=== PATIENT | male | born 1930 | race Caucasian/White ===

== ENCOUNTER 2016-07-18 06:08 | Inpatient (IN) | payer OTHER, BC ==
--- NOTE | 2016-07-18 06:21 | PDOC ---
[id number], EMS - History of Present Illness Initial Comments: 07/18/16 06:31 86yo m from home biba after mechanical fall from bed. He is answering questions appropriately and says he has no complaints at this time. He was found on the floor on the LEFT lateral side an hour after sliding off of the mattress. EMS indicates there is a significant social issue in the home with significant amount of disarray, very poorly kept and hoarding as well. He is urinary/fecal incontinent and they indicate the mattress was absolutely covered in old and new urine. Accodring to the , he is at neurologic baseline and has no recent issues. He has h/o CVA remotely. The patient specifically denies chest pain, palpitations, SOB, headache, n/v and no abdominal pain reported. Timing/Duration: 1 hour Severity: mild Past History - Travel Traveled outside of the country in the last 30 days: No Close contact w/someone who was outside of country & ill: No - Past Medical History Allergies/Adverse Reactions: Allergies Allergy/AdvReac Type Severity Reaction Status Date / Time No Known Allergies Allergy Verified 07/18/16 06:35 Home Medications: Ambulatory Orders Amlodipine Besylate/Benazepril [Lotrel 5-40 mg Capsule] 1 each PO DAILY Atorvastatin Ca [Lipitor] 20 mg PO HS 12/05/15 Glyburide 10 mg PO BID 12/05/15 Acetaminophen [Tylenol .Regular Strength -] 650 mg PO Q6H PRN #0 tablet Donepezil HCl [Aricept] 10 mg PO DAILY #30 tablet 07/21/16 Insulin (Levemir) [Levemir Vial] 10 units SQ BID #20 ml 07/21/16 CVA: Yes Diabetes: Yes HTN: Yes Hypercholesterolemia: Yes Suicide Attempt (Hx): No - Psycho/Social/Smoking Cessation Hx Suicidal Ideation: No Smoking History: Unknown if ever smoked Have you smoked in the past 12 months: No If you are a former smoker, when did you quit?: 52 yrs old Drug/Substance Use Hx: No Review of Systems - Review of Systems Is the patient limited Pashto proficient: No Constitutional: Yes: Weakness. No: Chills, Diaphoresis, Fever, Loss of Appetite , Malaise, Night Sweats HEENTM: No: Eye Pain, Blurred Vision, Tearing, Double Vision, Nose Bleeding, Hearing Loss Respiratory: No: Cough, Shortness of Breath, Wheezing Cardiac (ROS): No: Chest Pain, Edema, Irregular Heart Rate, Palpitations ABD/GI: No: Abdominal Distended, Abd. Pain w/ defecation, Constipated, Diarrhea , Tarry Stools : No: Dysuria, Discharge, Frequency Musculoskeletal: No: Back Pain, Joint Pain, Muscle Pain Integumentary: No: Bruising, Change in Color, Rash Neurological: No: Headache, Numbness, Paresthesia, Seizure, Weakness Psychiatric: No: Anxiety *Physical Exam - Physical Exam General Appearance: Yes: Disheveled, Obese, Other (malodorous, covered in feces , particularly in the groin and crural folds; extremly poor hydgiene.). No: Apparent Distress HEENT: positive: CHRISTINA, Normal ENT Inspection, Normal Voice, Symmetrical, Pharynx Normal. negative: Photophobia, Scleral Icterus (R), Scleral Icterus (L) , Pharyngeal Erythema, Tonsillar Exudate, Tonsillar Erythema Neck: positive: Trachea midline Respiratory/Chest: positive: Lungs Clear, Normal Breath Sounds. negative: Chest Tender, Respiratory Distress, Accessory Muscle Use Cardiovascular: positive: Regular Rhythm, Regular Rate, S1, S2. negative: Edema , JVD, Murmur Vascular Pulses: Dorsalis-Pedis (R): 1+, Doralis-Pedis (L): 1+ Gastrointestinal/Abdominal: positive: Normal Bowel Sounds, Soft, Other (obese abdomen, no hernia, normal bowel sounds; no surgical scars.). negative: Tender , Flat, Organomegaly, Pulsatile Mass Lymphatic: negative: Adenopathy Musculoskeletal: positive: Normal Inspection. negative: CVA Tenderness, Decreased Range of Motion, Muscle Spasm, Vertebral Tenderness Extremity: positive: Normal Capillary Refill, Other (significant chronic stasis changes; no evidence of cellulitis ulcerations; stage I decubitus ulcer). negative: Normal Inspection Integumentary: positive: Normal Color, Dry, Warm Neurologic: positive: local telephone operator II-XII NML intact, Fully Oriented, Alert, Normal Mood/ Affect, Normal Response Heart Score/ECG Review - ECG Intrepretation Rhythm: Regular Rhythm (NSR 103, normal axis, no LVH, no obvious ischemia; nonspecific T wave abnormality noted; RBBB.) ED Treatment Course - LABORATORY CBC & Chemistry Diagram: 07/20/16 05:42 07/21/16 06:00 Medical Decision Making - Medical Decision Making 07/18/16 06:45 This is an 86yo m with very poor home condition, poor personal hygiene and likely not able to care for self, based on the description of the home. I have asked if there is any family and he replies no children and no next of kin other than his . He indicates no current symptoms. He had suffered a mechanical slip and fall while trying to get out of bed while walking to the bathroom. I am concerned about the SORS criteria and h/o cellulitis however, no objective evidence of this is present. More concerning is from a social perspective and it is apparent the patient is in need of social service evaluation and intervention. I will give the patient gentle hydration and I will need to sign the patient out to Dr. Razo who will follow up the diagnostics and I will endorse admission. Although he is answering questions appropriately at this time, per EMS he was not answering questions and looked confused, even when speaking to him in Faroese. Will obtain CT head noncontrast. No focality is noted on PE. 07/18/16 06:54 Significant leukocytosis is noted at 23k. Will start rocephin to cover empirically for suspected and likely UTI as well as potential lung coverage pending CXR; he has no complaints of cough. EKG is reassuring and consistent with 08/2014. *DC/Admit/Observation/Transfer Diagnosis at time of Disposition: Acute on chronic renal failure, Elevation of cardiac enzymes Leukocytosis Qualifiers: Leukocytosis type: unspecified Qualified Code(s): D72.829 - Elevated white blood cell count, unspecified - Discharge Dispostion Disposition: [facility] F[facility] Condition at time of disposition: Improved Admit: No - Prescriptions - Attestations Physician Attestion: 08/12/16 06:48 I, Dr. Tomer Richardson MD, attest that this document has been prepared under my direction and personally reviewed by me in its entirety. I further attest, that it accurately reflects all work, treatment, procedures and medical decision -making performed by me.
[2016-07-18 06:37] LABS: MCH 27.7 pg (25.7-33.7); MCHC 33.1 g/dl (32.0-35.9); MEAN CELL VOLUME 83.7 fl (80-96); MEAN PLT VOLUME 9.4 fl (7.5-11.1); PLATELET COUNT 192 K/MM3 (134-434); RDW 15.6 % (11.9-15.9)
[2016-07-18] MEDS ORDERED: CEFTRIAXONE 1,000 MG in DEXTROSE 5%-WATER - 50 ML IVPB ONE (06:53)
[2016-07-18] MEDS ORDERED: CEFTRIAXONE 50 ML ONE (06:57)
[2016-07-18 06:58] LABS: INR 1.2 (0.82-1.09); PROTHROMBIN TIME (PATIENT) 13.2 SEC (9.98-11.88)
[2016-07-18] MEDS ORDERED: SODIUM CHLORIDE 0.9% 500 ML INFUS.BAG IV ONE (07:03)
[2016-07-18 07:05] LABS: ALBUMIN 3.2 g/dl (3.4-5.0); CALCIUM 9.1 mg/dL (8.5-10.1); CREATININE 2.1 mg/dL (0.7-1.3)
[2016-07-18 07:06] LABS: MAGNESIUM 2.3 mg/dL (1.8-2.4); PHOSPHOROUS 2.9 mg/dL (2.5-4.9)
[2016-07-18 07:18] LABS: TOT PROT 7.4 g/dl (6.4-8.2); TROPONIN I 0.18 ng/ml (0.00-0.05)
[2016-07-18] MEDS ORDERED: VANCOMYCIN 1,000 MG in DEXTROSE 5%-WATER - 250 ML IVPB ONE (07:43)
[2016-07-18] MEDS ORDERED: VANCOMYCIN 1 GRAM (PRE-DOCKED) 250 ML IVPB ONE (07:45)
[2016-07-18] MEDS ORDERED: SODIUM CHLORIDE 500 ML IV ONE (07:45)
--- NOTE | 2016-07-18 07:50 | PDOC ---
*Physical Exam - Vital Signs Last Vital Signs Temp Pulse Resp BP Pulse Ox 98.3 F 96 H 18 154/91 96 07/18/16 06:35 07/18/16 07:37 07/18/16 07:37 07/18/16 07:37 07/18/16 07:37 - Physical Exam Comments: 07/18/16 07:47 Blood pressure 150/70, heart rate 90, afebrile 99.7 rectally, O2 sat within normal limits. Unkempt, but alert and not in acute distress ED Treatment Course - LABORATORY CBC & Chemistry Diagram: 07/18/16 06:15 07/18/16 06:15 - ADDITIONAL ORDERS Additional order review: Laboratory Results 07/18/16 07/18/16 07/18/16 06:15 06:15 06:15 INR 1.20 H Sodium Potassium Chloride Carbon Dioxide Anion Gap BUN Creatinine Creat Clearance w eGFR Random Glucose Lactic Acid Calcium Phosphorus 2.9 Magnesium 2.3 D Total Bilirubin AST ALT Alkaline Phosphatase Creatine Kinase Creatine Kinase Index CK-MB (CK-2) CK-MB (CK-2) Rel Index Cancelled Troponin I B-Natriuretic Peptide 487.48 H Total Protein Albumin Lipase 112 Blood Type Antibody Screen 07/18/16 07/18/16 07/18/16 06:15 06:15 06:15 INR Sodium 139 Potassium 5.3 H Chloride 103 Carbon Dioxide 23 Anion Gap 13 BUN 29 H D Creatinine 2.1 H D Creat Clearance w eGFR 30.24 Random Glucose 211 H D Lactic Acid 3.844 H* Calcium 9.1 Phosphorus Magnesium Total Bilirubin 1.0 D AST 56 H D ALT 36 Alkaline Phosphatase 113 D Creatine Kinase 1697 H D Creatine Kinase Index 0.3 CK-MB (CK-2) 4.453 H CK-MB (CK-2) Rel Index Troponin I 0.18 H D B-Natriuretic Peptide Total Protein 7.4 Albumin 3.2 L Lipase Blood Type O NEGATIVE Antibody Screen Negative 07/18/16 06:15 RBC 5.13 MCV 83.7 MCHC 33.1 RDW 15.6 MPV 9.4 Neutrophils % Y Lymphocytes % Y - Medications Given in the ED: ED Medications Discontinued Medications Generic Name Dose Route Start Last Admin Trade Name Freq PRN Reason Stop Dose Admin Ceftriaxone Sodium 1,000 mg/ 50 mls @ 100 mls/hr 07/18/16 06:53 07/18/16 07:03 Dextrose IVPB 07/18/16 07:22 100 mls/hr ONCE ONE Administration Sodium Chloride 500 ml 07/18/16 07:03 07/18/16 07:05 Normal Saline - IV 07/18/16 07:04 500 ml ONCE ONE Administration Medical Decision Making - Medical Decision Making 07/18/16 07:47 Received signout on this 86-year-old male with history of CVA brought in by EMS after fall to ground, vital signs within normal limits here but noted to be disheveled, unkempt, and generally weak appearing. Workup at the time of sign out revealed a leukocytosis of 23, a normal head CT, a chest x-ray without acute infiltrate. A dose of ceftriaxone was given, IV fluid hydration had been started, and the plan was to admit the patient once workup completed. Chemistries now resulted, notable for creatinine of 2.1 which is elevated for the patient, potassium of 5.3, elevated troponin of 0.18, and elevated lactate of 3.8. Broadened antibiotic coverage with vancomycin, continue IV fluid hydration. Awaiting UA/cx. Will proceed with admission, Dr. Coffey/Cristiano covarrubias Aneesh. 07/18/16 08:07 Acetone negative. Accepted for inpatient tele by Dr. Coffey. *DC/Admit/Observation/Transfer Diagnosis at time of Disposition: Acute on chronic renal failure, Elevation of cardiac enzymes Leukocytosis Qualifiers: Leukocytosis type: unspecified Qualified Code(s): D72.829 - Elevated white blood cell count, unspecified - Discharge Dispostion Condition at time of disposition: Guarded Admit: Yes
[2016-07-18] MEDS ORDERED: ACETAMINOPHEN 325 MG TABLET (FP) PO PRN (09:09)
[2016-07-18 09:35] LABS: URINE APPEARANCE CLEAR; URINE BILIRUBIN NEGATIVE (NEGATIVE); URINE COLOR YELLOW; URINE GLUCOSE (UA) 1+ (NEGATIVE); URINE KETONE NEGATIVE (NEGATIVE); URINE LEUK ESTERASE NEGATIVE (NEGATIVE); URINE NITRITE NEGATIVE (NEGATIVE); URINE UROBILINOGEN NEGATIVE E.U./dl (0.2-1.0)
[2016-07-18 09:45] LABS: URINE BLOOD 2+ (NEGATIVE); URINE PROTEIN 2+ (NEGATIVE)
[2016-07-18 10:28] VITALS: BMI 30.5
--- NOTE | 2016-07-18 10:51 | HP ---
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 He is answering questions appropriately and says he has no complaints at this time. He was found on the floor on the LEFT lateral side an hour after sliding off of the mattress. EMS indicates there is a significant social issue in the home with significant amount of disarray, very poorly kept and hoarding as well. He is urinary/fecal incontinent and they indicate the mattress was absolutely covered in old and new urine. Accodring to the , he is at neurologic baseline and has no recent issues. He has h/o CVA remotely. The patient specifically denies chest pain, palpitations, SOB, headache, n/v and no abdominal pain reported. Workup revealed leukocytosis with L shift. Lactic acid is also elevated. Patient given broad spectrum abx as well as IVF in ED. CXr is negative. UA is negative. Patient has mild elevation of troponins. Patient admitted to telemetry for sepsis and elevated trops. Patient seen by me in telemetry. Case was discussed earlier today with ED physician. Patient awake and comfortable. Sitting in the chair. Denies any chest pain or SOB. Denies any abdominal pain. Denies urinary burning. Patient is alert and awake but a poor historian. <Kandi Blanco - Last Filed: 07/18/16 11:13> Home Medications <Adal Coffey - Last Filed: 07/18/16 10:51> <Kandi Blanco - Last Filed: 07/18/16 11:13> - Allergies Allergies/Adverse Reactions: Allergies Allergy/AdvReac Type Severity Reaction Status Date / Time No Known Allergies Allergy Verified 07/18/16 06:35 - Home Medications Home Medications: Ambulatory Orders Amlodipine Besylate/Benazepril [Lotrel 5-40 mg Capsule] 1 each PO DAILY Atorvastatin Ca [Lipitor] 20 mg PO HS 12/05/15 Furosemide [Lasix -] 40 mg PO DAILY 12/05/15 Glyburide 10 mg PO BID 12/05/15 Potassium Chloride [Klor-Con 10] 20 meq PO DAILY 12/05/15 Acetaminophen [Tylenol .Regular Strength -] 650 mg PO Q6H PRN #0 tablet Amlodipine Besylate [Norvasc -] 5 mg PO DAILY tablet 12/08/15 Cephalexin [Keflex] 500 mg PO TID #30 capsule 12/08/15 Collagenase Clostridium Hist. [Santyl -] 1 applic TP DAILY #1 tube 12/08/15 Review of Systems Findings/Remarks: See HPI <Kandi Blanco - Last Filed: 07/18/16 11:13> Physical Examination Vital Signs: Vital Signs Temperature 98.3 F 07/18/16 06:35 Pulse Rate 97 H 07/18/16 08:52 Respiratory Rate 18 07/18/16 08:52 Blood Pressure 141/81 07/18/16 08:52 O2 Sat by Pulse Oximetry (%) 98 07/18/16 08:52 <Adal Coffey - Last Filed: 07/18/16 10:51> Vital Signs: Vital Signs Temperature 98.3 F 07/18/16 06:35 Pulse Rate 97 H 07/18/16 08:52 Respiratory Rate 18 07/18/16 08:52 Blood Pressure 141/81 07/18/16 08:52 O2 Sat by Pulse Oximetry (%) 98 07/18/16 08:52 Constitutional: Yes: No Distress, Calm Eyes: Yes: PERRL HENT: Yes: WNL Neck: Yes: WNL, Supple Cardiovascular: Yes: Regular Rate and Rhythm Respiratory: Yes: CTA Bilaterally Gastrointestinal: Yes: Soft Edema: No Neurological: Yes: Alert, Other (nonfocal) <Kandi Blanco - Last Filed: 07/18/16 11:13> Imaging - Results Chest X-ray: Report Reviewed EKG: Report Reviewed <Kandi Blanco - Last Filed: 07/18/16 11:13> Problem List - Problems (1) Acute on chronic renal failure Code(s): N17.9 - ACUTE KIDNEY FAILURE, UNSPECIFIED N18.9 - CHRONIC KIDNEY DISEASE, UNSPECIFIED (2) Elevation of cardiac enzymes Code(s): R74.8 - ABNORMAL LEVELS OF OTHER SERUM ENZYMES (3) Leukocytosis Code(s): D72.829 - ELEVATED WHITE BLOOD CELL COUNT, UNSPECIFIED Qualifiers: Leukocytosis type: unspecified Qualified Code(s): D72.829 - Elevated white blood cell count, unspecified (4) Diabetes Code(s): E11.9 - TYPE 2 DIABETES MELLITUS WITHOUT COMPLICATIONS (5) HTN (hypertension) Code(s): I10 - ESSENTIAL (PRIMARY) HYPERTENSION (6) Sepsis Code(s): A41.9 - SEPSIS, UNSPECIFIED ORGANISM <Kandi Blanco - Last Filed: 07/18/16 11:13> Assessment/Plan Monitor on telemetry. Broad spectrum abx. IVF. ID to evaluate. Cardiology consult. Hold diabetic medications. Fall precautions. PT Follow up labs. Patient will need psychotherapist social worker help-- likely unable to take care of himself. Will follow. Documentation prepared by Kandi Blanco, acting as a medical lab specialist for Adal Coffey MD. <Kandi Blanco - Last Filed: 07/18/16 11:13>
[2016-07-18 11:00] LABS: URINE HYALINE CAST 1 /lpf; URINE MUCUS RARE; URINE RBC 2 /hpf (0-3); URINE WBC <1 /hpf (3-5)
[2016-07-18] MEDS ORDERED: INSULIN SLIDING SCALE (NOVOLOG) 1 VIAL SQ SCH (11:00)
--- NOTE | 2016-07-18 11:34 | CON.CARD ---
Consult Consult Specialty:: cardio Referred by:: ariadna Reason for Consultation:: fall - History of Present Illness Chief Complaint: fall History of Present Illness: 86 yo male admitted s/p fall. history per ER notes (per their discussion with ): mechanical fall from bed. He is answering questions appropriately and says he has no complaints at this time. He was found on the floor on the LEFT lateral side an hour after sliding off of the mattress--?. EMS indicates there is a significant social issue in the home with significant amount of disarray, very poorly kept and hoarding as well. He is urinary/fecal incontinent and they indicate the mattress was absolutely covered in old and new urine. Accodring to the , he is at neurologic baseline and has no recent issues. 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 Cardio/Vascular: Yes: CHF, HTN - Alcohol/Substance Use Hx Alcohol Use: No - Smoking History Smoking history: Former smoker Have you smoked in the past 12 months: No Aproximately how many cigarettes per day: 0 If you are a former smoker, when did you quit?: 30 yrs ago Home Medications - Allergies Allergies/Adverse Reactions: Allergies Allergy/AdvReac Type Severity Reaction Status Date / Time No Known Allergies Allergy Verified 07/18/16 06:35 - Home Medications Home Medications: Ambulatory Orders Amlodipine Besylate/Benazepril [Lotrel 5-40 mg Capsule] 1 each PO DAILY Atorvastatin Ca [Lipitor] 20 mg PO HS 12/05/15 Furosemide [Lasix -] 40 mg PO DAILY 12/05/15 Glyburide 10 mg PO BID 12/05/15 Potassium Chloride [Klor-Con 10] 20 meq PO DAILY 12/05/15 Acetaminophen [Tylenol .Regular Strength -] 650 mg PO Q6H PRN #0 tablet Amlodipine Besylate [Norvasc -] 5 mg PO DAILY tablet 12/08/15 Cephalexin [Keflex] 500 mg PO TID #30 capsule 12/08/15 Collagenase Clostridium Hist. [Santyl -] 1 applic TP DAILY #1 tube 12/08/15 Review of Systems Unable to obtain ROS, reason: pt poor historian - Review of Systems Constitutional: denies: Chills, Fever Eyes: denies: Eye Pain HENT: denies: Nasal Congestion Neck: denies: Stiffness Cardiovascular: denies: Palpitations Respiratory: denies: Orthopnea, PND Gastrointestinal: denies: Diarrhea, Rectal Bleeding Genitourinary: denies: Burning, Hematuria Musculoskeletal: denies: Muscle Pain Integumentary: denies: Rash Neurological: denies: Numbness, Seizure, Syncope Endocrine: denies: Excessive Sweating Hematology/Lymphatic: denies: Excessive Bleeding Vital Signs: Vital Signs Temperature 98.3 F 07/18/16 06:35 Pulse Rate 97 H 07/18/16 08:52 Respiratory Rate 18 07/18/16 08:52 Blood Pressure 141/81 07/18/16 08:52 O2 Sat by Pulse Oximetry (%) 98 07/18/16 08:52 Constitutional: Yes: Well Nourished, No Distress Eyes: No: Sclera Icterus HENT: No: Nasal Congestion Neck: No: Decreased ROM Respiratory: Yes: CTA Bilaterally. No: Accessory Muscle Use, Rales, Wheezes Gastrointestinal: Yes: Normal Bowel Sounds. No: Distention, Hepatomegaly, Palpable Mass, Tenderness Cardiovascular: Yes: Regular Rate and Rhythm JVD: No Carotid Bruit: No PMI: Non-Displaced Heart Sounds: Yes: S1, S2. No: Gallop Murmur: No: Systolic Murmur, Diastolic Murmur Musculoskeletal: Yes: Other (No kyphosis) Extremities: No: Cold, Cyanosis Edema: No Peripheral Pulses: 2+ Left Carotid, 2+ Right Carotid, 2+ Left Doralis Pedis, 2+ Right Dorsalis Pedis Integumentary: No: Jaundice Neurological: Yes: Alert. No: Seizure Psychiatric: No: Agitated - Other Data Labs, Other Data: INR, PTT INR 1.20 (0.82-1.09) H 07/18/16 06:15 ekg: sinus tach (103); nl axis; RBBB; no path q's; no ST-Ts vs prior (2014) tele: NSR Imaging - Results Chest X-ray: Report Reviewed (clear lungs/pleura) Cat Scan: Report Reviewed (no acute path (old lacune)) Assessment/Plan Echo 2015: nl LV/EF; nl RV; nl LA; mild-mod TR; RVSP 30-40; mild dil ao root s/p fall, mechanical?: -"mechanical" fall from mattress per ER notes, via discussion with --no details given -s/p unexplained fall 2014 with acute thalamic bleed at that time -CT head here without acute changes -lactic acidosis noted: fall could be due to weakness from active infection; r/ o hypotensive with hypoperfusion transiently at home -cont telemetry -rpt echo HTN: -with h/o probable hypertensive ICH 2014 -bp currently well controlled -cont home meds elevated cardiac enzymes: -no ekg changes or obvious cardiac ischemia sx's -trop 0.1; -cpk 1600, normal index--likely sec to muscle injury from prolonged stay on floor -rpt serial enzymes this afternoon [place]: -? prerenal--pt at risk for vol depletion based on EMS description of unkempt, dirty home -IVF as doing -trend labs -per pmd lactic acidosis: -? etiology -hi wbc (>20) with left shift suspicious for sepsis -? was hypotensive at home (contributed to fall?)--monitor tele -ivf -f/u cultures HPL: -cont home statin DM: -per pmd
--- NOTE | 2016-07-18 12:08 | PN ---
Progress Note (short form) - Note Progress Note: ID consult dictated chart reviewed patient is poor historian 86 year old man brought to ED s/p fall from bed this am, he was found to have poor personal hygeine with urinary/fecal incontinence he was found to have elevated WBC and lactic acid no fevers, no complaints sepsis-suspect celllulitis suspect skin source UA negative, cxray negative venous stasis changes with some erythema of the legs, +shallow open ulcer received vancomycin and ceftriaxone in the ED would continue ceftriaxone f/u cultures rhabdomyolysis CKD noted -at baseline HTN s/p CVA elevated glucose Problem List - Problems (1) Sepsis Code(s): A41.9 - SEPSIS, UNSPECIFIED ORGANISM (2) Cellulitis Code(s): L03.90 - CELLULITIS, UNSPECIFIED Qualifiers: Site of cellulitis: extremity Site of cellulitis of extremity: lower extremity Laterality: right Qualified Code(s): L03.115 - Cellulitis of right lower limb (3) CKD (chronic kidney disease) Code(s): N18.9 - CHRONIC KIDNEY DISEASE, UNSPECIFIED (4) Elevated glucose Code(s): R73.09 - OTHER ABNORMAL GLUCOSE (5) Rhabdomyolysis Code(s): M62.82 - RHABDOMYOLYSIS (6) HTN (hypertension) Code(s): I10 - ESSENTIAL (PRIMARY) HYPERTENSION
[2016-07-18] MEDS ORDERED: INSULIN (NOVOLOG) ASPART 100 UNITS/ML 10ML VIAL ONE (12:32)
--- NOTE | 2016-07-18 12:36 | EKG ---
Test Reason : Blood Pressure : / mmHG Vent. Rate : 103 BPM Atrial Rate : 103 BPM P-R Int : 218 ms QRS Dur : 124 ms QT Int : 330 ms P-R-T Axes : 045 078 005 degrees QTc Int : 432 ms SINUS TACHYCARDIA WITH 1ST DEGREE A-V BLOCK RIGHT BUNDLE BRANCH BLOCK T WAVE ABNORMALITY, CONSIDER INFERIOR ISCHEMIA ABNORMAL ECG WHEN COMPARED WITH ECG OF 12-SEP-2014 11:57, [place] INTERVAL HAS INCREASED VENT. RATE HAS INCREASED BY 36 BPM Confirmed by DM DUNCAN MD ([id number]) on 07/18/2016 12:36:03 PM Referred By: Confirmed By:DM DUNCAN MD
[2016-07-18] MEDS: SODIUM CHLORIDE 1,000 ML IV SCH (12:43)
[2016-07-18] MEDS: HEPARIN NA (PORCINE) 5,000 UNITS/ML 1ML VIAL SQ SCH ×2 (12:44→23:02)
[2016-07-18] MEDS: INSULIN SLIDING SCALE (NOVOLOG) 1 VIAL SQ SCH ×3 (12:44→22:39)
[2016-07-18] MEDS: amLODIPine BESYLATE 5 MG TABLET (FP) PO SCH (12:44)
--- NOTE | 2016-07-18 13:19 | CONS ---
DATE OF CONSULTATION: REQUESTING PHYSICIAN: Adal Coffey MD HISTORY: This is an 86-year-old man who is brought in from home after he fell out of bed. He was found to have very poor personal hygiene. There is a question of fecal and urinary incontinence. He is awake and alert and has been cleaned up and is quite comfortable. He denies all complaints. He was noted in the emergency room to have an elevated white count of 23,000 and an elevated lactic acid of 3.8. He was treated for sepsis. He had cultures drawn. He was given IV fluids, vancomycin, and ceftriaxone. I am asked to see him for further recommendations. Currently resting comfortably. He has no complaints whatsoever. ALLERGIES: He has no known drug allergies. SOCIAL HISTORY: His PMD is Dr. Melendrez. He lives with his . It is unknown if he ever smoked. He is original from [facility]. MEDICATIONS: At home include amlodipine, benazepril, atorvastatin, Lasix, glyburide, amlodipine. PAST MEDICAL HISTORY: Notable for CVA, CHF, hypertension. PAST SURGICAL HISTORY: Unremarkable. REVIEW OF SYSTEMS: He denies headache. He denies cough, nausea, vomiting, abdominal pain, chest pain. He has had 1 prior admission in the past for cellulitis and 1 for a CVA. The CVA was in 2015, and he had in 2016 one admission for cellulitis of his legs. PHYSICAL EXAMINATION: General: He is a pleasant man awake and alert. He is a poor historian. He told me he is 82 when he is actually 86. He does not know where he is. He does not know the name of his primary doctor. Vital Signs: Temperature 98.3, pulse 97, blood pressure 141/81, respiratory rate 18. He is saturating 98%. HEENT: He is normocephalic. His eyes are anicteric. Neck: Supple. He has no thrush. Lungs: Clear to auscultation. Heart: Regular rate and rhythm. Abdomen: Firm, nontender. Extremities: Notable for venostasis changes bilaterally. He has some mild erythema of both legs with an open abrasion of the left lower extremity. Both his feet have overgrown toenails and a fungal toe infection. LABORATORY DATA: White count 23,000 with a hemoglobin 14.2, platelets 192, INR 1.2, BUN 29, creatinine 2.1 with lactic acid 3.8 but on repeat was 2.5. CPK 1697. Urinalysis is negative for white cells. He is acetone negative. Cultures are pending. RADIOLOGIC DATA: He had a chest x-ray that was unremarkable. Head CT that shows no acute changes. IMPRESSION: 1. In summary, this is an elderly man with sepsis with lactic acidosis and leukocytosis. I suspect skin source. Urinalysis is negative. Chest x-ray is unremarkable. He has venostasis changes of his legs with some erythema suggestive of cellulitis. He has a shallow, open ulcer. He received vancomycin and ceftriaxone in the emergency room this morning. Would continue ceftriaxone and follow up his cultures. 2. Chronic kidney disease. Creatinine in 2016 was 2, so he appears at his baseline. 3. Mild rhabdomyolysis. 4. Hypertension. 5. History of cerebrovascular accident. ANDREW QUIGLEY M.D. [id number]
[2016-07-18] MEDS: ATORVASTATIN CA 20 MG TABLET (FP) PO SCH (23:03)
[2016-07-19] MEDS: SODIUM CHLORIDE 1,000 ML IV SCH ×3 (02:31→17:00)
[2016-07-19] MEDS: INSULIN SLIDING SCALE (NOVOLOG) 1 VIAL SQ SCH ×4 (06:12→22:26)
[2016-07-19 08:18] LABS: BASOPHIL 0.7 % (0-2.0); EOSINOPHIL 0.5 % (0-4.5); MCH 28.2 pg (25.7-33.7); MEAN CELL VOLUME 85.3 fl (80-96); NEUTROPHILS 77.2 % (42.8-82.8); PLATELET COUNT 132 K/MM3 (134-434); RDW 15.7 % (11.9-15.9); WHITE BLOOD COUNT 8.1 K/mm3 (4.0-10.0)
--- NOTE | 2016-07-19 08:42 | PN ---
Progress Note (short form) - Note Progress Note: sitting in chair pleasantly confused. denies pain. no cp/ sob. i/d consult noted/ appreciated Vital Signs Temp 98.9 F 07/19/16 05:54 Pulse 89 07/19/16 05:54 Resp 16 07/19/16 05:54 BP 144/55 07/19/16 05:54 Pulse Ox 96 07/18/16 21:00 Intake & Output 07/18/16 07/18/16 07/19/16 11:59 23:59 11:59 Intake Total 399 858 0406 Balance 007 112 0112 Weight 207 lb Intake: IV 500 1200 Normal Saline - 1,000 ml 1200 @ 100 mls/hr IV ASDIR [facility] Rx#:[id number] Oral 200 430 Other: Voiding Method Incontinent Toilet # Unmeasured Voids Void 3 2 Bowel Movement No Height 5 ft 9 in Body Mass Index (BMI) 30.5 Weight Measurement Method Stated by Caregiver Weight Measurement Method Estimated by Staff Active Medications Acetaminophen (Tylenol -) 650 mg PO Q6H PRN PRN Reason: FEVER OR PAIN Amlodipine Besylate (Norvasc -) 5 mg PO DAILY [facility] Last Admin: 07/18/16 12:44 Dose: 5 mg Atorvastatin Calcium (Lipitor -) 20 mg PO HS [facility] Last Admin: 07/18/16 23:03 Dose: 20 mg Heparin Sodium (Porcine) (Heparin -) 5,000 unit SQ BID [facility] Last Admin: 07/18/16 23:02 Dose: 5,000 unit Sodium Chloride (Normal Saline -) 1,000 mls @ 100 mls/hr IV ASDIR [facility] Last Admin: 07/19/16 02:31 Dose: 100 mls/hr Ceftriaxone Sodium (Rocephin 1gm Ivpb (Pre-Docked)) 50 mls @ 100 mls/hr IVPB DAILY [facility] Insulin Aspart (Novolog Vial Sliding Scale -) 1 vial SQ ACHS [facility] PRN Reason: Protocol Last Admin: 07/19/16 06:12 Dose: Not Given Todays - Labs-- Pending Physical Examination Constitutional: Yes: No Distress, Calm Eyes: Yes: PERRLA HENT: Yes: WNL Neck: Yes: WNL, Supple Cardiovascular: Yes: Regular Rate and Rhythm Respiratory: Yes: CTA Bilaterally Gastrointestinal: Yes: Soft Edema: No Neurological: Yes: Alert, Other (nonfocal) Assessment/Plan stable Abx f/u cultures f/u labs/ lactic acid continue abx/ fluids monitor bgm d/c tele if lactic acid is ok will follow discussed with nursing staff.
--- NOTE | 2016-07-19 09:27 | PN ---
Progress Note (short form) - Note Progress Note: Chief Complaint: fall S: Denies complaints, no cp, palps, dizziness, sob. ?reliability of history. sitting by nursing station. . Former smoker. Per report, EMS noted significant social issue in the home with disarray, hoarding, etc.. Current Medications Acetaminophen (Tylenol -) 650 mg PO Q6H PRN PRN Reason: FEVER OR PAIN Amlodipine Besylate (Norvasc -) 5 mg PO DAILY [facility] Last Admin: 07/18/16 12:44 Dose: 5 mg Atorvastatin Calcium (Lipitor -) 20 mg PO HS [facility] Last Admin: 07/18/16 23:03 Dose: 20 mg Heparin Sodium (Porcine) (Heparin -) 5,000 unit SQ BID [facility] Last Admin: 07/18/16 23:02 Dose: 5,000 unit Sodium Chloride (Normal Saline -) 1,000 mls @ 100 mls/hr IV ASDIR [facility] Last Admin: 07/19/16 02:31 Dose: 100 mls/hr Ceftriaxone Sodium (Rocephin 1gm Ivpb (Pre-Docked)) 50 mls @ 100 mls/hr IVPB DAILY [facility] Insulin Aspart (Novolog Vial Sliding Scale -) 1 vial SQ ACHS [facility] PRN Reason: Protocol Last Admin: 07/19/16 06:12 Dose: Not Given Vital Signs - 24 hr 07/18/16 07/18/16 07/18/16 10:16 10:30 17:37 Temperature 98 F 98.6 F Pulse Rate 100 H 93 H Respiratory 18 18 Rate Blood Pressure 146/66 150/71 O2 Sat by Pulse 95 Oximetry (%) 07/18/16 07/19/16 07/19/16 21:00 01:55 05:54 Temperature 98.7 F 98.7 F 98.9 F Pulse Rate 89 82 89 Respiratory 18 18 16 Rate Blood Pressure 154/82 155/77 144/55 O2 Sat by Pulse 96 Oximetry (%) Intake & Output 07/17/16 07/18/16 07/19/16 07/20/16 07:59 07:59 07:59 07:59 Intake Total 500 1830 Balance 500 1830 Weight 170 lb 207 lb Constitutional: Yes: Well Nourished, No Distress, disheveled Eyes: No: Sclera Icterus HENT: No: Nasal Congestion Neck: No: Decreased ROM Respiratory: Yes: CTA Bilaterally. No: Accessory Muscle Use, Rales, Wheezes Gastrointestinal: Yes: Normal Bowel Sounds. No: Distention, Hepatomegaly, Palpable Mass, Tenderness Cardiovascular: Yes: Regular Rate and Rhythm JVD: No Carotid Bruit: No PMI: Non-Displaced Heart Sounds: Yes: S1, S2. No: Gallop Murmur: No: Systolic Murmur, Diastolic Murmur Musculoskeletal: Yes: Other (No kyphosis) Extremities: No: Cold, Cyanosis Edema: No, chronic erythema, venous stasis changes. Peripheral Pulses: 2+ Left Carotid, 2+ Right Carotid, 2+ Left Doralis Pedis, 2+ Right Dorsalis Pedis Integumentary: No: Jaundice Neurological: Yes: Alert. No: Seizure Psychiatric: No: Agitated - Other Data Labs, Other Data: CBC, BMP 07/19/16 06:55 Laboratory Tests 07/18/16 07/19/16 07/19/16 06:15 06:55 06:55 Sodium 144 Potassium 4.4 Carbon Dioxide 22 BUN 29 H D 21 H D Creatinine 2.1 H D 1.4 H D Hemoglobin A1c % 11.6 H Lactic Acid Total Bilirubin 0.6 D AST 78 H D ALT 29 Alkaline Phosphatase 83 D Albumin 2.6 L Triglycerides 159 Cholesterol 155 Total LDL Cholesterol 103 H D HDL Cholesterol 33 L 07/19/16 09:00 Sodium Potassium Carbon Dioxide BUN Creatinine Hemoglobin A1c % Lactic Acid 1.243 Total Bilirubin AST ALT Alkaline Phosphatase Albumin Triglycerides Cholesterol Total LDL Cholesterol HDL Cholesterol ekg: sinus tach (103); nl axis; RBBB; no path q's; no ST-Ts vs prior (2014) tele: NSR, av delay. cat[place] Imaging - Results Chest X-ray: Report and images Reviewed (clear lungs/pleura) Cat Scan: Report Reviewed (no acute path (old lacune)) Assessment/Plan Echo 06/2016: nl lv/rv. abnormal diastology. 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 s/p fall, mechanical?: -"mechanical" fall from mattress per ER notes, via discussion with --no details given -s/p unexplained fall 2014 with acute thalamic bleed at that time -CT head here without acute changes -lactic acidosis noted: fall could be due to weakness from active infection; r/ o hypotensive with hypoperfusion transiently at home -cont telemetry -rpt echo --> no significant abnormality HTN: -with h/o probable hypertensive ICH 2014 -bp currently well controlled - per report home meds norvasc 5/benazepril 40. Holding home benazepril 2/ [place]. Held home lasix/kcl while septic and on IVF. - 07/19: no longer hypotensive can stop IVF. reasonable bp control on norvasc alone. monitor for increasing hypertension elevated cardiac enzymes: -no ekg changes or obvious cardiac ischemia sx's -trop 0.1; -cpk 1600, normal index--likely sec to muscle injury from prolonged stay on floor -rpt serial enzymes this afternoon [place]: -? prerenal-- may not be able to care for himself given EMS description of home -significantly improved with IVF -trend labs -per pmd lactic acidosis: -? etiology -hi wbc (>20) with left shift suspicious for sepsis -? was hypotensive at home (contributed to fall?)--monitor tele -ivf --> can stop now -f/u cultures HPL: -cont home statin, atorva 20 DM: -uncontrolled, management per pmd
[2016-07-19 09:45] LABS: ALBUMIN 2.6 g/dl (3.4-5.0); BILIRUBIN,TOTAL 0.6 mg/dL (0.2-1.0); CALCIUM 8.5 mg/dL (8.5-10.1); CREATININE 1.4 mg/dL (0.7-1.3); TOT PROT 6.2 g/dl (6.4-8.2)
[2016-07-19] MEDS: HEPARIN NA (PORCINE) 5,000 UNITS/ML 1ML VIAL SQ SCH ×2 (10:21→22:25)
[2016-07-19] MEDS: CEFTRIAXONE 50 ML IVPB SCH (10:21)
[2016-07-19] MEDS: amLODIPine BESYLATE 5 MG TABLET (FP) PO SCH (10:21)
--- NOTE | 2016-07-19 14:55 | PN ---
Progress Note (short form) - Note Progress Note: oob in wheelchair NAD alert Vital Signs Period Temp Pulse Resp BP Sys/Car Pulse Ox Last 24 Hr 98.1 F-98.9 F 69-96 16-18 144-155/55-82 93-96 cor-rrr llungs clear abd soft,nt ext +erythema left anterior lewis bilateral venous stasis CBC, BMP 07/19/16 06:55 07/19/16 06:55 Laboratory Tests 07/19/16 06:55 Hemoglobin A1c % 11.6 H Microbiology 07/18/16 09:09 Urine - Urine Clean Catch Urine Culture - Final Contaminated: Please Repeat 07/18/16 04:47 Blood - Peripheral Venous Blood Culture - Preliminary NO GROWTH OBTAINED AFTER 24 HOURS, INCUBATION TO CONTINUE FOR 4 DAYS. 07/18/16 06:47 Blood - Peripheral Venous Blood Culture - Preliminary NO GROWTH OBTAINED AFTER 24 HOURS, INCUBATION TO CONTINUE FOR 4 DAYS. Current Medications Acetaminophen (Tylenol -) 650 mg PO Q6H PRN PRN Reason: FEVER OR PAIN Amlodipine Besylate (Norvasc -) 5 mg PO DAILY [facility] Last Admin: 07/19/16 10:21 Dose: 5 mg Atorvastatin Calcium (Lipitor -) 20 mg PO HS [facility] Last Admin: 07/18/16 23:03 Dose: 20 mg Heparin Sodium (Porcine) (Heparin -) 5,000 unit SQ BID [facility] Last Admin: 07/19/16 10:21 Dose: 5,000 unit Sodium Chloride (Normal Saline -) 1,000 mls @ 100 mls/hr IV ASDIR [facility] Last Admin: 07/19/16 10:26 Dose: Not Given Ceftriaxone Sodium (Rocephin 1gm Ivpb (Pre-Docked)) 50 mls @ 100 mls/hr IVPB DAILY [facility] Last Admin: 07/19/16 10:21 Dose: 100 mls/hr Insulin Aspart (Novolog Vial Sliding Scale -) 1 vial SQ ACHS [facility] PRN Reason: Protocol Last Admin: 07/19/16 11:44 Dose: Not Given a/p leukocytosis- ?secondary to celllulitis LLE continue rocephin rhabdomyolysis-cpk pending CKD noted -improved HTN s/p CVA diabetes- hgb aic 11.6! Problem List - Problems (1) Sepsis Code(s): A41.9 - SEPSIS, UNSPECIFIED ORGANISM (2) Cellulitis Code(s): L03.90 - CELLULITIS, UNSPECIFIED Qualifiers: Site of cellulitis: extremity Site of cellulitis of extremity: lower extremity Laterality: right Qualified Code(s): L03.115 - Cellulitis of right lower limb (3) CKD (chronic kidney disease) Code(s): N18.9 - CHRONIC KIDNEY DISEASE, UNSPECIFIED (4) Elevated glucose Code(s): R73.09 - OTHER ABNORMAL GLUCOSE (5) Rhabdomyolysis Code(s): M62.82 - RHABDOMYOLYSIS (6) HTN (hypertension) Code(s): I10 - ESSENTIAL (PRIMARY) HYPERTENSION
[2016-07-19 15:20] LABS: TROPONIN I 0.16 ng/ml (0.00-0.05)
[2016-07-19] MEDS: ATORVASTATIN CA 20 MG TABLET (FP) PO SCH (22:25)
[2016-07-20] MEDS: INSULIN SLIDING SCALE (NOVOLOG) 1 VIAL SQ SCH ×4 (06:14→22:17)
[2016-07-20 08:02] LABS: BASOPHIL 0.9 % (0-2.0); MCH 27.6 pg (25.7-33.7); MCHC 32.2 g/dl (32.0-35.9); MEAN CELL VOLUME 85.7 fl (80-96); MEAN PLT VOLUME 9.3 fl (7.5-11.1); NEUTROPHILS 74.7 % (42.8-82.8); PLATELET COUNT 148 K/MM3 (134-434); RDW 15.6 % (11.9-15.9); WHITE BLOOD COUNT 5.8 K/mm3 (4.0-10.0)
[2016-07-20 08:05] LABS: ALBUMIN 2.8 g/dl (3.4-5.0); CALCIUM 8.8 mg/dL (8.5-10.1)
[2016-07-20 08:10] LABS: BILIRUBIN,TOTAL 0.6 mg/dL (0.2-1.0); CREATININE 1.4 mg/dL (0.7-1.3); TOT PROT 6.8 g/dl (6.4-8.2)
[2016-07-20] MEDS: amLODIPine BESYLATE 5 MG TABLET (FP) PO SCH (09:51)
[2016-07-20] MEDS: CEFTRIAXONE 50 ML IVPB SCH (09:51)
[2016-07-20] MEDS: HEPARIN NA (PORCINE) 5,000 UNITS/ML 1ML VIAL SQ SCH ×2 (09:52→22:17)
--- NOTE | 2016-07-20 10:02 | PN ---
Progress Note, Physician Chief Complaint: Events noted - Current Medication List Current Medications: Active Medications Acetaminophen (Tylenol -) 650 mg PO Q6H PRN PRN Reason: FEVER OR PAIN Amlodipine Besylate (Norvasc -) 5 mg PO DAILY [facility] Last Admin: 07/20/16 09:51 Dose: 5 mg Atorvastatin Calcium (Lipitor -) 20 mg PO HS [facility] Last Admin: 07/19/16 22:25 Dose: 20 mg Heparin Sodium (Porcine) (Heparin -) 5,000 unit SQ BID [facility] Last Admin: 07/20/16 09:52 Dose: 5,000 unit Ceftriaxone Sodium (Rocephin 1gm Ivpb (Pre-Docked)) 50 mls @ 100 mls/hr IVPB DAILY [facility] Last Admin: 07/20/16 09:51 Dose: 100 mls/hr Insulin Aspart (Novolog Vial Sliding Scale -) 1 vial SQ ACHS [facility] PRN Reason: Protocol Last Admin: 07/20/16 06:14 Dose: 3 units - Objective Vital Signs: Vital Signs Temperature 97.7 F 07/20/16 05:59 Pulse Rate 90 07/20/16 10:00 Respiratory Rate 20 07/20/16 05:59 Blood Pressure 165/90 07/20/16 05:59 O2 Sat by Pulse Oximetry (%) 98 07/20/16 10:00 Constitutional: Yes: No Distress Cardiovascular: Yes: Regular Rate and Rhythm Respiratory: Yes: Diminished Gastrointestinal: Yes: Normal Bowel Sounds, Soft, Abdomen, Obese. No: Distention, Palpable Mass, Tenderness Extremities: Yes: Other (left leg ulcer+) Edema: Yes Labs: CBC, BMP 07/20/16 05:42 07/20/16 05:42 INR, PTT INR 1.20 (0.82-1.09) H 07/18/16 06:15 Problem List - Problems (1) Acute on chronic renal failure Code(s): N17.9 - ACUTE KIDNEY FAILURE, UNSPECIFIED N18.9 - CHRONIC KIDNEY DISEASE, UNSPECIFIED (2) CKD (chronic kidney disease) Code(s): N18.9 - CHRONIC KIDNEY DISEASE, UNSPECIFIED Qualifiers: Chronic kidney disease stage: stage 3 (moderate) Qualified Code(s): N18.3 - Chronic kidney disease, stage 3 (moderate) (3) Elevated glucose Code(s): R73.09 - OTHER ABNORMAL GLUCOSE (4) Leukocytosis Code(s): D72.829 - ELEVATED WHITE BLOOD CELL COUNT, UNSPECIFIED Qualifiers: Leukocytosis type: unspecified Qualified Code(s): D72.829 - Elevated white blood cell count, unspecified (5) Rhabdomyolysis Code(s): M62.82 - RHABDOMYOLYSIS Qualifiers: Rhabdomyolysis type: traumatic (6) Sepsis Code(s): A41.9 - SEPSIS, UNSPECIFIED ORGANISM (7) Cellulitis Code(s): L03.90 - CELLULITIS, UNSPECIFIED Qualifiers: Site of cellulitis: extremity Site of cellulitis of extremity: lower extremity Laterality: right Qualified Code(s): L03.115 - Cellulitis of right lower limb Assessment/Plan PLAN IV antibiotics When I went into the room, he was standing up and appeared to be unsteady. Pt had fall in home, mechanical Not really taking his prescribed meds for diabetes, A1C 11 Non compliance, hoarding May benefit from STR, unsteady gait, diabetic control, compliance with meds Start Levemir 10units BID Check sugars continue with PT
--- NOTE | 2016-07-20 10:14 | PN ---
Progress Note (short form) - Note Progress Note: S: Denies complaints, no cp, palps, dizziness, sob. ?reliability of history. Former smoker. Per report, EMS noted significant social issue in the home with disarray, hoarding, etc.. Current Medications Generic Name Dose Route Start Last Admin Trade Name Freq PRN Reason Stop Dose Admin Acetaminophen 650 mg 07/18/16 09:09 Tylenol - PO Q6H PRN FEVER OR PAIN Amlodipine Besylate 5 mg 07/18/16 10:00 07/20/16 09:51 Norvasc - PO 5 mg DAILY [facility] Administration Atorvastatin Calcium 20 mg 07/18/16 22:00 07/19/16 22:25 Lipitor - PO 20 mg HS [facility] Administration Heparin Sodium (Porcine) 5,000 unit 07/18/16 10:00 07/20/16 09:52 Heparin - SQ 5,000 unit BID [facility] Administration Ceftriaxone Sodium 50 mls @ 100 mls/hr 07/19/16 10:00 07/20/16 09:51 Rocephin 1gm Ivpb (Pre-Docked) IVPB 100 mls/hr DAILY [facility] Administration Insulin Aspart 1 vial 07/18/16 11:00 07/20/16 06:14 Novolog Vial Sliding Scale - SQ 3 units ACHS [facility] Administration Protocol Vital Signs Period Temp Pulse Resp BP Sys/Car Pulse Ox Last 24 Hr 97.7 F-98.8 F 69-110 16-20 125-165/80-92 93-100 Constitutional: Yes: Well Nourished, No Distress, disheveled Eyes: No: Sclera Icterus HENT: No: Nasal Congestion Respiratory: Yes: CTA Bilaterally. No: Accessory Muscle Use, Rales, Wheezes Gastrointestinal: Yes: Normal Bowel Sounds. No: Distention, Hepatomegaly, Palpable Mass, Tenderness Cardiovascular: Yes: Regular Rate and Rhythm JVD: No Heart Sounds: Yes: S1, S2. No: Gallop Murmur: No: Systolic Murmur, Diastolic Murmur Extremities: No: Cold, Cyanosis Edema: No, chronic erythema, venous stasis changes. Integumentary: No: Jaundice diaphoresis Neurological: Yes: Alert. No: Seizure Psychiatric: No: Agitated Laboratory Last Values WBC 5.8 K/mm3 (4.0-10.0) 07/20/16 05:42 RBC 4.81 M/mm3 (4.00-5.60) 07/20/16 05:42 Hgb 13.3 GM/dL (11.7-16.9) 07/20/16 05:42 Hct 41.2 % (35.4-49) 07/20/16 05:42 MCV 85.7 fl (80-96) 07/20/16 05:42 MCHC 32.2 g/dl (32.0-35.9) 07/20/16 05:42 RDW 15.6 % (11.9-15.9) 07/20/16 05:42 Plt Count 148 K/MM3 (134-434) 07/20/16 05:42 MPV 9.3 fl (7.5-11.1) 07/20/16 05:42 Neutrophils % 74.7 % (42.8-82.8) 07/20/16 05:42 Lymphocytes % 16.3 % (8-40) 07/20/16 05:42 Monocytes % 7.1 % (3.8-10.2) 07/20/16 05:42 Eosinophils % 1.0 % (0-4.5) D 07/20/16 05:42 Basophils % 0.9 % (0-2.0) 07/20/16 05:42 Band Neutrophils 2.0 % (0-10) 07/18/16 06:15 Differential Comment Manual diff done 07/18/16 06:15 INR 1.20 (0.82-1.09) H 07/18/16 06:15 Sodium 143 mmol/L (136-145) 07/20/16 05:42 Potassium 4.3 mmol/L (3.5-5.1) 07/20/16 05:42 Chloride 108 mmol/L (98-107) H 07/20/16 05:42 Carbon Dioxide 24 mmol/L (21-32) 07/20/16 05:42 Anion Gap 11 (8-16) 07/20/16 05:42 BUN 20 mg/dL (7-18) H 07/20/16 05:42 Creatinine 1.4 mg/dL (0.7-1.3) H 07/20/16 05:42 Creat Clearance w eGFR 48.28 (>60) 07/20/16 05:42 POC Glucometer 153 UNITS (()) 07/20/16 05:25 Random Glucose 136 mg/dL (74-106) H D 07/20/16 05:42 Hemoglobin A1c % 11.6 % (4.8-6.0) H 07/19/16 06:55 Lactic Acid 1.243 mmol/L (0.4-2.0) 07/19/16 09:00 Calcium 8.8 mg/dL (8.5-10.1) 07/20/16 05:42 Phosphorus 2.9 mg/dL (2.5-4.9) 07/18/16 06:15 Magnesium 2.3 mg/dL (1.8-2.4) D 07/18/16 06:15 Total Bilirubin 0.6 mg/dL (0.2-1.0) 07/20/16 05:42 AST 73 U/L (15-37) H 07/20/16 05:42 ALT 32 U/L (12-78) 07/20/16 05:42 Alkaline Phosphatase 90 U/L (45-117) 07/20/16 05:42 Creatine Kinase 1694 IU/L (39-308) H 07/19/16 14:00 Creatine Kinase Index 0.3 % (0.0-5.0) 07/18/16 06:15 CK-MB (CK-2) 4.270 ng/ml (0.5-3.6) H 07/19/16 14:00 CK-MB (CK-2) Rel Index Cancelled 07/18/16 06:15 Troponin I 0.16 ng/ml (0.00-0.05) H 07/19/16 14:00 B-Natriuretic Peptide 487.48 pg/ml (5-450) H 07/18/16 06:15 Total Protein 6.8 g/dl (6.4-8.2) 07/20/16 05:42 Albumin 2.8 g/dl (3.4-5.0) L 07/20/16 05:42 Triglycerides 159 mg/dL (35-160) 07/19/16 06:55 Cholesterol 155 mg/dL (50-200) 07/19/16 06:55 Total LDL Cholesterol 103 mg/dL (5-100) H D 07/19/16 06:55 HDL Cholesterol 33 mg/dL (40-60) L 07/19/16 06:55 Lipase 112 U/L (73-393) 07/18/16 06:15 Urine Color Yellow 07/18/16 09:09 Urine Appearance Clear 07/18/16 09:09 Urine pH 5.0 (5.0-8.0) 07/18/16 09:09 Ur Specific [place] 1.018 (1.001-1.035) 07/18/16 09:09 Urine Protein 2+ (NEGATIVE) H 07/18/16 09:09 Urine Glucose (UA) 1+ (NEGATIVE) H 07/18/16 09:09 Urine Ketones Negative (NEGATIVE) 07/18/16 09:09 Urine Blood 2+ (NEGATIVE) H 07/18/16 09:09 Urine Nitrite Negative (NEGATIVE) 07/18/16 09:09 Urine Bilirubin Negative (NEGATIVE) 07/18/16 09:09 Urine Urobilinogen Negative E.U./dl (0.2-1.0) 07/18/16 09:09 Ur Leukocyte Esterase Negative (NEGATIVE) 07/18/16 09:09 Urine RBC 2 /hpf (0-3) 07/18/16 09:09 Urine WBC <1 /hpf (3-5) 07/18/16 09:09 Ur Epithelial Cells Rare /hpf (FEW) 07/18/16 09:09 Hyaline Casts 1 /lpf 07/18/16 09:09 Urine Mucus Rare 07/18/16 09:09 Acetone, Qual Negative (NEGATIVE) 07/18/16 06:15 Blood Type O NEGATIVE 07/18/16 06:15 Antibody Screen Negative 07/18/16 06:15 ekg: sinus tach (103); nl axis; RBBB; no path q's; no ST-Ts vs prior (2014) tele: sr, sinus tachy, occ pvcs Imaging - Results Chest X-ray: Report and images Reviewed (clear lungs/pleura) Cat Scan: Report Reviewed (no acute path (old [place])) Echo 06/2016: nl lv/rv. abnormal diastology. 1+ MAC 1+ Ao dilation Echo 2015: nl LV/EF; nl RV; nl LA; mild-mod TR; RVSP 30-40; mild dil ao root a/p: 86 yo with h/o male HTN, HPL, CVA (acute R thalamic bleed at that time, suspected hypertensive etiology), DM2 admitted s/p fall and found to have sepsis. s/p fall, mechanical?: -"mechanical" fall from mattress per ER notes, via discussion with --no details given -s/p unexplained fall 2014 with acute thalamic bleed at that time -CT head here without acute changes -lactic acidosis noted: fall could be due to weakness from active infection -cont telemetry -rpt echo here --> no significant abnormality HTN: - with h/o probable hypertensive ICH 2014 - per report home meds norvasc 5/benazepril 40. Holding home benazepril 2/2 [place]. Held home lasix/kcl while septic - reasonable bp control on norvasc alone. monitor for increasing hypertension elevated cardiac enzymes: -no ekg changes or obvious cardiac ischemia sx's -trop in borderline range x2, cpk 1600 with normal index--likely sec to muscle injury from prolonged stay on floor -no indications of acs [place]: -? prerenal-- may not be able to care for himself given EMS description of home -significantly improved with IVF -trend labs -per pmd HPL: -cont home statin, atorva 20
--- NOTE | 2016-07-20 20:04 | PN ---
Progress Note (short form) - Note Progress Note: oob in wheelchair NAD alert, nad Vital Signs Period Temp Pulse Resp BP Sys/Car Pulse Ox Last 24 Hr 97.6 F-98.5 F 66-110 16-20 125-165/72-92 93-100 cor-rrr lungs clear abd soft,nt ext less erythema left leg CBC, BMP 07/20/16 05:42 07/20/16 05:42 Microbiology 07/18/16 04:47 Blood - Peripheral Venous Blood Culture - Preliminary NO GROWTH OBTAINED AFTER 48 HOURS, INCUBATION TO CONTINUE FOR 3 DAYS. 07/18/16 06:47 Blood - Peripheral Venous Blood Culture - Preliminary NO GROWTH OBTAINED AFTER 48 HOURS, INCUBATION TO CONTINUE FOR 3 DAYS. 07/18/16 09:09 Urine - Urine Clean Catch Urine Culture - Final Contaminated: Please Repeat Current Medications Acetaminophen (Tylenol -) 650 mg PO Q6H PRN PRN Reason: FEVER OR PAIN Amlodipine Besylate (Norvasc -) 5 mg PO DAILY [facility] Last Admin: 07/20/16 09:51 Dose: 5 mg Atorvastatin Calcium (Lipitor -) 20 mg PO HS [facility] Last Admin: 07/19/16 22:25 Dose: 20 mg Heparin Sodium (Porcine) (Heparin -) 5,000 unit SQ BID [facility] Last Admin: 07/20/16 09:52 Dose: 5,000 unit Ceftriaxone Sodium (Rocephin 1gm Ivpb (Pre-Docked)) 50 mls @ 100 mls/hr IVPB DAILY [facility] Last Admin: 07/20/16 09:51 Dose: 100 mls/hr Insulin Aspart (Novolog Vial Sliding Scale -) 1 vial SQ ACHS [facility] PRN Reason: Protocol Last Admin: 07/20/16 16:51 Dose: Not Given Insulin Detemir (Levemir Vial) 10 units SQ BID [facility] a/p leukocytosiis resolved- secondary to cellulitis, antibioitcs day #3 switch to po keflex-total course of antibiotics 7 days please call back if needed Problem List - Problems (1) Sepsis Code(s): A41.9 - SEPSIS, UNSPECIFIED ORGANISM (2) Cellulitis Code(s): L03.90 - CELLULITIS, UNSPECIFIED Qualifiers: Site of cellulitis: extremity Site of cellulitis of extremity: lower extremity Laterality: right Qualified Code(s): L03.115 - Cellulitis of right lower limb (3) CKD (chronic kidney disease) Code(s): N18.9 - CHRONIC KIDNEY DISEASE, UNSPECIFIED Qualifiers: Chronic kidney disease stage: stage 3 (moderate) Qualified Code(s): N18.3 - Chronic kidney disease, stage 3 (moderate) (4) Elevated glucose Code(s): R73.09 - OTHER ABNORMAL GLUCOSE (5) Rhabdomyolysis Code(s): M62.82 - RHABDOMYOLYSIS Qualifiers: Rhabdomyolysis type: traumatic (6) HTN (hypertension) Code(s): I10 - ESSENTIAL (PRIMARY) HYPERTENSION
[2016-07-20] MEDS: CEPHALEXIN MONOHYDRATE 500 MG CAPSULE (UD) PO SCH (22:14)
[2016-07-20] MEDS: ATORVASTATIN CA 20 MG TABLET (FP) PO SCH (22:14)
[2016-07-20] MEDS: INSULIN DETEMIR 100 UNITS/ML MDV SQ SCH (22:17)
[2016-07-20] MEDS: HALOPERIDOL LACTATE 5 MG/ML IM PRN (22:17)
[2016-07-20] MEDS ORDERED: LORAZEPAM CARPU-JECT 2 MG/ML DISP.SYRIN ONE (23:21)
[2016-07-20] MEDS ORDERED: LORAZEPAM CARPU-JECT 2 MG/ML DISP.SYRIN IVPUSH ONE (23:33)
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
[2016-07-21] MEDS: INSULIN SLIDING SCALE (NOVOLOG) 1 VIAL SQ SCH ×4 (06:13→21:15)
[2016-07-21 07:22] LABS: CALCIUM 8.8 mg/dL (8.5-10.1); CREATININE 1.4 mg/dL (0.7-1.3)
[2016-07-21] MEDS: amLODIPine BESYLATE 5 MG TABLET (FP) PO SCH (09:01)
[2016-07-21] MEDS: HALOPERIDOL LACTATE 5 MG/ML IM PRN ×2 (09:01→17:22)
[2016-07-21] MEDS: HEPARIN NA (PORCINE) 5,000 UNITS/ML 1ML VIAL SQ SCH ×2 (09:01→21:12)
[2016-07-21] MEDS: CEPHALEXIN MONOHYDRATE 500 MG CAPSULE (UD) PO SCH ×2 (09:01→21:12)
[2016-07-21] MEDS: INSULIN DETEMIR 100 UNITS/ML MDV SQ SCH ×2 (09:02→21:15)
--- NOTE | 2016-07-21 10:02 | PN ---
Progress Note (short form) - Note Progress Note: S: Denies complaints, no cp, palps, dizziness, sob. ?reliability of history. Current Medications Generic Name Dose Route Start Last Admin Trade Name Freq PRN Reason Stop Dose Admin Acetaminophen 650 mg 07/18/16 09:09 Tylenol - PO Q6H PRN FEVER OR PAIN Amlodipine Besylate 5 mg 07/18/16 10:00 07/21/16 09:01 Norvasc - PO 5 mg DAILY [facility] Administration Atorvastatin Calcium 20 mg 07/18/16 22:00 07/20/16 22:14 Lipitor - PO 20 mg HS [facility] Administration Cephalexin HCl 500 mg 07/20/16 22:00 07/21/16 09:01 Keflex - PO 500 mg BID [facility] Administration Haloperidol 5 mg 07/20/16 20:04 07/21/16 09:01 Haldol Injection (Fast Acting) - IM 5 mg Q6H PRN Administration AGITATION Heparin Sodium (Porcine) 5,000 unit 07/18/16 10:00 07/21/16 09:01 Heparin - SQ 5,000 unit BID [facility] Administration Insulin Aspart 1 vial 07/18/16 11:00 07/21/16 06:13 Novolog Vial Sliding Scale - SQ Not Given ACHS [facility] Protocol Insulin Detemir 10 units 07/20/16 22:00 07/21/16 09:02 Levemir Vial SQ 10 units BID [facility] Administration Vital Signs Period Temp Pulse Resp BP Sys/Car Pulse Ox Last 24 Hr 97.8 F-98.5 F 90-98 16-20 127-148/62-86 96 Constitutional: Yes: Well Nourished, No Distress, disheveled Eyes: No: Sclera Icterus HENT: No: Nasal Congestion Respiratory: Yes: CTA Bilaterally. No: Accessory Muscle Use, Rales, Wheezes Gastrointestinal: Yes: Normal Bowel Sounds. No: Distention, Hepatomegaly, Palpable Mass, Tenderness Cardiovascular: Yes: Regular Rate and Rhythm JVD: No Heart Sounds: Yes: S1, S2. No: Gallop Murmur: No: Systolic Murmur, Diastolic Murmur Extremities: No: Cold, Cyanosis Edema: No, chronic erythema, venous stasis changes. Integumentary: No: Jaundice diaphoresis Neurological: Yes: Alert. No: Seizure Psychiatric: No: Agitated Laboratory Last Values WBC 5.8 K/mm3 (4.0-10.0) 07/20/16 05:42 RBC 4.81 M/mm3 (4.00-5.60) 07/20/16 05:42 Hgb 13.3 GM/dL (11.7-16.9) 07/20/16 05:42 Hct 41.2 % (35.4-49) 07/20/16 05:42 MCV 85.7 fl (80-96) 07/20/16 05:42 MCHC 32.2 g/dl (32.0-35.9) 07/20/16 05:42 RDW 15.6 % (11.9-15.9) 07/20/16 05:42 Plt Count 148 K/MM3 (134-434) 07/20/16 05:42 MPV 9.3 fl (7.5-11.1) 07/20/16 05:42 Neutrophils % 74.7 % (42.8-82.8) 07/20/16 05:42 Lymphocytes % 16.3 % (8-40) 07/20/16 05:42 Monocytes % 7.1 % (3.8-10.2) 07/20/16 05:42 Eosinophils % 1.0 % (0-4.5) D 07/20/16 05:42 Basophils % 0.9 % (0-2.0) 07/20/16 05:42 Band Neutrophils 2.0 % (0-10) 07/18/16 06:15 Differential Comment Manual diff done 07/18/16 06:15 INR 1.20 (0.82-1.09) H 07/18/16 06:15 Sodium 143 mmol/L (136-145) 07/21/16 06:00 Potassium 3.9 mmol/L (3.5-5.1) 07/21/16 06:00 Chloride 108 mmol/L (98-107) H 07/21/16 06:00 Carbon Dioxide 26 mmol/L (21-32) 07/21/16 06:00 Anion Gap 9 (8-16) 07/21/16 06:00 BUN 17 mg/dL (7-18) 07/21/16 06:00 Creatinine 1.4 mg/dL (0.7-1.3) H 07/21/16 06:00 Creat Clearance w eGFR 48.28 (>60) 07/20/16 05:42 POC Glucometer 87 UNITS (()) 07/21/16 05:46 Random Glucose 87 mg/dL (74-106) D 07/21/16 06:00 Hemoglobin A1c % 11.6 % (4.8-6.0) H 07/19/16 06:55 Lactic Acid 1.243 mmol/L (0.4-2.0) 07/19/16 09:00 Calcium 8.8 mg/dL (8.5-10.1) 07/21/16 06:00 Phosphorus 2.9 mg/dL (2.5-4.9) 07/18/16 06:15 Magnesium 2.3 mg/dL (1.8-2.4) D 07/18/16 06:15 Total Bilirubin 0.6 mg/dL (0.2-1.0) 07/20/16 05:42 AST 73 U/L (15-37) H 07/20/16 05:42 ALT 32 U/L (12-78) 07/20/16 05:42 Alkaline Phosphatase 90 U/L (45-117) 07/20/16 05:42 Creatine Kinase 1694 IU/L (39-308) H 07/19/16 14:00 Creatine Kinase Index 0.3 % (0.0-5.0) 07/18/16 06:15 CK-MB (CK-2) 4.270 ng/ml (0.5-3.6) H 07/19/16 14:00 CK-MB (CK-2) Rel Index Cancelled 07/18/16 06:15 Troponin I 0.16 ng/ml (0.00-0.05) H 07/19/16 14:00 B-Natriuretic Peptide 487.48 pg/ml (5-450) H 07/18/16 06:15 Total Protein 6.8 g/dl (6.4-8.2) 07/20/16 05:42 Albumin 2.8 g/dl (3.4-5.0) L 07/20/16 05:42 Triglycerides 159 mg/dL (35-160) 07/19/16 06:55 Cholesterol 155 mg/dL (50-200) 07/19/16 06:55 Total LDL Cholesterol 103 mg/dL (5-100) H D 07/19/16 06:55 HDL Cholesterol 33 mg/dL (40-60) L 07/19/16 06:55 Lipase 112 U/L (73-393) 07/18/16 06:15 Urine Color Yellow 07/18/16 09:09 Urine Appearance Clear 07/18/16 09:09 Urine pH 5.0 (5.0-8.0) 07/18/16 09:09 Ur Specific [place] 1.018 (1.001-1.035) 07/18/16 09:09 Urine Protein 2+ (NEGATIVE) H 07/18/16 09:09 Urine Glucose (UA) 1+ (NEGATIVE) H 07/18/16 09:09 Urine Ketones Negative (NEGATIVE) 07/18/16 09:09 Urine Blood 2+ (NEGATIVE) H 07/18/16 09:09 Urine Nitrite Negative (NEGATIVE) 07/18/16 09:09 Urine Bilirubin Negative (NEGATIVE) 07/18/16 09:09 Urine Urobilinogen Negative E.U./dl (0.2-1.0) 07/18/16 09:09 Ur Leukocyte Esterase Negative (NEGATIVE) 07/18/16 09:09 Urine RBC 2 /hpf (0-3) 07/18/16 09:09 Urine WBC <1 /hpf (3-5) 07/18/16 09:09 Ur Epithelial Cells Rare /hpf (FEW) 07/18/16 09:09 Hyaline Casts 1 /lpf 07/18/16 09:09 Urine Mucus Rare 07/18/16 09:09 Acetone, Qual Negative (NEGATIVE) 07/18/16 06:15 Blood Type O NEGATIVE 07/18/16 06:15 Antibody Screen Negative 07/18/16 06:15 ekg: sinus tach (103); nl axis; RBBB; no path q's; no ST-Ts vs prior (2014) tele: sr, occ pvcs Imaging - Results Chest X-ray: Report and images Reviewed (clear lungs/pleura) Cat Scan: Report Reviewed (no acute path (old [place]une)) Echo 06/2016: nl lv/rv. abnormal diastology. 1+ MAC 1+ Ao dilation Echo 2014: nl LV/EF; nl RV; nl LA; mild-mod TR; RVSP 30-40; mild dil ao root a/p: 86 yo with h/o male HTN, HPL, CVA (acute R thalamic bleed at that time, suspected hypertensive etiology), DM2 admitted s/p fall and found to have sepsis. s/p fall, mechanical?: -"mechanical" fall from mattress per ER notes, via discussion with --no details given -s/p unexplained fall 2014 with acute thalamic bleed at that time -CT head here without acute changes -lactic acidosis noted: fall could be due to weakness from active infection -telemetry benign here several days -rpt echo here --> no significant abnormality HTN: - with h/o probable hypertensive ICH 2014 - per report home meds norvasc 5/benazepril 40. Holding home benazepril 2/2 [place]. Held home lasix/kcl while septic - reasonable bp control on norvasc alone elevated cardiac enzymes: -no ekg changes or obvious cardiac ischemia sx's -trop in borderline range x2, cpk 1600 with normal index--likely sec to muscle injury from prolonged stay on floor -no indications of acs [place]: -? prerenal-- may not be able to care for himself given EMS description of home -significantly improved with IVF -per pmd HPL: -cont home statin, atorva 20 cardiac dunn remains stable
--- NOTE | 2016-07-21 10:29 | DS ---
Physical Examination Vital Signs: Vital Signs Temperature 97.8 F 07/21/16 06:00 Pulse Rate 90 07/21/16 06:00 Respiratory Rate 20 07/21/16 06:00 Blood Pressure 145/62 07/21/16 06:00 O2 Sat by Pulse Oximetry (%) 96 07/20/16 21:00 Constitutional: Yes: No Distress Cardiovascular: Yes: Regular Rate and Rhythm Respiratory: Yes: Diminished Gastrointestinal: Yes: Normal Bowel Sounds, Soft, Abdomen, Obese. No: Distention, Tenderness Edema: Yes Labs: CBC, BMP 07/20/16 05:42 07/21/16 06:00 Discharge Summary Reason For Visit: ELEVATION OF CARDIAC ENZYMES Current Active Problems Acute on chronic renal failure (Acute) CKD (chronic kidney disease) (Acute) Elevated glucose (Acute) Elevation of cardiac enzymes (Acute) Leukocytosis (Acute) Rhabdomyolysis (Acute) Sepsis (Acute) Hospital Course: S/p mechanical fall. No acute pathology on CT head here at this time. He had h/ o acute thalamic bleed in the past. H/O CVA, vascular dementia. He also had b/l cellulitis. Sen by Cardiology and ID-- started on IV antibiotics -- now changed over to PO Echo -- grade 1 diastolic dysfunction Pt started on Haldol and Aricept which is taking good effect for his behavior. Pt is stable for dc to NH-- he is unsteady and had h/o fall at home. Will benefit from STR Condition: Improved - Instructions Disposition: [facility] - Home Medications Comprehensive Discharge Medication List: Ambulatory Orders Amlodipine Besylate/Benazepril [Lotrel 5-40 mg Capsule] 1 each PO DAILY Atorvastatin Ca [Lipitor] 20 mg PO HS 12/05/15 Furosemide [Lasix -] 40 mg PO DAILY 12/05/15 Glyburide 10 mg PO BID 12/05/15 Potassium Chloride [Klor-Con 10] 20 meq PO DAILY 12/05/15 Acetaminophen [Tylenol .Regular Strength -] 650 mg PO Q6H PRN #0 tablet Amlodipine Besylate [Norvasc -] 5 mg PO DAILY tablet 12/08/15 Cephalexin [Keflex] 500 mg PO TID #30 capsule 12/08/15 Collagenase Clostridium Hist. [Santyl -] 1 applic TP DAILY #1 tube 12/08/15
[2016-07-21] MEDS: DONEPEZIL HCL 10 MG TABLET (FP) PO SCH (16:16)
[2016-07-21] MEDS: LORAZEPAM CARPU-JECT 2 MG/ML DISP.SYRIN IVPUSH PRN (19:39)
[2016-07-21] MEDS: ATORVASTATIN CA 20 MG TABLET (FP) PO SCH (21:12)
[2016-07-21] MEDS ORDERED: INSULIN (NOVOLOG) ASPART 100 UNITS/ML 10ML VIAL ONE (21:14)
[2016-07-22] MEDS: LORAZEPAM CARPU-JECT 2 MG/ML DISP.SYRIN IVPUSH PRN (03:26)
[2016-07-22] MEDS: INSULIN SLIDING SCALE (NOVOLOG) 1 VIAL SQ SCH ×3 (06:06→17:31)
[2016-07-22] MEDS: DONEPEZIL HCL 10 MG TABLET (FP) PO SCH ×2 (10:00→17:20)
[2016-07-22] MEDS: amLODIPine BESYLATE 5 MG TABLET (FP) PO SCH ×2 (10:00→17:20)
[2016-07-22] MEDS: CEPHALEXIN MONOHYDRATE 500 MG CAPSULE (UD) PO SCH (10:00)
--- NOTE | 2016-07-22 10:28 | PN ---
Progress Note (short form) - Note Progress Note: S: Denies complaints, no cp, palps, dizziness, sob. no overnight events Current Medications Generic Name Dose Route Start Last Admin Trade Name Binh PRN Reason Stop Dose Admin Acetaminophen 650 mg 07/18/16 09:09 Tylenol - PO Q6H PRN FEVER OR PAIN Amlodipine Besylate 5 mg 07/18/16 10:00 07/21/16 09:01 Norvasc - PO 5 mg DAILY [facility] Administration Atorvastatin Calcium 20 mg 07/18/16 22:00 07/21/16 21:12 Lipitor - PO 20 mg HS [facility] Administration Cephalexin HCl 500 mg 07/20/16 22:00 07/21/16 21:12 Keflex - PO 500 mg BID [facility] Administration Donepezil HCl 10 mg 07/21/16 12:15 07/21/16 16:16 Aricept - PO 10 mg DAILY [facility] Administration Haloperidol 5 mg 07/20/16 20:04 07/21/16 17:22 Haldol Injection (Fast Acting) - IM 5 mg Q6H PRN Administration AGITATION Heparin Sodium (Porcine) 5,000 unit 07/18/16 10:00 07/21/16 21:12 Heparin - SQ 5,000 unit BID [facility] Administration Insulin Aspart 1 vial 07/18/16 11:00 07/22/16 06:06 Novolog Vial Sliding Scale - SQ Not Given [facility] Protocol Insulin Detemir 10 units 07/20/16 22:00 07/21/16 21:15 Levemir Vial SQ 10 units BID [facility] Administration Lorazepam 2 mg 07/21/16 10:01 07/22/16 03:26 Ativan Injection - IVPUSH 2 mg Q6H PRN Administration ANXIETY Vital Signs Period Temp Pulse Resp BP Sys/Car Pulse Ox Last 24 Hr 97.5 F-98.7 F 85-99 18-20 137-155/75-99 95 Constitutional: Yes: Well Nourished, No Distress, disheveled Eyes: No: Sclera Icterus HENT: No: Nasal Congestion Respiratory: Yes: CTA Bilaterally. No: Accessory Muscle Use, Rales, Wheezes Cardiovascular: Yes: Regular Rate and Rhythm JVD: No Heart Sounds: Yes: S1, S2. No: Gallop Murmur: No: Systolic Murmur, Diastolic Murmur Extremities: No: Cold, Cyanosis Edema: No, chronic erythema, venous stasis changes. Integumentary: No: Jaundice diaphoresis Neurological: Yes: Alert. No: Seizure Psychiatric: No: Agitated CBC, BMP 07/20/16 05:42 07/21/16 06:00 ekg: sinus tach (103); nl axis; RBBB; no path q's; no ST-Ts vs prior (2014) tele: sr Imaging - Results Chest X-ray: Report and images Reviewed (clear lungs/pleura) Cat Scan: Report Reviewed (no acute path (old [place])) Echo 06/2016: nl lv/rv. abnormal diastology. 1+ MAC 1+ Ao dilation Echo 2014: nl LV/EF; nl RV; nl LA; mild-mod TR; RVSP 30-40; mild dil ao root a/p: 86 yo with h/o male HTN, HPL, CVA (acute R thalamic bleed at that time, suspected hypertensive etiology), DM2 admitted s/p fall and found to have sepsis. s/p fall, mechanical?: -"mechanical" fall from mattress per ER notes, via discussion with --no details given -s/p unexplained fall 2014 with acute thalamic bleed at that time -CT head here without acute changes -lactic acidosis noted: fall could be due to weakness from active infection -telemetry benign here several days, can dc now -rpt echo here --> no significant abnormality HTN: - with h/o probable hypertensive ICH 2014 - per report home meds norvasc 5/benazepril 40. Holding home benazepril 2/2 [place]. Held home lasix/kcl while septic - reasonable bp control on norvasc alone, cont same elevated cardiac enzymes: -no ekg changes or obvious cardiac ischemia sx's -trop in borderline range x2, cpk 1600 with normal index--likely sec to muscle injury from prolonged stay on floor -no indications of acs [place]: -? prerenal-- may not be able to care for himself given EMS description of home -significantly improved with IVF -per pmd HPL: -cont home statin, atorva 20 cardiac dunn remains stable for dc
[2016-07-22] MEDS: HEPARIN NA (PORCINE) 5,000 UNITS/ML 1ML VIAL SQ SCH (11:00)
[2016-07-22] MEDS: INSULIN DETEMIR 100 UNITS/ML MDV SQ SCH (11:07)
--- NOTE | 2016-07-22 12:01 | PN ---
Progress Note (short form) - Note Progress Note: SUBJECTIVE: Patient seen and examined. Comfortable. No distress. Chart reviewed. OBJECTIVE: Vital Signs 07/22/16 06:00 Temperature 98.0 F Pulse Rate 85 Respiratory 20 Rate Blood Pressure 146/76 Active Medications Acetaminophen (Tylenol -) 650 mg PO Q6H PRN PRN Reason: FEVER OR PAIN Amlodipine Besylate (Norvasc -) 5 mg PO DAILY [facility] Last Admin: 07/22/16 10:00 Dose: Not Given Atorvastatin Calcium (Lipitor -) 20 mg PO HS [facility] Last Admin: 07/21/16 21:12 Dose: 20 mg Cephalexin HCl (Keflex -) 500 mg PO BID [facility] Last Admin: 07/22/16 10:00 Dose: Not Given Donepezil HCl (Aricept -) 10 mg PO DAILY [facility] Last Admin: 07/22/16 10:00 Dose: Not Given Haloperidol (Haldol Injection (Fast Acting) -) 5 mg IM Q6H PRN PRN Reason: AGITATION Last Admin: 07/21/16 17:22 Dose: 5 mg Heparin Sodium (Porcine) (Heparin -) 5,000 unit SQ BID [facility] Last Admin: 07/22/16 11:00 Dose: 5,000 unit Insulin Aspart (Novolog Vial Sliding Scale -) 1 vial SQ ACHS [facility] PRN Reason: Protocol Last Admin: 07/22/16 11:08 Dose: Not Given Insulin Detemir (Levemir Vial) 10 units SQ BID [facility] Last Admin: 07/22/16 11:07 Dose: Not Given Lorazepam (Ativan Injection -) 2 mg IVPUSH Q6H PRN PRN Reason: ANXIETY Last Admin: 07/22/16 03:26 Dose: 2 mg PHYSICAL EXAMINATION: CONSTITUTIONAL: Awake. RESP: Lungs clear CVS: Heart sounds regular ABD: Soft EXT: Trace edema A/P: - Stable. - Awaiting bed for short term rehab - Discussed with [facility]. - [facility] not accepting. - Medically stable for discharge when bed is available. Documentation prepared by Adelaida Horan, acting as a chief medical technologist for Adal Coffey MD.
[2016-07-22 13:46] VITALS: BP 136/84; PULSE 93
[2016-07-22 19:13] VITALS: TEMP 98.5
== END 2016-07-22 19:10 | DRG 872 ==
LOC: JER 06:08 → JERBED 08:07 → J4S 09:39
PROVIDERS: ADMIT Internal Medicine; ATTEND Internal Medicine
DX: A41.9 Sepsis, unspecified organism (principal); N17.9 Acute kidney failure, unspecified; I13.0 Hypertensive heart and chronic kidney disease with heart failure and stage 1 through stage 4 chronic kidney disease, or unspecified chronic kidney disease; M62.82 Rhabdomyolysis; L03.115 Cellulitis of right lower limb; F01.51 Vascular dementia, unspecified severity, with behavioral disturbance; D72.829 Elevated white blood cell count, unspecified; Z60.8 Other problems related to social environment; Z86.73 Personal history of transient ischemic attack (TIA), and cerebral infarction without residual deficits; R32 Unspecified urinary incontinence; R15.9 Full incontinence of feces; W06.XXXA Fall from bed, initial encounter; Y92.003 Bedroom of unspecified non-institutional (private) residence as the place of occurrence of the external cause; E11.22 Type 2 diabetes mellitus with diabetic chronic kidney disease; E11.65 Type 2 diabetes mellitus with hyperglycemia; I50.9 Heart failure, unspecified; E78.5 Hyperlipidemia, unspecified; Z79.84 Long term (current) use of oral hypoglycemic drugs; N18.3 Chronic kidney disease, stage 3 (moderate); R26.81 Unsteadiness on feet; F42.3 Hoarding disorder
CPT/HCPCS: 36415; 70450-TC; 71010-TC; 80048; 80053; 80061; 81003; 81015; 82009; 82550; 82553; 83036; 83605; 83690; 83721; 83735; 83880; 84100; 84484; 85025; 85610; 86850; 86900; 86901; 87040; 87086; 93005; 93010; 93306-TC; 97116-GP; 97161-GP; 99285-25; J1644

== ENCOUNTER 2016-10-15 14:21 | Observation (INO) | payer OTHER, BC ==
--- NOTE | 2016-10-15 14:40 | PDOC ---
Medical Decision Making - Medical Decision Making 10/15/16 14:38 Patient seen and evaluated with the nurse practitioner. I agree with the overall evaluation, assessment, and management with the following summary of visit: 86y/o M bibems with AMS in the setting of hypoglycemia to 38 resolved after dextrose. Glucose now 176 with improved/baseline mental status. r/o metabolic/infectious process, monitor glucose, reassess and dispo accordingly. *DC/Admit/Observation/Transfer Diagnosis at time of Disposition: Hypoglycemia
--- NOTE | 2016-10-15 15:05 | PDOC ---
History of Present Illness - General Stated Complaint: ALTERED MENTAL STATUS Time Seen by Provider: 10/15/16 14:24 History Source: Patient, EMS Exam Limitations: No Limitations - History of Present Illness Initial Comments: 10/15/16 15:05 86-year-old male presents to the ED via EMS for evaluation of confusion. As per patient awoke from a nap, appeared weak mumbling words versus speaking full sentences. activated EMS who arrived and found patient with a BGM of 34. Patient was given D50 with a BGM at that time of 173. Patient's vital signs are stable and had no acute signs of stroke. Patient does have history of CVA, insulin-dependent diabetes, hypertension and dyslipidemia. As per EMS patient had no change in medications or recent illness. Timing/Duration: 1-3 hours Severity: moderate Associated Symptoms: reports: weakness, other (confusion) NIH Stroke Scale - Initial Evaluation Level of consciousness: Alert Ask patient the month and their age: Answers one correctly Ask patient to open & close eyes; make fist and let go: Obeys both correctly Best gaze (horizontal eye movement): Normal Visual field testing: No visual field loss Facial paresis (Show teeth/raise eyebrows/close eyes tight): Normal symmetrical movement Motor Function: Left Arm: Normal Motor Function: Right Arm: Normal (extends arm 90 (or 45) degrees for 10 seconds without drift Motor Function: Left Leg: Normal (extends leg 30 degrees for 5 seconds without drift) Motor Function: Right Leg: Normal (extends leg 30 degrees for 5 seconds without drift) Limb Ataxia: No ataxia Sensory(Use pinprick test arms,legs,trunk,face/side to side): Normal Best language (Describe picture, name items, read sentences): No Aphasia Dysarthria (read several words): Normal articulation Extinction and Inattention: No abnormality - Total Score NIH Stroke Scale Score: 1 Past History - Past Medical History Allergies/Adverse Reactions: Allergies Allergy/AdvReac Type Severity Reaction Status Date / Time No Known Allergies Allergy Verified 10/15/16 14:39 Home Medications: Ambulatory Orders Glyburide/Metformin HCl [Glyburide-Metformin 5-500 mg] 2 tab PO BID 10/15/16 CVA: Yes Dementia: No Diabetes: Yes HTN: Yes Hypercholesterolemia: Yes Suicide Attempt (Hx): No - Surgical History Orthopedic Surgery: Yes (35 yrs ago, right thumb surgery) - Psycho/Social/Smoking Cessation Hx Anxiety: No Suicidal Ideation: No Smoking History: Former smoker Have you smoked in the past 12 months: No Number of Cigarettes Smoked Daily: 0 If you are a former smoker, when did you quit?: 52 yrs old Cigars Per Day: 0 Information on smoking cessation initiated: No Hx Alcohol Use: No Drug/Substance Use Hx: No Substance Use Type: None Hx Substance Use Treatment: No Patient Lives Alone: No Lives with/in: spouse/SO Review of Systems - Review of Systems Able to Perform ROS?: Yes Constitutional: Yes: Weakness HEENTM: No: Symptoms Reported Respiratory: No: Symptoms reported Cardiac (ROS): No: Symptoms Reported ABD/GI: No: Symptoms Reported : No: Symptoms Reported Musculoskeletal: Yes: Muscle Weakness Integumentary: No: Symptoms Reported Neurological: Yes: Weakness, Other (confusion) Endocrine: No: Symptoms Reported Hematologic/Lymphatic: No: Symptoms Reported *Physical Exam - Vital Signs Last Vital Signs Temp Pulse Resp BP Pulse Ox 98.2 F 69 18 159/70 10/15/16 14:21 10/15/16 14:21 10/15/16 14:21 10/15/16 14:21 - Physical Exam General Appearance: Yes: Nourished, Appropriately Dressed. No: Apparent Distress HEENT: positive: EOMI, CHRISTINA, TMs Normal, Pharynx Normal. negative: Pale Conjunctivae Neck: positive: Supple Respiratory/Chest: positive: Lungs Clear, Normal Breath Sounds. negative: Respiratory Distress, Accessory Muscle Use Cardiovascular: positive: Regular Rhythm, Regular Rate. negative: Murmur Gastrointestinal/Abdominal: positive: Soft. negative: Tenderness Extremity: positive: Normal Capillary Refill. negative: Erythema Integumentary: positive: Normal Color, Warm, Moist Neurologic: positive: Alert, Normal Mood/Affect, Normal Response, Motor Strength 5/5, Finger to Nose. negative: Fully Oriented (unable to recall current events), Sensory Deficit Heart Score/ECG Review - History History: Slightly suspicious - Electrocardiogram EKG: Normal - Age Age: >/= 65 - Risk Factors Risk Factors Heart Score: Yes Hx Hypercholesterolemia, Yes Hx Hypertension, Yes Hx Diabetes Based on the list above the patient has:: >/=3 risk factors or Hx atherosclerotic disease - Troponin Troponin: </= normal limit - Score Heart Score - Total: 4 - ECG Intrepretation Rhythm: Regular Rhythm (right bundle block with a rate of 60) ED Treatment Course - LABORATORY CBC & Chemistry Diagram: 10/15/16 15:00 10/15/16 15:00 - RADIOLOGY Radiology Studies Ordered: Category Date Time Status HEAD CT WITHOUT CONTRAST [CT] Stat CT Scan 10/15/16 14:57 Ordered CHEST X-RAY PORTABLE* [RAD] Stat Radiology 10/15/16 14:57 Ordered Medical Decision Making - Critical Care Time Total Critical Care Time (minutes): 35 Critical Care Statement: The care of this patient involved high complexity decision making to prevent further life threatening deterioration of the patient 's condition and/or to evalute & treat vital organ system(s) failure or risk of failure. - Medical Decision Making 10/15/16 15:19 Patient with noted weakness and confusion by the this afternoon around 1. EMS found patient with a fingerstick of 34 and administered D50. Patient arrives here alert and oriented 2 unable to recall current events. Patient had a stroke scale of 1 with no acute neuro focal deficits. Patient ordered for labs , urine, head CT, EKG and cardiac profile. Patient placed on kitchen lead with IV access established. 10/15/16 16:50 Laboratory Tests 10/15/16 10/15/16 15:00 15:40 Sodium 142 Potassium 4.3 Chloride 109 H Carbon Dioxide 26 Anion Gap 7 L BUN 17 Creatinine 1.3 Random Glucose 93 Calcium 9.0 Magnesium 1.8 D Total Bilirubin 0.4 D AST 27 D ALT 34 Albumin 3.2 L Urine Protein 3+ H Urine Blood 1+ H Urine Nitrite Negative Ur Leukocyte Esterase Negative Urine RBC 25 Urine WBC 5 Urine Yeast Moderate Head CT negative for acute intracranial pathology. Pt given dinner tray. Will repeat bgm after eating. states pt has no glucometer at home. Will dc home with one. Called [employer] and states will teach how to use machine 10/15/16 17:50 Patient ate half of a steak, all of his mashed potatoes, and part of his vegetables. Patient's repeat BGM 20 minutes after eating was 53. Patient ordered for D50 IV push. Patient will be admitted under Dr. Nani Coffey or Nevaeh Almanzar to MedSurg observation secondary to hypoglycemia. 10/15/16 18:[address] Coffey and states to admit to MedSurg observation status. He also recommended starting D5 half at 75 for maintenance. *DC/Admit/Observation/Transfer Diagnosis at time of Disposition: Hypoglycemia - Discharge Dispostion Admit: Yes
[2016-10-15 15:08] LABS: BASOPHIL 0.8 % (0-2.0); EOSINOPHIL 0.7 % (0-4.5); MCH 27.5 pg (25.7-33.7); MCHC 32.4 g/dl (32.0-35.9); MEAN CELL VOLUME 85.1 fl (80-96); MEAN PLT VOLUME 8.9 fl (7.5-11.1); PLATELET COUNT 145 K/MM3 (134-434); RDW 15.6 % (11.9-15.9); WHITE BLOOD COUNT 6.6 K/mm3 (4.0-10.0)
[2016-10-15 15:20] LABS: INR 1.19 (0.82-1.09); PROTHROMBIN TIME (PATIENT) 13.1 SEC (9.98-11.88)
[2016-10-15 15:41] LABS: ALBUMIN 3.2 g/dl (3.4-5.0); ANION GAP 7 (8-16); BILIRUBIN,TOTAL 0.4 mg/dL (0.2-1.0); CO2 26 mmol/L (21-32); CREATININE 1.3 mg/dL (0.7-1.3); GLUCOSE,RANDOM 93 mg/dL (74-106); MAGNESIUM 1.8 mg/dL (1.8-2.4); SGOT/AST 27 U/L (15-37); SGPT/ALT 34 U/L (12-78); TOT PROT 7.2 g/dl (6.4-8.2)
[2016-10-15 15:45] LABS: ALK PHOS 96 U/L (45-117); TROPONIN I 0.04 ng/ml (0.00-0.05)
[2016-10-15 15:45] LABS: URINE APPEARANCE CLEAR; URINE BILIRUBIN NEGATIVE (NEGATIVE); URINE COLOR YELLOW; URINE GLUCOSE (UA) NEGATIVE (NEGATIVE); URINE KETONE NEGATIVE (NEGATIVE); URINE LEUK ESTERASE NEGATIVE (NEGATIVE); URINE NITRITE NEGATIVE (NEGATIVE); URINE UROBILINOGEN NEGATIVE E.U./dl (0.2-1.0)
[2016-10-15 15:46] LABS: URINE BLOOD 1+ (NEGATIVE); URINE PROTEIN 3+ (NEGATIVE)
[2016-10-15 15:49] LABS: URINE HYALINE CAST 5 /lpf; URINE MUCUS RARE; URINE RBC 25 /hpf (0-3); URINE WBC 5 /hpf (3-5); YEAST MODERATE
[2016-10-15] MEDS ORDERED: DEXTROSE 50%-WATER 50 ML VIAL IVPUSH ONE (17:46)
[2016-10-15] MEDS ORDERED: DEXTROSE 50%-WATER 50 ML DISP.SYRIN ONE (17:47)
[2016-10-15] MEDS ORDERED: ACETAMINOPHEN 325 MG TABLET (FP) PO PRN (18:08)
[2016-10-15] MEDS: DEXTROSE 5%-0.45% SALINE 1,000 ML IV SCH (18:35)
[2016-10-16 00:11] VITALS: BMI 25.9
[2016-10-16 09:32] LABS: BASOPHIL 1.1 % (0-2.0); EOSINOPHIL 1.9 % (0-4.5); MCH 28.2 pg (25.7-33.7); MCHC 33.4 g/dl (32.0-35.9); MEAN CELL VOLUME 84.6 fl (80-96); MEAN PLT VOLUME 10.7 fl (7.5-11.1); NEUTROPHILS 68.9 % (42.8-82.8); PLATELET COUNT 123 K/MM3 (134-434); RDW 15.6 % (11.9-15.9); WHITE BLOOD COUNT 5.8 K/mm3 (4.0-10.0)
[2016-10-16 09:40] LABS: ALBUMIN 3.1 g/dl (3.4-5.0); ANION GAP 9 (8-16); BILIRUBIN,TOTAL 0.5 mg/dL (0.2-1.0); CALCIUM 9.2 mg/dL (8.5-10.1); CO2 25 mmol/L (21-32); CREATININE 1.4 mg/dL (0.7-1.3); GLUCOSE,RANDOM 122 mg/dL (74-106); SGOT/AST 26 U/L (15-37); SGPT/ALT 31 U/L (12-78)
[2016-10-16 09:42] LABS: ALK PHOS 97 U/L (45-117); TOT PROT 6.7 g/dl (6.4-8.2)
[2016-10-16] MEDS: amLODIPine BESYLATE 10 MG TABLET (FP) PO SCH (09:56)
[2016-10-16] MEDS: DONEPEZIL HCL 10 MG TABLET (FP) PO SCH (09:57)
[2016-10-16] MEDS: DEXTROSE 5%-0.45% SALINE 1,000 ML IV SCH (09:57)
--- NOTE | 2016-10-16 12:51 | HP ---
Admitting History and Physical - Primary Care Physician PCP: Arcadio Melendrez - Admission Chief Complaint: ams History of Present Illness: 86-year-old male presents to the ED via EMS for evaluation of confusion. As per patient awoke from a nap, appeared weak mumbling words versus speaking full sentences. activated EMS who arrived and found patient with a BGM of 34. Patient was given D50 with a BGM at that time of 173. Patient's vital signs are stable and had no acute signs of stroke. Patient does have history of CVA, insulin-dependent diabetes, hypertension and dyslipidemia. pt admitted/ kept under observaton for persistant hypoglycemia ct head -ve blood work -ok pt started on mild fluids--D5 diabtic meds were held. case was discussed with er physician yesterday pt seen/ examined today sugar better no complains feels well denies pain. afebrile poor historian' History Source: Patient, Medical Record, Transfer Record Limitations to Obtaining History: Dementia - Past Medical History PRIMARY PRODUCTS INSPECTORS: Yes: CVA, Dementia Cardiovascular: Yes: CHF, HTN Endocrine: Yes: Diabetes Mellitus - Smoking History Smoking history: Former smoker Have you smoked in the past 12 months: No Aproximately how many cigarettes per day: 0 If you are a former smoker, when did you quit?: 52 yrs old - Alcohol/Substance Use Hx Alcohol Use: No Home Medications - Allergies Allergies/Adverse Reactions: Allergies Allergy/AdvReac Type Severity Reaction Status Date / Time No Known Allergies Allergy Verified 10/15/16 14:39 - Home Medications Home Medications: Ambulatory Orders Glyburide/Metformin HCl [Glyburide-Metformin 5-500 mg] 2 tab PO BID 10/15/16 Review of Systems Unable to obtain ROS, reason: see [email or web address] Physical Examination Vital Signs: Vital Signs Temperature 98.2 F 10/16/16 08:00 Pulse Rate 65 10/16/16 08:00 Respiratory Rate 18 10/16/16 08:00 Blood Pressure 165/91 10/16/16 08:00 O2 Sat by Pulse Oximetry (%) 100 10/16/16 02:12 Constitutional: Yes: No Distress, Calm Eyes: Yes: Conjunctiva Clear HENT: Yes: WNL Neck: Yes: Supple, Trachea Midline Cardiovascular: Yes: Regular Rate and Rhythm Respiratory: Yes: CTA Bilaterally Gastrointestinal: Yes: Normal Bowel Sounds, Soft Edema: No Neurological: Yes: Alert Labs: CBC, BMP 10/16/16 07:35 10/16/16 07:35 Imaging - Results Chest X-ray: Report Reviewed Cat Scan: Report Reviewed Problem List - Problems (1) Hypoglycemia Code(s): E16.2 - HYPOGLYCEMIA, UNSPECIFIED (2) CKD (chronic kidney disease) Code(s): N18.9 - CHRONIC KIDNEY DISEASE, UNSPECIFIED Qualifiers: Chronic kidney disease stage: stage 3 (moderate) Qualified Code(s): N18.3 - Chronic kidney disease, stage 3 (moderate) (3) Diabetes Code(s): E11.9 - TYPE 2 DIABETES MELLITUS WITHOUT COMPLICATIONS (4) HTN (hypertension) Code(s): I10 - ESSENTIAL (PRIMARY) HYPERTENSION (5) Dementia Code(s): F03.90 - UNSPECIFIED DEMENTIA WITHOUT BEHAVIORAL DISTURBANCE Assessment/Plan better continue holding disbetic meds d/c fluids monitor bgm daily oob- chair dvt - prophylaxis with scd monitor bp pt if stable- will d/c tomorrow will discuss with discussed with nursing staff will follow
--- NOTE | 2016-10-16 21:17 | EKG ---
Test Reason : Blood Pressure : / mmHG Vent. Rate : 060 BPM Atrial Rate : 060 BPM P-R Int : 220 ms QRS Dur : 138 ms QT Int : 398 ms P-R-T Axes : 030 041 -14 degrees QTc Int : 398 ms SINUS RHYTHM WITH SINUS ARRHYTHMIA WITH 1ST DEGREE A-V BLOCK RIGHT BUNDLE BRANCH BLOCK T WAVE ABNORMALITY, CONSIDER INFERIOR ISCHEMIA ABNORMAL ECG WHEN COMPARED WITH ECG OF 18-JUL-2016 06:45, VENT. RATE HAS DECREASED BY 43 BPM Confirmed by KIMMY IBANEZ MD ([id number]) on 10/16/2016 9:16:43 PM Referred By: Confirmed By:KIMMY IBANEZ MD
[2016-10-17 08:00] VITALS: BP 166/96; PULSE 69; TEMP 98.5
--- NOTE | 2016-10-17 08:55 | DS ---
Physical Examination Vital Signs: Vital Signs Temperature 98.5 F 10/17/16 08:00 Pulse Rate 69 10/17/16 08:00 Respiratory Rate 20 10/17/16 08:00 Blood Pressure 166/96 10/17/16 08:00 O2 Sat by Pulse Oximetry (%) 98 10/16/16 22:00 Labs: CBC, BMP 10/16/16 07:35 10/16/16 07:35 <Adal Coffey - Last Filed: 10/17/16 08:55> Vital Signs: Vital Signs Temperature 98.5 F 10/17/16 08:00 Pulse Rate 69 10/17/16 08:00 Respiratory Rate 20 10/17/16 08:00 Blood Pressure 166/96 10/17/16 08:00 O2 Sat by Pulse Oximetry (%) 97 10/17/16 09:00 Findings/Remarks: Comfortable. No complaints. Constitutional: Yes: No Distress Neck: Yes: Supple Cardiovascular: Yes: Regular Rate and Rhythm Respiratory: Yes: CTA Bilaterally Gastrointestinal: Yes: Soft Edema: No Neurological: Yes: Alert Labs: CBC, BMP 10/16/16 07:35 10/16/16 07:35 <Kandi Blanco - Last Filed: 10/17/16 10:27> Discharge Summary Reason For Visit: HYPOGLYCEMIA Current Active Problems Dementia (Acute) Hypoglycemia (Acute) - Home Medications Comprehensive Discharge Medication List: Ambulatory Orders Acetaminophen [Tylenol .Regular Strength -] 650 mg PO Q4H PRN #0 tablet Amlodipine Besylate/Benazepril [Lotrel 10-20 mg Capsule] 1 cap PO DAILY #30 cap 10/17/16 Donepezil HCl [Aricept -] 10 mg PO DAILY tablet 10/17/16 Insulin (Levemir) [Levemir Flexpen -] 10 units SQ DAILY #1 pen 10/17/16 <Adal Coffey - Last Filed: 10/17/16 08:55> Current Active Problems Dementia (Acute) Hypoglycemia (Acute) Hospital Course: 86-year-old male presents to the ED via EMS for evaluation of confusion. As per patient awoke from a nap, appeared weak mumbling words versus speaking full sentences. activated EMS who arrived and found patient with a BGM of 34. Patient was given D50 with a BGM at that time of 173. Patient's vital signs are stable and had no acute signs of stroke. Patient does have history of CVA, insulin-dependent diabetes, hypertension and dyslipidemia. As per EMS patient had no change in medications or recent illness. Patient admitted for persistent hypoglycemia. Treated with mild hydration. Oral diabetic medications held. Blood sugar better now. Previous medications reviewed at the time of discharge during last admission of June 2016. reports he only takes diabetic medications-- pills. Will d/c on insulin. Will also d/c on Lotrel and Aricept as pt is forgetful and used to take that. Will request VNS also. Pt to follow with his PMD in 2-3 days. Discussed with supervisor case loading also. Discharge time: 35 minutes in examing, documenting and coordinating care. Documentation prepared by Kandi Blanco, acting as manager medical affairs for Adal Coffey MD. - Home Medications Comprehensive Discharge Medication List: Ambulatory Orders Acetaminophen [Tylenol .Regular Strength -] 650 mg PO Q4H PRN #0 tablet Amlodipine Besylate/Benazepril [Lotrel 10-20 mg Capsule] 1 cap PO DAILY #30 cap 10/17/16 Donepezil HCl [Aricept -] 10 mg PO DAILY tablet 10/17/16 Insulin (Levemir) [Levemir Flexpen -] 10 units SQ DAILY #1 pen 10/17/16 <Kandi Blanco - Last Filed: 10/17/16 10:27>
[2016-10-17] MEDS: DONEPEZIL HCL 10 MG TABLET (FP) PO SCH (09:42)
[2016-10-17] MEDS: amLODIPine BESYLATE 10 MG TABLET (FP) PO SCH (09:42)
== END 2016-10-17 13:17 | disposition home or self-care (01) ==
LOC: JER 14:21 → JERBED 17:52 → J6S 22:49
PROVIDERS: ADMIT Internal Medicine; ATTEND Internal Medicine
PROC: 3E0337Z Introduction of Electrolytic and Water Balance Substance into Peripheral Vein, Percutaneous Approach (ICD-10-PCS; principal; 2016-10-15)
DX: E11.649 Type 2 diabetes mellitus with hypoglycemia without coma (principal); Z79.4 Long term (current) use of insulin; Z79.84 Long term (current) use of oral hypoglycemic drugs; I12.9 Hypertensive chronic kidney disease with stage 1 through stage 4 chronic kidney disease, or unspecified chronic kidney disease; E11.22 Type 2 diabetes mellitus with diabetic chronic kidney disease; N18.3 Chronic kidney disease, stage 3 (moderate); F03.90 Unspecified dementia, unspecified severity, without behavioral disturbance, psychotic disturbance, mood disturbance, and anxiety; Z86.73 Personal history of transient ischemic attack (TIA), and cerebral infarction without residual deficits; E78.5 Hyperlipidemia, unspecified; Z87.891 Personal history of nicotine dependence
CPT/HCPCS: 36415; 70450-TC; 71010-TC; 80053; 81003; 81015; 82550; 83735; 84484; 85025; 85610; 87086; 93005; 93010; 97116-GP; 97161-GP; 99285-25; G0378

== ENCOUNTER 2017-03-03 15:27 | Inpatient (IN) | payer OTHER, BC ==
[2017-03-03 15:48] VITALS: BMI 40.3
--- NOTE | 2017-03-03 17:06 | PDOC ---
History of Present Illness - General History Source: Patient Exam Limitations: No Limitations - History of Present Illness Initial Comments: 03/03/17 17:42 The patient is an 86 year old male, accompanied by his , with past medical history of hypertension, diabetes, dementia, and stroke who arrives to the ED via EMS after a near syncopal episode today. The patients states that earlier today the patient got up from his chair and began swaying back and forth , as if he was about to fall. She adds that the patient looked clammy, as if he was going to pass out. The was able to help lower him to a chair and called EMS. She adds that the patient was evaluated in the ED 5 days earlier s/ p fall and that she cannot take him back home because she cannot take care of him much longer. The patient is a poor historian and is unable to provide any further history. PCP: Dr. Melendrez 's Phone (Terri)- <Danya Tejada - Last Filed: 03/03/17 20:57> <Nic Veliz - Last Filed: 03/04/17 01:17> - General Chief Complaint: Altered Mental Status Stated Complaint: Blood Sugar Problem Time Seen by Provider: 03/03/17 16:36 Past History <Danya Tejada - Last Filed: 03/03/17 20:57> - Past Medical History Cardiac Disorders: Yes (Afib) CVA: Yes (stroke since 8 yrs ago) COPD: No CHF: Yes Dementia: Yes Diabetes: Yes HTN: Yes Hypercholesterolemia: Yes - Surgical History Orthopedic Surgery: Yes (35 yrs ago, right thumb surgery) - Suicide/Smoking/Psychosocial Hx Smoking History: Former smoker Have you smoked in the past 12 months: No Number of Cigarettes Smoked Daily: 0 If you are a former smoker, when did you quit?: 52 yrs old Cigars Per Day: 0 Information on smoking cessation initiated: No Hx Alcohol Use: No Drug/Substance Use Hx: No Substance Use Type: None Hx Substance Use Treatment: No <Nic Veliz - Last Filed: 03/04/17 01:17> - Past Medical History Allergies/Adverse Reactions: Allergies Allergy/AdvReac Type Severity Reaction Status Date / Time No Known Allergies Allergy Verified 02/26/17 15:44 Home Medications: Ambulatory Orders Acetaminophen [Tylenol .Regular Strength -] 650 mg PO Q4H PRN #0 tablet Amlodipine Besylate/Benazepril [Lotrel 10-20 mg Capsule] 1 cap PO DAILY #30 cap 10/17/16 Donepezil HCl [Aricept -] 10 mg PO DAILY tablet 10/17/16 Insulin (Levemir) [Levemir Flexpen -] 10 units SQ DAILY #1 pen 10/17/16 Unobtainable 02/26/17 Metformin Xr [Glucophage *Xr* -] 500 mg PO BID 03/03/17 Review of Systems - Review of Systems Able to Perform ROS?: Yes Comments:: 03/03/17 17:42 CONSTITUTIONAL: No fever, no chills, no fatigue EYES: No visual changes ENT: No ear pain, no sore throat CARDIOVASCULAR: No chest pain, no palpitations RESPIRATORY: No cough, no SOB GI: No abdominal pain, no nausea, no vomiting, no constipation, no diarrhea GENITOURINARY: No dysuria, no frequency, no hematuria MUSKULOSKELETAL: No backpain, no joint pain, no myalgias SKIN: No rash NEURO: Present: bowel and urinary incontinence No headache All Other Systems: Reviewed and Negative <Danya Tejada - Last Filed: 03/03/17 20:57> *Physical Exam - Vital Signs Last Vital Signs Temp Pulse Resp BP Pulse Ox 98.6 F 79 16 177/79 98 03/03/17 15:43 03/03/17 15:43 03/03/17 15:43 03/03/17 15:43 03/03/17 15:43 - Physical Exam Comments: 03/03/17 17:45 CONSTITUTIONAL: Awake, alert. Well-appearing; well-nourished; in no apparent distress HEAD: Normocephalic; atraumatic EYES: PERRL; EOM intact ENMT: External appears normal; normal oropharynx. Moist mucous membranes NECK: Supple; non-tender; no cervical lymphadenopathy CARD: Normal S1, S2; no murmurs, rubs, or gallops RESP: Normal chest excursion with respiration; breath sounds clear and equal bilaterally; no wheezes, rhonchi, or rales ABD: Soft, mildly tympanic, non-distended; non-tender; no palpable organomegaly , no palpable hernias EXT: 2+ pitting edema bilateral lower extremities, hyperpigmentation consistent with chronic venous stasis dermatitis. Ulnar deviation at MCP joint bilaterally. Right forth finger is flexed at MCP and PIP joint and Normal ROM in all four extremities; non-tender to palpation; distal pulses intact SKIN: Warm, dry, no rash NEURO: No focal neurological deficiencies. Pronation drift on LUE. Motor strength 5/5 x4 <Danya Tejada - Last Filed: 03/03/17 20:57> - Vital Signs Last Vital Signs Temp Pulse Resp BP Pulse Ox 98.6 F 79 16 177/79 98 03/03/17 15:43 03/03/17 15:43 03/03/17 15:43 03/03/17 15:43 03/03/17 15:43 <Nic Veliz - Last Filed: 03/04/17 01:17> ED Treatment Course - LABORATORY CBC & Chemistry Diagram: 03/03/17 18:03 03/03/17 19:10 - ADDITIONAL ORDERS Additional order review: Laboratory Results 03/03/17 15:37 POC Glucometer [id number] 03/03/17 15:37 POC Glucometer [id number] <Danya Tejada - Last Filed: 03/03/17 20:57> - LABORATORY CBC & Chemistry Diagram: 03/03/17 18:03 03/03/17 19:10 - ADDITIONAL ORDERS Additional order review: Laboratory Results 03/03/17 15:37 POC Glucometer [id number] 03/03/17 15:37 POC Glucometer [id number] <Nic Veliz - Last Filed: 03/04/17 01:17> Medical Decision Making - Medical Decision Making 03/03/17 21:15 Patient is an 86-year-old male with history of hypertension, diabetes, and dementia brought in by EMS after near syncopal episode witnessed by his . Patient was noted to become weak and unable to stand, pale and diaphoretic for a brief period of time which then resolved. Note head trauma is reported and there was no LOC. In the ER, patient is awake and alert and at baseline mental status. Vital signs are noted. EKG shows no evidence of acute ischemia chest x- ray reveals no evidence of cardiomegaly or effusion at this time. CBC is unchanged. CMP reveals minimally elevated troponin requiring serial cardiac enzymes for trending. I suspect cardiogenic syncope at this time. Will place on telemetry/obs for cardiac monitoring. <Nic Veliz - Last Filed: 03/04/17 01:17> *DC/Admit/Observation/Transfer - Attestations Scribe Attestion: 03/03/17 17:48 Documentation prepared by Danya Tejada, acting as program medical director for Nic Veliz MD. <Danya Tejada - Last Filed: 03/03/17 20:57> - Discharge Dispostion Admit: Yes - Attestations Physician Attestion: 03/03/17 21:15 The documentation was prepared by the scribe under my direct supervision. I have reviewed the documentation which correctly represents the findings, medical decision-making and critical action taken by me. <Nic Veliz - Last Filed: 03/04/17 01:17> Diagnosis at time of Disposition: Near syncope - Discharge Dispostion Condition at time of disposition: Fair
[2017-03-03 18:31] LABS: EOSINOPHIL 1.4 % (0-4.5); MCH 27.2 pg (25.7-33.7); MCHC 32.7 g/dl (32.0-35.9); MEAN CELL VOLUME 83.2 fl (80-96); MEAN PLT VOLUME 9.1 fl (7.5-11.1); NEUTROPHILS 68.7 % (42.8-82.8); PLATELET COUNT 160 K/MM3 (134-434); RDW 16.7 % (11.9-15.9); WHITE BLOOD COUNT 7.5 K/mm3 (4.0-10.0)
[2017-03-03 20:07] LABS: ALBUMIN 3.2 g/dl (3.4-5.0); ALK PHOS 120 U/L (45-117); ANION GAP 8 (8-16); BILIRUBIN,TOTAL 0.6 mg/dL (0.2-1.0); CALCIUM 8.4 mg/dL (8.5-10.1); CO2 27 mmol/L (21-32); CREATININE 1.5 mg/dL (0.7-1.3); GLUCOSE,RANDOM 86 mg/dL (74-106); SGOT/AST 25 U/L (15-37); SGPT/ALT 31 U/L (12-78); TOT PROT 7.3 g/dl (6.4-8.2)
[2017-03-03 20:09] LABS: TROPONIN I 0.07 ng/ml (0.00-0.05)
[2017-03-03] MEDS ORDERED: SODIUM CHLORIDE 250 ML IV STA ×2 (20:12→23:14)
[2017-03-03 21:32] LABS: URINE APPEARANCE CLEAR; URINE BILIRUBIN NEGATIVE (NEGATIVE); URINE BLOOD 1+ (NEGATIVE); URINE COLOR YELLOW; URINE GLUCOSE (UA) NEGATIVE (NEGATIVE); URINE KETONE NEGATIVE (NEGATIVE); URINE PROTEIN 2+ (NEGATIVE)
[2017-03-03 21:33] LABS: URINE NITRITE NEGATIVE (NEGATIVE); URINE RBC 1; URINE UROBILINOGEN NORMAL mg/dL (0.2-1.0); URINE WBC 1
[2017-03-03 21:34] LABS: URINE HYALINE CAST 1 /lpf; URINE MUCUS RARE
[2017-03-03 22:37] LABS: URINE LEUK ESTERASE Negative (NEGATIVE)
--- NOTE | 2017-03-04 01:38 | PN ---
Teaching Attending Note Name of Resident: Bettye Porras ATTENDING PHYSICIAN STATEMENT I saw and evaluated the patient. I reviewed the resident's note and discussed the case with the resident. I agree with the resident's findings and plan as documented. SUBJECTIVE: Patient brought to ED after reports him having a near syncopal episode, with no head trauma. OBJECTIVE: GEN: A&Ox2 person and place , cooperative HEENT: NC, AT, PERRLA, EOMI no nystagmus CVS:RRR, S1,S2 LUNGS: CTA, no wheezing ABD: soft, NT, ND, BS+ EXT:b/l Lower extremity 1+ pitting edema CBCD WBC 7.5 K/mm3 (4.0-10.0) 03/03/17 18:03 RBC 5.07 M/mm3 (4.00-5.60) 03/03/17 18:03 Hgb 13.8 GM/dL (11.7-16.9) 03/03/17 18:03 Hct 42.2 % (35.4-49) 03/03/17 18:03 MCV 83.2 fl (80-96) 03/03/17 18:03 MCHC 32.7 g/dl (32.0-35.9) 03/03/17 18:03 RDW 16.7 % (11.9-15.9) H 03/03/17 18:03 Plt Count 160 K/MM3 (134-434) 03/03/17 18:03 MPV 9.1 fl (7.5-11.1) 03/03/17 18:03 CMP Sodium 140 mmol/L (136-145) 03/03/17 19:10 Potassium 3.8 mmol/L (3.5-5.1) 03/03/17 19:10 Chloride 105 mmol/L (98-107) 03/03/17 19:10 Carbon Dioxide 27 mmol/L (21-32) 03/03/17 19:10 Anion Gap 8 (8-16) 03/03/17 19:10 BUN 23 mg/dL (7-18) H 03/03/17 19:10 Creatinine 1.5 mg/dL (0.7-1.3) H 03/03/17 19:10 Creat Clearance w eGFR 44.59 (>60) 03/03/17 19:10 Calcium 8.4 mg/dL (8.5-10.1) L 03/03/17 19:10 Total Bilirubin 0.6 mg/dL (0.2-1.0) D 03/03/17 19:10 AST 25 U/L (15-37) 03/03/17 19:10 ALT 31 U/L (12-78) 03/03/17 19:10 Alkaline Phosphatase 120 U/L (45-117) H 03/03/17 19:10 Total Protein 7.3 g/dl (6.4-8.2) 03/03/17 19:10 Albumin 3.2 g/dl (3.4-5.0) L 03/03/17 19:10 ASSESSMENT AND PLAN: Syncope, cardiac monitoring for arrythmia Patient with weak gait, PT consult in AM and referral to [facility]. Continue home medications. Fall risk precautions. Dementia- continue aricept CKD stg 3 avoid nephrotoxic medications
--- NOTE | 2017-03-04 03:14 | HP ---
CHIEF COMPLAINT: Near Syncope fall PCP: Dr. Melendrez HISTORY OF PRESENT ILLNESS: Patient is poor historian. Most information obtained from records, ED staff, and Patient is an 86 year old male with a PMHx of HTN, IDDMII, and Dementia who was BIBEMS after a near syncopal episode witnessed by his . Patient's reports that he was standing up and all of a sudden his gait was unbalanced causing him to sway back and forth. Patient appeared pale and clammy and slid to the ground but without hitting his head. Patient never lost consciousness and never had any seizure-like activities such as convulsions or whole body shaking. Patient's reports that he was here 5 days ago for similar episode and was discharged home. However, patients is worried and states that he might need rehab. Patient otherwise denies chest pain, palpitations, shortness of breath, headaches, abdominal pain, acute vision changes. ER course was notable for: (1) 500 cc IV fluids (2) EKG shows no evidence of acute ischemia chest x-ray reveals no evidence of cardiomegaly or effusion (3) Troponin 0.07 Recent Travel: Denies PAST MEDICAL HISTORY: HTN, IDDMII, Dementia PAST SURGICAL HISTORY: Right thumb surgery Social History: Smoking: Denies Alcohol: Denies Drugs: Denies Family History: non-contributory Allergies: No Known Allergies Allergy (Verified 02/26/17 15:44) HOME MEDICATIONS: Home Medications Medication Instructions Recorded Acetaminophen [Tylenol .Regular 650 mg PO Q4H PRN #0 tablet 10/17/16 Strength -] Amlodipine Besylate/Benazepril 1 cap PO DAILY #30 cap 10/17/16 [Lotrel 10-20 mg Capsule] Donepezil HCl [Aricept -] 10 mg PO DAILY tablet 10/17/16 Insulin (Levemir) [Levemir Flexpen 10 units SQ DAILY #1 pen 10/17/16 -] Unobtainable 02/26/17 Metformin Xr [Glucophage *Xr* -] 500 mg PO BID 03/03/17 REVIEW OF SYSTEMS CONSTITUTIONAL: Absent: fever, chills, diaphoresis, generalized weakness, malaise, loss of appetite, weight change HEENT: Absent: rhinorrhea, nasal congestion, throat pain, throat swelling, difficulty swallowing, mouth swelling, ear pain, eye pain, visual changes CARDIOVASCULAR: near syncope, lightheadedness Absent: chest pain, palpitations, irregular heart rate, peripheral edema RESPIRATORY: Absent: cough, shortness of breath, dyspnea with exertion, orthopnea, wheezing, stridor, hemoptysis GASTROINTESTINAL: Absent: abdominal pain, abdominal distension, nausea, vomiting, diarrhea, constipation, melena, hematochezia GENITOURINARY: Absent: dysuria, frequency, urgency, hesitancy, hematuria, flank pain, genital pain MUSCULOSKELETAL: Absent: myalgia, arthralgia, joint swelling, back pain, neck pain SKIN: Absent: rash, itching, pallor HEMATOLOGIC/IMMUNOLOGIC: Absent: easy bleeding, easy bruising, lymphadenopathy, frequent infections ENDOCRINE: Absent: unexplained weight gain, unexplained weight loss, heat intolerance, cold intolerance NEUROLOGIC: unsteady gait Absent: headache, focal weakness or paresthesias, dizziness, seizure, mental status changes, bladder or bowel incontinence PSYCHIATRIC: Absent: anxiety, depression, suicidal or homicidal ideation, hallucinations. PHYSICAL EXAMINATION Vital Signs - 24 hr 03/03/17 15:43 Temperature 98.6 F Pulse Rate 79 Respiratory 16 Rate Blood Pressure 177/79 O2 Sat by Pulse 98 Oximetry (%) GENERAL: Awake, drowsy and sleepy, oriented to person HEAD: Normal with no signs of trauma. EYES: Pupils equal, round and reactive to light, extraocular movements intact, sclera anicteric, conjunctiva clear. EARS, NOSE, THROAT: Oropharynx clear without exudates. Moist mucous membranes. NECK: Normal range of motion, supple without lymphadenopathy, JVD, or masses. LUNGS: Breath sounds equal, clear to auscultation bilaterally. No wheezes, and no crackles. No accessory muscle use. HEART: Regular rate and rhythm, normal S1 and S2 without murmur, rub or gallop. ABDOMEN: Soft, nontender, not distended, normoactive bowel sounds, no guarding, no rebound, no masses. MUSCULOSKELETAL: No CVA tenderness. UPPER EXTREMITIES: No peripheral edema. LOWER EXTREMITIES: 1+ pitting edema of bilateral LE with chronic venous stasis. Distal pulses intact SKIN: Warm, dry, no rahs NEUROLOGICAL: Cranial nerves II-XII intact. Normal speech. Motor strength 5/5 throughout. Sensory Intact Laboratory Results - last 24 hr 03/03/17 03/03/17 03/03/17 15:37 18:03 18:03 WBC 7.5 RBC 5.07 Hgb 13.8 Hct 42.2 MCV 83.2 MCH 27.2 MCHC 32.7 RDW 16.7 H Plt Count 160 MPV 9.1 Neutrophils % 68.7 Lymphocytes % 20.6 Monocytes % 8.3 Eosinophils % 1.4 Basophils % 1.0 Sodium Cancelled Potassium Cancelled Chloride Cancelled Carbon Dioxide Cancelled Anion Gap Cancelled BUN Cancelled Creatinine Cancelled Creat Clearance w eGFR Cancelled POC Glucometer [id number] Random Glucose Cancelled Calcium Cancelled Magnesium Cancelled Total Bilirubin Cancelled AST Cancelled ALT Cancelled Alkaline Phosphatase Cancelled Creatine Kinase Cancelled Troponin I Cancelled Total Protein Cancelled Albumin Cancelled Urine Color Urine Appearance Urine pH Ur Specific [place] Urine Protein Urine Glucose (UA) Urine Ketones Urine Blood Urine Nitrite Urine Bilirubin Urine Urobilinogen Ur Leukocyte Esterase Urine WBC (Auto) Urine RBC (Auto) Urine Casts Hyaline Casts Urine Mucus 03/03/17 03/03/17 03/03/17 19:10 19:10 19:10 WBC RBC Hgb Hct MCV MCH MCHC RDW Plt Count MPV Neutrophils % Lymphocytes % Monocytes % Eosinophils % Basophils % Sodium 140 Potassium 3.8 Chloride 105 Carbon Dioxide 27 Anion Gap 8 BUN 23 H Creatinine 1.5 H Creat Clearance w eGFR 44.59 POC Glucometer Random Glucose 86 D Calcium 8.4 L Magnesium 2.1 Total Bilirubin 0.6 D AST 25 ALT 31 Alkaline Phosphatase 120 H Creatine Kinase 94 Troponin I 0.07 H D Total Protein 7.3 Albumin 3.2 L Urine Color Urine Appearance Urine pH Ur Specific [place] Urine Protein Urine Glucose (UA) Urine Ketones Urine Blood Urine Nitrite Urine Bilirubin Urine Urobilinogen Ur Leukocyte Esterase Urine WBC (Auto) Urine RBC (Auto) Urine Casts Hyaline Casts Urine Mucus 03/03/17 20:12 WBC RBC Hgb Hct MCV MCH MCHC RDW Plt Count MPV Neutrophils % Lymphocytes % Monocytes % Eosinophils % Basophils % Sodium Potassium Chloride Carbon Dioxide Anion Gap BUN Creatinine Creat Clearance w eGFR POC Glucometer Random Glucose Calcium Magnesium Total Bilirubin AST ALT Alkaline Phosphatase Creatine Kinase Troponin I Total Protein Albumin Urine Color Yellow Urine Appearance Clear Urine pH 5.0 Ur Specific [place] 1.014 Urine Protein 2+ H Urine Glucose (UA) Negative Urine Ketones Negative Urine Blood 1+ H Urine Nitrite Negative Urine Bilirubin Negative Urine Urobilinogen Normal Ur Leukocyte Esterase Negative Urine WBC (Auto) 1 Urine RBC (Auto) 1 Urine Casts 3 Hyaline Casts 1 Urine Mucus Rare ASSESSMENT/PLAN: Patient is an 86 year old male with a PMHx of HTN, IDDMII, and Dementia who was BIBEMS after a near syncopal episode witnessed by his . Patient admitted for further monitoring and management. Near Syncopal Episode -Possibly secondary to worsening dementia vs. Cardiac etiology -Cardiac monitoring in telemetry -Same symptoms 5 days prior and head ct revealed no acute pathology -Patients is unable to fully take care of him and would like rehab or custodial placement -Physical therapy ordered -Fall risk patient -Neurology consult placed Chronic Kidney Disease stage III -Patient at baseline -Will avoid nephrotoxic medications -Continue to monitor BMP HTN -Continue home medication Lisinopril 20mg daily and Amlodipine 10mg daily -Continue to monitor BP Dementia -Continue home medication Aricept 10mg daily -Neurology consult placed IDDMII -ISS -BGM -Levemir 10units F/E/N -On no fluids -Electrolytes wnl -Diabetic/Sodium controlled diet Prophylaxis -High risk. Heparin 5000 units TID for DVT -No GI required Disposition -Full code -Will need to go to a nursing facility and physical therapy. Visit type - Emergency Visit Emergency Visit: Yes ED Registration Date: 03/04/17 Care time: The patient presented to the Emergency Department on the above date and was hospitalized for further evaluation of their emergent condition. - New Patient This patient is new to me today: Yes Date on this admission: 03/04/17 - Critical Care Critical Care patient: No
[2017-03-04] MEDS: HEPARIN NA (PORCINE) 5,000 UNITS/ML 1ML VIAL SQ SCH ×3 (06:30→21:11)
[2017-03-04] MEDS ORDERED: HEPARIN NA (PORCINE) 5,000 UNITS/ML 1ML VIAL ONE (06:56)
[2017-03-04 07:11] LABS: ANION GAP 6 (8-16); CALCIUM 8.3 mg/dL (8.5-10.1); CO2 29 mmol/L (21-32); CREATININE 1.5 mg/dL (0.7-1.3); GLUCOSE,RANDOM 76 mg/dL (74-106); MAGNESIUM 2.2 mg/dL (1.8-2.4); PHOSPHOROUS 3.7 mg/dL (2.5-4.9)
[2017-03-04 07:20] LABS: THYROID STIMULATING HORMONE 2.03 uIU/ml (0.358-3.74); TROPONIN I 0.08 ng/ml (0.00-0.05)
[2017-03-04] MEDS: INSULIN DETEMIR 100 UNITS/ML MDV SQ SCH (07:30)
[2017-03-04] MEDS: amLODIPine BESYLATE 10 MG TABLET (FP) PO SCH (09:25)
[2017-03-04] MEDS: LISINOPRIL 20 MG TABLET (FP) PO SCH (09:25)
[2017-03-04] MEDS: INSULIN SLIDING SCALE (NOVOLOG) 1 VIAL SQ SCH ×4 (09:42→21:10)
[2017-03-04] MEDS ORDERED: DONEPEZIL HCL 10 MG TABLET (FP) PO SCH (10:00)
[2017-03-04] MEDS ORDERED: PATIENT'S OWN MEDICATION (NON-FORMULARY) (Amlodipine Besylate/Benazepril [Lotrel 10-20 Mg PO SCH (10:00)
--- NOTE | 2017-03-04 14:10 | CON.NEURO ---
Consult - History of Present Illness History of Present Illness: 86 year old male with a PMHx of HTN, IDDMII, and Dementia who was BIBEMS after a near syncopal episode as witnessed by his . As per chart--Patient's reports that he was standing up and all of a sudden his gait was unbalanced causing him to sway back and forth. Patient appeared pale and clammy and slid to the ground but without hitting his head. Patient never lost consciousness and never had any seizure-like activities such as convulsions or whole body shaking. Patient's reports that he was here 5 days ago for similar episode and was discharged home. However, patients is worried and states that he might need rehab. Patient otherwise denies chest pain, palpitations, shortness of breath, headaches, abdominal pain, acute vision changes. 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 Cardio/Vascular: Yes: CHF, HTN Endocrine: Yes: Diabetes Mellitus - Alcohol/Substance Use Hx Alcohol Use: No - Smoking History Smoking history: Former smoker Have you smoked in the past 12 months: No Aproximately how many cigarettes per day: 0 If you are a former smoker, when did you quit?: 52 yrs old Home Medications - Allergies Allergies/Adverse Reactions: Allergies Allergy/AdvReac Type Severity Reaction Status Date / Time No Known Allergies Allergy Verified 02/26/17 15:44 - Home Medications Home Medications: Ambulatory Orders Acetaminophen [Tylenol .Regular Strength -] 650 mg PO Q4H PRN #0 tablet Amlodipine Besylate/Benazepril [Lotrel 10-20 mg Capsule] 1 cap PO DAILY #30 cap 10/17/16 Donepezil HCl [Aricept -] 10 mg PO DAILY tablet 10/17/16 Insulin (Levemir) [Levemir Flexpen -] 10 units SQ DAILY #1 pen 10/17/16 Unobtainable 02/26/17 Metformin Xr [Glucophage *Xr* -] 500 mg PO BID 03/03/17 Physical Exam-Neuro Vital Signs: Vital Signs Temperature 98.6 F 03/03/17 15:43 Pulse Rate 74 03/04/17 10:58 Respiratory Rate 18 03/04/17 10:58 Blood Pressure 154/75 03/04/17 10:58 O2 Sat by Pulse Oximetry (%) 96 03/04/17 10:58 Constitutional: Yes: Poor Hygeine Labs: CBC, BMP 03/03/17 18:03 03/04/17 06:35 - Neuro Exam Level Of Consciousness: Yes: Alert (eyes open, follows commands inconsistently, unable to answer yr or place, no focal weakness, reflxes symmetric ) Imaging - Results Cat Scan: Report Reviewed, Image Reviewed Problem List - Problems (1) Near syncope Code(s): R55 - SYNCOPE AND COLLAPSE (2) Acute on chronic renal failure Code(s): N17.9 - ACUTE KIDNEY FAILURE, UNSPECIFIED; N18.9 - CHRONIC KIDNEY DISEASE, UNSPECIFIED (3) Cerebral infarct Code(s): I63.9 - CEREBRAL INFARCTION, UNSPECIFIED (4) Dementia Code(s): F03.90 - UNSPECIFIED DEMENTIA WITHOUT BEHAVIORAL DISTURBANCE Assessment/Plan 86 year old male with a PMHx of HTN, IDDMII, and Dementia who was BIBEMS after a near syncopal episode no clinical evidence of a seziure or a stroke ? cardiac given pallor during event start B12 supplementation carotid dopplers underlying dementia --on aricept--may cause bradycardia--can DC ; start nam[place] as outpt Dr Herron
[2017-03-04] MEDS: CYANOCOBALAMIN 1,000 MCG TABLET (FP) PO SCH (15:32)
--- NOTE | 2017-03-04 15:40 | EKG ---
Test Reason : Blood Pressure : / mmHG Vent. Rate : 077 BPM Atrial Rate : 077 BPM P-R Int : 188 ms QRS Dur : 144 ms QT Int : 406 ms P-R-T Axes : 042 036 -17 degrees QTc Int : 459 ms SINUS RHYTHM WITH SINUS ARRHYTHMIA WITH OCCASIONAL PREMATURE VENTRICULAR COMPLEXES RIGHT BUNDLE BRANCH BLOCK T WAVE ABNORMALITY, CONSIDER INFERIOR ISCHEMIA ABNORMAL ECG WHEN COMPARED WITH ECG OF 26-FEB-2017 16:21, PREMATURE VENTRICULAR COMPLEXES ARE NOW PRESENT BASELINE ARTIFACT Confirmed by DALTON BERRIOS MD ([id number]) on 03/04/2017 3:39:47 PM Referred By: Confirmed By:DALTON BERRIOS MD
[2017-03-04] MEDS ORDERED: HALOPERIDOL 5 MG TABLET (FP) PO ONE ×2 (17:35→18:30)
--- NOTE | 2017-03-04 17:38 | HOSP ---
Physical Examination Vital Signs: Vital Signs Temperature 98 F 03/04/17 14:48 Pulse Rate 84 03/04/17 14:48 Respiratory Rate 18 03/04/17 14:48 Blood Pressure 150/67 03/04/17 14:48 O2 Sat by Pulse Oximetry (%) 95 03/04/17 15:05 Labs: CBC, BMP 03/03/17 18:03 03/04/17 06:35 Hospitalist Encounter Assessment: Per RN pt agitated, ripping off telemetry wires, kicking, and trying to leave the bed screaming. Currently, in hallway with help of security, in wheelchair Will give x1 dose haldol 5mg
[2017-03-04] MEDS ORDERED: QUEtiapine FUMARATE 25 MG TABLET (FP) PO ONE (20:46)
[2017-03-05] MEDS: HEPARIN NA (PORCINE) 5,000 UNITS/ML 1ML VIAL SQ SCH ×3 (05:37→21:11)
[2017-03-05] MEDS: INSULIN SLIDING SCALE (NOVOLOG) 1 VIAL SQ SCH ×4 (06:11→21:13)
[2017-03-05] MEDS: INSULIN DETEMIR 100 UNITS/ML MDV SQ SCH (06:11)
[2017-03-05] MEDS: amLODIPine BESYLATE 10 MG TABLET (FP) PO SCH (09:02)
[2017-03-05] MEDS: CYANOCOBALAMIN 1,000 MCG TABLET (FP) PO SCH (09:02)
[2017-03-05] MEDS: LISINOPRIL 20 MG TABLET (FP) PO SCH (09:02)
--- NOTE | 2017-03-05 10:15 | PN ---
Progress Note (short form) - Note Progress Note: pt seen/ examined chart reviewed pt calm now periods of agitation. discussed with nursing staff Vital Signs Temp 98.9 F 03/05/17 05:00 Pulse 95 H 03/05/17 05:00 Resp 18 03/05/17 05:00 BP 149/71 03/05/17 05:00 Pulse Ox 95 03/04/17 21:00 Intake & Output 03/04/17 03/04/17 03/05/17 11:59 23:59 11:59 Intake Total 240 130 Balance 240 130 Weight 250 lb Intake: IV 10 SALINE LOCK 10 Oral 240 120 Other: Voiding Method Diaper Incontinent Incontinent # Unmeasured Voids Void 1 3 Bowel Movement Yes # Bowel Movements 1 Height 5 ft 6 in Body Mass Index (BMI) 40.3 Weight Measurement Method Stated by Caregiver Active Medications Amlodipine Besylate (Norvasc -) 10 mg PO DAILY [facility] Last Admin: 03/05/17 09:02 Dose: 10 mg Cyanocobalamin (Vitamin B12 -) 1,000 mcg PO DAILY [facility] Last Admin: 03/05/17 09:02 Dose: 1,000 mcg Heparin Sodium (Porcine) (Heparin -) 5,000 unit SQ TID [facility] Last Admin: 03/05/17 05:37 Dose: 5,000 unit Insulin Aspart (Novolog Vial Sliding Scale -) 1 vial SQ ACHS [facility] PRN Reason: Protocol Last Admin: 03/05/17 06:11 Dose: Not Given Insulin Detemir (Levemir Vial) 10 units SQ ACBK [facility] Last Admin: 03/05/17 06:11 Dose: Not Given Lisinopril (Prinivil) 20 mg PO DAILY [facility] Last Admin: 03/05/17 09:02 Dose: 20 mg CBC, BMP 03/03/17 18:03 03/04/17 06:35 Microbiology 03/03/17 20:12 Urine Culture - Final Urine - Urine Clean Catch NO GROWTH OBTAINED PHYSICAL EXAMINATION awak/comfortable. GENERAL: Awake, drowsy and sleepy, oriented to person HEAD: Normal with no signs of trauma. EYES: Pupils equal, round and reactive to light, EARS, NOSE, THROAT: wnl NECK: Normal range of motion, supple without lymphadenopathy, JVD, or masses. LUNGS:, clear to auscultation bilaterally. HEART: Regular rate and rhythm, normal S1 and S2 without murmur, rub or gallop. ABDOMEN: Soft, non tender, LOWER EXTREMITIES: 1+ pitting edema of bilateral LE with chronic venous stasis. NEUROLOGICAL: awake/ non focal. ASSESSMENT/PLAN: Patient is an 86 year old male with a PMHx of HTN, IDDMII, and Dementia who was BIBEMS after a near syncopal episode witnessed by his . Patient admitted for further monitoring and management. Near Syncopal Episode -Possibly secondary to worsening dementia vs. Cardiac etiology -Cardiac monitoring in telemetry -Same symptoms 5 days prior and head ct revealed no acute pathology -Patients is unable to fully take care of him and would like rehab or halfway placement -Physical therapy ordered -Fall risk patient -Neurology consult appreciated - will check u/s carotid also Chronic Kidney Disease stage III -Patient at baseline -Will avoid nephrotoxic medications -Continue to monitor BMP HTN -Continue home medication Lisinopril 20mg daily and Amlodipine 10mg daily -Continue to monitor BP Dementia/ Agitation. start on seroquel haldol prn - IDDMII monitor will follow Problem List - Problems (1) Agitation requiring sedation protocol Code(s): R45.1 - RESTLESSNESS AND AGITATION (2) Near syncope Code(s): R55 - SYNCOPE AND COLLAPSE (3) CKD (chronic kidney disease) Code(s): N18.9 - CHRONIC KIDNEY DISEASE, UNSPECIFIED Qualifiers: Chronic kidney disease stage: stage 3 (moderate) Qualified Code(s): N18.3 - Chronic kidney disease, stage 3 (moderate) (4) Cerebral infarct Code(s): I63.9 - CEREBRAL INFARCTION, UNSPECIFIED (5) Dementia Code(s): F03.90 - UNSPECIFIED DEMENTIA WITHOUT BEHAVIORAL DISTURBANCE (6) Diabetes Code(s): E11.9 - TYPE 2 DIABETES MELLITUS WITHOUT COMPLICATIONS
[2017-03-05] MEDS ORDERED: HALOPERIDOL LACTATE 5 MG/ML IM PRN (10:49)
[2017-03-05] MEDS: QUEtiapine FUMARATE 25 MG TABLET (FP) PO SCH ×2 (11:22→21:13)
--- NOTE | 2017-03-05 11:52 | CON.CARD ---
Cardiology Consult (text) - Consultation Consultation Note: Chief Complaint: presyncope History of Present Illness: 86 yo male admitted for presyncope history per ER notes (per their discussion with ): pt has worsening gait issues and was standing up from chair and was swaying an almost fell. She can no longer care for him at home so brought to ER. No cp, sob, loc, le edema. He is answering questions appropriately and says he has no complaints at this time. 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 Cardio/Vascular: Yes: CHF, HTN - Alcohol/Substance Use Hx Alcohol Use: No - Smoking History Smoking history: Former smoker Have you smoked in the past 12 months: No Aproximately how many cigarettes per day: 0 If you are a former smoker, when did you quit?: 30 yrs ago Home Medications - Allergies Allergies/Adverse Reactions: Allergies Allergy/AdvReac Type Severity Reaction Status Date / Time No Known Allergies Allergy Verified 02/26/17 15:44 - Home Medications Home Medications: Ambulatory Orders Home Medications Medication Instructions Recorded Acetaminophen [Tylenol .Regular 650 mg PO Q4H PRN #0 tablet 10/17/16 Strength -] Amlodipine Besylate/Benazepril 1 cap PO DAILY #30 cap 10/17/16 [Lotrel 10-20 mg Capsule] Donepezil HCl [Aricept -] 10 mg PO DAILY tablet 10/17/16 Insulin (Levemir) [Levemir Flexpen 10 units SQ DAILY #1 pen 10/17/16 -] Unobtainable 02/26/17 Metformin Xr [Glucophage *Xr* -] 500 mg PO BID 03/03/17 Review of Systems Unable to obtain ROS, reason: pt poor historian - Review of Systems Constitutional: denies: Chills, Fever Eyes: denies: Eye Pain HENT: denies: Nasal Congestion Neck: denies: Stiffness Cardiovascular: denies: Palpitations Respiratory: denies: Orthopnea, PND Gastrointestinal: denies: Diarrhea, Rectal Bleeding Genitourinary: denies: Burning, Hematuria Musculoskeletal: denies: Muscle Pain Integumentary: denies: Rash Neurological: denies: Numbness, Seizure, Syncope Endocrine: denies: Excessive Sweating Hematology/Lymphatic: denies: Excessive Bleeding Vital Signs: Vital Signs Period Temp Pulse Resp BP Sys/Car Pulse Ox Last 24 Hr 97.8 F-98.9 F 68-104 18-18 149-158/67-80 95-96 Constitutional: Yes: Well Nourished, No Distress Eyes: No: Sclera Icterus HENT: No: Nasal Congestion Respiratory: Yes: CTA Bilaterally. No: Accessory Muscle Use, Rales, Wheezes Gastrointestinal: Yes: Normal Bowel Sounds. No: Distention, Hepatomegaly, Palpable Mass, Tenderness Cardiovascular: Yes: Regular Rate and Rhythm JVD: No Carotid Bruit: No PMI: Non-Displaced Heart Sounds: Yes: S1, S2. No: Gallop Murmur: No: Systolic Murmur, Diastolic Murmur Extremities: No: Cold, Cyanosis Edema: No Peripheral Pulses: 2+ Left Carotid, 2+ Right Carotid, 2+ Left Doralis Pedis, 2+ Right Dorsalis Pedis Integumentary: No: Jaundice Neurological: Yes: Alert. No: Seizure Psychiatric: No: Agitated - Other Data Labs, Other Data: Laboratory Last Values WBC 7.5 K/mm3 (4.0-10.0) 03/03/17 18:03 RBC 5.07 M/mm3 (4.00-5.60) 03/03/17 18:03 Hgb 13.8 GM/dL (11.7-16.9) 03/03/17 18:03 Hct 42.2 % (35.4-49) 03/03/17 18:03 MCV 83.2 fl (80-96) 03/03/17 18:03 MCH 27.2 pg (25.7-33.7) 03/03/17 18:03 MCHC 32.7 g/dl (32.0-35.9) 03/03/17 18:03 RDW 16.7 % (11.9-15.9) H 03/03/17 18:03 Plt Count 160 K/MM3 (134-434) 03/03/17 18:03 MPV 9.1 fl (7.5-11.1) 03/03/17 18:03 Neutrophils % 68.7 % (42.8-82.8) 03/03/17 18:03 Lymphocytes % 20.6 % (8-40) 03/03/17 18:03 Monocytes % 8.3 % (3.8-10.2) 03/03/17 18:03 Eosinophils % 1.4 % (0-4.5) 03/03/17 18:03 Basophils % 1.0 % (0-2.0) 03/03/17 18:03 Sodium 141 mmol/L (136-145) 03/04/17 06:35 Potassium 3.8 mmol/L (3.5-5.1) 03/04/17 06:35 Chloride 106 mmol/L (98-107) 03/04/17 06:35 Carbon Dioxide 29 mmol/L (21-32) 03/04/17 06:35 Anion Gap 6 (8-16) L 03/04/17 06:35 BUN 22 mg/dL (7-18) H 03/04/17 06:35 Creatinine 1.5 mg/dL (0.7-1.3) H 03/04/17 06:35 Creat Clearance w eGFR 44.59 (>60) 03/03/17 19:10 POC Glucometer 81 UNITS (80-120) 03/05/17 11:26 Random Glucose 76 mg/dL (74-106) 03/04/17 06:35 Calcium 8.3 mg/dL (8.5-10.1) L 03/04/17 06:35 Phosphorus 3.7 mg/dL (2.5-4.9) D 03/04/17 06:35 Magnesium 2.2 mg/dL (1.8-2.4) 03/04/17 06:35 Total Bilirubin 0.6 mg/dL (0.2-1.0) D 03/03/17 19:10 AST 25 U/L (15-37) 03/03/17 19:10 ALT 31 U/L (12-78) 03/03/17 19:10 Alkaline Phosphatase 120 U/L (45-117) H 03/03/17 19:10 Creatine Kinase 94 IU/L (39-308) 03/03/17 19:10 Troponin I 0.08 ng/ml (0.00-0.05) H 03/04/17 06:35 Total Protein 7.3 g/dl (6.4-8.2) 03/03/17 19:10 Albumin 3.2 g/dl (3.4-5.0) L 03/03/17 19:10 Vitamin B12 266 pg/ml (180-914) 03/04/17 06:35 TSH 2.03 uIU/ml (0.358-3.74) 03/04/17 06:35 Urine Color Yellow 03/03/17 20:12 Urine Appearance Clear 03/03/17 20:12 Urine pH 5.0 (5.0-8.0) 03/03/17 20:12 Ur Specific Orange 1.014 (1.001-1.035) 03/03/17 20:12 Urine Protein 2+ (NEGATIVE) H 03/03/17 20:12 Urine Glucose (UA) Negative (NEGATIVE) 03/03/17 20:12 Urine Ketones Negative (NEGATIVE) 03/03/17 20:12 Urine Blood 1+ (NEGATIVE) H 03/03/17 20:12 Urine Nitrite Negative (NEGATIVE) 03/03/17 20:12 Urine Bilirubin Negative (NEGATIVE) 03/03/17 20:12 Urine Urobilinogen Normal mg/dL (0.2-1.0) 03/03/17 20:12 Ur Leukocyte Esterase Negative (NEGATIVE) 03/03/17 20:12 Urine WBC (Auto) 1 03/03/17 20:12 Urine RBC (Auto) 1 03/03/17 20:12 Urine Casts 3 /hpf 03/03/17 20:12 Hyaline Casts 1 /lpf 03/03/17 20:12 Urine Mucus Rare 03/03/17 20:12 ekg: sr, old rbbb, no sig change prior cxr: clear lungs tele: sr Echo 06/2016: nl lv/rv. abnormal diastology. 1+ MAC 1+ Ao dilation Echo 2014: nl LV/EF; nl RV; nl LA; mild-mod TR; RVSP 30-40; mild dil ao root a/p: 86 yo with h/o male HTN, HPL, CVA (acute R thalamic bleed at that time, suspected hypertensive etiology), DM2 admitted for gait issues, presyncope. presyncope: -seems gait/balance related, not cardiac -recent echo unremarkable -no signs acs -can monitor on tele for now -check orthostatics HTN: -cont home meds elevated cardiac enzymes: -no ekg changes or obvious cardiac ischemia sx's -trop in borderline range x2 with flat trend, cpk neg, trop similar to prior baseline values-->not c/w acs -no ischemic w/u needed at this time ckd: -cr at baseline HPL: -cont home statin
[2017-03-06] MEDS: HEPARIN NA (PORCINE) 5,000 UNITS/ML 1ML VIAL SQ SCH ×3 (05:40→21:53)
[2017-03-06] MEDS: INSULIN DETEMIR 100 UNITS/ML MDV SQ SCH (06:05)
[2017-03-06] MEDS: INSULIN SLIDING SCALE (NOVOLOG) 1 VIAL SQ SCH ×4 (06:16→21:56)
--- NOTE | 2017-03-06 10:12 | DS ---
Physical Examination Vital Signs: Vital Signs Temperature 98.4 F 03/06/17 05:00 Pulse Rate 78 03/06/17 05:00 Respiratory Rate 18 03/06/17 05:00 Blood Pressure 150/74 03/06/17 05:00 O2 Sat by Pulse Oximetry (%) 95 03/05/17 21:00 Findings/Remarks: feels ok. no complains denies pain. calm now since starting on seroquel Constitutional: Yes: No Distress, Calm Neck: Yes: Supple Cardiovascular: Yes: Regular Rate and Rhythm Respiratory: Yes: CTA Bilaterally Gastrointestinal: Yes: Normal Bowel Sounds, Soft Edema: No Neurological: Yes: Alert Labs: CBC, BMP 03/03/17 18:03 03/04/17 06:35 Discharge Summary Reason For Visit: PRE-SYNCOPE Current Active Problems Agitation requiring sedation protocol (Acute) Near syncope (Acute) Hospital Course: Patient is an 86 year old male with a PMHx of HTN, IDDMII, and Dementia who was BIBEMS after a near syncopal episode witnessed by his . Patient's reports that he was standing up and all of a sudden his gait was unbalanced causing him to sway back and forth. Patient appeared pale and clammy and slid to the ground but without hitting his head. Patient never lost consciousness and never had any seizure-like activities such as convulsions or whole body shaking. Patient's reports that he was here 5 days ago for similar episode and was discharged home. However, patients is worried and states that he might need rehab. Patient otherwise denies chest pain, palpitations, shortness of breath, headaches, abdominal pain, acute vision changes. Pt admitted to tele cardiology / neurology followed no active cardiac/ neuro issues likely worsening dementia will start on namenda aricept held due to bradycardia physical therapy libby will need str discussed with correctional counselor/case manager today repat labs / u/s carotid ordered for today monitor bgm decrease levemir as sugar running low d/c metformin-- ckd meds reconcilled anticipate d/c later today. discussed with nursing staff as well as correctional counselor/case manager. discharge time 40 min in examining/ documenting and coordation care Condition: Fair - Instructions Disposition: INTERMEDIATE FACILITY - Home Medications Comprehensive Discharge Medication List: Ambulatory Orders Acetaminophen [Tylenol .Regular Strength -] 650 mg PO Q4H PRN #0 tablet Amlodipine Besylate/Benazepril [Lotrel 10-20 mg Capsule] 1 cap PO DAILY #30 cap 10/17/16 Cyanocobalamin [Vitamin B12 -] 1,000 mcg PO DAILY tablet 03/06/17 Haloperidol Injection [Haldol Injection (Fast Acting) -] 5 mg IM Q8H PRN ml Heparin - 5,000 unit SQ TID vial 03/06/17 Insulin (Levemir) [Levemir Flexpen -] 8 units SQ DAILY #1 pen 03/06/17 Insulin Sliding Scale [Novolog Vial Sliding Scale -] 1 vial SQ ACHS units 03/06 Quetiapine Fumarate [Seroquel -] 25 mg PO HS #30 tablet 03/06/17
[2017-03-06] MEDS ORDERED: PT OWN MED DRAWER 7, Y5N ONE ×3 (10:29→21:42)
[2017-03-06] MEDS: amLODIPine BESYLATE 10 MG TABLET (FP) PO SCH (10:45)
[2017-03-06] MEDS: LISINOPRIL 20 MG TABLET (FP) PO SCH (10:45)
[2017-03-06] MEDS: CYANOCOBALAMIN 1,000 MCG TABLET (FP) PO SCH (10:45)
[2017-03-06] MEDS: MEMANTINE HCL 10 MG TABLET (FP) PO SCH ×2 (10:45→21:53)
[2017-03-06 11:10] LABS: ANION GAP 9 (8-16); CALCIUM 8.5 mg/dL (8.5-10.1); CO2 25 mmol/L (21-32); CREATININE 1.5 mg/dL (0.7-1.3); GLUCOSE,RANDOM 135 mg/dL (74-106); SGOT/AST 32 U/L (15-37); SGPT/ALT 31 U/L (12-78)
[2017-03-06 11:12] LABS: ALK PHOS 136 U/L (45-117); TOT PROT 7.2 g/dl (6.4-8.2)
--- NOTE | 2017-03-06 12:43 | PN ---
Progress Note, Physician Chief Complaint: fall, dizzy History of Present Illness: lethargic, not answering questions. looks comfortable - Current Medication List Current Medications: Active Medications Amlodipine Besylate (Norvasc -) 10 mg PO DAILY [facility] Last Admin: 03/06/17 10:45 Dose: 10 mg Cyanocobalamin (Vitamin B12 -) 1,000 mcg PO DAILY [facility] Last Admin: 03/06/17 10:45 Dose: 1,000 mcg Haloperidol (Haldol Injection (Fast Acting) -) 5 mg IM Q8H PRN PRN Reason: AGITATION Heparin Sodium (Porcine) (Heparin -) 5,000 unit SQ TID [facility] Last Admin: 03/06/17 05:40 Dose: 5,000 unit Insulin Aspart (Novolog Vial Sliding Scale -) 1 vial SQ ACHS [facility] PRN Reason: Protocol Last Admin: 03/06/17 10:56 Dose: Not Given Insulin Detemir (Levemir Vial) 10 units SQ ACBK [facility] Last Admin: 03/06/17 06:05 Dose: Not Given Lisinopril (Prinivil) 20 mg PO DAILY [facility] Last Admin: 03/06/17 10:45 Dose: 20 mg Memantine (Namenda -) 10 mg PO BID [facility] Last Admin: 03/06/17 10:45 Dose: 10 mg Quetiapine Fumarate (Seroquel -) 25 mg PO HS [facility] Last Admin: 03/05/17 21:13 Dose: 25 mg - Objective Vital Signs: Vital Signs Temperature 98.4 F 03/06/17 05:00 Pulse Rate 78 03/06/17 05:00 Respiratory Rate 18 03/06/17 05:00 Blood Pressure 150/74 03/06/17 05:00 O2 Sat by Pulse Oximetry (%) 95 03/05/17 21:00 Constitutional: Yes: Well Nourished, No Distress, Calm Cardiovascular: Yes: Regular Rate and Rhythm, S1, S2. No: Gallop, Murmur Respiratory: Yes: Regular, CTA Bilaterally (not cooperating with deep breaths). No: Accessory Muscle Use, Rales, Wheezes Extremities: No: Cold Edema: No Neurological: Yes: Lethargy. No: Seizure Psychiatric: No: Agitated Labs: CBC, BMP 03/03/17 18:03 03/06/17 10:15 - ....Imaging EKG: Other (tele: NSR, no events) Assessment/Plan ekg: sr, old rbbb, no sig change prior cxr: clear lungs tele: sr Echo 06/2016: nl lv/rv. abnormal diastology. 1+ MAC 1+ Ao dilation Echo 2014: nl LV/EF; nl RV; nl LA; mild-mod TR; RVSP 30-40; mild dil ao root a/p: 86 yo with h/o male HTN, HPL, CVA (acute R thalamic bleed at that time, suspected hypertensive etiology), DM2 admitted for gait issues, presyncope. presyncope: -seems gait/balance related, not cardiac -recent echo unremarkable -no signs acs -tele benign here -check orthostatics (ordered) -if not significantly orthostatic, he's ok for d/c from cv p.o.v. with no further testing or med changes indicated HTN: -cont home meds elevated cardiac enzymes: -no ekg changes or obvious cardiac ischemia sx's -trop in borderline range x2 with flat trend, cpk neg, trop similar to prior baseline values-->not c/w acs -no ischemic w/u needed at this time ckd: -cr at baseline HPL: -cont home statin can d/c telemetry
[2017-03-06] MEDS ORDERED: ACETAMINOPHEN 325 MG TABLET (FP) PO PRN (14:49)
[2017-03-06] MEDS ORDERED: INSULIN (NOVOLOG) ASPART 100 UNITS/ML 10ML VIAL ONE ×3 (16:41→21:40)
[2017-03-06] MEDS: QUEtiapine FUMARATE 25 MG TABLET (FP) PO SCH (21:53)
[2017-03-07] MEDS: HEPARIN NA (PORCINE) 5,000 UNITS/ML 1ML VIAL SQ SCH (06:16)
[2017-03-07] MEDS: INSULIN DETEMIR 100 UNITS/ML MDV SQ SCH (06:16)
[2017-03-07] MEDS: INSULIN SLIDING SCALE (NOVOLOG) 1 VIAL SQ SCH ×2 (06:18→11:59)
[2017-03-07] MEDS: LISINOPRIL 20 MG TABLET (FP) PO SCH (10:59)
[2017-03-07] MEDS: CYANOCOBALAMIN 1,000 MCG TABLET (FP) PO SCH (10:59)
[2017-03-07] MEDS: amLODIPine BESYLATE 10 MG TABLET (FP) PO SCH (10:59)
[2017-03-07] MEDS: MEMANTINE HCL 10 MG TABLET (FP) PO SCH (10:59)
--- NOTE | 2017-03-07 12:34 | PN ---
Progress Note, Physician Chief Complaint: No distress comfortable - Current Medication List Current Medications: Active Medications Acetaminophen (Tylenol -) 650 mg PO Q6H PRN PRN Reason: FEVER OR PAIN Last Admin: 03/06/17 15:10 Dose: 650 mg Amlodipine Besylate (Norvasc -) 10 mg PO DAILY [facility] Last Admin: 03/07/17 10:59 Dose: 10 mg Cyanocobalamin (Vitamin B12 -) 1,000 mcg PO DAILY [facility] Last Admin: 03/07/17 10:59 Dose: 1,000 mcg Haloperidol (Haldol Injection (Fast Acting) -) 5 mg IM Q8H PRN PRN Reason: AGITATION Heparin Sodium (Porcine) (Heparin -) 5,000 unit SQ TID [facility] Last Admin: 03/07/17 06:16 Dose: 5,000 unit Insulin Aspart (Novolog Vial Sliding Scale -) 1 vial SQ ACHS [facility] PRN Reason: Protocol Last Admin: 03/07/17 11:59 Dose: 2 units Insulin Detemir (Levemir Vial) 10 units SQ ACBK [facility] Last Admin: 03/07/17 06:16 Dose: 10 units Lisinopril (Prinivil) 20 mg PO DAILY [facility] Last Admin: 03/07/17 10:59 Dose: 20 mg Memantine (Namenda -) 10 mg PO BID [facility] Last Admin: 03/07/17 10:59 Dose: 10 mg Quetiapine Fumarate (Seroquel -) 25 mg PO HS [facility] Last Admin: 03/06/17 21:53 Dose: 25 mg - Objective Vital Signs: Vital Signs Temperature 98.2 F 03/07/17 06:00 Pulse Rate 73 03/07/17 06:00 Respiratory Rate 18 03/07/17 06:00 Blood Pressure 125/67 03/07/17 06:00 O2 Sat by Pulse Oximetry (%) 95 03/06/17 21:00 Constitutional: Yes: No Distress Cardiovascular: Yes: Regular Rate and Rhythm Respiratory: Yes: CTA Bilaterally Gastrointestinal: Yes: Normal Bowel Sounds, Soft. No: Distention, Tenderness Edema: No Labs: CBC, BMP 03/03/17 18:03 03/06/17 10:15 Problem List - Problems (1) Near syncope Code(s): R55 - SYNCOPE AND COLLAPSE (2) Acute on chronic renal failure Code(s): N17.9 - ACUTE KIDNEY FAILURE, UNSPECIFIED; N18.9 - CHRONIC KIDNEY DISEASE, UNSPECIFIED (3) Dementia Code(s): F03.90 - UNSPECIFIED DEMENTIA WITHOUT BEHAVIORAL DISTURBANCE (4) Diabetes Code(s): E11.9 - TYPE 2 DIABETES MELLITUS WITHOUT COMPLICATIONS Assessment/Plan TURNER carotid doppler no significant stenosis Afebrile Urine cultures negative pt needs STR stable for dc to NH
[2017-03-07 12:41] VITALS: BP 128/70; PULSE 82; TEMP 98
== END 2017-03-07 13:54 | DRG 884 ==
LOC: JER 15:27 → JERBED 03-04 01:17 → UNDOADMIN 03-04 01:23 → J4W 03-04 14:49 → J5S 03-06 14:19
PROVIDERS: ADMIT Internal Medicine; ATTEND Internal Medicine
DX: F03.91 Unspecified dementia, unspecified severity, with behavioral disturbance (principal); I13.0 Hypertensive heart and chronic kidney disease with heart failure and stage 1 through stage 4 chronic kidney disease, or unspecified chronic kidney disease; N17.9 Acute kidney failure, unspecified; Z68.41 Body mass index [BMI] 40.0-44.9, adult; R55 Syncope and collapse; I48.91 Unspecified atrial fibrillation; R26.81 Unsteadiness on feet; R00.1 Bradycardia, unspecified; E78.00 Pure hypercholesterolemia, unspecified; E11.22 Type 2 diabetes mellitus with diabetic chronic kidney disease; N18.3 Chronic kidney disease, stage 3 (moderate); Z79.4 Long term (current) use of insulin; Z87.891 Personal history of nicotine dependence; Z86.73 Personal history of transient ischemic attack (TIA), and cerebral infarction without residual deficits
CPT/HCPCS: 36415; 70450-TC; 71010-TC; 80048; 80053; 81003; 81015; 82550; 82607; 83036; 83735; 84100; 84443; 84484; 85025; 87086; 93005; 93010; 93880-TC; 97162-GP; 99283-25; J1644

== ENCOUNTER 2017-10-11 15:25 | Inpatient (IN) | payer OTHER, BC ==
--- NOTE | 2017-10-11 16:08 | PDOC ---
Attending Attestation - HPI HPI: 10/11/17 17:31 The patient is a 86 year old male brought via EMS and presenting with his family , with a significant past medical history of CVA, dementia, IDDM, HTN, CKD stage III, who presents to the emergency department complaining of nausea, vomiting and generalized weakness, vomiting and nausea. He notes that he did notice some pink coloring in his vomit, which prompted him to come to the ED. EMS states that upon arrival the patient's glucose levels were low. The patient ambulates with a cane. The patient denies chest pain, shortness of breath, headache or dizziness. Denies fever, chills, diarrhea and constipation. Denies dysuria, frequency, urgency and hematuria. Allergies: None Past surgical history: right thumb surgery Social History: No alcohol, tobacco or drug use reported PMD: Dr. Melendrez. - Physicial Exam PE: 10/11/17 17:31 Constitutional: Awake, alert, oriented. No acute distress. Head: Normocephalic. Atraumatic Eyes: PERRL. EOMI. Conjunctivae are not pale. ENT: Mucous membranes are moist and intact. Posterior pharynx without exudates or erythema. Uvula midline. Neck: Supple. Full ROM. No lymphadenopathy. Cardiovascular: Regular rate. Regular rhythm. S1, S2 regular. Distal pulses are 2+ and symmetric. Pulmonary/Chest: No evidence of respiratory distress. Clear to auscultation bilaterally No wheezing, rales or rhonchi. Abdominal: Soft and non-distended. There is no tenderness. No rebound, guarding or rigidity. No organomegaly. No palpable masses. Good bowel sounds. Back: No CVA tenderness. Musculoskeletal: (+) 1+ pitting edema lower extremities bilaterally left bigger than right . No cyanosis. No clubbing. Full range of motion in all extremities. Nocalf tenderness. Radial/pedal pulses are intact and 2+ bilaterally Skin: Skin is warm and dry. No petechiae. No purpura. Neurological: Alert and oriented to person, place, and time. Cranial nerves II -XII are grossly intact. Normal speech. Strength is grossly symmetric. No sensory deficits. Psychiatric: Good eye contact. Normal interaction, affect and behavior. <Km [place] - Last Filed: 10/11/17 17:31> - Resident Resident Name: Sahra Christian - ED Attending Attestation I have performed the following: I have examined & evaluated the patient, The case was reviewed & discussed with the resident, I agree w/resident's findings & plan, Exceptions are as noted - Medical Decision Making 10/11/17 16:08 I, Dr. Anna Oviedo, DO, attest that this document has been prepared under my direction and personally reviewed by me in its entirety. I further attest, that it accurately reflects all work, treatment, procedures and medical decision -making performed by me. 10/11/17 17:11 a/p: 86yo male who speaks kinyarwanda with vomiting x 4 with blood tinged at the end, generally weak today - walking with walker - not a cane -will check labs and gi bleed labs -stool for heme will start ivf hydration -will monitor and reassess -pt with hx of cva and hx of dementia - pt is a poor historian and cannot provide a complete hx hx provided by the nephew who is at the bedside -pt was hypoglycemic in the field - glucose 64 by medics need to repeat finger stick 10/11/17 17:15 10/11/17 18:30 pt with hypoglycemia at home elevated lactate ua negative on glipizide at home will need monitoring overnight for recurrent hypoglycemia 10/11/17 18:39 lina on labs on oral hypoglycemics PMD. Dr Melendrez - covered by Dr. Coffey - covered by [employer] overnight discussed labs with the fam - will place in obs tele 10/11/17 18:52 sinus at 77 w 1st degree av block, RBBB, no acute st/t wave findings 10/11/17 18:52 pt [facility] <Anna Oviedo - Last Filed: 10/11/17 18:52>
--- NOTE | 2017-10-11 16:20 | PDOC ---
History of Present Illness - General Chief Complaint: Weakness Stated Complaint: WEAKNESS Time Seen by Provider: 10/11/17 15:56 History Source: [facility] Records Exam Limitations: Dementia - History of Present Illness Initial Comments: This is an 86 YOM with h/o dementia, CVA, DM with episodes of hypoglycemia, HTN , CKD stage III, sepsis, recent admission here at [facility] for near-syncope, who was BIBA from home where he lives with his , for generalized weakness, vomiting x4 episodes which is non-bilious but blood-tinged. EMS arrived on scene and measured his CBG to be 68, gave him D10, and re-measured it to be 131. They additionally note he vomited and they gave him 4 mg Zofran. The patient himself is unable to provide any of his medical history or symptoms. He is full code. His PCP is Dr. Melendrez. Past History - Past Medical History Allergies/Adverse Reactions: Allergies Allergy/AdvReac Type Severity Reaction Status Date / Time No Known Allergies Allergy Verified 02/26/17 15:44 Home Medications: Ambulatory Orders Memantine HCl [Namenda -] 10 mg PO BID #60 tablet 03/06/17 Quetiapine Fumarate [Seroquel -] 25 mg PO HS #30 tablet 03/06/17 Furosemide [Lasix] 40 mg PO DAILY 10/11/17 Glyburide/Metformin HCl [Glyburide-Metformin 5-500 mg] 2 each PO DAILY 10/11/17 Potassium Chloride [Klor-Con M20] 20 meq PO DAILY 10/11/17 Valsartan 160 mg PO DAILY 10/11/17 Anemia: No Asthma: No Cardiac Disorders: Yes (Afib) CVA: Yes (stroke since 8 yrs ago) COPD: No CHF: Yes Dementia: Yes Diabetes: Yes GI Disorders: No Disorders: No HTN: Yes Hypercholesterolemia: Yes Liver Disease: No Seizures: No Thyroid Disease: No - Surgical History Abdominal Surgery: No Appendectomy: No Cardiac Surgery: No Cholecystectomy: No Lung Surgery: No Neurologic Surgery: No Orthopedic Surgery: Yes (35 yrs ago, right thumb surgery) - Suicide/Smoking/Psychosocial Hx Smoking History: Former smoker Have you smoked in the past 12 months: No Number of Cigarettes Smoked Daily: 0 If you are a former smoker, when did you quit?: 52 yrs old Cigars Per Day: 0 Information on smoking cessation initiated: No Hx Alcohol Use: No Drug/Substance Use Hx: No Substance Use Type: None Hx Substance Use Treatment: No Review of Systems - Review of Systems Able to Perform ROS?: No (dementia) *Physical Exam - Vital Signs Last Vital Signs Temp Pulse Resp BP Pulse Ox 97.4 F L 77 20 147/61 95 10/11/17 15:44 10/11/17 15:44 10/11/17 15:44 10/11/17 15:44 10/11/17 15:44 - Physical Exam General Appearance: Yes: Nourished, Obese, Other (a bit pale appearing elderly male who is able to stand and walk a few steps with assistance, had a large formed bowel movement in diaper, nonverbal but following simple commands) HEENT: positive: EOMI, CHRISTINA, Pale Conjunctivae. negative: Nasal Congestion, Lesions Neck: positive: Trachea midline, Normal Thyroid, Supple. negative: Tender, Rigid Respiratory/Chest: positive: Lungs Clear, Normal Breath Sounds. negative: Respiratory Distress, Accessory Muscle Use, Labored Respiration Cardiovascular: positive: Regular Rhythm, Regular Rate, S1, S2, Edema. negative : JVD, Murmur Gastrointestinal/Abdominal: positive: Normal Bowel Sounds, Protuberent. negative: Tenderness Rectal Exam: positive: other (brown stool hemoccult negative) Lymphatic: negative: Adenopathy, Tenderness Musculoskeletal: positive: Normal Inspection. negative: CVA Tenderness, Vertebral Tenderness Extremity: positive: Normal Capillary Refill, Swelling (BLE edema). negative: Tender, Calf Tenderness, Erythema Integumentary: positive: Dry, Warm, Pale Neurologic: positive: reconditioner II-XII NML intact (grossly), Alert, Normal Mood/Affect , Normal Response, Motor Strength 5/5, Disoriented (per baseline per family). negative: Fully Oriented, Facial Droop Heart Score/ECG Review #1 10/11/17 18:50 SR with sinus arrhythmia with 1st degree AV block rate of 77 with RBBB, flipped T waves inferiorly ED Treatment Course - LABORATORY CBC & Chemistry Diagram: 10/11/17 17:15 10/11/17 17:15 Medical Decision Making - Medical Decision Making Adult Pt p/w generalized weakness and 4 episodes vomiting with blood tinge. Initial Vital Signs Temp Pulse Resp BP Pulse Ox 97.4 F L 77 20 147/61 95 10/11/17 15:44 10/11/17 15:44 10/11/17 15:44 10/11/17 15:44 10/11/17 15:44 Exam: appears pale, nonverbal, follows simple commands, stands/walks a few steps with DDX IBNLT: hypoglycemia, structural (e.g. epilepsy, brain tumor, CVA/TIA, NPH, CJD, ACS, PE, [place] disease), infectious (e.g. UTI, PNA, bronchitis, cellulitis , meningitis, neurosyphilis, HIV-associated dementia), VS abnormalities (e.g. fever, hypertensive emergency), toxic-metabolic (e.g. medications, drugs e.g. serotonin syndrome/neuroleptic malignant syndrome or street drugs, electrolytes , hypothyroid, B12 deficiency), psychiatric (e.g. delirium, dementia, psychosis) , TTP (HUS with AMS, fever, poss seizure), etc. W/U ordered: CBCD CMP Mg Phos Troponin CK CKMB TSH UA UCx EKG CXR TX ordered: IVF EKG: SR with sinus arrhythmia with 1st degree AV block rate of 77 with RBBB, flipped T waves inferiorly CXR: Labs: Head CT: Repeat VS: Reassessment: Patient to be admitted given acute change in mental status. They are unsafe for discharge at this time. They require further hospital observation, workup, and treatment. Microblog sent to [facility] for admission. Spoke with [facility], in agreement Pt to be admitted to [facility] Obs. Decision to Admit order placed to covering attending Dr. Burr. *DC/Admit/Observation/Transfer Diagnosis at time of Disposition: [place] (acute kidney injury), Hypoglycemia Hematemesis Qualifiers: Nausea presence: with nausea Qualified Code(s): K92.0 - Hematemesis - Discharge Dispostion Condition at time of disposition: Guarded Decision to Admit order: Yes - Referrals - Patient Instructions - Post Discharge Activity
[2017-10-11] MEDS ORDERED: SODIUM CHLORIDE 1,000 ML IV STA (16:22)
[2017-10-11 17:25] LABS: BASO % 0.8 % (0-2.0); EOS % 0.8 % (0-4.5); HEMATOCRIT 35.3 % (35.4-49); HEMOGLOBIN 11.4 GM/dL (11.7-16.9); LYMPH % 6.6 % (8-40); MCH 26.6 pg (25.7-33.7); MCHC 32.4 g/dl (32.0-35.9); MEAN CELL VOLUME 82.1 fl (80-96); MEAN PLT VOLUME 8.8 fl (7.5-11.1); MONO % 3.9 % (3.8-10.2); NEUT % 87.9 % (42.8-82.8); PLATELET COUNT 179 K/MM3 (134-434); RBC 4.31 M/mm3 (4.00-5.60); RDW 16.6 % (11.9-15.9); WHITE BLOOD COUNT 9.2 K/mm3 (4.0-10.0)
[2017-10-11 17:28] LABS: VENOUS PC02 52.1 mmHg (38-52); VENOUS PH 7.26 (7.32-7.42); VENOUS PO2 22.1 mmHg (28-48)
[2017-10-11 17:53] LABS: INR 1.05 (0.82-1.09); PROTHROMBIN TIME (PATIENT) 11.9 SEC (9.7-13.0)
[2017-10-11 17:56] LABS: ACTIVATED PTT 27.1 SECONDS (25.2-36.5)
[2017-10-11 18:13] LABS: URINE APPEARANCE CLEAR; URINE BILIRUBIN NEGATIVE (<2.0 mg/dL); URINE COLOR STRAW; URINE GLUCOSE (UA) NEGATIVE (NEGATIVE); URINE KETONE NEGATIVE (NEGATIVE); URINE LEUK ESTERASE NEGATIVE (NEGATIVE); URINE NITRITE NEGATIVE (NEGATIVE); URINE UROBILINOGEN NEGATIVE mg/dL (0.2-1.0)
[2017-10-11 18:20] LABS: ALBUMIN 3.9 g/dl (3.4-5.0); ANION GAP 9 (8-16); BILIRUBIN,TOTAL 0.3 mg/dL (0.2-1.0); BLOOD UREA NITROGEN 50 mg/dL (7-18); CALCIUM 9.2 mg/dL (8.5-10.1); CHLORIDE 107 mmol/L (98-107); CO2 24 mmol/L (21-32); CREATININE 2.2 mg/dL (0.7-1.3); GLUCOSE,RANDOM 102 mg/dL (74-106); POTASSIUM 5.1 mmol/L (3.5-5.1); SGOT/AST 22 U/L (15-37); SGPT/ALT 48 U/L (12-78); SODIUM 140 mmol/L (136-145); TOT PROT 9.1 g/dl (6.4-8.2)
[2017-10-11 18:22] LABS: ALK PHOS 105 U/L (45-117); N-TERMINAL BNP 109.02 pg/ml (5-450)
[2017-10-11 18:25] LABS: URINE PROTEIN 1+ (NEGATIVE)
--- NOTE | 2017-10-11 21:23 | HP ---
CHIEF COMPLAINT: vomiting PCP: Aneesh HISTORY OF PRESENT ILLNESS: This is an 86 year old male with a past medical history significant for dementia , CVA, DM, afib, HTN, CHF, CKD who presented to the ED after vomiting x 4 at home. EMS noted pt to have a sugar of 68 and vomiting x 1 more so they gave D10 and ondansetran. Upon exam pt reports feeling fine. Denies abdominal pain. ER course was notable for: (1) Cr 2.2 up from 1.5 (2) lactic acid 2.3 (3) treated with 1L NS Recent Travel: none PAST MEDICAL HISTORY: dementia, CVA, AFIB, HTN, CHF, HLD, CKD3, DM, sepsis PAST SURGICAL HISTORY: R thumb surgery Social History: Smoking: quit age 52 Alcohol: pt denies Drugs: pt denies Family History: unk Allergies No Known Allergies Allergy (Verified 02/26/17 15:44) HOME MEDICATIONS: 3 Medication Instructions Recorded Memantine HCl [Namenda -] 10 mg PO BID #60 tablet 03/06/17 Quetiapine Fumarate [Seroquel -] 25 mg PO HS #30 tablet 03/06/17 Furosemide [Lasix] 40 mg PO DAILY 10/11/17 Glyburide/Metformin HCl 2 each PO DAILY 10/11/17 [Glyburide-Metformin 5-500 mg] Potassium Chloride [Klor-Con M20] 20 meq PO DAILY 10/11/17 Valsartan 160 mg PO DAILY 10/11/17 REVIEW OF SYSTEMS CONSTITUTIONAL: Absent: fever, chills, diaphoresis, generalized weakness, malaise, loss of appetite, weight change HEENT: Absent: rhinorrhea, nasal congestion, throat pain, throat swelling, difficulty swallowing, mouth swelling, ear pain, eye pain, visual changes CARDIOVASCULAR: Absent: chest pain, syncope, palpitations, irregular heart rate, lightheadedness , peripheral edema RESPIRATORY: Absent: cough, shortness of breath, dyspnea with exertion, orthopnea, wheezing, stridor, hemoptysis GASTROINTESTINAL: Present: vomiting Absent: abdominal pain, abdominal distension, nausea, diarrhea, constipation, melena, hematochezia GENITOURINARY: Absent: dysuria, frequency, urgency, hesitancy, hematuria, flank pain, genital pain MUSCULOSKELETAL: Absent: myalgia, arthralgia, joint swelling, back pain, neck pain SKIN: Absent: rash, itching, pallor HEMATOLOGIC/IMMUNOLOGIC: Absent: easy bleeding, easy bruising, lymphadenopathy, frequent infections ENDOCRINE: Absent: unexplained weight gain, unexplained weight loss, heat intolerance, cold intolerance NEUROLOGIC: Absent: headache, focal weakness or paresthesias, dizziness, unsteady gait, seizure, mental status changes, bladder or bowel incontinence PSYCHIATRIC: Absent: anxiety, depression, suicidal or homicidal ideation, hallucinations. PHYSICAL EXAMINATION Vital Signs - 24 hr 3 10/11/17 15:44 Temperature 97.4 F L Pulse Rate 77 Respiratory 20 Rate Blood Pressure 147/61 O2 Sat by Pulse 95 Oximetry (%) GENERAL: Awake, alert, and fully to person and place, in no acute distress. HEAD: Normal with no signs of trauma. EYES: Pupils equal, round and reactive to light, extraocular movements intact, sclera anicteric, conjunctiva clear. No lid lag. EARS, NOSE, THROAT: Ears normal, nares patent, oropharynx clear without exudates. Moist mucous membranes. NECK: Normal range of motion, supple without lymphadenopathy, JVD, or masses. LUNGS: Breath sounds equal, clear to auscultation bilaterally. No wheezes, and no crackles. No accessory muscle use. HEART: Regular rate and rhythm, normal S1 and S2 without murmur, rub or gallop. ABDOMEN: Soft, nontender, not distended, normoactive bowel sounds, no guarding, no rebound, no masses. No hepatomegaly or splenomegaly. MUSCULOSKELETAL: Normal range of motion at all joints. No bony deformities or tenderness. No CVA tenderness. UPPER EXTREMITIES: 2+ pulses, warm, well-perfused. No cyanosis. No clubbing. No peripheral edema. LOWER EXTREMITIES: 2+ pulses, warm, well-perfused. No calf tenderness. No peripheral edema. NEUROLOGICAL: Cranial nerves II-XII intact. Normal speech. Normal gait. PSYCHIATRIC: Cooperative. Good eye contact. Appropriate mood and affect. SKIN: Warm, dry, normal turgor, no rashes or lesions noted, normal capillary refill. Laboratory Results - last 24 hr 3 10/11/17 10/11/17 10/11/17 10/11/17 10/11/17 10/11/17 15:38 16:50 17:00 17:15 17:15 17:15 WBC 9.2 RBC 4.31 Hgb 11.4 L D Hct 35.3 L D MCV 82.1 MCH 26.6 MCHC 32.4 RDW 16.6 H Plt Count 179 MPV 8.8 Absolute Neuts (auto) 8.1 Neutrophils % 87.9 H D Lymphocytes % 6.6 L D Monocytes % 3.9 Eosinophils % 0.8 Basophils % 0.8 Nucleated RBC % 0 PT with INR 11.90 INR 1.05 PTT (Actin FS) 27.1 VBG pH 7.26 L POC VBG pCO2 52.1 H POC VBG pO2 22.1 L Mixed VBG HCO3 22.6 Sodium Potassium Chloride Carbon Dioxide Anion Gap BUN Creatinine Creat Clearance w eGFR POC Glucometer [phone] Random Glucose Lactic Acid 2.3 H* Calcium Total Bilirubin AST ALT Alkaline Phosphatase Creatine Kinase Creatine Kinase Index CK-MB (CK-2) Troponin I B-Natriuretic Peptide Total Protein Albumin TSH Urine Color Urine Appearance Urine pH Ur Specific [place] Urine Protein Urine Glucose (UA) Urine Ketones Urine Blood Urine Nitrite Urine Bilirubin Urine Urobilinogen Ur Leukocyte Esterase Urine WBC (Auto) Urine RBC (Auto) Stool Occult Blood Negative Blood Type Antibody Screen 3 10/11/17 10/11/17 10/11/17 17:15 17:15 17:15 WBC RBC Hgb Hct MCV MCH MCHC RDW Plt Count MPV Absolute Neuts (auto) Neutrophils % Lymphocytes % Monocytes % Eosinophils % Basophils % Nucleated RBC % PT with INR INR PTT (Actin FS) VBG pH POC VBG pCO2 POC VBG pO2 Mixed VBG HCO3 Sodium 140 Potassium 5.1 D Chloride 107 Carbon Dioxide 24 Anion Gap 9 BUN 50 H D Creatinine 2.2 H D Creat Clearance w eGFR 28.66 POC Glucometer Random Glucose 102 D Lactic Acid Calcium 9.2 Total Bilirubin 0.3 D AST 22 D ALT 48 D Alkaline Phosphatase 105 D Creatine Kinase 156 Creatine Kinase Index 3.1 CK-MB (CK-2) 4.87 H Troponin I 0.03 D B-Natriuretic Peptide 109.02 Total Protein 9.1 H D Albumin 3.9 D TSH 2.30 D Urine Color Urine Appearance Urine pH Ur Specific [place] Urine Protein Urine Glucose (UA) Urine Ketones Urine Blood Urine Nitrite Urine Bilirubin Urine Urobilinogen Ur Leukocyte Esterase Urine WBC (Auto) Urine RBC (Auto) Stool Occult Blood Blood Type O NEGATIVE Antibody Screen Negative 3 Urine Color Straw 10/11/17 17:50 Urine Appearance Clear 10/11/17 17:50 Urine pH 5.0 (5.0-8.0) 10/11/17 17:50 Ur Specific [place] 1.009 (1.001-1.035) 10/11/17 17:50 Urine Protein 1+ (NEGATIVE) H 10/11/17 17:50 Urine Glucose (UA) Negative (NEGATIVE) 10/11/17 17:50 Urine Ketones Negative (NEGATIVE) 10/11/17 17:50 Urine Blood Negative (NEGATIVE) 10/11/17 17:50 Urine Nitrite Negative (NEGATIVE) 10/11/17 17:50 Urine Bilirubin Negative (<2.0 mg/dL) 10/11/17 17:50 Ur Leukocyte Esterase Negative (NEGATIVE) 10/11/17 17:50 Urine WBC (Auto) 1 10/11/17 17:50 Urine RBC (Auto) <1 10/11/17 17:50 ECG sinus rhythm with sinus arrhythmia with 1st degree AV block vent rate 77, QTC 434 RBBB TWI lead 3, aVF ASSESSMENT/PLAN: 86yM with PMH dementia, CVA, AFIB, HTN, CHF, HLD, CKD3, DM, sepsis presented to the ED with vomiting at home. Vomiting - no further vomiting - abdominal exam benign - monitor for further vomiting - clear liquid diet as tolerated for now [place] - Cr bump to 2.2 from baseline 1.5 - given 1L NS in ED - repeat BMP now to determine need for further fluids - renal consult if not improving, unclear if followed at home by renal lactic acidosis - Mild - given 1L NS in Ed - repeat now. HTN/CHF - cont home valsartan and lasix/KCl DM - hold home glyburide and metformin - BGM AC/HS - novolog sliding scale DVT PPX - heparin deferred as anticipated LOS <48h FEN - tolerating po - BMP in am - clear liquid diet as tolerated Dispo: pt currently requires further observation for management of his emergent condition. Visit type - Emergency Visit Emergency Visit: Yes ED Registration Date: 10/11/17 Care time: The patient presented to the Emergency Department on the above date and was hospitalized for further evaluation of their emergent condition. - New Patient This patient is new to me today: Yes Date on this admission: 10/11/17 - Critical Care Critical Care patient: No Hospitalist Screening - Colonoscopy Questionnaire Colonoscopy Questionnaire: Colonoscopy Questionnaire - Patient: 50 - 75 years old and never had a screening colonoscopy: No History of colon or rectal polyps, or CA: No History of IBD, Crohn's disease or UC: No History of abdominal radiation therapy as a child: No - Relative: 1 with colon or rectal CA, or polyps at age 60 or younger: Unknown Colon or rectal CA diagnosed at age 45 or younger: Unknown Multiple relatives with colon or rectal CA: Unknown - Outcome: Screening Result: Negative Screen
[2017-10-12 00:44] LABS: ANION GAP 4 (8-16); BLOOD UREA NITROGEN 54 mg/dL (7-18); CALCIUM 8.7 mg/dL (8.5-10.1); CHLORIDE 111 mmol/L (98-107); CO2 26 mmol/L (21-32); CREATININE 2.4 mg/dL (0.7-1.3); GLUCOSE,RANDOM 81 mg/dL (74-106); POTASSIUM 5.1 mmol/L (3.5-5.1); SODIUM 141 mmol/L (136-145)
[2017-10-12] MEDS: INSULIN SLIDING SCALE (NOVOLOG) 1 VIAL SQ SCH ×5 (01:53→21:00)
[2017-10-12 04:10] VITALS: BMI 26.7
[2017-10-12] MEDS: MEMANTINE HCL 10 MG TABLET (FP) PO SCH ×2 (09:44→20:59)
[2017-10-12] MEDS ORDERED: VALSARTAN 160 MG TABLET (UD) PO SCH (10:00)
--- NOTE | 2017-10-12 10:33 | PN ---
Progress Note, Physician Chief Complaint: Events noted Pt admitted for intractable vomiting No distress was agitated this AM per nurse chepe marina - Current Medication List Current Medications: Active Medications Insulin Aspart (Novolog Vial Sliding Scale -) 1 vial SQ HS [facility]; Protocol Last Admin: 10/12/17 01:53 Dose: Not Given Insulin Aspart (Novolog Vial Sliding Scale -) 1 vial SQ TIDAC [facility]; Protocol Last Admin: 10/12/17 06:06 Dose: Not Given Memantine (Namenda -) 10 mg PO BID [facility] Last Admin: 10/12/17 09:44 Dose: 10 mg Quetiapine Fumarate (Seroquel -) 25 mg PO HS [facility] Valsartan (Diovan -) 160 mg PO DAILY [facility] Last Admin: 10/12/17 09:44 Dose: 160 mg - Objective Vital Signs: Vital Signs Temperature 97.9 F 10/12/17 04:02 Pulse Rate 58 L 10/12/17 04:02 Respiratory Rate 20 10/12/17 05:36 Blood Pressure 147/65 10/12/17 04:02 O2 Sat by Pulse Oximetry (%) 95 10/11/17 15:44 Constitutional: Yes: No Distress Cardiovascular: Yes: Regular Rate and Rhythm Respiratory: Yes: CTA Bilaterally Gastrointestinal: Yes: Soft, Distention (mild). No: Normal Bowel Sounds, Tenderness Edema: Yes (dependant edema) Labs: CBC, BMP 10/11/17 17:15 10/11/17 23:45 INR, PTT INR 1.05 (0.82-1.09) 10/11/17 17:15 Problem List - Problems (1) [place] (acute kidney injury) Code(s): N17.9 - ACUTE KIDNEY FAILURE, UNSPECIFIED (2) Acute on chronic renal failure Code(s): N17.9 - ACUTE KIDNEY FAILURE, UNSPECIFIED; N18.9 - CHRONIC KIDNEY DISEASE, UNSPECIFIED (3) HTN (hypertension) Code(s): I10 - ESSENTIAL (PRIMARY) HYPERTENSION Assessment/Plan PLAN Check KUB- portable-- pt a fall risk Seroquel BID repeat BMP today--not done today if worsening renal function, will consult Nephrology DC [facility] for now \
[2017-10-12 11:45] LABS: ANION GAP 6 (8-16); BLOOD UREA NITROGEN 53 mg/dL (7-18); CALCIUM 8.9 mg/dL (8.5-10.1); CHLORIDE 108 mmol/L (98-107); CO2 26 mmol/L (21-32); CREATININE 2.2 mg/dL (0.7-1.3); GLUCOSE,RANDOM 104 mg/dL (74-106); POTASSIUM 4.8 mmol/L (3.5-5.1); SODIUM 140 mmol/L (136-145)
--- NOTE | 2017-10-12 11:53 | EKG ---
Test Reason : Blood Pressure : / mmHG Vent. Rate : 077 BPM Atrial Rate : 077 BPM P-R Int : 226 ms QRS Dur : 134 ms QT Int : 384 ms P-R-T Axes : 020 033 -08 degrees QTc Int : 434 ms SINUS RHYTHM WITH SINUS ARRHYTHMIA WITH 1ST DEGREE A-V BLOCK RIGHT BUNDLE BRANCH BLOCK T WAVE ABNORMALITY, CONSIDER INFERIOR ISCHEMIA ABNORMAL ECG WHEN COMPARED WITH ECG OF 03-MAR-2017 15:46, PREMATURE VENTRICULAR COMPLEXES ARE NO LONGER PRESENT CT INTERVAL HAS INCREASED Confirmed by CANDI FONSECA MD ([id number]) on 10/12/2017 11:53:35 AM Referred By: Confirmed By:CANDI FONSECA MD
[2017-10-12] MEDS ORDERED: SODIUM CHLORIDE 0.45% 1,000 ML IV SCH (14:00)
[2017-10-12] MEDS: hydrALAZINE HCL 25 MG TABLET (FP) PO SCH (20:59)
[2017-10-12] MEDS: QUEtiapine FUMARATE 25 MG TABLET (FP) PO SCH (20:59)
[2017-10-12] MEDS: HEPARIN NA (PORCINE) 5,000 UNITS/ML 1ML VIAL SQ SCH (21:00)
[2017-10-12] MEDS: NYSTATIN 100,000 UNIT/GM TOPICAL CREAM 15 GM TUBE TP SCH (21:00)
[2017-10-12] MEDS ORDERED: QUEtiapine FUMARATE 25 MG TABLET (FP) PO SCH (22:00)
[2017-10-13] MEDS ORDERED: LORazepam 2 MG/ML SDV VIAL IVPUSH ONE (00:30)
[2017-10-13] MEDS: INSULIN SLIDING SCALE (NOVOLOG) 1 VIAL SQ SCH ×4 (06:04→23:25)
[2017-10-13] MEDS: MEMANTINE HCL 10 MG TABLET (FP) PO SCH ×2 (09:11→23:21)
[2017-10-13] MEDS: QUEtiapine FUMARATE 25 MG TABLET (FP) PO SCH ×2 (09:11→23:23)
[2017-10-13] MEDS: NYSTATIN 100,000 UNIT/GM TOPICAL CREAM 15 GM TUBE TP SCH ×2 (09:12→23:22)
[2017-10-13] MEDS: hydrALAZINE HCL 25 MG TABLET (FP) PO SCH ×2 (09:12→23:21)
[2017-10-13] MEDS: HEPARIN NA (PORCINE) 5,000 UNITS/ML 1ML VIAL SQ SCH ×2 (09:12→23:22)
--- NOTE | 2017-10-13 11:04 | PN ---
Progress Note (short form) - Note Progress Note: patient seen and examined.. Chart reviewed calm now but Periods of agitation Discussed with nursing staff Vital Signs Temp 97.6 F 10/13/17 06:00 Pulse 78 10/13/17 06:00 Resp 20 10/13/17 06:00 BP 150/94 10/13/17 06:00 Pulse Ox 95 10/11/17 15:44 Intake & Output 10/12/17 10/12/17 10/13/17 11:59 23:59 11:59 Intake Total 100 425 900 Output Total 800 Balance 100 -375 900 Weight 197 lb 3 oz 194 lb Intake: IV 225 900 1/2 Normal Saline 1,000 225 900 ml @ 75 mls/hr IV ASDIR [facility] Rx#:[id number] Oral 100 200 Output: Urine 800 Void 800 Other: Voiding Method Incontinent Urinal Urinal # Unmeasured Voids Void 4 Bowel Movement No Height 6 ft Body Mass Index (BMI) 26.7 Weight Measurement Method Built in Bedscale Built in Bedscale Active Medications Heparin Sodium (Porcine) (Heparin -) 5,000 unit SQ BID [facility] Last Admin: 10/13/17 09:12 Dose: 5,000 unit Hydralazine HCl (Apresoline -) 25 mg PO BID [facility] Last Admin: 10/13/17 09:12 Dose: 25 mg Sodium Chloride (1/2 Normal Saline) 1,000 mls @ 75 mls/hr IV ASDIR [facility] Last Admin: 10/12/17 14:00 Dose: 75 mls/hr Insulin Aspart (Novolog Vial Sliding Scale -) 1 vial SQ HS [facility]; Protocol Last Admin: 10/12/17 21:00 Dose: Not Given Insulin Aspart (Novolog Vial Sliding Scale -) 1 vial SQ TIDAC [facility]; Protocol Last Admin: 10/13/17 06:04 Dose: Not Given Memantine (Namenda -) 10 mg PO BID [facility] Last Admin: 10/13/17 09:11 Dose: 10 mg Nystatin (Mycostatin Cream -) 1 applic TP BID [facility] Last Admin: 10/13/17 09:12 Dose: 1 applic Quetiapine Fumarate (Seroquel -) 25 mg PO BID [facility] Last Admin: 10/13/17 09:11 Dose: 25 mg CBC, BMP 10/11/17 17:15 10/12/17 10:55 Microbiology 10/11/17 17:00 Blood Culture - Preliminary Blood - Peripheral Venous NO GROWTH OBTAINED AFTER 24 HOURS, INCUBATION TO CONTINUE FOR 4 DAYS. 10/11/17 17:15 Blood Culture - Preliminary Blood - Peripheral Venous NO GROWTH OBTAINED AFTER 24 HOURS, INCUBATION TO CONTINUE FOR 4 DAYS. physical exam Constitutional: Yes: No Distress/ calm. poor historian Cardiovascular: Yes: Regular Rate and Rhythm Respiratory: Yes: CTA Bilaterally Gastrointestinal: Yes: Soft, non tender Edema: Trace Problem List - Problems (1) [place] (acute kidney injury) Code(s): N17.9 - ACUTE KIDNEY FAILURE, UNSPECIFIED (2) Acute on chronic renal failure Code(s): N17.9 - ACUTE KIDNEY FAILURE, UNSPECIFIED; N18.9 - CHRONIC KIDNEY DISEASE, UNSPECIFIED (3) HTN (hypertension) Code(s): I10 - ESSENTIAL (PRIMARY) HYPERTENSION Assessment/Plan medications reviewed continue present care Monitor renal function I will increase fluids Physical therapy advance diet as tolerated Daily out of bed to chair Ativan for--agitation--when necessary We will follow Discussed with nursing staff also
--- NOTE | 2017-10-13 11:44 | CONSULT ---
Consult Consult Specialty:: Nephrology ( [facility]/ [facility]) Reason for Consultation:: Abnormal kidney functions - History of Present Illness Chief Complaint: Admitted for vomiting History of Present Illness: This is an 86 year old male with a past medical history significant for Dementia , CVA, DM2, afib, HTN, CHF, CKD who presented to the ED after vomiting x 4 at home. EMS noted pt to have a sugar of 68 . Patient received 10% Dextrose IV. The patient has underlying CKD, and the azotemia was worse on admission. - History Source History Provided By: Medical Record - Past Medical History [employer]: Yes: CVA, Dementia Cardio/Vascular: Yes: CHF, HTN Gastrointestinal: Yes: Other (vomiting) Endocrine: Yes: Diabetes Mellitus - Alcohol/Substance Use Hx Alcohol Use: No - Smoking History Smoking history: Former smoker Have you smoked in the past 12 months: No Aproximately how many cigarettes per day: 0 If you are a former smoker, when did you quit?: 52 yrs old Home Medications - Allergies Allergies/Adverse Reactions: Allergies Allergy/AdvReac Type Severity Reaction Status Date / Time No Known Allergies Allergy Verified 02/26/17 15:44 - Home Medications Home Medications: Ambulatory Orders Memantine HCl [Namenda -] 10 mg PO BID #60 tablet 03/06/17 Quetiapine Fumarate [Seroquel -] 25 mg PO HS #30 tablet 03/06/17 Furosemide [Lasix] 40 mg PO DAILY 10/11/17 Glyburide/Metformin HCl [Glyburide-Metformin 5-500 mg] 2 each PO DAILY 10/11/17 Potassium Chloride [Klor-Con M20] 20 meq PO DAILY 10/11/17 Valsartan 160 mg PO DAILY 10/11/17 Family Disease History - Family Disease History Family History: Unable to Obtain Review of Systems - Review of Systems Constitutional: reports: Loss of Appetite HENT: denies: Difficult Swallowing Cardiovascular: denies: Chest Pain, Shortness of Breath Gastrointestinal: reports: Vomiting Musculoskeletal: denies: Back Pain Neurological: reports: Confusion Physical Exam Vital Signs: Vital Signs Temperature 97.6 F 10/13/17 06:00 Pulse Rate 78 10/13/17 06:00 Respiratory Rate 20 10/13/17 06:00 Blood Pressure 150/94 10/13/17 06:00 O2 Sat by Pulse Oximetry (%) 95 10/11/17 15:44 Constitutional: Yes: Well Nourished, No Distress Eyes: Yes: Conjunctiva Clear Cardiovascular: Yes: Tachycardia, Pulse Irregular, S1, S2 Respiratory: Yes: CTA Bilaterally, Diminished Gastrointestinal: Yes: Abdomen, Obese, Distention Renal/: No: Bladder Distention, CVA Tenderness - Left, CVA Tenderness - Right Edema: No Labs: CBC, BMP 10/11/17 17:15 10/12/17 10:55 Problem List - Problems (1) [place] (acute kidney injury) Code(s): N17.9 - ACUTE KIDNEY FAILURE, UNSPECIFIED (2) Hypoglycemia Code(s): E16.2 - HYPOGLYCEMIA, UNSPECIFIED (3) CKD (chronic kidney disease) Code(s): N18.9 - CHRONIC KIDNEY DISEASE, UNSPECIFIED Qualifiers: Chronic kidney disease stage: stage 3 (moderate) Qualified Code(s): N18.3 - Chronic kidney disease, stage 3 (moderate) (4) Dementia Code(s): F03.90 - UNSPECIFIED DEMENTIA WITHOUT BEHAVIORAL DISTURBANCE (5) Diabetes Code(s): E11.9 - TYPE 2 DIABETES MELLITUS WITHOUT COMPLICATIONS (6) HTN (hypertension) Code(s): I10 - ESSENTIAL (PRIMARY) HYPERTENSION Assessment/Plan This is an 86 year old male with a past medical history significant for dementia , CVA, DM, afib, HTN, CHF, CKD who presented to the ED after vomiting x 4 at home. Acute Kidney Failure. Due to the acute Hemodynamic changes , hypovolemia and renal hypoperfusion. The patient has underlying Chronic Kidney disease, from Chronic Microvascular renal disease. Hypoglycemia. resolved. IV fluids well tolerated. Will continue cautious hydration. Suggest: Maintain euvolemia. Concur with the current management. Will monitor the renal functions with you. Soni Davies MD
[2017-10-13] MEDS: POTASSIUM CHLORIDE 10 MEQ in SODIUM CHLORIDE 0.45% 1,000 ML IVPB SCH ×2 (14:08→23:22)
[2017-10-13] MEDS: LORazepam 2 MG/ML SDV VIAL IM PRN ×2 (15:16→23:32)
[2017-10-14] MEDS ORDERED: ALBUTEROL SO4 2.5/IPRATROPIUM 0.5 INH SOL 3 ML VIAL.NEB. NEB ONE (04:49)
[2017-10-14] MEDS: INSULIN SLIDING SCALE (NOVOLOG) 1 VIAL SQ SCH ×4 (06:40→21:10)
[2017-10-14 08:07] LABS: BASO % 1.1 % (0-2.0); EOS % 2.6 % (0-4.5); HEMATOCRIT 31.7 % (35.4-49); HEMOGLOBIN 10.3 GM/dL (11.7-16.9); LYMPH % 17.7 % (8-40); MCH 26.7 pg (25.7-33.7); MCHC 32.5 g/dl (32.0-35.9); MEAN CELL VOLUME 82.1 fl (80-96); MONO % 7.4 % (3.8-10.2); NEUT % 71.2 % (42.8-82.8); PLATELET COUNT 129 K/MM3 (134-434); RBC 3.86 M/mm3 (4.00-5.60); RDW 16.5 % (11.9-15.9); WHITE BLOOD COUNT 5.1 K/mm3 (4.0-10.0)
[2017-10-14 09:00] LABS: ALBUMIN 3.2 g/dl (3.4-5.0); ALK PHOS 92 U/L (45-117); ANION GAP 8 (8-16); BILIRUBIN,TOTAL 0.5 mg/dL (0.2-1.0); BLOOD UREA NITROGEN 39 mg/dL (7-18); CALCIUM 8.4 mg/dL (8.5-10.1); CHLORIDE 110 mmol/L (98-107); CO2 24 mmol/L (21-32); CREATININE 1.8 mg/dL (0.7-1.3); GLUCOSE,RANDOM 80 mg/dL (74-106); POTASSIUM 4.4 mmol/L (3.5-5.1); SGOT/AST 28 U/L (15-37); SGPT/ALT 36 U/L (12-78); SODIUM 142 mmol/L (136-145); TOT PROT 7.2 g/dl (6.4-8.2)
[2017-10-14] MEDS: LORazepam 2 MG/ML SDV VIAL IM PRN (09:25)
[2017-10-14] MEDS: hydrALAZINE HCL 25 MG TABLET (FP) PO SCH ×2 (10:27→21:04)
[2017-10-14] MEDS: HEPARIN NA (PORCINE) 5,000 UNITS/ML 1ML VIAL SQ SCH ×2 (10:27→21:04)
[2017-10-14] MEDS: MEMANTINE HCL 10 MG TABLET (FP) PO SCH ×2 (10:27→21:04)
[2017-10-14] MEDS: QUEtiapine FUMARATE 25 MG TABLET (FP) PO SCH ×2 (10:27→21:04)
[2017-10-14] MEDS: NYSTATIN 100,000 UNIT/GM TOPICAL CREAM 15 GM TUBE TP SCH ×2 (10:36→21:05)
--- NOTE | 2017-10-14 11:34 | PN ---
Progress Note, Physician Chief Complaint: has good appetite no distress no vomiting normal bm pt on vest restraints as he is pulling out his iv line and o2 - Current Medication List Current Medications: Active Medications Heparin Sodium (Porcine) (Heparin -) 5,000 unit SQ BID [facility] Last Admin: 10/14/17 10:27 Dose: 5,000 unit Hydralazine HCl (Apresoline -) 25 mg PO BID [facility] Last Admin: 10/14/17 10:27 Dose: 25 mg Potassium Chloride 10 meq/ (Sodium Chloride) 1,005 mls @ 100 mls/hr IVPB Q10H [facility] Last Admin: 10/13/17 23:22 Dose: Not Given Insulin Aspart (Novolog Vial Sliding Scale -) 1 vial SQ HS [facility]; Protocol Last Admin: 10/13/17 23:25 Dose: Not Given Insulin Aspart (Novolog Vial Sliding Scale -) 1 vial SQ TIDAC [facility]; Protocol Last Admin: 10/14/17 06:40 Dose: Not Given Lorazepam (Ativan Injection -) 1 mg IM Q8H PRN PRN Reason: ANXIETY Last Admin: 10/14/17 09:25 Dose: 1 mg Memantine (Namenda -) 10 mg PO BID [facility] Last Admin: 10/14/17 10:27 Dose: 10 mg Nystatin (Mycostatin Cream -) 1 applic TP BID [facility] Last Admin: 10/14/17 10:36 Dose: 1 applic Quetiapine Fumarate (Seroquel -) 25 mg PO BID [facility] Last Admin: 10/14/17 10:27 Dose: 25 mg - Objective Vital Signs: Vital Signs Temperature 98.2 F 10/14/17 08:00 Pulse Rate 79 10/14/17 08:00 Respiratory Rate 20 10/14/17 08:00 Blood Pressure 176/78 10/14/17 08:00 O2 Sat by Pulse Oximetry (%) 95 10/11/17 15:44 Constitutional: Yes: No Distress, Calm Cardiovascular: Yes: Regular Rate and Rhythm Respiratory: Yes: Diminished Gastrointestinal: Yes: Normal Bowel Sounds, Soft, Abdomen, Obese. No: Tenderness Musculoskeletal: Yes: Muscle Weakness Edema: No Labs: CBC, BMP 10/14/17 07:28 10/14/17 07:28 INR, PTT INR 1.05 (0.82-1.09) 10/11/17 17:15 Problem List - Problems (1) [place] (acute kidney injury) Code(s): N17.9 - ACUTE KIDNEY FAILURE, UNSPECIFIED (2) Acute on chronic renal failure Code(s): N17.9 - ACUTE KIDNEY FAILURE, UNSPECIFIED; N18.9 - CHRONIC KIDNEY DISEASE, UNSPECIFIED (3) HTN (hypertension) Code(s): I10 - ESSENTIAL (PRIMARY) HYPERTENSION Assessment/Plan PLAN Ativan prn vest restraints Seroquel BID iv fluids continue with meds will need SNF
--- NOTE | 2017-10-14 11:48 | PN ---
Progress Note (short form) - Note Progress Note: Renal follow up for CHEYENNE on CKD Pt seen and examined at the bedside paul vazquez ativan this am no acute complaints nurses report pt pulling out IV lines making urine as per pt Vital Signs Temperature 98.2 F 10/14/17 08:00 Pulse Rate 79 10/14/17 08:00 Respiratory Rate 20 10/14/17 08:00 Blood Pressure 176/78 10/14/17 08:00 O2 Sat by Pulse Oximetry (%) 95 10/11/17 15:44 Intake & Output 10/11/17 10/12/17 10/13/17 10/14/17 23:59 23:59 23:59 23:59 Intake Total 525 3075 1125 Output Total 800 Balance -275 3075 1125 Weight 99.79 kg 89.443 kg 87.997 kg 88.564 kg NAD, groggy RRR CTA mild abd distension No LE edema CBC, BMP 10/14/17 07:28 10/14/17 07:28 Current Medications Heparin Sodium (Porcine) (Heparin -) 5,000 unit SQ BID [facility] Last Admin: 10/14/17 10:27 Dose: 5,000 unit Hydralazine HCl (Apresoline -) 25 mg PO BID [facility] Last Admin: 10/14/17 10:27 Dose: 25 mg Insulin Aspart (Novolog Vial Sliding Scale -) 1 vial SQ HS [facility]; Protocol Last Admin: 10/13/17 23:25 Dose: Not Given Insulin Aspart (Novolog Vial Sliding Scale -) 1 vial SQ TIDAC [facility]; Protocol Last Admin: 10/14/17 06:40 Dose: Not Given Lorazepam (Ativan Injection -) 1 mg IM Q8H PRN PRN Reason: ANXIETY Last Admin: 10/14/17 09:25 Dose: 1 mg Memantine (Namenda -) 10 mg PO BID [facility] Last Admin: 10/14/17 10:27 Dose: 10 mg Nystatin (Mycostatin Cream -) 1 applic TP BID [facility] Last Admin: 10/14/17 10:36 Dose: 1 applic Quetiapine Fumarate (Seroquel -) 25 mg PO BID [facility] Last Admin: 10/14/17 10:27 Dose: 25 mg 86 year old gentleman with PMhx of Dementia, CVA, DM2, afib, HTN, CHF, CKD who presented to the ED after vomiting x 4 at home with CHEYENNE on CKD #CHEYENNE on CKD #Nausea and vomiting #Hypertension #Dementia Renal function improved can d/c IVF and maintain on oral fluids/foods BP above gaol but trend after Meds, if remains above gaol can consider addition of CCB Navi Dhillon DO
[2017-10-14] MEDS ORDERED: INSULIN (NOVOLOG) ASPART 100 UNITS/ML 10ML VIAL ONE (12:08)
[2017-10-14] MEDS ORDERED: ACETAMINOPHEN 650 MG SUPP.RECT PR PRN (15:26)
[2017-10-14] MEDS ORDERED: ACETAMINOPHEN 325 MG TABLET (FP) PO PRN (15:28)
[2017-10-14] MEDS: POTASSIUM CHLORIDE 10 MEQ in SODIUM CHLORIDE 0.45% 1,000 ML IVPB SCH (16:15)
[2017-10-14 17:24] LABS: URINE APPEARANCE CLEAR; URINE BILIRUBIN NEGATIVE (<2.0 mg/dL); URINE COLOR LTYELLOW; URINE GLUCOSE (UA) 1+ (NEGATIVE); URINE KETONE NEGATIVE (NEGATIVE); URINE LEUK ESTERASE NEGATIVE (NEGATIVE); URINE NITRITE NEGATIVE (NEGATIVE); URINE UROBILINOGEN NEGATIVE mg/dL (0.2-1.0)
[2017-10-14 17:33] LABS: URINE PROTEIN 2+ (NEGATIVE)
[2017-10-14 17:34] LABS: EPI CELLS RARE /HPF (FEW); URINE MUCUS RARE
[2017-10-15] MEDS: POTASSIUM CHLORIDE 10 MEQ in SODIUM CHLORIDE 0.45% 1,000 ML IVPB SCH ×3 (01:45→22:10)
[2017-10-15] MEDS: INSULIN SLIDING SCALE (NOVOLOG) 1 VIAL SQ SCH ×5 (06:18→22:08)
[2017-10-15 08:26] LABS: ANION GAP 6 (8-16); BLOOD UREA NITROGEN 32 mg/dL (7-18); CALCIUM 8.4 mg/dL (8.5-10.1); CHLORIDE 114 mmol/L (98-107); CO2 24 mmol/L (21-32); CREATININE 1.7 mg/dL (0.7-1.3); GLUCOSE,RANDOM 107 mg/dL (74-106); POTASSIUM 4.5 mmol/L (3.5-5.1); SODIUM 144 mmol/L (136-145)
--- NOTE | 2017-10-15 09:28 | PN ---
Progress Note, Physician Chief Complaint: was febrile yesterday cultures done pt is calm - Current Medication List Current Medications: Active Medications Acetaminophen (Tylenol Suppository -) 650 mg OR Q4H PRN PRN Reason: TEMP >101 Last Admin: 10/14/17 03:30 Dose: 650 mg Acetaminophen (Tylenol -) 650 mg PO Q4H PRN PRN Reason: TEMP > 101 Heparin Sodium (Porcine) (Heparin -) 5,000 unit SQ BID [facility] Last Admin: 10/14/17 21:04 Dose: 5,000 unit Hydralazine HCl (Apresoline -) 25 mg PO BID [facility] Last Admin: 10/14/17 21:04 Dose: 25 mg Potassium Chloride 10 meq/ (Sodium Chloride) 1,005 mls @ 100 mls/hr IVPB Q10H [facility] Last Admin: 10/15/17 01:45 Dose: 100 mls/hr Insulin Aspart (Novolog Vial Sliding Scale -) 1 vial SQ HS [facility]; Protocol Last Admin: 10/14/17 21:10 Dose: Not Given Insulin Aspart (Novolog Vial Sliding Scale -) 1 vial SQ TIDAC [facility]; Protocol Last Admin: 10/15/17 06:18 Dose: Not Given Lorazepam (Ativan Injection -) 1 mg IM Q8H PRN PRN Reason: ANXIETY Last Admin: 10/14/17 09:25 Dose: 1 mg Memantine (Namenda -) 10 mg PO BID [facility] Last Admin: 10/14/17 21:04 Dose: 10 mg Nystatin (Mycostatin Cream -) 1 applic TP BID [facility] Last Admin: 10/14/17 21:05 Dose: 1 applic Quetiapine Fumarate (Seroquel -) 25 mg PO BID [facility] Last Admin: 10/14/17 21:04 Dose: 25 mg - Objective Vital Signs: Vital Signs Temperature 98.7 F 10/15/17 08:39 Pulse Rate 84 10/15/17 08:39 Respiratory Rate 19 10/15/17 08:39 Blood Pressure 126/65 10/15/17 08:39 O2 Sat by Pulse Oximetry (%) 95 10/11/17 15:44 Constitutional: Yes: No Distress, Calm Cardiovascular: Yes: Regular Rate and Rhythm Respiratory: Yes: CTA Bilaterally Gastrointestinal: Yes: Normal Bowel Sounds, Soft. No: Tenderness Edema: No Labs: CBC, BMP 10/14/17 07:28 10/15/17 07:22 INR, PTT INR 1.05 (0.82-1.09) 10/11/17 17:15 Problem List - Problems (1) [place] (acute kidney injury) Code(s): N17.9 - ACUTE KIDNEY FAILURE, UNSPECIFIED (2) Acute on chronic renal failure Code(s): N17.9 - ACUTE KIDNEY FAILURE, UNSPECIFIED; N18.9 - CHRONIC KIDNEY DISEASE, UNSPECIFIED (3) HTN (hypertension) Code(s): I10 - ESSENTIAL (PRIMARY) HYPERTENSION Assessment/Plan PLAN Ativan prn vest restraints- may try to dc it today if pt is more calm Seroquel BID iv fluids renal function improving continue with meds will need SNF
[2017-10-15] MEDS ORDERED: DEXTROSE 5%-WATER - 50 ML IVPB ONE (10:12)
[2017-10-15] MEDS ORDERED: cefTRIAXone SODIUM 1 GM VIAL ONE (10:12)
[2017-10-15] MEDS: MEMANTINE HCL 10 MG TABLET (FP) PO SCH ×2 (10:41→21:11)
[2017-10-15] MEDS: CEFTRIAXONE 1 GM in DEXTROSE 5%-WATER - 50 ML IVPB SCH (10:41)
[2017-10-15] MEDS: hydrALAZINE HCL 25 MG TABLET (FP) PO SCH ×2 (10:41→21:11)
[2017-10-15] MEDS: HEPARIN NA (PORCINE) 5,000 UNITS/ML 1ML VIAL SQ SCH ×2 (10:41→21:11)
[2017-10-15] MEDS: QUEtiapine FUMARATE 25 MG TABLET (FP) PO SCH ×2 (10:41→21:11)
[2017-10-15] MEDS: NYSTATIN 100,000 UNIT/GM TOPICAL CREAM 15 GM TUBE TP SCH ×2 (10:48→22:09)
[2017-10-15] MEDS: LORazepam 2 MG/ML SDV VIAL IM PRN (21:11)
[2017-10-16] MEDS ORDERED: PT OWN MED DRAWER 7, Y5N ONE ×2 (05:59→22:08)
[2017-10-16] MEDS: POTASSIUM CHLORIDE 10 MEQ in SODIUM CHLORIDE 0.45% 1,000 ML IVPB SCH ×5 (06:00→18:15)
[2017-10-16] MEDS: INSULIN SLIDING SCALE (NOVOLOG) 1 VIAL SQ SCH ×4 (06:16→22:17)
[2017-10-16 07:33] LABS: ANION GAP 7 (8-16); BLOOD UREA NITROGEN 29 mg/dL (7-18); CALCIUM 8.2 mg/dL (8.5-10.1); CHLORIDE 113 mmol/L (98-107); CO2 23 mmol/L (21-32); CREATININE 1.7 mg/dL (0.7-1.3); GLUCOSE,RANDOM 97 mg/dL (74-106); MAGNESIUM 2.2 mg/dL (1.8-2.4); PHOSPHOROUS 3.6 mg/dL (2.5-4.9); POTASSIUM 4.5 mmol/L (3.5-5.1); SODIUM 143 mmol/L (136-145)
[2017-10-16] MEDS ORDERED: DEXTROSE 5%-WATER - 50 ML IVPB ONE (09:43)
[2017-10-16] MEDS ORDERED: cefTRIAXone SODIUM 1 GM VIAL ONE (09:43)
[2017-10-16] MEDS: MEMANTINE HCL 10 MG TABLET (FP) PO SCH ×2 (09:44→22:13)
[2017-10-16] MEDS: HEPARIN NA (PORCINE) 5,000 UNITS/ML 1ML VIAL SQ SCH ×2 (09:44→22:13)
[2017-10-16] MEDS: NYSTATIN 100,000 UNIT/GM TOPICAL CREAM 15 GM TUBE TP SCH ×3 (09:44→22:57)
[2017-10-16] MEDS: QUEtiapine FUMARATE 25 MG TABLET (FP) PO SCH ×2 (09:44→22:13)
[2017-10-16] MEDS: CEFTRIAXONE 1 GM in DEXTROSE 5%-WATER - 50 ML IVPB SCH (09:44)
[2017-10-16] MEDS: hydrALAZINE HCL 25 MG TABLET (FP) PO SCH ×2 (09:44→22:13)
[2017-10-16] MEDS: LORazepam 2 MG/ML SDV VIAL IM PRN (09:44)
[2017-10-16] MEDS ORDERED: INSULIN (NOVOLOG) ASPART 100 UNITS/ML 10ML VIAL ONE (11:03)
--- NOTE | 2017-10-16 13:36 | DS ---
Physical Examination Vital Signs: Vital Signs Temperature 99.6 F 10/16/17 09:00 Pulse Rate 93 H 10/16/17 09:00 Respiratory Rate 20 10/16/17 09:00 Blood Pressure 159/81 10/16/17 09:00 O2 Sat by Pulse Oximetry (%) 95 10/11/17 15:44 Labs: CBC, BMP 10/14/17 07:28 10/16/17 06:30 Discharge Summary Reason For Visit: HYPOGLYCEMIA/CKD HEMATEMESIS Current Active Problems [place] (acute kidney injury) (Acute) Hematemesis (Acute) Hypoglycemia (Acute) Condition: Guarded - Instructions - Home Medications Comprehensive Discharge Medication List: Ambulatory Orders Memantine HCl [Namenda -] 10 mg PO BID #60 tablet 03/06/17 Quetiapine Fumarate [Seroquel -] 25 mg PO HS #30 tablet 03/06/17 Furosemide [Lasix] 40 mg PO DAILY 10/11/17 Glyburide/Metformin HCl [Glyburide-Metformin 5-500 mg] 2 each PO DAILY 10/11/17 Potassium Chloride [Klor-Con M20] 20 meq PO DAILY 10/11/17 Valsartan 160 mg PO DAILY 10/11/17
--- NOTE | 2017-10-16 13:56 | PN ---
Progress Note, Physician Chief Complaint: afebrile pt is calm - Current Medication List Current Medications: Active Medications Acetaminophen (Tylenol Suppository -) 650 mg [place] Q4H PRN PRN Reason: TEMP >101 Last Admin: 10/14/17 03:30 Dose: 650 mg Acetaminophen (Tylenol -) 650 mg PO Q4H PRN PRN Reason: TEMP > 101 Heparin Sodium (Porcine) (Heparin -) 5,000 unit SQ BID [facility] Last Admin: 10/16/17 09:44 Dose: 5,000 unit Hydralazine HCl (Apresoline -) 25 mg PO BID [facility] Last Admin: 10/16/17 09:44 Dose: 25 mg Potassium Chloride 10 meq/ (Sodium Chloride) 1,005 mls @ 100 mls/hr IVPB Q10H [facility] Last Admin: 10/16/17 09:17 Dose: Not Given Ceftriaxone Sodium 1 gm/ (Dextrose) 50 mls @ 100 mls/hr IVPB DAILY [facility] Last Admin: 10/16/17 09:44 Dose: 100 mls/hr Insulin Aspart (Novolog Vial Sliding Scale -) 1 vial SQ HS [facility]; Protocol Last Admin: 10/15/17 22:08 Dose: Not Given Insulin Aspart (Novolog Vial Sliding Scale -) 1 vial SQ TIDAC [facility]; Protocol Last Admin: 10/16/17 11:06 Dose: 2 unit Memantine (Namenda -) 10 mg PO BID [facility] Last Admin: 10/16/17 09:44 Dose: 10 mg Nystatin (Mycostatin Cream -) 1 applic TP BID [facility] Last Admin: 10/16/17 09:44 Dose: 1 applic Quetiapine Fumarate (Seroquel -) 25 mg PO BID [facility] Last Admin: 10/16/17 09:44 Dose: 25 mg - Objective Vital Signs: Vital Signs Temperature 99.6 F 10/16/17 09:00 Pulse Rate 93 H 10/16/17 09:00 Respiratory Rate 20 10/16/17 09:00 Blood Pressure 159/81 10/16/17 09:00 O2 Sat by Pulse Oximetry (%) 95 10/11/17 15:44 Constitutional: Yes: No Distress, Calm Cardiovascular: Yes: Regular Rate and Rhythm Respiratory: Yes: Diminished Gastrointestinal: Yes: Normal Bowel Sounds, Soft Edema: No Labs: CBC, BMP 10/14/17 07:28 10/16/17 06:30 INR, PTT INR 1.05 (0.82-1.09) 10/11/17 17:15 Problem List - Problems (1) [place] (acute kidney injury) Code(s): N17.9 - ACUTE KIDNEY FAILURE, UNSPECIFIED (2) Acute on chronic renal failure Code(s): N17.9 - ACUTE KIDNEY FAILURE, UNSPECIFIED; N18.9 - CHRONIC KIDNEY DISEASE, UNSPECIFIED (3) HTN (hypertension) Code(s): I10 - ESSENTIAL (PRIMARY) HYPERTENSION Assessment/Plan PLAN Ativan dc vest restraints- may try to dc it today if pt is more calm Seroquel BID iv fluids renal function improving continue with meds will need SNF
[2017-10-17] MEDS: POTASSIUM CHLORIDE 10 MEQ in SODIUM CHLORIDE 0.45% 1,000 ML IVPB SCH ×2 (03:45→05:09)
[2017-10-17] MEDS: INSULIN SLIDING SCALE (NOVOLOG) 1 VIAL SQ SCH ×3 (06:08→17:46)
[2017-10-17 06:21] VITALS: PULSE 85
[2017-10-17 08:53] LABS: ANION GAP 7 (8-16); BLOOD UREA NITROGEN 28 mg/dL (7-18); CALCIUM 8.1 mg/dL (8.5-10.1); CHLORIDE 115 mmol/L (98-107); CO2 22 mmol/L (21-32); CREATININE 1.6 mg/dL (0.7-1.3); GLUCOSE,RANDOM 99 mg/dL (74-106); MAGNESIUM 2.1 mg/dL (1.8-2.4); POTASSIUM 4.4 mmol/L (3.5-5.1); SODIUM 144 mmol/L (136-145)
[2017-10-17] MEDS: hydrALAZINE HCL 25 MG TABLET (FP) PO SCH (09:35)
[2017-10-17] MEDS: NYSTATIN 100,000 UNIT/GM TOPICAL CREAM 15 GM TUBE TP SCH (09:35)
[2017-10-17] MEDS: MEMANTINE HCL 10 MG TABLET (FP) PO SCH (09:36)
[2017-10-17] MEDS: HEPARIN NA (PORCINE) 5,000 UNITS/ML 1ML VIAL SQ SCH (09:36)
[2017-10-17] MEDS: QUEtiapine FUMARATE 25 MG TABLET (FP) PO SCH (09:37)
[2017-10-17] MEDS ORDERED: DEXTROSE 5%-WATER - 50 ML IVPB ONE (09:40)
[2017-10-17] MEDS ORDERED: cefTRIAXone SODIUM 1 GM VIAL ONE (09:40)
[2017-10-17] MEDS: CEFTRIAXONE 1 GM in DEXTROSE 5%-WATER - 50 ML IVPB SCH (09:42)
--- NOTE | 2017-10-17 13:56 | PN ---
Progress Note, Physician Chief Complaint: see dc summary - Current Medication List Current Medications: Active Medications Acetaminophen (Tylenol Suppository -) 650 mg [place] Q4H PRN PRN Reason: TEMP >101 Last Admin: 10/14/17 03:30 Dose: 650 mg Acetaminophen (Tylenol -) 650 mg PO Q4H PRN PRN Reason: TEMP > 101 Heparin Sodium (Porcine) (Heparin -) 5,000 unit SQ BID [facility] Last Admin: 10/17/17 09:36 Dose: 5,000 unit Hydralazine HCl (Apresoline -) 25 mg PO BID [facility] Last Admin: 10/17/17 09:35 Dose: 25 mg Potassium Chloride 10 meq/ (Sodium Chloride) 1,005 mls @ 100 mls/hr IVPB Q10H [facility] Last Admin: 10/17/17 05:09 Dose: 100 mls/hr Ceftriaxone Sodium 1 gm/ (Dextrose) 50 mls @ 100 mls/hr IVPB DAILY [facility] Last Admin: 10/17/17 09:42 Dose: 100 mls/hr Insulin Aspart (Novolog Vial Sliding Scale -) 1 vial SQ HS [facility]; Protocol Last Admin: 10/16/17 22:17 Dose: Not Given Insulin Aspart (Novolog Vial Sliding Scale -) 1 vial SQ TIDAC [facility]; Protocol Last Admin: 10/17/17 12:02 Dose: 2 unit Memantine (Namenda -) 10 mg PO BID [facility] Last Admin: 10/17/17 09:36 Dose: 10 mg Nystatin (Mycostatin Cream -) 1 applic TP BID [facility] Last Admin: 10/17/17 09:35 Dose: 1 applic Quetiapine Fumarate (Seroquel -) 25 mg PO BID [facility] Last Admin: 10/17/17 09:37 Dose: 25 mg - Objective Vital Signs: Vital Signs Temperature 98.0 F 10/17/17 10:00 Pulse Rate 85 10/17/17 10:00 Respiratory Rate 17 10/17/17 10:00 Blood Pressure 145/83 10/17/17 10:00 O2 Sat by Pulse Oximetry (%) 96 10/17/17 09:00 Labs: CBC, BMP 10/14/17 07:28 10/17/17 07:45 INR, PTT INR 1.05 (0.82-1.09) 10/11/17 17:15 Problem List - Problems (1) [place] (acute kidney injury) Code(s): N17.9 - ACUTE KIDNEY FAILURE, UNSPECIFIED (2) Acute on chronic renal failure Code(s): N17.9 - ACUTE KIDNEY FAILURE, UNSPECIFIED; N18.9 - CHRONIC KIDNEY DISEASE, UNSPECIFIED (3) HTN (hypertension) Code(s): I10 - ESSENTIAL (PRIMARY) HYPERTENSION
--- NOTE | 2017-10-17 14:22 | DS ---
Physical Examination Vital Signs: Vital Signs Temperature 98.0 F 10/17/17 10:00 Pulse Rate 85 10/17/17 10:00 Respiratory Rate 17 10/17/17 10:00 Blood Pressure 145/83 10/17/17 10:00 O2 Sat by Pulse Oximetry (%) 96 10/17/17 09:00 Constitutional: Yes: No Distress, Calm Cardiovascular: Yes: Regular Rate and Rhythm Respiratory: Yes: Diminished Gastrointestinal: Yes: Normal Bowel Sounds, Soft. No: Tenderness Edema: No Labs: CBC, BMP 10/14/17 07:28 10/17/17 07:45 Discharge Summary Reason For Visit: HYPOGLYCEMIA/CKD HEMATEMESIS Current Active Problems [place] (acute kidney injury) (Acute) Hematemesis (Acute) Hypoglycemia (Acute) Hospital Course: Admitted for acute renal failure, possible UTI Has dementia Weakness Deconditioning Had intractable vomiting-- but now better renal function better on PO antibiotics Stable for dc to SNF Condition: Improved - Instructions Disposition: LONG TERM FACILITY - Home Medications Comprehensive Discharge Medication List: Ambulatory Orders Memantine HCl [Namenda -] 10 mg PO BID #60 tablet 03/06/17 Glyburide/Metformin HCl [Glyburide-Metformin 5-500 mg] 2 each PO DAILY 10/11/17 Valsartan 160 mg PO DAILY 10/11/17 Albuterol 2.5/Ipratropium 0.5 [Duoneb -] 1 amp NEB QID #14 amp 10/17/17 Heparin - 5,000 unit SQ BID vial 10/17/17 Quetiapine Fumarate [Seroquel -] 25 mg PO BID #60 tablet 10/17/17 hydrALAZINE HCL [Apresoline -] 25 mg PO BID #60 tablet 10/17/17
--- NOTE | 2017-10-17 17:28 | PN ---
Progress Note (short form) - Note Progress Note: Renal follow up for CHEYEN[place] on CKD Pt seen and examined at the bedside awake and alert no acute complaints Vital Signs Temperature 98.0 F 10/17/17 10:00 Pulse Rate 85 10/17/17 10:00 Respiratory Rate 17 10/17/17 10:00 Blood Pressure 145/83 10/17/17 10:00 O2 Sat by Pulse Oximetry (%) 96 10/17/17 09:00 Intake & Output 10/14/17 10/15/17 10/16/17 10/17/17 23:59 23:59 23:59 23:59 Intake Total 1575 1810 1550 3030 Balance 1575 1810 1550 3030 Weight 88.564 kg 89.471 kg 87.997 kg 87.685 kg NAD, groggy RRR CTA mild abd distension No LE edema CBC, BMP 10/14/17 07:28 10/17/17 07:45 Current Medications Acetaminophen (Tylenol Suppository -) 650 mg MA Q4H PRN PRN Reason: TEMP >101 Last Admin: 10/14/17 03:30 Dose: 650 mg Acetaminophen (Tylenol -) 650 mg PO Q4H PRN PRN Reason: TEMP > 101 Heparin Sodium (Porcine) (Heparin -) 5,000 unit SQ BID [facility] Last Admin: 10/17/17 09:36 Dose: 5,000 unit Hydralazine HCl (Apresoline -) 25 mg PO BID [facility] Last Admin: 10/17/17 09:35 Dose: 25 mg Ceftriaxone Sodium 1 gm/ (Dextrose) 50 mls @ 100 mls/hr IVPB DAILY [facility] Last Admin: 10/17/17 09:42 Dose: 100 mls/hr Insulin Aspart (Novolog Vial Sliding Scale -) 1 vial SQ HS [facility]; Protocol Last Admin: 10/16/17 22:17 Dose: Not Given Insulin Aspart (Novolog Vial Sliding Scale -) 1 vial SQ TIDAC [facility]; Protocol Last Admin: 10/17/17 12:02 Dose: 2 unit Memantine (Namenda -) 10 mg PO BID [facility] Last Admin: 10/17/17 09:36 Dose: 10 mg Nystatin (Mycostatin Cream -) 1 applic TP BID [facility] Last Admin: 10/17/17 09:35 Dose: 1 applic Quetiapine Fumarate (Seroquel -) 25 mg PO BID [facility] Last Admin: 10/17/17 09:37 Dose: 25 mg 86 year old gentleman with PMhx of Dementia, CVA, DM2, afib, HTN, CHF, CKD who presented to the ED after vomiting x 4 at home with CHEYENNE on CKD #CHEYENNE on CKD #Nausea and vomiting #Hypertension #Dementia Renal function improved and stable will need to have outpatient renal follow up advised pt to maintain good oral intake at home also advised avoidance of NSAIDs given abnormal renal function Navi Dhillon DO
[2017-10-17 17:50] VITALS: BP 140/80; TEMP 98.4
== END 2017-10-17 17:49 | DRG 683 ==
LOC: JER 15:25 → JERBED 19:41 → J6S 10-12 03:38 → OBSVTOIN 10-13 11:10
PROVIDERS: ADMIT Internal Medicine; ATTEND Internal Medicine
DX: N17.9 Acute kidney failure, unspecified (principal); E87.2 Acidosis; I13.0 Hypertensive heart and chronic kidney disease with heart failure and stage 1 through stage 4 chronic kidney disease, or unspecified chronic kidney disease; N39.0 Urinary tract infection, site not specified; E11.649 Type 2 diabetes mellitus with hypoglycemia without coma; I50.9 Heart failure, unspecified; F03.90 Unspecified dementia, unspecified severity, without behavioral disturbance, psychotic disturbance, mood disturbance, and anxiety; E11.22 Type 2 diabetes mellitus with diabetic chronic kidney disease; N18.3 Chronic kidney disease, stage 3 (moderate); I48.91 Unspecified atrial fibrillation; E86.1 Hypovolemia; I44.0 Atrioventricular block, first degree; I45.10 Unspecified right bundle-branch block; R11.2 Nausea with vomiting, unspecified; E66.9 Obesity, unspecified; Z68.26 Body mass index [BMI] 26.0-26.9, adult; Z86.73 Personal history of transient ischemic attack (TIA), and cerebral infarction without residual deficits; Z87.891 Personal history of nicotine dependence
CPT/HCPCS: 36415; 71045-TC-FY; 74018-TC-FY; 76775-TC; 80048; 80053; 81003; 81015; 82272; 82550; 82553; 82803; 82962; 83036; 83605; 83735; 83880; 84100; 84443; 84484; 85025; 85610; 85730; 86850; 86900; 86901; 87040; 87086; 93005; 93010; 94640; 97116-GP; 97161-GP; 99285-25; G0378; J1644; J7030; J7620

== ENCOUNTER 2018-12-12 11:50 | Inpatient (IN) | payer OTHER, BC ==
--- NOTE | 2018-12-12 12:10 | PDOC ---
History of Present Illness - General Chief Complaint: Abnormal Lab Results (Outside) Stated Complaint: Abnormal Lab Results (Outside) Time Seen by Provider: 12/12/18 12:09 - History of Present Illness Initial Comments: 12/12/18 12:09 Mr. Cagle is an 88 yo male w/ pmh of CVA, dementia, IDDM, HTN, CKD (stage III) who presents for evaluation from [facility] for noted hemoglobin of 5.6. Patient is otherwise at baseline per staff. Patient unable to provide further history at this time. Past History - Past Medical History Allergies/Adverse Reactions: Allergies Allergy/AdvReac Type Severity Reaction Status Date / Time No Known Allergies Allergy Verified 02/26/17 15:44 Home Medications: Ambulatory Orders Albuterol 2.5/Ipratropium 0.5 [Duoneb -] 1 amp NEB QID #14 amp 10/17/17 hydrALAZINE HCL [Apresoline -] 25 mg PO BID #60 tablet 10/17/17 Bacitracin - [Bacitracin Topical Ointment -] 1 applic TP DAILY 12/12/18 Losartan Potassium 50 mg PO DAILY 12/12/18 Metformin HCl [Glucophage] 500 mg PO BID 12/12/18 Anemia: No Asthma: No Cardiac Disorders: Yes (Afib) CVA: Yes (stroke since 8 yrs ago) COPD: No CHF: Yes Dementia: Yes Diabetes: Yes GI Disorders: No Disorders: No HTN: Yes Hypercholesterolemia: Yes Liver Disease: No Seizures: No Thyroid Disease: No - Surgical History Abdominal Surgery: No Appendectomy: No Cardiac Surgery: No Cholecystectomy: No Lung Surgery: No Neurologic Surgery: No Orthopedic Surgery: Yes (35 yrs ago, right thumb surgery) - Suicide/Smoking/Psychosocial Hx Smoking History: Unknown if ever smoked Have you smoked in the past 12 months: No Number of Cigarettes Smoked Daily: 0 If you are a former smoker, when did you quit?: 52 yrs old Cigars Per Day: 0 Hx Alcohol Use: No Drug/Substance Use Hx: No Substance Use Type: None Hx Substance Use Treatment: No Review of Systems - Review of Systems Comments:: 12/12/18 12:10 Unable to obtain further. *Physical Exam - Vital Signs Last Vital Signs Temp Pulse Resp BP Pulse Ox 60 28 H 80/24 L 93 L 12/12/18 12:03 12/12/18 12:03 12/12/18 12:03 12/12/18 12:03 - Physical Exam Comments: 12/12/18 12:10 GENERAL: +Patient demented however reportedly at baseline. Awake, alert, in no acute distress HEAD: No signs of trauma, normocephalic, atraumatic EYES: PERRLA, EOMI, sclera anicteric, conjunctiva clear ENT: Auricles normal inspection, hearing grossly normal, nares patent, oropharynx clear without exudates. Moist mucosa NECK: Normal ROM, supple, no lymphadenopathy, JVD, or masses LUNGS: No distress, clear to auscultation bilaterally HEART: Regular rate and rhythm, normal S1 and S2, no murmurs, rubs or gallops, peripheral pulses normal and equal bilaterally. ABDOMEN: +MARIS hernia noted to upper pelvic area. Soft, nontender, normoactive bowel sounds. No guarding, no rebound. No masses EXTREMITIES: Normal inspection, Normal range of motion, no edema. No clubbing or cyanosis. NEUROLOGICAL: +Unable to assess. SKIN: Warm, Dry, normal turgor, no rashes or lesions noted. ED Treatment Course - LABORATORY CBC & Chemistry Diagram: 12/12/18 12:20 12/12/18 12:20 Medical Decision Making - Medical Decision Making 12/12/18 13:47 Mr. Cagle is an 88 yo male w/ pmh as described who presents for evaluation of anemia noted at care facility. Patient evaluated for possible causes and confirmed anemic with additional hyperkalemia. Patient ordered for 1 unit PRBC' s for anemia as well as insulin, glucose, calcium, and bicarb for hyperkalemia. Patient also noted to have mildly elevated troponin as below w/out EKG changes. Patient will be admitted for further care. 12/12/18 16:[address] chest/abdomen/pelvis done to r/o acute bleed significant for maris pleural effusions as well as abdominal ascites and small, nodular liver. Laboratory Results - last 24 hr 12/12/18 12/12/18 12/12/18 12:20 12:20 12:20 WBC 5.5 RBC 2.55 L Hgb 6.0 L* Hct 19.8 L D MCV 77.4 L MCH 23.7 L D MCHC 30.6 L RDW 17.4 H Plt Count 145 MPV 8.7 Absolute Neuts (auto) 4.1 Neutrophils % 74.9 Lymphocytes % 14.9 Monocytes % 8.5 Eosinophils % 0.9 Basophils % 0.8 Nucleated RBC % 0 PT with INR 13.30 H INR 1.13 H PTT (Actin FS) 30.7 Sodium Potassium Chloride Carbon Dioxide Anion Gap BUN Creatinine Est GFR (CKD-EPI)AfAm Est GFR (CKD-EPI)NonAf Random Glucose Lactic Acid Calcium Total Bilirubin AST ALT Alkaline Phosphatase Troponin I 0.10 H Total Protein Albumin Urine Color Urine Appearance Urine pH Ur Specific [place] Urine Protein Urine Glucose (UA) Urine Ketones Urine Blood Urine Nitrite Urine Bilirubin Urine Urobilinogen Ur Leukocyte Esterase Urine WBC (Auto) Urine Casts (Auto) U Epithel Cells (Auto) Urine Bacteria (Auto) Stool Occult Blood Blood Type Antibody Screen Crossmatch 12/12/18 12/12/18 12/12/18 12:20 12:20 12:20 WBC RBC Hgb Hct MCV MCH MCHC RDW Plt Count MPV Absolute Neuts (auto) Neutrophils % Lymphocytes % Monocytes % Eosinophils % Basophils % Nucleated RBC % PT with INR INR PTT (Actin FS) Sodium 142 Potassium 5.9 H Chloride 114 H Carbon Dioxide 20 L Anion Gap 8 BUN 84.2 H Creatinine 2.6 H Est GFR (CKD-EPI)AfAm 24.77 Est GFR (CKD-EPI)NonAf 21.37 Random Glucose 105 Lactic Acid 2.0 Calcium 8.6 Total Bilirubin 0.2 AST 19 ALT 20 Alkaline Phosphatase 73 Troponin I Total Protein 7.0 Albumin 3.4 Urine Color Yellow Urine Appearance Clear Urine pH 5.0 Ur Specific [place] 1.016 Urine Protein 2+ H Urine Glucose (UA) Negative Urine Ketones Negative Urine Blood Negative Urine Nitrite Negative Urine Bilirubin Negative Urine Urobilinogen 0.2 Ur Leukocyte Esterase Negative Urine WBC (Auto) 1 Urine Casts (Auto) 7 U Epithel Cells (Auto) 1.7 Urine Bacteria (Auto) 1.4 Stool Occult Blood Blood Type Antibody Screen Crossmatch 12/12/18 12/12/18 12:22 12:22 WBC RBC Hgb Hct MCV MCH MCHC RDW Plt Count MPV Absolute Neuts (auto) Neutrophils % Lymphocytes % Monocytes % Eosinophils % Basophils % Nucleated RBC % PT with INR INR PTT (Actin FS) Sodium Potassium Chloride Carbon Dioxide Anion Gap BUN Creatinine Est GFR (CKD-EPI)AfAm Est GFR (CKD-EPI)NonAf Random Glucose Lactic Acid Calcium Total Bilirubin AST ALT Alkaline Phosphatase Troponin I Total Protein Albumin Urine Color Urine Appearance Urine pH Ur Specific [place] Urine Protein Urine Glucose (UA) Urine Ketones Urine Blood Urine Nitrite Urine Bilirubin Urine Urobilinogen Ur Leukocyte Esterase Urine WBC (Auto) Urine Casts (Auto) U Epithel Cells (Auto) Urine Bacteria (Auto) Stool Occult Blood Negative Blood Type O NEGATIVE Antibody Screen Negative Crossmatch See Detail *DC/Admit/Observation/Transfer Diagnosis at time of Disposition: Hyperkalemia, Cardiac enzymes elevated Anemia Qualifiers: Anemia type: unspecified type Qualified Code(s): D64.9 - Anemia, unspecified - Discharge Dispostion Decision to Admit order: Yes - Referrals - Patient Instructions - Post Discharge Activity
[2018-12-12] MEDS ORDERED: SODIUM CHLORIDE 1,000 ML IV STA (12:20)
[2018-12-12 12:51] LABS: BASO % 0.8 % (0-2.0); EOS % 0.9 % (0-4.5); HEMATOCRIT 19.8 % (35.4-49); LYMPH % 14.9 % (8-40); MCH 23.7 pg (25.7-33.7); MCHC 30.6 g/dl (32.0-35.9); MEAN CELL VOLUME 77.4 fl (80-96); MEAN PLT VOLUME 8.7 fl (7.5-11.1); MONO % 8.5 % (3.8-10.2); NEUT % 74.9 % (42.8-82.8); PLATELET COUNT 145 K/MM3 (134-434); RBC 2.55 M/mm3 (4.00-5.60); RDW 17.4 % (11.9-15.9); WHITE BLOOD COUNT 5.5 K/mm3 (4.0-10.0)
[2018-12-12 12:59] LABS: INR 1.13 (0.83-1.09); PROTHROMBIN TIME (PATIENT) 13.3 SEC (9.7-13.0)
[2018-12-12 13:02] LABS: ACTIVATED PTT 30.7 SECONDS (25.2-36.5)
[2018-12-12 13:07] LABS: EPI CELLS 1.7 /HPF (0-5/HPF); HYALINE CASTS 7 /lpf (0-8); URINE APPEARANCE CLEAR; URINE BACTERIA 1.4 /hpf (NEGATIVE); URINE BILIRUBIN NEGATIVE (NEGATIVE); URINE COLOR YELLOW; URINE GLUCOSE (UA) NEGATIVE (NEGATIVE); URINE KETONE NEGATIVE (NEGATIVE); URINE LEUK ESTERASE NEGATIVE (NEGATIVE); URINE NITRITE NEGATIVE (NEGATIVE); URINE PROTEIN 2+ (NEGATIVE); URINE UROBILINOGEN 0.2 mg/dL (0.2-1.0); URINE WBC 1 /hpf (0-5)
[2018-12-12 13:10] LABS: ALBUMIN 3.4 g/dl (3.4-5.0); BILIRUBIN,TOTAL 0.2 mg/dL (0.2-1); BLOOD UREA NITROGEN 84.2 mg/dL (7-18); CALCIUM 8.6 mg/dL (8.5-10.1); CREATININE 2.6 mg/dL (0.55-1.3); POTASSIUM 5.9 mmol/L (3.5-5.1)
--- NOTE | 2018-12-12 13:18 | PDOC ---
Documentation entered by Nimo Bello SCRIBE, acting as scribe for Rayray Rea MD. Rayray Rea MD: This documentation has been prepared by the Ace nagy Sammi, SCRIBE, under my direction and personally reviewed by me in its entirety. I confirm that the documentation accurately reflects all work, treatment, procedures, and medical decision making performed by me. Attending Attestation - Resident Resident Name: Joe Calhoun - ED Attending Attestation I have performed the following: I have examined & evaluated the patient, The case was reviewed & discussed with the resident, I agree w/resident's findings & plan, Exceptions are as noted - HPI HPI: 12/12/18 12:23 The patient is am 88 year old male, with a significant PMH of CVA, dementia, IDDM, HTN, CKD stage III, who presents from [facility] emergency department for evaluation of abnormal labs of Hgb 5, hypotension, and altered mental status. As per who had called the ED, the patient is very demented at baseline and is unable to provide an accurate history. Pt denies any complaints at this time. Allergies: None Past surgical history: right thumb surgery Social History: No alcohol, tobacco or drug use reported PMD: Dr. Adal Ewing - Physicial Exam PE: 12/12/18 13:21 GENERAL: Awake, alert, no acute distress. HEAD: No signs of trauma EYES: PERRLA, EOMI, sclera anicteric, conjunctiva clear ENT: Auricles normal inspection, hearing grossly normal, nares patent, oropharynx clear without exudates. Moist mucosa NECK: Nontender, no stepoffs, Normal ROM, supple, no lymphadenopathy, JVD, or masses LUNGS: Breath sounds equal, clear to auscultation bilaterally. No wheezes, and no crackles HEART: Regular rate and rhythm, normal S1 and S2, no murmurs, rubs or gallops ABDOMEN: Soft, nontender, normoactive bowel sounds. No guarding, no rebound. No masses EXTREMITIES: Normal range of motion, no edema. No clubbing or cyanosis. No cords, erythema, or tenderness NEUROLOGICAL: Cranial nerves II through XII intact. 5/5 strength and sensation in all extremities SKIN: Warm, Dry, normal turgor, no rashes or lesions noted. - Critical Care Time Total Critical Care Time: 60 Critical Care Statement: The care of this patient involved high complexity decision making to prevent further life threatening deterioration of the patient 's condition and/or to evaluate & treat vital organ system(s) failure or risk of failure. - Medical Decision Making 12/12/18 13:22 88 M sent in for low Hb at [place]. Pt also confused, but this may be pt's baseline per . BP also noted to be low, likely 2/2 anemia. Will evaluate for GI bleed. Also consider kidney failure. - labs, T&S, coags - Transfuse PRN 12/12/18 13:36 Labs notable for Hb 6 1u PRBC ordered Pt also with worsening renal function, Cr 2.6 K 5.8 Will give Ca, insulin, D50, fluids Stool guaiac negative
[2018-12-12] MEDS ORDERED: CALCIUM GLUCONATE 10% - 1,000 MG/10 ML VIAL IVPB ONE ×2 (13:29→21:44)
[2018-12-12] MEDS ORDERED: INSULIN REGULAR HUMAN 100 UNITS/ML *VIAL IVPUSH ONE ×2 (13:29→21:44)
[2018-12-12] MEDS ORDERED: SODIUM BICARBONATE 8.4% 50 MEQ/50 ML DISP.SYRIN IVPUSH ONE (13:29)
[2018-12-12] MEDS ORDERED: DEXTROSE 50%-WATER - 25 GM/50 ML VIAL IVPUSH ONE ×3 (13:29→23:53)
[2018-12-12] MEDS ORDERED: CALCIUM GLUCONATE 10% - 1,000 MG/10 ML VIAL ONE ×2 (13:49→21:52)
[2018-12-12] MEDS ORDERED: DEXTROSE 50%-WATER 25 GM/50 ML DISP.SYRIN ONE ×3 (13:50→23:53)
[2018-12-12] MEDS ORDERED: SODIUM BICARBONATE 8.4% 50 MEQ/50 ML VIAL ONE (13:51)
--- NOTE | 2018-12-12 15:13 | EKG ---
Test Reason : Blood Pressure : / mmHG Vent. Rate : 083 BPM Atrial Rate : 083 BPM P-R Int : 198 ms QRS Dur : 140 ms QT Int : 390 ms P-R-T Axes : 047 000 -25 degrees QTc Int : 458 ms NORMAL SINUS RHYTHM RIGHT BUNDLE BRANCH BLOCK INFERIOR INFARCT , AGE UNDETERMINED ABNORMAL ECG WHEN COMPARED WITH ECG OF 11-OCT-2017 18:36, T WAVE INVERSION NOW EVIDENT IN ANTERIOR LEADS Confirmed by TOPHER BROUSSARD, DAMIEN ([id number]) on 12/12/2018 3:12:48 PM Referred By: Confirmed By:DAMIEN OBANDO MD
--- NOTE | 2018-12-12 17:04 | HP ---
Admitting History and Physical - Primary Care Physician PCP: Adal Ewign - Admission History of Present Illness: Patient is an 88 y/o male with past medical history of CVA, Dementia, IDDM, HTN , CKD stage 3. Patient was transferred from [facility] abnormal lab result of Hg 5.0. When arrive to [facility] ER repeat CBC performed and Hg 6.0. Patient is currently receiving 1U PRBC transfused. Denies dizziness, palpitations, or SOB. Patient is poor historian due to dementia. Information received from medical records and at bedside. 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 Cardiovascular: Yes: CHF, HTN Gastrointestinal: Yes: Other (vomiting) Endocrine: Yes: Diabetes Mellitus - Smoking History Smoking history: Unknown if ever smoked Have you smoked in the past 12 months: No Aproximately how many cigarettes per day: 0 If you are a former smoker, when did you quit?: 52 yrs old - Alcohol/Substance Use Hx Alcohol Use: No - Social History Usual Living Arrangement: Yes: [facility] ADL: Support Services History of Recent Travel: No Home Medications - Allergies Allergies/Adverse Reactions: Allergies Allergy/AdvReac Type Severity Reaction Status Date / Time No Known Allergies Allergy Verified 02/26/17 15:44 - Home Medications Home Medications: Ambulatory Orders Albuterol 2.5/Ipratropium 0.5 [Duoneb -] 1 amp NEB QID #14 amp 10/17/17 hydrALAZINE HCL [Apresoline -] 25 mg PO BID #60 tablet 10/17/17 Bacitracin - [Bacitracin Topical Ointment -] 1 applic TP DAILY 12/12/18 Losartan Potassium 50 mg PO DAILY 12/12/18 Metformin HCl [Glucophage] 500 mg PO BID 12/12/18 Review of Systems - Review of Systems Constitutional: reports: No Symptoms Eyes: reports: No Symptoms HENT: reports: No Symptoms Neck: reports: No Symptoms Cardiovascular: reports: No Symptoms Respiratory: reports: No Symptoms Gastrointestinal: reports: No Symptoms Genitourinary: reports: No Symptoms Breasts: reports: No Symptoms Reported Musculoskeletal: reports: No Symptoms Integumentary: reports: No Symptoms Neurological: reports: No Symptoms Endocrine: reports: No Symptoms Hematology/Lymphatic: reports: No Symptoms Psychiatric: reports: No Symptoms Physical Examination Vital Signs: Vital Signs Temperature 97.5 F L 12/12/18 14:18 Pulse Rate 63 12/12/18 15:05 Respiratory Rate 24 H 12/12/18 15:05 Blood Pressure 138/50 L 12/12/18 15:05 O2 Sat by Pulse Oximetry (%) 100 12/12/18 15:05 Constitutional: Yes: No Distress, Calm Eyes: Yes: Conjunctiva Clear HENT: Yes: Atraumatic Neck: Yes: Supple Cardiovascular: Yes: Regular Rate and Rhythm Respiratory: Yes: Regular, On Nasal O2, Rhonchi Gastrointestinal: Yes: Normal Bowel Sounds, Soft Renal/: Yes: Mae Present Musculoskeletal: Yes: Muscle Weakness Extremities: Yes: WNL Edema: Yes Edema: LLE: 2+, RLE: 2+ Integumentary: Yes: Bruising (right forearm) Neurological: Yes: Alert, Pre-Existing Deficit Psychiatric: Yes: Alert Labs: CBC, BMP 12/12/18 12:20 12/12/18 12:20 Imaging - Results Cat Scan: Report Reviewed Problem List - Problems (1) Anemia Assessment/Plan: -Hg 6.0 -receiving 1U PRBC -monitor Hg daily -transfuse for Hg <7.0 to avoid fluid overload -GI and Hematology consult -Stool OB neg -Iron panel ordered Code(s): D64.9 - ANEMIA, UNSPECIFIED Qualifiers: Anemia type: unspecified type Qualified Code(s): D64.9 - Anemia, unspecified (2) Elevation of cardiac enzymes Assessment/Plan: -troponin 0.10 -cardiology consult -repeat troponin ordered -tele monitoring Code(s): R74.8 - ABNORMAL LEVELS OF OTHER SERUM ENZYMES (3) CKD (chronic kidney disease) Assessment/Plan: -Nephrology consult -BUN/Cr 84.2/2.6 -Abdomen/Pelvic CT scan shows large right exophytic renal cyst up to 10.3cm -monitor renal function daily Code(s): N18.9 - CHRONIC KIDNEY DISEASE, UNSPECIFIED Qualifiers: Chronic kidney disease stage: stage 3 (moderate) Qualified Code(s): N18.3 - Chronic kidney disease, stage 3 (moderate) (4) Dementia Code(s): F03.90 - UNSPECIFIED DEMENTIA WITHOUT BEHAVIORAL DISTURBANCE (5) Diabetes Assessment/Plan: -BGM ACHS -Metformin -ISS -HgA1c Code(s): E11.9 - TYPE 2 DIABETES MELLITUS WITHOUT COMPLICATIONS (6) HTN (hypertension) Assessment/Plan: -Losartan, Hydralazine Code(s): I10 - ESSENTIAL (PRIMARY) HYPERTENSION (7) Pleural effusion Assessment/Plan: -Pulm consult -Furosemide -Chest CT scan shows moderate to large bilateral pleural effusion, , left slightly more than right with compressive atelectasis in both lower lobes, left more than right, atelectatic changes in lingular segment of SKYE -bronchodilators -keep SpO2 >90% -O2 via NC Code(s): J90 - PLEURAL EFFUSION, NOT ELSEWHERE CLASSIFIED (8) Abnormal CT of the abdomen Assessment/Plan: -Abdomen and Pelvic CT scan shows there is moderate amount of ascites in the abdomen pelvis, small liver with slightly nodular contour , rule out liver cirrhosis, no evidence of small bowel obstruction, diffuse subcutaneous edema and abdomen/pelvic wall, rule out anasarce -GI consult -monitor LFTs daily Code(s): R93.5 - ABN FINDINGS ON DX IMAGING OF ABD REGIONS, INC RETROPERITON Assessment/Plan see problem list SCDs
[2018-12-12] MEDS: ALBUTEROL SO4 2.5/IPRATROPIUM 0.5 INH SOL 3 ML VIAL.NEB. NEB SCH (20:28)
[2018-12-12 21:23] LABS: BLOOD UREA NITROGEN 86.7 mg/dL (7-18); CALCIUM 9.1 mg/dL (8.5-10.1); CREATININE 2.5 mg/dL (0.55-1.3)
[2018-12-12 21:25] LABS: POTASSIUM 6.1 mmol/L (3.5-5.1)
[2018-12-12] MEDS ORDERED: ALBUTEROL SO4 0.083% IH SOL 2.5 MG/3 ML VIAL.NEB. NEB ONE ×2 (21:45→21:52)
[2018-12-12] MEDS ORDERED: INSULIN (NOVOLOG) ASPART 100 UNITS/ML 10ML VIAL ONE (21:52)
[2018-12-12] MEDS ORDERED: hydrALAZINE HCL 25 MG TABLET (FP) ONE (22:57)
[2018-12-12] MEDS: INSULIN SLIDING SCALE (NOVOLOG) 1 VIAL SQ SCH (23:09)
[2018-12-12] MEDS: hydrALAZINE HCL 25 MG TABLET (FP) PO SCH (23:10)
[2018-12-13 01:50] LABS: BASO % 0.6 % (0-2.0); EOS % 0.4 % (0-4.5); HEMATOCRIT 23.1 % (35.4-49); LYMPH % 10.5 % (8-40); MCH 24.1 pg (25.7-33.7); MCHC 30.4 g/dl (32.0-35.9); MEAN CELL VOLUME 79.3 fl (80-96); MEAN PLT VOLUME 8.6 fl (7.5-11.1); MONO % 9.9 % (3.8-10.2); NEUT % 78.6 % (42.8-82.8); PLATELET COUNT 151 K/MM3 (134-434); RBC 2.91 M/mm3 (4.00-5.60); RDW 17.7 % (11.9-15.9); WHITE BLOOD COUNT 7.7 K/mm3 (4.0-10.0)
[2018-12-13 02:14] LABS: BLOOD UREA NITROGEN 86.5 mg/dL (7-18); CALCIUM 8.9 mg/dL (8.5-10.1); CREATININE 2.5 mg/dL (0.55-1.3); POTASSIUM 5.7 mmol/L (3.5-5.1)
[2018-12-13] MEDS: INSULIN SLIDING SCALE (NOVOLOG) 1 VIAL SQ SCH ×4 (06:14→22:29)
[2018-12-13] MEDS: ALBUTEROL SO4 2.5/IPRATROPIUM 0.5 INH SOL 3 ML VIAL.NEB. NEB SCH ×3 (08:48→20:30)
[2018-12-13 09:30] LABS: BASO % 0.7 % (0-2.0); EOS % 0.3 % (0-4.5); LYMPH % 10.6 % (8-40); MCH 24.5 pg (25.7-33.7); MCHC 31.5 g/dl (32.0-35.9); MEAN CELL VOLUME 77.8 fl (80-96); MEAN PLT VOLUME 8.6 fl (7.5-11.1); MONO % 6.1 % (3.8-10.2); NEUT % 82.3 % (42.8-82.8); PLATELET COUNT 143 K/MM3 (134-434); RBC 2.83 M/mm3 (4.00-5.60); RDW 17.5 % (11.9-15.9); WHITE BLOOD COUNT 5.7 K/mm3 (4.0-10.0)
[2018-12-13] MEDS ORDERED: BACITRACIN 0.9 GM PACKET ONE (09:39)
[2018-12-13] MEDS ORDERED: FUROSEMIDE 40 MG TABLET (FP) ONE ×2 (09:39→16:04)
[2018-12-13] MEDS ORDERED: LOSARTAN POTASSIUM 50 MG TABLET (FP) ONE (09:39)
[2018-12-13] MEDS ORDERED: hydrALAZINE HCL 25 MG TABLET (FP) ONE ×2 (09:39→21:35)
[2018-12-13 09:53] LABS: HEMOGLOBIN 6.9 GM/dL (11.7-16.9)
[2018-12-13] MEDS: BACITRACIN 15 GM TUBE TOPICAL OINTMENT TP SCH (09:58)
[2018-12-13] MEDS: hydrALAZINE HCL 25 MG TABLET (FP) PO SCH ×2 (09:58→22:28)
[2018-12-13] MEDS ORDERED: FUROSEMIDE 40 MG TABLET (FP) PO SCH (10:00)
[2018-12-13] MEDS ORDERED: LOSARTAN POTASSIUM 50 MG TABLET (FP) PO SCH (10:00)
[2018-12-13 10:01] LABS: ALBUMIN 3.4 g/dl (3.4-5.0); BILIRUBIN,TOTAL 0.6 mg/dL (0.2-1); BLOOD UREA NITROGEN 81.8 mg/dL (7-18); CREATININE 2.5 mg/dL (0.55-1.3); MAGNESIUM 3.1 mg/dL (1.8-2.4); N-TERMINAL BNP 6519.3 pg/ml (5-450); PHOSPHOROUS 4.8 mg/dL (2.5-4.9); POTASSIUM 5.8 mmol/L (3.5-5.1)
--- NOTE | 2018-12-13 12:09 | PN ---
Progress Note, Physician Chief Complaint: patient seen and examined know his name otherwise confused - Current Medication List Current Medications: Active Medications Albuterol/Ipratropium (Duoneb -) 1 amp NEB RQID [facility] Last Admin: 12/13/18 08:48 Dose: 1 amp Bacitracin (Bacitracin -) 1 applic TP DAILY [facility] Last Admin: 12/13/18 09:58 Dose: 1 film Furosemide (Lasix Injection -) 40 mg IVPB BID@0600,1400 [facility] Hydralazine HCl (Apresoline -) 25 mg PO BID [facility] Last Admin: 12/13/18 09:58 Dose: 25 mg Insulin Aspart (Novolog Vial Sliding Scale -) 1 vial SQ ACHS [facility]; Protocol Last Admin: 12/13/18 11:32 Dose: Not Given Losartan Potassium (Cozaar -) 50 mg PO DAILY [facility] Last Admin: 12/13/18 09:59 Dose: 50 mg - Objective Vital Signs: Vital Signs Temperature 97.6 F 12/12/18 17:44 Pulse Rate 70 12/13/18 08:27 Respiratory Rate 17 12/13/18 08:27 Blood Pressure 156/62 12/13/18 08:27 O2 Sat by Pulse Oximetry (%) 97 12/13/18 06:59 Constitutional: Yes: Calm Cardiovascular: Yes: Regular Rate and Rhythm, S1, S2 Respiratory: Yes: Diminished, Wheezes Gastrointestinal: Yes: Ascites, Distention Edema: Yes Edema: LLE: 1+, RLE: 1+ Labs: CBC, BMP 12/13/18 08:21 12/13/18 08:21 INR, PTT INR 1.13 (0.83-1.09) H 12/12/18 12:20 Problem List - Problems (1) Anemia Assessment/Plan: s/p PRBC iron panel order guaicic negative heme and renal eval Code(s): D64.9 - ANEMIA, UNSPECIFIED Qualifiers: Anemia type: unspecified type Qualified Code(s): D64.9 - Anemia, unspecified (2) Hyperkalemia Assessment/Plan: got D50 insulin sodium bicarbonate and calcium still Potassium elevated renal eval Code(s): E87.5 - HYPERKALEMIA (3) Pleural effusion Assessment/Plan: ct scan noted for extensive effusion will give iv lasix bid pulm eval IR for possible drainage and chest tube placement Code(s): J90 - PLEURAL EFFUSION, NOT ELSEWHERE CLASSIFIED (4) [place] (acute kidney injury) Assessment/Plan: renal eval monitor lytes urology eval for renal cysts Code(s): N17.9 - ACUTE KIDNEY FAILURE, UNSPECIFIED (5) Anasarca Assessment/Plan: renal eval diuretics Code(s): R60.1 - GENERALIZED EDEMA (6) HTN (hypertension) Assessment/Plan: hydralazine bid can up tritate if needed Code(s): I10 - ESSENTIAL (PRIMARY) HYPERTENSION
--- NOTE | 2018-12-13 12:55 | CON.CARD ---
Cardiology Consult (text) - Consultation Consultation Note: Chief Complaint: sent from [facility] for low hgb and ams History of Present Illness: 88 yo male here with ams, anemia. Pt unable to provide hx 2/2 ams/dementia. Hx from charts. In ER found to have hgb 6s. 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 Cardio/Vascular: Yes: CHF, HTN - Alcohol/Substance Use Hx Alcohol Use: No - Smoking History Smoking history: Former smoker Home Medications - Allergies Allergies/Adverse Reactions: Allergies Allergy/AdvReac Type Severity Reaction Status Date / Time No Known Allergies Allergy Verified 02/26/17 15:44 - Home Medications Home Medications Medication Instructions Recorded Albuterol 2.5/Ipratropium 0.5 1 amp NEB QID #14 amp 10/17/17 [Duoneb -] hydrALAZINE HCL [Apresoline -] 25 mg PO BID #60 tablet 10/17/17 Bacitracin - [Bacitracin Topical 1 applic TP DAILY 12/12/18 Ointment -] Losartan Potassium 50 mg PO DAILY 12/12/18 Metformin HCl [Glucophage] 500 mg PO BID 12/12/18 Review of Systems Unable to obtain ROS, reason: ams Vital Signs: Vital Signs Period Temp Pulse Resp BP Sys/Car Pulse Ox Last 24 Hr 97.5 F-97.6 F 58-85 17-24 116-176/47-88 97-100 Constitutional: Yes: Well Nourished, No Distress Eyes: No: Sclera Icterus HENT: No: Nasal Congestion Respiratory: Yes: CTA Bilaterally. poor eff No: Accessory Muscle Use, Rales, Wheezes Gastrointestinal: Yes: Normal Bowel Sounds. No: Distention, Hepatomegaly, Palpable Mass, Tenderness Cardiovascular: Yes: Regular Rate and Rhythm JVD: No Carotid Bruit: No PMI: Non-Displaced Heart Sounds: Yes: S1, S2. No: Gallop Murmur: No: Systolic Murmur, Diastolic Murmur Extremities: No: Cold, Cyanosis Edema: No Peripheral Pulses: 2+ Left Carotid, 2+ Right Carotid, 2+ Left Doralis Pedis, 2+ Right Dorsalis Pedis Integumentary: No: Jaundice Neurological: Yes: awake, confused Psychiatric: No: Agitated - Other Data Labs, Other Data: Laboratory Last Values WBC 5.7 K/mm3 (4.0-10.0) 12/13/18 08:21 RBC 2.83 M/mm3 (4.00-5.60) L 12/13/18 08:21 Hgb 6.9 GM/dL (11.7-16.9) L* 12/13/18 08:21 Hct 22.0 % (35.4-49) L 12/13/18 08:21 MCV 77.8 fl (80-96) L 12/13/18 08:21 MCH 24.5 pg (25.7-33.7) L 12/13/18 08:21 MCHC 31.5 g/dl (32.0-35.9) L 12/13/18 08:21 RDW 17.5 % (11.9-15.9) H 12/13/18 08:21 Plt Count 143 K/MM3 (134-434) 12/13/18 08:21 MPV 8.6 fl (7.5-11.1) 12/13/18 08:21 Absolute Neuts (auto) 4.7 K/mm3 (1.5-8.0) 12/13/18 08:21 Neutrophils % 82.3 % (42.8-82.8) 12/13/18 08:21 Lymphocytes % 10.6 % (8-40) 12/13/18 08:21 Monocytes % 6.1 % (3.8-10.2) 12/13/18 08:21 Eosinophils % 0.3 % (0-4.5) 12/13/18 08:21 Basophils % 0.7 % (0-2.0) 12/13/18 08:21 Nucleated RBC % 0 % (0-0) 12/13/18 08:21 PT with INR 13.30 SEC (9.7-13.0) H 12/12/18 12:20 INR 1.13 (0.83-1.09) H 12/12/18 12:20 PTT (Actin FS) 30.7 SECONDS (25.2-36.5) 12/12/18 12:20 Sodium 143 mmol/L (136-145) 12/13/18 08:21 Potassium 5.8 mmol/L (3.5-5.1) H 12/13/18 08:21 Chloride 115 mmol/L (98-107) H 12/13/18 08:21 Carbon Dioxide 22 mmol/L (21-32) 12/13/18 08:21 Anion Gap 6 MMOL/L (8-16) L 12/13/18 08:21 BUN 81.8 mg/dL (7-18) H 12/13/18 08:21 Creatinine 2.5 mg/dL (0.55-1.3) H 12/13/18 08:21 Est GFR (CKD-EPI)AfAm 25.97 12/13/18 08:21 Est GFR (CKD-EPI)NonAf 22.41 12/13/18 08:21 POC Glucometer 117 UNITS (80-120) 12/13/18 11:30 Random Glucose 89 mg/dL (74-106) 12/13/18 08:21 Hemoglobin A1c % 5.7 % (4.2-6.3) 12/13/18 08:21 Lactic Acid 2.0 mmol/L (0.4-2.0) 12/12/18 12:20 Calcium 9.0 mg/dL (8.5-10.1) 12/13/18 08:21 Phosphorus 4.8 mg/dL (2.5-4.9) 12/13/18 08:21 Magnesium 3.1 mg/dL (1.8-2.4) H 12/13/18 08:21 Total Bilirubin 0.6 mg/dL (0.2-1) 12/13/18 08:21 AST 24 U/L (15-37) 12/13/18 08:21 ALT 21 U/L (13-61) 12/13/18 08:21 Alkaline Phosphatase 72 U/L (45-117) 12/13/18 08:21 Troponin I 0.09 ng/ml (0.00-0.05) H 12/13/18 08:21 B-Natriuretic Peptide 6519.3 pg/ml (5-450) H 12/13/18 08:21 Total Protein 7.0 g/dl (6.4-8.2) 12/13/18 08:21 Albumin 3.4 g/dl (3.4-5.0) 12/13/18 08:21 Triglycerides 65 mg/dL (0-150) 12/13/18 08:21 Cholesterol 127 mg/dL (50-200) 12/13/18 08:21 Total LDL Cholesterol 72 mg/dL (5-100) 12/13/18 08:21 HDL Cholesterol 49 mg/dL (40-60) 12/13/18 08:21 TSH 2.90 uIU/ml (0.358-3.74) D 12/13/18 08:21 Urine Color Yellow 12/12/18 12:20 Urine Appearance Clear 12/12/18 12:20 Urine pH 5.0 (5.0-8.0) 12/12/18 12:20 Ur Specific [place] 1.016 (1.010-1.035) 12/12/18 12:20 Urine Protein 2+ (NEGATIVE) H 12/12/18 12:20 Urine Glucose (UA) Negative (NEGATIVE) 12/12/18 12:20 Urine Ketones Negative (NEGATIVE) 12/12/18 12:20 Urine Blood Negative (NEGATIVE) 12/12/18 12:20 Urine Nitrite Negative (NEGATIVE) 12/12/18 12:20 Urine Bilirubin Negative (NEGATIVE) 12/12/18 12:20 Urine Urobilinogen 0.2 mg/dL (0.2-1.0) 12/12/18 12:20 Ur Leukocyte Esterase Negative (NEGATIVE) 12/12/18 12:20 Urine WBC (Auto) 1 /hpf (0-5) 12/12/18 12:20 Urine Casts (Auto) 7 /lpf (0-8) 12/12/18 12:20 U Epithel Cells (Auto) 1.7 /HPF (0-5/HPF) 12/12/18 12:20 Urine Bacteria (Auto) 1.4 /hpf (NEGATIVE) 12/12/18 12:20 Stool Occult Blood Negative (NEGATIVE) 12/12/18 12:22 Blood Type O NEGATIVE 12/12/18 12:22 Antibody Screen Negative 12/12/18 12:22 Crossmatch See Detail 12/12/18 12:22 ekg: sr, old rbbb, no sig change prior ct chest: bl mod-large pleural eff Echo 06/2016: nl lv/rv. abnormal diastology. 1+ MAC 1+ Ao dilation Echo 2014: nl LV/EF; nl RV; nl LA; mild-mod TR; RVSP 30-40; mild dil ao root a/p: 88 yo with h/o male HTN, HPL, CVA (acute R thalamic bleed at that time, suspected hypertensive etiology), DM2 admitted for anemia, ams. anemia: -hgb in 6s initially, getting prbcs -w/u per pmd, gi, heme HTN: -cont home meds elevated cardiac enzymes: -no ekg changes -trop in borderline range x2 with flat trend, trop similar to prior baseline values-->not c/w acs -no ischemic w/u needed at this time lina, ckd: -cr above baseline, possibly due to anemia, monitor cr pleural effs: -would start iv lasix once cr and hgb improves
--- NOTE | 2018-12-13 13:11 | CON.PULM ---
Consult Consult Specialty:: PULMONARY Referred by:: Dr Rosales Reason for Consultation:: pleural effusion - History of Present Illness Chief Complaint: anemia History of Present Illness: 88yo male with h/o HTN, DM, CKD, h/o CVA, dementia who was transferred [facility] for [facility]. Found to have a Hgb 6, transfused PRBC. Pt poor historian, unable to provide reliable history at this time. CXR showing pleural effusions confirmed by CT chest. No fevers recorded. 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, Dementia Cardio/Vascular: Yes: CHF, HTN Gastrointestinal: Yes: Other (vomiting) Endocrine: Yes: Diabetes Mellitus - Alcohol/Substance Use Hx Alcohol Use: No - Smoking History Smoking history: Unknown if ever smoked Have you smoked in the past 12 months: No Aproximately how many cigarettes per day: 0 If you are a former smoker, when did you quit?: 52 yrs old - Social History ADL: Support Services History of Recent Travel: No Home Medications - Allergies Allergies/Adverse Reactions: Allergies Allergy/AdvReac Type Severity Reaction Status Date / Time No Known Allergies Allergy Verified 02/26/17 15:44 - Home Medications Home Medications: Ambulatory Orders Albuterol 2.5/Ipratropium 0.5 [Duoneb -] 1 amp NEB QID #14 amp 10/17/17 hydrALAZINE HCL [Apresoline -] 25 mg PO BID #60 tablet 10/17/17 Bacitracin - [Bacitracin Topical Ointment -] 1 applic TP DAILY 12/12/18 Losartan Potassium 50 mg PO DAILY 12/12/18 Metformin HCl [Glucophage] 500 mg PO BID 12/12/18 Review of Systems Unable to obtain ROS, reason: dementia Physical Exam Vital Sings: Vital Signs Temperature 97.6 F 12/12/18 17:44 Pulse Rate 70 12/13/18 08:27 Respiratory Rate 17 12/13/18 08:27 Blood Pressure 156/62 12/13/18 08:27 O2 Sat by Pulse Oximetry (%) 97 12/13/18 06:59 Constitutional: Yes: Mild Distress Eyes: Yes: Conjunctiva Clear, EOM Intact HENT: Yes: Atraumatic, Normocephalic Neck: Yes: Supple, Trachea Midline Cardiovascular: Yes: Regular Rate and Rhythm Respiratory: Yes: Rhonchi (scattered) ...Clubbing: No Gastrointestinal: Yes: Normal Bowel Sounds, Soft. No: Tenderness Edema: No Neurological: Yes: Confusion Labs: CBC, BMP 12/13/18 08:21 12/13/18 08:21 Imaging - Results Chest X-ray: Report Reviewed, Image Reviewed Cat Scan: Report Reviewed, Image Reviewed (bilateral effusions, fluid vs pleural thickening left fissure) Problem List - Problems (1) Anemia Code(s): D64.9 - ANEMIA, UNSPECIFIED Qualifiers: Anemia type: unspecified type Qualified Code(s): D64.9 - Anemia, unspecified (2) Pleural effusion Code(s): J90 - PLEURAL EFFUSION, NOT ELSEWHERE CLASSIFIED Assessment/Plan Anemia Acute on Chronic Diastolic Heart Failure Pulmonary HTN Pleural Effusions Acute on Chronic Renal Failure HTN DM h/o CVA Dementia - transfuse PRBC - monitor H/H - IV lasix - monitor urine output, creatinine - O2 to keep SpO2 >90% - aspiration precautions - monitor CXR with diuresis - if no improvement with diuresis, may benefit from left thoracentesis - DVT prophylaxis Thank you for this consult Adal Jeffers MD
--- NOTE | 2018-12-13 13:42 | CONSULT ---
Consult Consult Specialty:: Nephrology Reason for Consultation:: ckd and hyperkalemia - History of Present Illness Chief Complaint: sent in for anemia History of Present Illness: Pt is an 88 year old male with pmhx of cva, ckd, dementia, htn, and dm who was sent in from the [place] for anemia. He was found to have elevated creatinine and to be hyperkalemic. He is a poor historian secondary to dementia and is unable to give history. Chart was reviewed. He denies chest pain or shortness of breath. He was also found to have pleural effusions. As per records pt has stage 3 ckd. 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 Cardio/Vascular: Yes: CHF, HTN Gastrointestinal: Yes: Other (vomiting) Renal/: Yes: Renal Inusuff Endocrine: Yes: Diabetes Mellitus - Alcohol/Substance Use Hx Alcohol Use: No - Smoking History Smoking history: Unknown if ever smoked Have you smoked in the past 12 months: No Aproximately how many cigarettes per day: 0 If you are a former smoker, when did you quit?: 52 yrs old - Social History ADL: Support Services History of Recent Travel: No Home Medications - Allergies Allergies/Adverse Reactions: Allergies Allergy/AdvReac Type Severity Reaction Status Date / Time No Known Allergies Allergy Verified 02/26/17 15:44 - Home Medications Home Medications: Ambulatory Orders Albuterol 2.5/Ipratropium 0.5 [Duoneb -] 1 amp NEB QID #14 amp 10/17/17 hydrALAZINE HCL [Apresoline -] 25 mg PO BID #60 tablet 10/17/17 Bacitracin - [Bacitracin Topical Ointment -] 1 applic TP DAILY 12/12/18 Losartan Potassium 50 mg PO DAILY 12/12/18 Metformin HCl [Glucophage] 500 mg PO BID 12/12/18 Family Disease History - Family Disease History Family History: Unable to Obtain Review of Systems Unable to obtain ROS, reason: poor historina, dementia Findings/Remarks: pt days no to everything, I dont think he comprehends the questions - Review of Systems Constitutional: reports: No Symptoms Eyes: reports: No Symptoms HENT: reports: No Symptoms Neck: reports: No Symptoms Cardiovascular: reports: No Symptoms Gastrointestinal: reports: No Symptoms Physical Exam Vital Signs: Vital Signs Temperature 97.6 F 12/12/18 17:44 Pulse Rate 70 12/13/18 08:27 Respiratory Rate 17 12/13/18 08:27 Blood Pressure 156/62 12/13/18 08:27 O2 Sat by Pulse Oximetry (%) 97 12/13/18 06:59 Constitutional: Yes: Calm Eyes: Yes: Conjunctiva Clear HENT: Yes: Atraumatic Neck: Yes: Supple Cardiovascular: Yes: S1, S2 Respiratory: Yes: On Nasal O2, Rhonchi Gastrointestinal: Yes: Soft Renal/: Yes: Incontinence Musculoskeletal: Yes: Muscle Weakness Edema: No Neurological: Yes: Confusion Labs: CBC, BMP 12/13/18 08:21 12/13/18 08:21 Laboratory Tests 12/12/18 12/12/18 12/13/18 12:20 19:25 01:22 Sodium Potassium 5.9 H 6.1 H* 5.7 H Chloride Creatinine 2.5 H B-Natriuretic Peptide 12/13/18 08:21 Sodium 143 Potassium 5.8 H Chloride 115 H Creatinine 2.5 H B-Natriuretic Peptide 6519.3 H Imaging - Results Cat Scan: Report Reviewed Problem List - Problems (1) Elevation of cardiac enzymes Code(s): R74.8 - ABNORMAL LEVELS OF OTHER SERUM ENZYMES (2) Hyperkalemia Code(s): E87.5 - HYPERKALEMIA (3) Pleural effusion Code(s): J90 - PLEURAL EFFUSION, NOT ELSEWHERE CLASSIFIED (4) CKD (chronic kidney disease) Code(s): N18.9 - CHRONIC KIDNEY DISEASE, UNSPECIFIED Qualifiers: Chronic kidney disease stage: stage 3 (moderate) Qualified Code(s): N18.3 - Chronic kidney disease, stage 3 (moderate) Assessment/Plan Current Medications Generic Name Dose Route Start Last Admin Trade Name Freq PRN Reason Stop Dose Admin Albuterol/Ipratropium 1 amp 12/12/18 20:00 12/13/18 08:48 Duoneb - NEB 1 amp RQID [facility] Administration Bacitracin 1 applic 12/13/18 10:00 12/13/18 09:58 Bacitracin - TP 1 film DAILY [facility] Administration Furosemide 40 mg 12/13/18 14:00 Lasix Injection - IVPB BID@0600,1400 [facility] Hydralazine HCl 25 mg 12/12/18 22:00 08/22/19 09:58 Apresoline - PO 25 mg BID [facility] Administration Insulin Aspart 1 vial 12/12/18 22:00 12/13/18 11:32 Novolog Vial Sliding Scale - SQ Not Given ACHS [facility] Protocol Losartan Potassium 50 mg 12/13/18 10:00 12/13/18 09:59 Cozaar - PO 50 mg DAILY [facility] Administration Impression 1. hyperkalemia 2. CKD 3. pleural effusion 4. htn 5. dm 6, dementia 7. renal cyst Plan - will start lokelma - agree with lasix - pt will get thoracocentesis - renal cyst will need to be followed - stop losartan as potassium is high, will increase hydralazine dose for tomorrow - monitor volume status Dr Mcgrath
[2018-12-13] MEDS ORDERED: SODIUM ZIRCONIUM CYCLOSILICATE (LOKELMA) 5 GM PACKET PO ONE (14:00)
[2018-12-13] MEDS ORDERED: FUROSEMIDE 40 MG/4 ML INJECTABLE VIAL ONE (16:06)
[2018-12-13] MEDS: FUROSEMIDE 40 MG/4 ML INJECTABLE VIAL IVPB SCH (16:07)
--- NOTE | 2018-12-13 16:59 | CON.GI ---
Consult Consult Specialty:: GI Referred by:: Janessa Dacosta Reason for Consultation:: Anemia - History of Present Illness Chief Complaint: anemia, ascites History of Present Illness: 88 y.o. M with DM2, dementia, past CVA, admitted from [place] because of anemia. No prior labs available to know how longstanding this has been. Pt cannot give any history. Pt's states she was called earlier this week by [facility] staff because he was bleeding continuously from a cut on his toe. That bleeding apparently stopped and there is no record of how long the bleeding continued. Stool is brown and tested negative for occult blood today. CT scan of abdomen showed a somewhat nodular and slightly small liver. No varices were seen, no obvious intraabdominal masses other than 2 right renal cysts. He has moderate ascites and bilateral pleural effusions. Since the CT scan was done, he has had a drainage catheter placed in the L chest and has drained approximately 2 L. He has no known history of liver disease, according to his . Pt is combative, agitated, resisting efforts of staff to clean him and position him. CBC,CMP WBC 5.7 K/mm3 (4.0-10.0) 12/13/18 08:21 RBC 2.83 M/mm3 (4.00-5.60) L 12/13/18 08:21 Hgb 6.9 GM/dL (11.7-16.9) L* 12/13/18 08:21 Hct 22.0 % (35.4-49) L 12/13/18 08:21 MCV 77.8 fl (80-96) L 12/13/18 08:21 MCH 24.5 pg (25.7-33.7) L 12/13/18 08:21 MCHC 31.5 g/dl (32.0-35.9) L 12/13/18 08:21 RDW 17.5 % (11.9-15.9) H 12/13/18 08:21 Plt Count 143 K/MM3 (134-434) 12/13/18 08:21 MPV 8.6 fl (7.5-11.1) 12/13/18 08:21 Absolute Neuts (auto) 4.7 K/mm3 (1.5-8.0) 12/13/18 08:21 Neutrophils % 82.3 % (42.8-82.8) 12/13/18 08:21 Lymphocytes % 10.6 % (8-40) 12/13/18 08:21 Monocytes % 6.1 % (3.8-10.2) 12/13/18 08:21 Eosinophils % 0.3 % (0-4.5) 12/13/18 08:21 Basophils % 0.7 % (0-2.0) 12/13/18 08:21 Nucleated RBC % 0 % (0-0) 12/13/18 08:21 Sodium 143 mmol/L (136-145) 12/13/18 08:21 Potassium 5.8 mmol/L (3.5-5.1) H 12/13/18 08:21 Chloride 115 mmol/L (98-107) H 12/13/18 08:21 Carbon Dioxide 22 mmol/L (21-32) 12/13/18 08:21 Anion Gap 6 MMOL/L (8-16) L 12/13/18 08:21 BUN 81.8 mg/dL (7-18) H 12/13/18 08:21 Creatinine 2.5 mg/dL (0.55-1.3) H 12/13/18 08:21 Est GFR (CKD-EPI)AfAm 25.97 12/13/18 08:21 Est GFR (CKD-EPI)NonAf 22.41 12/13/18 08:21 POC Glucometer 117 UNITS (80-120) 12/13/18 11:30 Random Glucose 89 mg/dL (74-106) 12/13/18 08:21 Hemoglobin A1c % 5.7 % (4.2-6.3) 12/13/18 08:21 Lactic Acid 2.0 mmol/L (0.4-2.0) 12/12/18 12:20 Calcium 9.0 mg/dL (8.5-10.1) 12/13/18 08:21 Phosphorus 4.8 mg/dL (2.5-4.9) 12/13/18 08:21 Magnesium 3.1 mg/dL (1.8-2.4) H 12/13/18 08:21 Total Bilirubin 0.6 mg/dL (0.2-1) 12/13/18 08:21 AST 24 U/L (15-37) 12/13/18 08:21 ALT 21 U/L (13-61) 12/13/18 08:21 Alkaline Phosphatase 72 U/L (45-117) 12/13/18 08:21 Troponin I 0.09 ng/ml (0.00-0.05) H 12/13/18 08:21 B-Natriuretic Peptide 6519.3 pg/ml (5-450) H 12/13/18 08:21 Total Protein 7.0 g/dl (6.4-8.2) 12/13/18 08:21 Albumin 3.4 g/dl (3.4-5.0) 12/13/18 08:21 Triglycerides 65 mg/dL (0-150) 12/13/18 08:21 Cholesterol 127 mg/dL (50-200) 12/13/18 08:21 Total LDL Cholesterol 72 mg/dL (5-100) 12/13/18 08:21 HDL Cholesterol 49 mg/dL (40-60) 12/13/18 08:21 TSH 2.90 uIU/ml (0.358-3.74) D 12/13/18 08:21 - History Source History Provided By: Family Member, Medical Record Limitations to Obtaining History: Dementia - Past Medical History [employer]: Yes: CVA, Dementia Cardio/Vascular: Yes: CHF, HTN Gastrointestinal: Yes: Other (vomiting) Hepatobiliary: No: Cirrhosis, Cholelithiasis, Cholecystitis, Choledocholithiasis , Hepatitis A, Hepatitis B, Hepatitis C, Other Renal/: No: Renal Failure, Renal Inusuff, BPH, Cancer, Hematuria, Hemodialysis , Neurogenic Bladder, Renal Calculi, UTI, Other Heme/Onc: No: Anemia, B12 Deficiency, Bleeding Disorder, Cancer, Current Chemotherapy, Current Radiation Therapy, Hemochromatosis, Hypercoaguable State, Myeloproliferative Synd, Sickle Cell Disease, Sickle Cell Trait, Thrombocytopenia, Other Psych: No: Addictions, Anxiety, Bipolar, Depression, Panic, Psychosis, Schizophrenia, Other Rheumatology: No: Fibromyalgia, Gout, Lupus, Rheumatoid Arthritis, Sarcoidosis, Vasculitis, Other Endocrine: Yes: Diabetes Mellitus - Alcohol/Substance Use Hx Alcohol Use: No - Smoking History Smoking history: Unknown if ever smoked Have you smoked in the past 12 months: No Aproximately how many cigarettes per day: 0 If you are a former smoker, when did you quit?: 52 yrs old - Social History Usual Living Arrangement: [facility] ADL: Support Services History of Recent Travel: No Home Medications - Allergies Allergies/Adverse Reactions: Allergies Allergy/AdvReac Type Severity Reaction Status Date / Time No Known Allergies Allergy Verified 02/26/17 15:44 - Home Medications Home Medications: Ambulatory Orders Albuterol 2.5/Ipratropium 0.5 [Duoneb -] 1 amp NEB QID #14 amp 10/17/17 hydrALAZINE HCL [Apresoline -] 25 mg PO BID #60 tablet 10/17/17 Bacitracin - [Bacitracin Topical Ointment -] 1 applic TP DAILY 12/12/18 Losartan Potassium 50 mg PO DAILY 12/12/18 Metformin HCl [Glucophage] 500 mg PO BID 12/12/18 Physical Exam-GI Vital Signs: Vital Signs Temperature 97.6 F 12/12/18 17:44 Pulse Rate 82 12/13/18 14:34 Respiratory Rate 20 12/13/18 14:34 Blood Pressure 136/83 12/13/18 14:34 O2 Sat by Pulse Oximetry (%) 100 12/13/18 14:34 Constitutional: Yes: Obese ...Rectal Exam: Yes: Deferred Integumentary: Yes: Bruising (Multiple ecchymoses on arms.) Neurological: Yes: Confusion Psychiatric: Yes: Agitated Labs: CBC, BMP 12/13/18 08:21 12/13/18 08:21 INR, PTT INR 1.13 (0.83-1.09) H 12/12/18 12:20 Imaging - Results Cat Scan: Report Reviewed, Image Reviewed (Agree with reported findings. Liver is slightly nodular.) Problem List - Problems (1) Abnormal CT of the abdomen Code(s): R93.5 - ABN FINDINGS ON DX IMAGING OF ABD REGIONS, INC RETROPERITON (2) Anemia Code(s): D64.9 - ANEMIA, UNSPECIFIED Qualifiers: Anemia type: unspecified type Qualified Code(s): D64.9 - Anemia, unspecified Assessment/Plan Pt's labs are not suggestive of cirrhosis -- he has a normal platelet count, albumin of 3.4, and his routine liver chemistries are unremarkable. He could have a benign cause of ascites/pleural effusions such as severe heart failure; alternatively, he could have malignant ascites and malignant pleural fluid. Presumably this will be determined by testing the pleural fluid. I have spoken to the patient's and she is definite that she does not want any further invasive testing (endoscopy, paracentesis, thoracentesis) performed on her . Given that there is no further need for GI follow-up.
[2018-12-13 18:01] LABS: BF WBC & OTHER NUCLEATED CELLS 452 /mm3
[2018-12-13] MEDS ORDERED: MORPHINE SULFATE 2 MG/ML VIAL IVPUSH PRN (18:48)
[2018-12-13] MEDS ORDERED: MORPHINE SULFATE 2 MG/ML VIAL ONE (18:59)
[2018-12-13 19:56] LABS: BODY FLUID MACROPHAGES 35 %; BODY FLUID MESOTHELIAL 35 %
[2018-12-13] MEDS ORDERED: INSULIN (NOVOLOG) ASPART 100 UNITS/ML 10ML VIAL ONE (21:35)
[2018-12-14] MEDS: metFORMIN HCL 500 MG TABLET (FP) PO SCH ×2 (01:41→01:45)
[2018-12-14] MEDS: INSULIN SLIDING SCALE (NOVOLOG) 1 VIAL SQ SCH ×4 (06:15→21:55)
[2018-12-14] MEDS: FUROSEMIDE 40 MG/4 ML INJECTABLE VIAL IVPB SCH ×2 (06:25→15:58)
[2018-12-14] MEDS: hydrALAZINE HCL 25 MG TABLET (FP) PO SCH ×2 (06:25→21:55)
[2018-12-14] MEDS: ALBUTEROL SO4 2.5/IPRATROPIUM 0.5 INH SOL 3 ML VIAL.NEB. NEB SCH ×4 (07:40→19:58)
[2018-12-14 09:12] LABS: BASO % 0.8 % (0-2.0); EOS % 0.6 % (0-4.5); HEMOGLOBIN 7.2 GM/dL (11.7-16.9); LYMPH % 12.3 % (8-40); MCH 25.6 pg (25.7-33.7); MCHC 32.7 g/dl (32.0-35.9); MEAN CELL VOLUME 78.2 fl (80-96); MEAN PLT VOLUME 8.2 fl (7.5-11.1); MONO % 8.6 % (3.8-10.2); NEUT % 77.7 % (42.8-82.8); PLATELET COUNT 117 K/MM3 (134-434); RBC 2.81 M/mm3 (4.00-5.60); RDW 18.5 % (11.9-15.9); WHITE BLOOD COUNT 5.6 K/mm3 (4.0-10.0)
[2018-12-14 09:43] LABS: ALBUMIN 3.1 g/dl (3.4-5.0); BILIRUBIN,TOTAL 0.8 mg/dL (0.2-1); BLOOD UREA NITROGEN 79.2 mg/dL (7-18); CALCIUM 8.8 mg/dL (8.5-10.1); CREATININE 2.4 mg/dL (0.55-1.3); POTASSIUM 5.6 mmol/L (3.5-5.1); TOT PROT 6.4 g/dl (6.4-8.2)
[2018-12-14] MEDS ORDERED: IRON SUCROSE INJECTION 300 MG in SODIUM CHLORIDE 235 ML IVPB ONE (11:36)
--- NOTE | 2018-12-14 11:36 | PN ---
Progress Note, Physician Chief Complaint: patient seen and examiend more awake alert and less confused today s/p chest tube placement -serous fluid about 2 litres - Current Medication List Current Medications: Active Medications Albuterol/Ipratropium (Duoneb -) 1 amp NEB RQID [facility] Last Admin: 12/14/18 07:40 Dose: 1 amp Bacitracin (Bacitracin -) 1 applic TP DAILY [facility] Last Admin: 12/13/18 09:58 Dose: 1 film Furosemide (Lasix Injection -) 40 mg IVPB BID@0600,1400 [facility] Last Admin: 12/14/18 06:25 Dose: 40 mg Hydralazine HCl (Apresoline -) 25 mg PO TID [facility] Last Admin: 12/14/18 06:25 Dose: 25 mg Insulin Aspart (Novolog Vial Sliding Scale -) 1 vial SQ ACHS [facility]; Protocol Last Admin: 12/14/18 06:15 Dose: Not Given Morphine Sulfate (Morphine Sulfate) 2 mg IVPUSH Q4H PRN PRN Reason: PAIN LEVEL 7 - 10 Last Admin: 12/13/18 18:58 Dose: 2 mg - Objective Vital Signs: Vital Signs Temperature 98.2 F 12/14/18 10:00 Pulse Rate 63 12/14/18 10:00 Respiratory Rate 18 12/14/18 10:00 Blood Pressure 124/47 L 12/14/18 10:00 O2 Sat by Pulse Oximetry (%) 100 12/14/18 08:20 Constitutional: Yes: Calm, Thin Cardiovascular: Yes: Regular Rate and Rhythm, S1, S2 Respiratory: Yes: CTA Bilaterally, Diminished (at bases), Other (left side chest tube) Gastrointestinal: Yes: Normal Bowel Sounds, Soft Edema: Yes (decreased) Labs: CBC, BMP 12/14/18 08:45 12/14/18 08:45 INR, PTT INR 1.13 (0.83-1.09) H 12/12/18 12:20 Problem List - Problems (1) Anemia Assessment/Plan: s/p PRBC iron panel order noted low iron saturation will give venofer guaicic negative heme and renal eval Code(s): D64.9 - ANEMIA, UNSPECIFIED Qualifiers: Anemia type: unspecified type Qualified Code(s): D64.9 - Anemia, unspecified (2) Hyperkalemia Assessment/Plan: got D50 insulin sodium bicarbonate and calcium still Potassium elevated renal eval Code(s): E87.5 - HYPERKALEMIA (3) Pleural effusion Assessment/Plan: iv lasix bid s/p chest tube placement Code(s): J90 - PLEURAL EFFUSION, NOT ELSEWHERE CLASSIFIED (4) CHEYENNE (acute kidney injury) Assessment/Plan: renal eval monitor lytes urology eval for renal cysts Code(s): N17.9 - ACUTE KIDNEY FAILURE, UNSPECIFIED (5) Anasarca Assessment/Plan: lasix bid - improving diuretics Code(s): R60.1 - GENERALIZED EDEMA (6) HTN (hypertension) Assessment/Plan: hydralazine bid can up tritate if needed Code(s): I10 - ESSENTIAL (PRIMARY) HYPERTENSION
--- NOTE | 2018-12-14 12:11 | PN ---
Progress Note (short form) - Note Progress Note: PULMONARY s/p left pigtail catheter placement draining >2L with improvement in breathing. Pleural fluid studies pending. Vital Signs Period Temp Pulse Resp BP Sys/Car Pulse Ox Last 24 Hr 98.1 F-98.6 F 62-82 16-20 120-160/47-97 97-100 Gen: less tachypneic Heart: RRR Lung: decreased breath sounds at the bases Abd: soft, nontender Ext: no edema Chest tube with serous drainage, no air leak CBC, BMP 12/14/18 08:45 12/14/18 08:45 Active Medications Albuterol/Ipratropium (Duoneb -) 1 amp NEB RQID [facility] Last Admin: 12/14/18 11:52 Dose: 1 amp Bacitracin (Bacitracin -) 1 applic TP DAILY [facility] Last Admin: 12/13/18 09:58 Dose: 1 film Furosemide (Lasix Injection -) 40 mg IVPB BID@0600,1400 [facility] Last Admin: 12/14/18 06:25 Dose: 40 mg Hydralazine HCl (Apresoline -) 25 mg PO TID [facility] Last Admin: 12/14/18 06:25 Dose: 25 mg Iron Sucrose 300 mg/ Sodium (Chloride) 250 mls @ 250 mls/hr IVPB ONCE ONE Stop: 12/14/18 12:35 Insulin Aspart (Novolog Vial Sliding Scale -) 1 vial SQ ACHS [facility]; Protocol Last Admin: 12/14/18 06:15 Dose: Not Given Morphine Sulfate (Morphine Sulfate) 2 mg IVPUSH Q4H PRN PRN Reason: PAIN LEVEL 7 - 10 Last Admin: 12/13/18 18:58 Dose: 2 mg A/P Anemia Acute on Chronic Diastolic Heart Failure Pulmonary HTN Pleural Effusions Acute on Chronic Renal Failure HTN DM h/o CVA Dementia - monitor H/H - transfuse as needed - IV lasix - monitor urine output, creatinine - O2 to keep SpO2 >90% - aspiration precautions - f/u pleural fluid chemistries, cultures, cytology - DVT prophylaxis Problem List - Problems (1) Anemia Code(s): D64.9 - ANEMIA, UNSPECIFIED Qualifiers: Anemia type: unspecified type Qualified Code(s): D64.9 - Anemia, unspecified (2) Pleural effusion Code(s): J90 - PLEURAL EFFUSION, NOT ELSEWHERE CLASSIFIED
--- NOTE | 2018-12-14 12:15 | PN ---
Progress Note (short form) - Note Progress Note: s: lethargic, not communicating o: Vital Signs Period Temp Pulse Resp BP Sys/Car Pulse Ox Last 24 Hr 98.1 F-98.6 F 62-82 16-20 120-160/47-97 97-100 Constitutional: Yes: Well Nourished, No Distress Eyes: No: Sclera Icterus HENT: No: Nasal Congestion Respiratory: Yes: CTA Bilaterally. poor eff No: Accessory Muscle Use, Rales, Wheezes Gastrointestinal: Yes: Normal Bowel Sounds. No: Distention, Hepatomegaly, Palpable Mass, Tenderness Cardiovascular: Yes: Regular Rate and Rhythm JVD: No Carotid Bruit: No PMI: Non-Displaced Heart Sounds: Yes: S1, S2. No: Gallop Murmur: No: Systolic Murmur, Diastolic Murmur Extremities: No: Cold, Cyanosis Edema: No Integumentary: No: Jaundice Neurological: Yes: lethargic Psychiatric: No: Agitated Current Medications Generic Name Dose Route Start Last Admin Trade Name Irvinq PRN Reason Stop Dose Admin Albuterol/Ipratropium 1 amp 12/12/18 20:00 12/14/18 11:52 Duoneb - NEB 1 amp RQID [facility] Administration Bacitracin 1 applic 12/13/18 10:00 12/13/18 09:58 Bacitracin - TP 1 film DAILY [facility] Administration Furosemide 40 mg 12/13/18 14:00 12/14/18 06:25 Lasix Injection - IVPB 40 mg BID@0600,1400 [facility] Administration Hydralazine HCl 25 mg 12/13/18 22:00 12/14/18 06:25 Apresoline - PO 25 mg TID [facility] Administration Iron Sucrose 300 mg/ Sodium 250 mls @ 250 mls/hr 12/14/18 11:36 Chloride IVPB 12/14/18 12:35 ONCE ONE Insulin Aspart 1 vial 12/12/18 22:00 12/14/18 06:15 Novolog Vial Sliding Scale - SQ Not Given ACHS [facility] Protocol Morphine Sulfate 2 mg 12/13/18 18:48 12/13/18 18:58 Morphine Sulfate IVPUSH 2 mg Q4H PRN Administration PAIN LEVEL 7 - 10 CBC, BMP 12/14/18 08:45 12/14/18 08:45 ekg: sr, old rbbb, no sig change prior ct chest: bl mod-large pleural eff Echo 06/2016: nl lv/rv. abnormal diastology. 1+ MAC 1+ Ao dilation Echo 2014: nl LV/EF; nl RV; nl LA; mild-mod TR; RVSP 30-40; mild dil ao root tele: sr a/p: 88 yo with h/o male HTN, HPL, CVA (acute R thalamic bleed at that time, suspected hypertensive etiology), DM2 admitted for anemia, ams. anemia: -hgb in 6s initially, remains low -plans per pmd, gi HTN: -cont current meds elevated cardiac enzymes: -no ekg changes -trop in borderline range x2 with flat trend, trop similar to prior baseline values-->not c/w acs -no ischemic w/u needed at this time lina, ckd: -cr above baseline, possibly due to anemia, monitor cr pleural effs: -s/p chest tube -cont iv lasix -check echo
[2018-12-14] MEDS: BACITRACIN 15 GM TUBE TOPICAL OINTMENT TP SCH (12:31)
--- NOTE | 2018-12-14 13:42 | CONSULT ---
Consult Consult Specialty:: Hematology-Oncology Referred by:: Dr. Rosales Reason for Consultation:: Anemia - History of Present Illness Chief Complaint: Hxof dementia , CKD, DM, HBP presented with anemia requiring blood transfusion therapy - History Source History Provided By: Medical Record Limitations to Obtaining History: Dementia - Past Medical History [employer]: Yes: CVA, Dementia Cardio/Vascular: Yes: CHF, HTN Gastrointestinal: Yes: Other (vomiting) Hepatobiliary: No: Cirrhosis, Cholelithiasis, Cholecystitis, Choledocholithiasis , Hepatitis A, Hepatitis B, Hepatitis C, Other Renal/: Yes: Renal Inusuff Psych: No: Anxiety, Bipolar, Depression, Panic, Psychosis, Schizophrenia, Other Rheumatology: No: Fibromyalgia, Gout, Lupus, Rheumatoid Arthritis, Sarcoidosis, Vasculitis, Other Endocrine: Yes: Diabetes Mellitus - Alcohol/Substance Use Hx Alcohol Use: No (unknown) - Smoking History Smoking history: Unknown if ever smoked Have you smoked in the past 12 months: No Aproximately how many cigarettes per day: 0 If you are a former smoker, when did you quit?: 52 yrs old - Social History Usual Living Arrangement: [facility] ADL: Support Services History of Recent Travel: No Home Medications - Allergies Allergies/Adverse Reactions: Allergies Allergy/AdvReac Type Severity Reaction Status Date / Time No Known Allergies Allergy Verified 02/26/17 15:44 - Home Medications Home Medications: Ambulatory Orders Albuterol 2.5/Ipratropium 0.5 [Duoneb -] 1 amp NEB QID #14 amp 10/17/17 hydrALAZINE HCL [Apresoline -] 25 mg PO BID #60 tablet 10/17/17 Bacitracin - [Bacitracin Topical Ointment -] 1 applic TP DAILY 12/12/18 Losartan Potassium 50 mg PO DAILY 12/12/18 Metformin HCl [Glucophage] 500 mg PO BID 12/12/18 Review of Systems Findings/Remarks: Unable to obtain - Review of Systems Constitutional: denies: Fever, Lethargy Eyes: denies: Eye Pain HENT: denies: Epistaxis Neck: denies: Stiffness, Swollen Glands Cardiovascular: denies: Shortness of Breath Respiratory: denies: Hemoptysis Gastrointestinal: denies: Abdominal Pain Genitourinary: reports: Other (saldaña) Integumentary: reports: Bruising Neurological: reports: Other (dementia) Physical Exam Vital Signs: Vital Signs Temperature 98.2 F 12/14/18 10:00 Pulse Rate 63 12/14/18 10:00 Respiratory Rate 18 12/14/18 10:00 Blood Pressure 124/47 L 12/14/18 10:00 O2 Sat by Pulse Oximetry (%) 100 12/14/18 08:20 Constitutional: Yes: No Distress Eyes: Yes: PERRL. No: Ptosis, Sclera Icterus HENT: No: Epistaxis, Thrush Neck: Yes: Supple, Trachea Midline. No: Lymphadenopathy, Thyromegaly Cardiovascular: Yes: Regular Rate and Rhythm Respiratory: Yes: CTA Bilaterally Gastrointestinal: Yes: Normal Bowel Sounds. No: Hepatomegaly, Splenomegaly Renal/: No: Anuria, CVA Tenderness - Left Extremities: Yes: Other (ecchymoses) Neurological: Yes: Other (dementia) Labs: CBC, BMP 12/14/18 08:45 12/14/18 08:45 Imaging - Results Cat Scan: Report Reviewed, Image Reviewed Problem List - Problems (1) Anemia Assessment/Plan: Presented with Hb-6.8, Hct-19.8, MCV-77. Received 1 unit of packed cells and Fe++ studies were performed after blood transfused such that interpretation will be problematic. WBC and platelets and differential all normal. CKD suggests component of chronic disease. Nodular liver with ascites also raises concern for possible cirrhosis. Apparently does not want an aggressive approach such that screening tests with blood testing rather than endoscopic studies will be performed. Code(s): D64.9 - ANEMIA, UNSPECIFIED Qualifiers: Anemia type: unspecified type Qualified Code(s): D64.9 - Anemia, unspecified (2) Pleural effusion Assessment/Plan: Pig tail catheter drainage to be evaluated with cytology, proteins etc. (Pleural effusions L>R) Code(s): J90 - PLEURAL EFFUSION, NOT ELSEWHERE CLASSIFIED (3) CHEYENNE (acute kidney injury) Assessment/Plan: Unclear about duration of CHEYENNE. Mention in chart that patient has history of CKD. Code(s): N17.9 - ACUTE KIDNEY FAILURE, UNSPECIFIED (4) Hyperkalemia Assessment/Plan: Elevated level may suggest some acute component to kidney disease . Code(s): E87.5 - HYPERKALEMIA (5) Dementia Code(s): F03.90 - UNSPECIFIED DEMENTIA WITHOUT BEHAVIORAL DISTURBANCE
--- NOTE | 2018-12-14 14:20 | ECHO ---
Name: SHELTON GUPTA Exam:Adult Echocardiogram Study Date: 12/14/2018 09:36 AM Age: 88 yrs Reason For Study: CHF Height: 71 in Weight: 201 lb BSA: 2.1 m2 MMode/2D Measurements & Calculations IVSd: 1.5 cm Ao root diam: 3.8 cm LVIDd: 4.4 cm LA dimension: 3.3 cm LVIDs: 3.2 cm LVPWd: 1.4 cm EDV(Teich): 85.6 ml LVOT diam: 2.0 cm ESV(Teich): 40.4 ml LAV (MOD-bp): 104.0 ml Doppler Measurements & Calculations MV E max benson: 118.0 cm/sec Ao V2 max: 158.8 cm/sec MV A max benson: 71.8 cm/sec Ao max P.1 mmHg MV E/A: 1.6 MV dec time: 0.26 sec MARISSA(V,D): 2.2 cm2 LV V1 max P.9 mmHg MR max benson: 482.0 cm/sec LV V1 max: 111.1 cm/sec MR max P.2 mmHg TR max benson: 241.6 cm/sec PA V2 max: 123.5 cm/sec TR max P.9 mmHg PA max P.1 mmHg Med Peak E' Benson: 5.8 cm/sec PI Vmax: 207.7 cm/sec Med E/e': 20.5 Lat Peak E' Benson: 6.2 cm/sec Lat E/e': 19.0 Procedure A complete two-dimensional transthoracic echocardiogram was performed (2D, M-mode, Doppler and color flow Doppler). Left Ventricle There is mild concentric left ventricular hypertrophy. The left ventricular ejection fraction is norm al. Ejection Fraction = 60-65%. The left ventricular wall motion is normal. Right Ventricle The right ventricle is normal in size and function. Atria Normal left and right atrial size and function. Mitral Valve There is trace mitral regurgitation. Tricuspid Valve There is mild tricuspid regurgitation. Right ventricular systolic pressure is normal. Aortic Valve The aortic valve is trileaflet. There is mild aortic valve thickening. No hemodynamically significant valvular aortic stenosis. No aortic regurgitation is present. Pulmonic Valve There is no pulmonic valvular regurgitation. Great Vessels Mild aortic root dilatation. Pericardium/Pleura There is no pericardial effusion. Interpretation Summary There is mild concentric left ventricular hypertrophy. The left ventricular ejection fraction is normal. The right ventricle is normal in size and function. There is trace mitral regurgitation. There is mild tricuspid regurgitation. Mild aortic root dilatation. MD Fuentes Scott 12/14/2018 02:20 PM
--- NOTE | 2018-12-14 15:02 | PN ---
Progress Note, Physician History of Present Illness: Pt seen and examined at bedside. He more awake and interactive than he was yesterday, he however is confused. - Current Medication List Current Medications: Active Medications Albuterol/Ipratropium (Duoneb -) 1 amp NEB RQID [facility] Last Admin: 12/14/18 11:52 Dose: 1 amp Bacitracin (Bacitracin -) 1 applic TP DAILY [facility] Last Admin: 12/14/18 12:31 Dose: 1 film Furosemide (Lasix Injection -) 40 mg IVPB BID@0600,1400 [facility] Last Admin: 12/14/18 06:25 Dose: 40 mg Hydralazine HCl (Apresoline -) 25 mg PO TID [facility] Last Admin: 12/14/18 06:25 Dose: 25 mg Insulin Aspart (Novolog Vial Sliding Scale -) 1 vial SQ ACHS [facility]; Protocol Last Admin: 12/14/18 12:32 Dose: Not Given Morphine Sulfate (Morphine Sulfate) 2 mg IVPUSH Q4H PRN PRN Reason: PAIN LEVEL 7 - 10 Last Admin: 12/13/18 18:58 Dose: 2 mg - Objective Vital Signs: Vital Signs Temperature 98.2 F 12/14/18 10:00 Pulse Rate 63 12/14/18 10:00 Respiratory Rate 18 12/14/18 10:00 Blood Pressure 124/47 L 12/14/18 10:00 O2 Sat by Pulse Oximetry (%) 100 12/14/18 08:20 Constitutional: Yes: Calm Eyes: Yes: Conjunctiva Clear HENT: Yes: Atraumatic Neck: Yes: Supple Cardiovascular: Yes: S1, S2 Respiratory: Yes: Diminished, On BiPap Gastrointestinal: Yes: Normal Bowel Sounds, Soft Genitourinary: Yes: Incontinence Musculoskeletal: Yes: WNL Edema: Yes Edema: LUE: Trace, RUE: Trace, RLE: 1+ Neurological: Yes: Confusion Labs: CBC, BMP 12/14/18 08:45 12/14/18 08:45 INR, PTT INR 1.13 (0.83-1.09) H 12/12/18 12:20 Problem List - Problems (1) Elevation of cardiac enzymes Code(s): R74.8 - ABNORMAL LEVELS OF OTHER SERUM ENZYMES (2) Hyperkalemia Code(s): E87.5 - HYPERKALEMIA (3) Pleural effusion Code(s): J90 - PLEURAL EFFUSION, NOT ELSEWHERE CLASSIFIED (4) CKD (chronic kidney disease) Code(s): N18.9 - CHRONIC KIDNEY DISEASE, UNSPECIFIED Qualifiers: Chronic kidney disease stage: stage 3 (moderate) Qualified Code(s): N18.3 - Chronic kidney disease, stage 3 (moderate) Assessment/Plan Current Medications Generic Name Dose Route Start Last Admin Trade Name Freq PRN Reason Stop Dose Admin Albuterol/Ipratropium 1 amp 12/12/18 20:00 12/14/18 11:52 Duoneb - NEB 1 amp RQID [facility] Administration Bacitracin 1 applic 12/13/18 10:00 12/14/18 12:31 Bacitracin - TP 1 film DAILY [facility] Administration Furosemide 40 mg 12/13/18 14:00 12/14/18 06:25 Lasix Injection - IVPB 40 mg BID@0600,1400 [facility] Administration Hydralazine HCl 25 mg 12/13/18 22:00 12/14/18 06:25 Apresoline - PO 25 mg TID [facility] Administration Insulin Aspart 1 vial 12/12/18 22:00 12/14/18 12:32 Novolog Vial Sliding Scale - SQ Not Given ACHS [facility] Protocol Morphine Sulfate 2 mg 12/13/18 18:48 12/13/18 18:58 Morphine Sulfate IVPUSH 2 mg Q4H PRN Administration PAIN LEVEL 7 - 10 Impression 1. hyperkalemia 2. CKD 3. pleural effusion 4. htn 5. dm 6, dementia 7. renal cyst Plan - cont lokelma - losartan on hold - change hydralazine to BID - monitor bp - cont lasix - renal cyst will need to be followed Dr Mcgrath
[2018-12-14] MEDS ORDERED: PT OWN MED DRAWER 7, Y5N ONE (15:46)
[2018-12-14] MEDS: SODIUM ZIRCONIUM CYCLOSILICATE (LOKELMA) 5 GM PACKET PO SCH (17:51)
[2018-12-15] MEDS: FUROSEMIDE 40 MG/4 ML INJECTABLE VIAL IVPB SCH ×2 (05:51→15:38)
[2018-12-15 08:06] LABS: ALBUMIN 2.9 g/dl (3.4-5.0); BILIRUBIN,TOTAL 0.6 mg/dL (0.2-1); BLOOD UREA NITROGEN 65.8 mg/dL (7-18); CALCIUM 8.3 mg/dL (8.5-10.1); CREATININE 2.1 mg/dL (0.55-1.3); POTASSIUM 4.6 mmol/L (3.5-5.1)
--- NOTE | 2018-12-15 08:25 | PN ---
Progress Note, Physician - Current Medication List Current Medications: Active Medications Albuterol/Ipratropium (Duoneb -) 1 amp NEB RQID [facility] Last Admin: 12/14/18 19:58 Dose: 1 amp Bacitracin (Bacitracin -) 1 applic TP DAILY [facility] Last Admin: 12/14/18 12:31 Dose: 1 film Furosemide (Lasix Injection -) 40 mg IVPB BID@0600,1400 [facility] Last Admin: 12/15/18 05:51 Dose: 40 mg Hydralazine HCl (Apresoline -) 25 mg PO BID [facility] Last Admin: 12/14/18 21:55 Dose: 25 mg Insulin Aspart (Novolog Vial Sliding Scale -) 1 vial SQ ACHS [facility]; Protocol Last Admin: 12/14/18 21:55 Dose: Not Given Morphine Sulfate (Morphine Sulfate) 2 mg IVPUSH Q4H PRN PRN Reason: PAIN LEVEL 7 - 10 Last Admin: 12/13/18 18:58 Dose: 2 mg Sodium Zirconium Cyclosilicate (Lokelma) 10 gm PO DAILY [facility] Last Admin: 12/14/18 17:51 Dose: 10 gm - Objective Vital Signs: Vital Signs Temperature 98.3 F 12/15/18 06:00 Pulse Rate 90 12/15/18 06:00 Respiratory Rate 18 12/15/18 06:00 Blood Pressure 126/63 12/15/18 06:00 O2 Sat by Pulse Oximetry (%) 100 12/14/18 21:00 Labs: CBC, BMP 12/14/18 08:45 12/15/18 06:05 INR, PTT INR 1.13 (0.83-1.09) H 12/12/18 12:20 Assessment/Plan A/P Anemia Acute on Chronic Diastolic Heart Failure Pulmonary HTN Pleural Effusions Acute on Chronic Renal Failure HTN DM h/o CVA Dementia - monitor H/H - transfuse as needed - IV lasix - monitor urine output, creatinine - O2 to keep SpO2 >90% - aspiration precautions - f/u pleural fluid chemistries, cultures, cytology - DVT prophylaxis Problem List - Problems (1) Anemia Code(s): D64.9 - ANEMIA, UNSPECIFIED Qualifiers: Anemia type: unspecified type Qualified Code(s): D64.9 - Anemia, unspecified (2) Pleural effusion Code(s): J90 - PLEURAL EFFUSION, NOT ELSEWHERE CLASSIFIED
[2018-12-15] MEDS: INSULIN SLIDING SCALE (NOVOLOG) 1 VIAL SQ SCH ×4 (08:33→21:48)
[2018-12-15] MEDS: ALBUTEROL SO4 2.5/IPRATROPIUM 0.5 INH SOL 3 ML VIAL.NEB. NEB SCH ×4 (08:37→22:20)
[2018-12-15 09:06] LABS: HEMATOCRIT 22.4 % (35.4-49); HEMOGLOBIN 7.1 GM/dL (11.7-16.9); MCH 25.2 pg (25.7-33.7); MCHC 31.6 g/dl (32.0-35.9); MEAN CELL VOLUME 79.7 fl (80-96); MEAN PLT VOLUME 8.7 fl (7.5-11.1); RBC 2.81 M/mm3 (4.00-5.60); RDW 18.7 % (11.9-15.9); WHITE BLOOD COUNT 5.2 K/mm3 (4.0-10.0)
[2018-12-15 09:07] LABS: PLATELET COUNT 107 K/MM3 (134-434)
--- NOTE | 2018-12-15 10:09 | PN ---
Progress Note, Physician Chief Complaint: Anemia Pleural Effusion History of Present Illness: Previous notes and events reviewed awake and alert, agitated at times NAD Chest tube noted with 920cc serous output Hg 7.1 elevated renal function - Current Medication List Current Medications: Active Medications Albuterol/Ipratropium (Duoneb -) 1 amp NEB RQID [facility] [place] Last Admin: 12/15/18 08:37 Dose: 1 amp Bacitracin (Bacitracin -) 1 applic TP DAILY [facility] [place] Last Admin: 12/14/18 12:31 Dose: 1 film Furosemide (Lasix Injection -) 40 mg IVPB BID@0600,1400 [facility] [place] Last Admin: 12/15/18 05:51 Dose: 40 mg Hydralazine HCl (Apresoline -) 25 mg PO BID [facility] [place] Last Admin: 12/14/18 21:55 Dose: 25 mg Insulin Aspart (Novolog Vial Sliding Scale -) 1 vial SQ ACHS [facility] [place]; Protocol Last Admin: 12/15/18 08:33 Dose: Not Given Morphine Sulfate (Morphine Sulfate) 2 mg IVPUSH Q4H PRN PRN Reason: PAIN LEVEL 7 - 10 Last Admin: 12/13/18 18:58 Dose: 2 mg Sodium Zirconium Cyclosilicate (Lokelma) 10 gm PO DAILY [facility] [place] Last Admin: 12/14/18 17:51 Dose: 10 gm - Objective Vital Signs: Vital Signs Temperature 98.3 F 12/15/18 06:00 Pulse Rate 90 12/15/18 06:00 Respiratory Rate 18 12/15/18 06:00 Blood Pressure 126/63 12/15/18 06:00 O2 Sat by Pulse Oximetry (%) 100 12/14/18 21:00 Constitutional: Yes: No Distress Eyes: Yes: Conjunctiva Clear HENT: Yes: Atraumatic Cardiovascular: Yes: Regular Rate and Rhythm Respiratory: Yes: Regular, Diminished Gastrointestinal: Yes: Normal Bowel Sounds, Soft, Distention Genitourinary: Yes: Mae Present (clear urine) Musculoskeletal: Yes: Muscle Weakness Extremities: Yes: WNL Edema: No Neurological: Yes: Alert, Pre-Existing Deficit Psychiatric: Yes: Alert, Agitated Labs: CBC, BMP 12/15/18 06:31 12/15/18 06:05 INR, PTT INR 1.13 (0.83-1.09) H 12/12/18 12:20 Microbiology 12/13/18 15:23 Pleural Fluid Gram Stain - Final 12/13/18 15:23 Pleural Fluid Body Fluid Culture - Preliminary NO AEROBIC GROWTH, 24 HRS 12/12/18 12:20 Blood - Peripheral Venous Blood Culture - Preliminary NO GROWTH OBTAINED AFTER 48 HOURS, INCUBATION TO CONTINUE FOR 3 DAYS. 12/12/18 12:20 Blood - Peripheral Venous Blood Culture - Preliminary NO GROWTH OBTAINED AFTER 48 HOURS, INCUBATION TO CONTINUE FOR 3 DAYS. 12/13/18 15:23 Pleural Fluid TABATHA Preparation - Preliminary 12/13/18 15:23 Pleural Fluid Fungal Culture - Preliminary 12/13/18 15:23 Pleural Fluid AFB Smear Concentration - Preliminary 12/13/18 15:23 Pleural Fluid Mycobacterial Culture - Preliminary 12/12/18 12:20 Urine - Urine - Catheterized Urine Culture - Final NO GROWTH OBTAINED Problem List - Problems (1) Anemia Assessment/Plan: -Hg 7.1 -monitor Hg daily -transfuse for Hg <7.0 to avoid fluid overload -GI and Hematology on board -Stool OB neg -Iron panel ordered--low Iron Saturation -Iron Sucrose ordered -evaluated by GI and does not want invasive testing performed Code(s): D64.9 - ANEMIA, UNSPECIFIED Qualifiers: Anemia type: unspecified type Qualified Code(s): D64.9 - Anemia, unspecified (2) Elevation of cardiac enzymes Assessment/Plan: -troponin 0.10, 0.08, 0.09 -cardiology on board -tele monitoring Code(s): R74.8 - ABNORMAL LEVELS OF OTHER SERUM ENZYMES (3) CKD (chronic kidney disease) Assessment/Plan: -Nephrology consult -BUN/Cr 65.8/2.1 -Abdomen/Pelvic CT scan shows large right exophytic renal cyst up to 10.3cm -monitor renal function daily Code(s): N18.9 - CHRONIC KIDNEY DISEASE, UNSPECIFIED Qualifiers: Chronic kidney disease stage: stage 3 (moderate) Qualified Code(s): N18.3 - Chronic kidney disease, stage 3 (moderate) (4) Dementia Code(s): F03.90 - UNSPECIFIED DEMENTIA WITHOUT BEHAVIORAL DISTURBANCE (5) Diabetes Assessment/Plan: -BGM ACHS -Metformin -ISS -HgA1c 5.7% Code(s): E11.9 - TYPE 2 DIABETES MELLITUS WITHOUT COMPLICATIONS (6) HTN (hypertension) Assessment/Plan: -Losartan, Hydralazine Code(s): I10 - ESSENTIAL (PRIMARY) HYPERTENSION (7) Pleural effusion Assessment/Plan: -Pulm on board -Furosemide -Chest CT scan shows moderate to large bilateral pleural effusion, , left slightly more than right with compressive atelectasis in both lower lobes, left more than right, atelectatic changes in lingular segment of SKYE -bronchodilators -keep SpO2 >90% -O2 via NC -Chest Tube with 920cc serous output -pending pleural fluid cytology Code(s): J90 - PLEURAL EFFUSION, NOT ELSEWHERE CLASSIFIED (8) Abnormal CT of the abdomen Assessment/Plan: -Abdomen and Pelvic CT scan shows there is moderate amount of ascites in the abdomen pelvis, small liver with slightly nodular contour , rule out liver cirrhosis, no evidence of small bowel obstruction, diffuse subcutaneous edema and abdomen/pelvic wall, rule out anasarce -GI on board -monitor LFTs daily Code(s): R93.5 - ABN FINDINGS ON DX IMAGING OF ABD REGIONS, INC RETROPERITON Assessment/Plan see problem list SCDs
[2018-12-15] MEDS ORDERED: IRON SUCROSE INJECTION 300 MG in SODIUM CHLORIDE 235 ML IVPB ONE (10:11)
--- NOTE | 2018-12-15 11:03 | PN ---
Progress Note (short form) - Note Progress Note: s: lethargic, confused Current Medications Albuterol/Ipratropium (Duoneb -) 1 amp NEB RQID [facility] Last Admin: 12/15/18 08:37 Dose: 1 amp Bacitracin (Bacitracin -) 1 applic TP DAILY [facility] Last Admin: 12/14/18 12:31 Dose: 1 film Furosemide (Lasix Injection -) 40 mg IVPB BID@0600,1400 [facility] Last Admin: 12/15/18 05:51 Dose: 40 mg Hydralazine HCl (Apresoline -) 25 mg PO BID [facility] Last Admin: 12/14/18 21:55 Dose: 25 mg Iron Sucrose 300 mg/ Sodium (Chloride) 250 mls @ 250 mls/hr IVPB ONCE ONE Stop: 12/15/18 11:10 Insulin Aspart (Novolog Vial Sliding Scale -) 1 vial SQ ACHS [facility]; Protocol Last Admin: 12/15/18 08:33 Dose: Not Given Morphine Sulfate (Morphine Sulfate) 2 mg IVPUSH Q4H PRN PRN Reason: PAIN LEVEL 7 - 10 Last Admin: 12/13/18 18:58 Dose: 2 mg Sodium Zirconium Cyclosilicate (Lokelma) 10 gm PO DAILY [facility] Last Admin: 12/14/18 17:51 Dose: 10 gm Vital Signs Period Temp Pulse Resp BP Sys/Car Pulse Ox Last 24 Hr 98.3 F 70-90 14-21 110-167/47-84 100 Constitutional: Yes: Well Nourished, No Distress Eyes: No: Sclera Icterus HENT: No: Nasal Congestion Respiratory: Yes: CTA Bilaterally. poor eff No: Accessory Muscle Use, Rales, Wheezes Gastrointestinal: Yes: Normal Bowel Sounds. No: Distention, Hepatomegaly, Palpable Mass, Tenderness Cardiovascular: Yes: Regular Rate and Rhythm JVD: No Carotid Bruit: No PMI: Non-Displaced Heart Sounds: Yes: S1, S2. No: Gallop Murmur: No: Systolic Murmur, Diastolic Murmur Extremities: No: Cold, Cyanosis Edema: No Integumentary: No: Jaundice Neurological: Yes: lethargic Psychiatric: No: Agitated ekg: sr, old rbbb, no sig change prior ct chest: bl mod-large pleural eff Echo 06/2016: nl lv/rv. abnormal diastology. 1+ MAC 1+ Ao dilation Echo 2015: nl LV/EF; nl RV; nl LA; mild-mod TR; RVSP 30-40; mild dil ao root tele: sr a/p: 88 yo with h/o male HTN, HPL, CVA (acute R thalamic bleed at that time, suspected hypertensive etiology), DM2 admitted for anemia, ams. anemia: -hgb in 6s initially, remains low -plans per pmd, gi HTN: -cont current meds elevated cardiac enzymes: -no ekg changes -trop in borderline range x2 with flat trend, trop similar to prior baseline values-->not c/w acs -no ischemic w/u needed at this time lina, ckd: -cr above baseline, possibly due to anemia, monitor cr pleural effs: -s/p chest tube - Cr improving -cont iv lasix - echo - mild conc LVH, nl LV/RV function, mild ao root dilation
--- NOTE | 2018-12-15 11:59 | PN ---
Progress Note, Physician History of Present Illness: Pt seen and examined at bedside. He is awake and appears comfortable. He is still confused. - Current Medication List Current Medications: Active Medications Albuterol/Ipratropium (Duoneb -) 1 amp NEB RQID [facility] Last Admin: 12/15/18 08:37 Dose: 1 amp Bacitracin (Bacitracin -) 1 applic TP DAILY [facility] Last Admin: 12/14/18 12:31 Dose: 1 film Furosemide (Lasix Injection -) 40 mg IVPB BID@0600,1400 [facility] Last Admin: 12/15/18 05:51 Dose: 40 mg Hydralazine HCl (Apresoline -) 25 mg PO BID [facility] Last Admin: 12/14/18 21:55 Dose: 25 mg Insulin Aspart (Novolog Vial Sliding Scale -) 1 vial SQ ACHS [facility]; Protocol Last Admin: 12/15/18 08:33 Dose: Not Given Morphine Sulfate (Morphine Sulfate) 2 mg IVPUSH Q4H PRN PRN Reason: PAIN LEVEL 7 - 10 Last Admin: 12/13/18 18:58 Dose: 2 mg Sodium Zirconium Cyclosilicate (Lokelma) 10 gm PO DAILY [facility] Last Admin: 12/14/18 17:51 Dose: 10 gm - Objective Vital Signs: Vital Signs Temperature 98.3 F 12/15/18 06:00 Pulse Rate 90 12/15/18 10:00 Respiratory Rate 21 H 12/15/18 10:00 Blood Pressure 110/47 L 12/15/18 10:00 O2 Sat by Pulse Oximetry (%) 100 12/14/18 21:00 Constitutional: Yes: Calm Eyes: Yes: Conjunctiva Clear HENT: Yes: Atraumatic Neck: Yes: Supple Cardiovascular: Yes: S1, S2 Respiratory: Yes: On Nasal O2 Gastrointestinal: Yes: Soft Genitourinary: Yes: Mae Present Musculoskeletal: Yes: Muscle Weakness Edema: Yes Edema: LLE: Trace, RLE: Trace Neurological: Yes: Confusion Labs: CBC, BMP 12/15/18 06:31 12/15/18 06:05 INR, PTT INR 1.13 (0.83-1.09) H 12/12/18 12:20 Problem List - Problems (1) Elevation of cardiac enzymes Code(s): R74.8 - ABNORMAL LEVELS OF OTHER SERUM ENZYMES (2) Hyperkalemia Code(s): E87.5 - HYPERKALEMIA (3) Pleural effusion Code(s): J90 - PLEURAL EFFUSION, NOT ELSEWHERE CLASSIFIED (4) CKD (chronic kidney disease) Code(s): N18.9 - CHRONIC KIDNEY DISEASE, UNSPECIFIED Qualifiers: Chronic kidney disease stage: stage 3 (moderate) Qualified Code(s): N18.3 - Chronic kidney disease, stage 3 (moderate) Assessment/Plan Current Medications Generic Name Dose Route Start Last Admin Trade Name Freq PRN Reason Stop Dose Admin Albuterol/Ipratropium 1 amp 12/12/18 20:00 12/15/18 08:37 Duoneb - NEB 1 amp RQID [facility] Administration Bacitracin 1 applic 12/13/18 10:00 12/14/18 12:31 Bacitracin - TP 1 film DAILY [facility] Administration Furosemide 40 mg 12/13/18 14:00 12/15/18 05:51 Lasix Injection - IVPB 40 mg BID@0600,1400 [facility] Administration Hydralazine HCl 25 mg 12/14/18 22:00 12/14/18 21:55 Apresoline - PO 25 mg BID [facility] Administration Insulin Aspart 1 vial 12/12/18 22:00 12/15/18 08:33 Novolog Vial Sliding Scale - SQ Not Given ACHS [facility] Protocol Morphine Sulfate 2 mg 12/13/18 18:48 12/13/18 18:58 Morphine Sulfate IVPUSH 2 mg Q4H PRN Administration PAIN LEVEL 7 - 10 Sodium Zirconium Cyclosilicate 10 gm 12/14/18 15:30 12/14/18 17:51 Lokelma PO 10 gm DAILY [facility] Administration Impression 1. hyperkalemia 2. CKD 3. pleural effusion 4. htn 5. dm 6, dementia 7. renal cyst Plan - potassium is improved - can stop lokelma - repeat labs tomorrow - losartan on hold - cont lasix - renal cyst will need to be followed Dr Mcgrath
[2018-12-15] MEDS: hydrALAZINE HCL 25 MG TABLET (FP) PO SCH ×2 (12:02→21:44)
[2018-12-15] MEDS: BACITRACIN 15 GM TUBE TOPICAL OINTMENT TP SCH (12:02)
[2018-12-15] MEDS: SODIUM ZIRCONIUM CYCLOSILICATE (LOKELMA) 5 GM PACKET PO SCH (13:57)
[2018-12-15] MEDS ORDERED: PT OWN MED DRAWER 7, Y5N ONE (15:43)
[2018-12-15] MEDS ORDERED: INSULIN (NOVOLOG) ASPART 100 UNITS/ML 10ML VIAL ONE (21:19)
[2018-12-16] MEDS: FUROSEMIDE 40 MG/4 ML INJECTABLE VIAL IVPB SCH ×2 (05:49→13:50)
[2018-12-16] MEDS: INSULIN SLIDING SCALE (NOVOLOG) 1 VIAL SQ SCH ×4 (06:10→23:40)
[2018-12-16] MEDS: ALBUTEROL SO4 2.5/IPRATROPIUM 0.5 INH SOL 3 ML VIAL.NEB. NEB SCH ×4 (08:26→20:15)
--- NOTE | 2018-12-16 09:40 | PN ---
Progress Note, Physician Chief Complaint: Anemia Pleural Effusion History of Present Illness: Previous notes and events reviewed sleeping but responsive to tactile and verbal stimuli NAD Chest tube noted with 1070cc serous output Hg 7.1 - Current Medication List Current Medications: Active Medications Albuterol/Ipratropium (Duoneb -) 1 amp NEB RQID [facility] Last Admin: 12/16/18 08:26 Dose: Not Given Bacitracin (Bacitracin -) 1 applic TP DAILY [facility] Last Admin: 12/15/18 12:02 Dose: 1 applic Furosemide (Lasix Injection -) 40 mg IVPB BID@0600,1400 [facility] Last Admin: 12/16/18 05:49 Dose: 40 mg Hydralazine HCl (Apresoline -) 25 mg PO BID [facility] Last Admin: 12/15/18 21:44 Dose: 25 mg Insulin Aspart (Novolog Vial Sliding Scale -) 1 vial SQ ACHS [facility]; Protocol Last Admin: 12/16/18 06:10 Dose: Not Given Morphine Sulfate (Morphine Sulfate) 2 mg IVPUSH Q4H PRN PRN Reason: PAIN LEVEL 7 - 10 Last Admin: 12/13/18 18:58 Dose: 2 mg - Objective Vital Signs: Vital Signs Temperature 98.2 F 12/16/18 05:53 Pulse Rate 87 12/16/18 05:53 Respiratory Rate 14 12/16/18 05:53 Blood Pressure 149/94 12/16/18 05:53 O2 Sat by Pulse Oximetry (%) 99 12/15/18 21:00 Constitutional: Yes: No Distress, Calm Eyes: Yes: Conjunctiva Clear HENT: Yes: Atraumatic Cardiovascular: Yes: Regular Rate and Rhythm Respiratory: Yes: Regular, Diminished, Other (Chest tube) Gastrointestinal: Yes: Normal Bowel Sounds, Soft Genitourinary: Yes: Mae Present Musculoskeletal: Yes: Muscle Weakness Extremities: Yes: WNL Edema: No Neurological: Yes: Alert, Pre-Existing Deficit Psychiatric: Yes: Alert, Oriented Labs: CBC, BMP 12/15/18 06:31 12/15/18 06:05 INR, PTT INR 1.13 (0.83-1.09) H 12/12/18 12:20 - ....Imaging X-ray: Report Reviewed Problem List - Problems (1) Anemia Assessment/Plan: -Hg 7.1 -monitor Hg daily -transfuse for Hg <7.0 to avoid fluid overload -GI and Hematology on board -Stool OB neg -Iron panel ordered--low Iron Saturation -evaluated by GI and does not want invasive testing performed Code(s): D64.9 - ANEMIA, UNSPECIFIED Qualifiers: Anemia type: unspecified type Qualified Code(s): D64.9 - Anemia, unspecified (2) Elevation of cardiac enzymes Assessment/Plan: -troponin 0.10, 0.08, 0.09 -cardiology on board -tele monitoring Code(s): R74.8 - ABNORMAL LEVELS OF OTHER SERUM ENZYMES (3) CKD (chronic kidney disease) Assessment/Plan: -Nephrology consult -BUN/Cr 65.8/2.1 -Abdomen/Pelvic CT scan shows large right exophytic renal cyst up to 10.3cm -monitor renal function daily Code(s): N18.9 - CHRONIC KIDNEY DISEASE, UNSPECIFIED Qualifiers: Chronic kidney disease stage: stage 3 (moderate) Qualified Code(s): N18.3 - Chronic kidney disease, stage 3 (moderate) (4) Dementia Code(s): F03.90 - UNSPECIFIED DEMENTIA WITHOUT BEHAVIORAL DISTURBANCE (5) Diabetes Assessment/Plan: -BGM ACHS -Metformin -ISS -HgA1c 5.7% Code(s): E11.9 - TYPE 2 DIABETES MELLITUS WITHOUT COMPLICATIONS (6) HTN (hypertension) Assessment/Plan: -Losartan, Hydralazine Code(s): I10 - ESSENTIAL (PRIMARY) HYPERTENSION (7) Pleural effusion Assessment/Plan: -Pulm on board -Furosemide -Chest CT scan shows moderate to large bilateral pleural effusion, , left slightly more than right with compressive atelectasis in both lower lobes, left more than right, atelectatic changes in lingular segment of SKYE -bronchodilators -keep SpO2 >90% -O2 via NC -Chest Tube with 1070cc serous output -pending pleural fluid cytology Code(s): J90 - PLEURAL EFFUSION, NOT ELSEWHERE CLASSIFIED (8) Abnormal CT of the abdomen Assessment/Plan: -Abdomen and Pelvic CT scan shows there is moderate amount of ascites in the abdomen pelvis, small liver with slightly nodular contour , rule out liver cirrhosis, no evidence of small bowel obstruction, diffuse subcutaneous edema and abdomen/pelvic wall, rule out anasarce -GI on board -monitor LFTs daily Code(s): R93.5 - ABN FINDINGS ON DX IMAGING OF ABD REGIONS, INC RETROPERITON Assessment/Plan see problem list SCDs
--- NOTE | 2018-12-16 10:52 | PN ---
Progress Note (short form) - Note Progress Note: s: lethargic, confused Current Medications Albuterol/Ipratropium (Duoneb -) 1 amp NEB RQID [facility] Last Admin: 12/16/18 08:26 Dose: Not Given Bacitracin (Bacitracin -) 1 applic TP DAILY [facility] Last Admin: 12/15/18 12:02 Dose: 1 applic Furosemide (Lasix Injection -) 40 mg IVPB BID@0600,1400 [facility] Last Admin: 12/16/18 05:49 Dose: 40 mg Hydralazine HCl (Apresoline -) 25 mg PO BID [facility] Last Admin: 12/15/18 21:44 Dose: 25 mg Insulin Aspart (Novolog Vial Sliding Scale -) 1 vial SQ ACHS [facility]; Protocol Last Admin: 12/16/18 06:10 Dose: Not Given Morphine Sulfate (Morphine Sulfate) 2 mg IVPUSH Q4H PRN PRN Reason: PAIN LEVEL 7 - 10 Last Admin: 12/13/18 18:58 Dose: 2 mg Vital Signs Period Temp Pulse Resp BP Sys/Car Pulse Ox Last 24 Hr 98.0 F-99.1 F 84-91 14-17 124-149/55-94 99 Constitutional: Yes: Well Nourished, No Distress Eyes: No: Sclera Icterus HENT: No: Nasal Congestion Respiratory: Yes: CTA Bilaterally. poor eff No: Accessory Muscle Use, Rales, Wheezes Gastrointestinal: Yes: Normal Bowel Sounds. No: Distention, Hepatomegaly, Palpable Mass, Tenderness Cardiovascular: Yes: Regular Rate and Rhythm JVD: No Carotid Bruit: No PMI: Non-Displaced Heart Sounds: Yes: S1, S2. No: Gallop Murmur: No: Systolic Murmur, Diastolic Murmur Extremities: No: Cold, Cyanosis Edema: No Integumentary: No: Jaundice Neurological: Yes: lethargic Psychiatric: No: Agitated ekg: sr, old rbbb, no sig change prior ct chest: bl mod-large pleural eff Echo 06/2016: nl lv/rv. abnormal diastology. 1+ MAC 1+ Ao dilation Echo 2014: nl LV/EF; nl RV; nl LA; mild-mod TR; RVSP 30-40; mild dil ao root tele: sr a/p: 88 yo with h/o male HTN, HPL, CVA (acute R thalamic bleed at that time, suspected hypertensive etiology), DM2 admitted for anemia, ams. anemia: -hgb in 6s initially, remains low -plans per pmd, gi HTN: -cont current meds elevated cardiac enzymes: -no ekg changes -trop in borderline range x2 with flat trend, trop similar to prior baseline values-->not c/w acs -no ischemic w/u needed at this time lina, ckd: -cr above baseline, possibly due to anemia, monitor cr pleural effs: -s/p chest tube - Cr improving -cont iv lasix - echo - mild conc LVH, nl LV/RV function, mild ao root dilation
[2018-12-16] MEDS: BACITRACIN 15 GM TUBE TOPICAL OINTMENT TP SCH (11:07)
[2018-12-16] MEDS: hydrALAZINE HCL 25 MG TABLET (FP) PO SCH ×2 (11:07→22:32)
[2018-12-16 11:25] LABS: HEMATOCRIT 23.4 % (35.4-49); HEMOGLOBIN 7.4 GM/dL (11.7-16.9); MCHC 31.6 g/dl (32.0-35.9); MEAN CELL VOLUME 79.3 fl (80-96); MEAN PLT VOLUME 8.6 fl (7.5-11.1); PLATELET COUNT 111 K/MM3 (134-434); RBC 2.95 M/mm3 (4.00-5.60); RDW 19.2 % (11.9-15.9); WHITE BLOOD COUNT 5.8 K/mm3 (4.0-10.0)
[2018-12-16 11:57] LABS: ALBUMIN 2.8 g/dl (3.4-5.0); BILIRUBIN,TOTAL 0.5 mg/dL (0.2-1); BLOOD UREA NITROGEN 49.3 mg/dL (7-18); CALCIUM 8.5 mg/dL (8.5-10.1); CREATININE 1.8 mg/dL (0.55-1.3); POTASSIUM 4.2 mmol/L (3.5-5.1)
--- NOTE | 2018-12-16 12:21 | PN ---
Progress Note, Physician History of Present Illness: Pt seen and examined at bedside. He is arousable. - Current Medication List Current Medications: Active Medications Albuterol/Ipratropium (Duoneb -) 1 amp NEB RQID [facility] Last Admin: 12/16/18 12:04 Dose: Not Given Bacitracin (Bacitracin -) 1 applic TP DAILY [facility] Last Admin: 12/16/18 11:07 Dose: 1 applic Furosemide (Lasix Injection -) 40 mg IVPB BID@0600,1400 [facility] Last Admin: 12/16/18 05:49 Dose: 40 mg Hydralazine HCl (Apresoline -) 25 mg PO BID [facility] Last Admin: 12/16/18 11:07 Dose: 25 mg Insulin Aspart (Novolog Vial Sliding Scale -) 1 vial SQ ACHS [facility]; Protocol Last Admin: 12/16/18 11:30 Dose: Not Given Morphine Sulfate (Morphine Sulfate) 2 mg IVPUSH Q4H PRN PRN Reason: PAIN LEVEL 7 - 10 Last Admin: 12/13/18 18:58 Dose: 2 mg - Objective Vital Signs: Vital Signs Temperature 98.7 F 12/16/18 10:00 Pulse Rate 92 H 12/16/18 10:00 Respiratory Rate 17 12/16/18 10:00 Blood Pressure 105/47 L 12/16/18 10:00 O2 Sat by Pulse Oximetry (%) 99 12/15/18 21:00 Constitutional: Yes: Calm Eyes: Yes: Conjunctiva Clear HENT: Yes: Atraumatic Neck: Yes: Supple Cardiovascular: Yes: S1, S2 Respiratory: Yes: On Nasal O2, Other (left side chest tube) Gastrointestinal: Yes: Soft Genitourinary: Yes: Mae Present Musculoskeletal: Yes: WNL Edema: LLE: Trace, RLE: Trace Neurological: Yes: Confusion Labs: CBC, BMP 12/16/18 10:46 12/16/18 10:46 INR, PTT INR 1.13 (0.83-1.09) H 12/12/18 12:20 Problem List - Problems (1) Elevation of cardiac enzymes Code(s): R74.8 - ABNORMAL LEVELS OF OTHER SERUM ENZYMES (2) Hyperkalemia Code(s): E87.5 - HYPERKALEMIA (3) Pleural effusion Code(s): J90 - PLEURAL EFFUSION, NOT ELSEWHERE CLASSIFIED (4) CKD (chronic kidney disease) Code(s): N18.9 - CHRONIC KIDNEY DISEASE, UNSPECIFIED Qualifiers: Chronic kidney disease stage: stage 3 (moderate) Qualified Code(s): N18.3 - Chronic kidney disease, stage 3 (moderate) Assessment/Plan Current Medications Generic Name Dose Route Start Last Admin Trade Name Freq PRN Reason Stop Dose Admin Albuterol/Ipratropium 1 amp 12/12/18 20:00 12/16/18 12:04 Duoneb - NEB Not Given RQID [facility] Bacitracin 1 applic 12/13/18 10:00 12/16/18 11:07 Bacitracin - TP 1 applic DAILY [facility] Administration Furosemide 40 mg 12/13/18 14:00 12/16/18 05:49 Lasix Injection - IVPB 40 mg BID@0600,1400 [facility] Administration Hydralazine HCl 25 mg 12/14/18 22:00 12/16/18 11:07 Apresoline - PO 25 mg BID [facility] Administration Insulin Aspart 1 vial 12/12/18 22:00 12/16/18 11:30 Novolog Vial Sliding Scale - SQ Not Given ACHS [facility] Protocol Morphine Sulfate 2 mg 12/13/18 18:48 12/13/18 18:58 Morphine Sulfate IVPUSH 2 mg Q4H PRN Administration PAIN LEVEL 7 - 10 Impression 1. hyperkalemia 2. CKD 3. pleural effusion 4. htn 5. dm 6, dementia 7. renal cyst Plan - potassium stable - monitor chest tube output - encourage free water intake, sodium is mildly elevated - pulm follow up - losartan on hold - cont lasix - renal cyst will need to be followed Dr Mcgrath
--- NOTE | 2018-12-16 12:50 | PN ---
Progress Note, Physician History of Present Illness: pulmonary arousable,confused comfortable -resp distress,chest tube drainage 160cc,pleural fluid chemistries pending - Current Medication List Current Medications: Active Medications Albuterol/Ipratropium (Duoneb -) 1 amp NEB RQID [facility] Last Admin: 12/16/18 12:04 Dose: Not Given Bacitracin (Bacitracin -) 1 applic TP DAILY [facility] Last Admin: 12/16/18 11:07 Dose: 1 applic Furosemide (Lasix Injection -) 40 mg IVPB BID@0600,1400 [facility] Last Admin: 12/16/18 05:49 Dose: 40 mg Hydralazine HCl (Apresoline -) 25 mg PO BID [facility] Last Admin: 12/16/18 11:07 Dose: 25 mg Insulin Aspart (Novolog Vial Sliding Scale -) 1 vial SQ ACHS [facility]; Protocol Last Admin: 12/16/18 11:30 Dose: Not Given Morphine Sulfate (Morphine Sulfate) 2 mg IVPUSH Q4H PRN PRN Reason: PAIN LEVEL 7 - 10 Last Admin: 12/13/18 18:58 Dose: 2 mg - Objective Vital Signs: Vital Signs Temperature 98.7 F 12/16/18 10:00 Pulse Rate 92 H 12/16/18 10:00 Respiratory Rate 17 12/16/18 10:00 Blood Pressure 105/47 L 12/16/18 10:00 O2 Sat by Pulse Oximetry (%) 99 12/15/18 21:00 Constitutional: Yes: Well Nourished, Calm Eyes: Yes: WNL HENT: Yes: WNL Neck: Yes: WNL Cardiovascular: Yes: Regular Rate and Rhythm, S1, S2 Respiratory: Yes: Diminished (poor inspiratory effort) Gastrointestinal: Yes: Distention (non-tender) Extremities: Yes: WNL Edema: No Labs: CBC, BMP 12/16/18 10:46 12/16/18 10:46 INR, PTT INR 1.13 (0.83-1.09) H 12/12/18 12:20 Assessment/Plan A/P Anemia Acute on Chronic Diastolic Heart Failure Pulmonary HTN Pleural Effusions Acute on Chronic Renal Failure HTN DM h/o CVA Dementia - monitor H/H - transfuse as needed - IV lasix - monitor urine output, creatinine - O2 to keep SpO2 >90% - aspiration precautions - f/u pleural fluid chemistries, cultures, cytology - DVT prophylaxis - monitor lytes Problem List - Problems (1) Anemia Code(s): D64.9 - ANEMIA, UNSPECIFIED Qualifiers: Anemia type: unspecified type Qualified Code(s): D64.9 - Anemia, unspecified (2) Pleural effusion Code(s): J90 - PLEURAL EFFUSION, NOT ELSEWHERE CLASSIFIED
[2018-12-17] MEDS: FUROSEMIDE 40 MG/4 ML INJECTABLE VIAL IVPB SCH ×2 (05:15→17:11)
[2018-12-17] MEDS: INSULIN SLIDING SCALE (NOVOLOG) 1 VIAL SQ SCH ×4 (07:07→21:55)
[2018-12-17] MEDS: ALBUTEROL SO4 2.5/IPRATROPIUM 0.5 INH SOL 3 ML VIAL.NEB. NEB SCH ×3 (07:30→16:50)
--- NOTE | 2018-12-17 08:30 | PN ---
Progress Note, Physician Chief Complaint: No acute distress TELE: Irregular rhythm---> AF vs NSR w/ frequent APCs. History of Present Illness: weight is down to 187lbs Chest tube draining. - Current Medication List Current Medications: Active Medications Albuterol/Ipratropium (Duoneb -) 1 amp NEB RQID [facility] Last Admin: 12/16/18 20:15 Dose: 1 amp Bacitracin (Bacitracin -) 1 applic TP DAILY [facility] Last Admin: 12/16/18 11:07 Dose: 1 applic Furosemide (Lasix Injection -) 40 mg IVPB BID@0600,1400 [facility] Last Admin: 12/17/18 05:15 Dose: 40 mg Hydralazine HCl (Apresoline -) 25 mg PO BID [facility] Last Admin: 12/16/18 22:32 Dose: 25 mg Insulin Aspart (Novolog Vial Sliding Scale -) 1 vial SQ ACHS [facility]; Protocol Last Admin: 12/17/18 07:07 Dose: Not Given - Objective Vital Signs: Vital Signs Temperature 98 F 12/17/18 05:52 Pulse Rate 68 12/17/18 04:00 Respiratory Rate 18 12/17/18 04:00 Blood Pressure 123/60 12/17/18 04:00 O2 Sat by Pulse Oximetry (%) 98 12/16/18 22:00 Constitutional: Yes: No Distress Cardiovascular: Yes: Pulse Irregular Respiratory: Yes: Other (clear anteriorly, chest tube) Gastrointestinal: Yes: Soft Edema: No Neurological: Yes: Confusion Labs: CBC, BMP 12/16/18 10:46 12/16/18 10:46 INR, PTT INR 1.13 (0.83-1.09) H 12/12/18 12:20 - ....Imaging EKG: Image Reviewed Assessment/Plan DATA: ekg: irregular rhythm, AF vs NSR w/ frequent APCs ct chest: bl mod-large pleural eff Echo 06/2016: nl lv/rv. abnormal diastology. 1+ MAC 1+ Ao dilation Echo 2014: nl LV/EF; nl RV; nl LA; mild-mod TR; RVSP 30-40; mild dil ao root tele: sr Assessment and Plan: 88 yo with h/o male HTN, HPL, CVA (acute R thalamic bleed at that time, suspected hypertensive etiology), DM2 admitted for anemia, ams, possible cirrhosis. Anemia: -hgb in 6s initially, remains low -Guaiac negative. -Family declined endoscopy (see GI note) HTN: -cont current meds Elevated cardiac enzymes: -no ekg changes -trop in borderline range x2 with flat trend, trop similar to prior baseline values-->not c/w acs -no ischemic w/u needed at this time [place]/CKD: -cr above baseline, possibly due to anemia, monitor cr Pleural effs: -s/p chest tube -cont iv lasix, weight is down. - echo - mild conc LVH, nl LV/RV function, mild ao root dilation AF vs NSR w/ frequent APCS: -ECG now. Even if ECG confirms AF, does not appear to be candidate for full AC due to possible cirrhosis, anemia, thrombocytopenia, prior ICH. Risks of full AC greater than potential benefits
--- NOTE | 2018-12-17 08:39 | PN ---
Progress Note, Physician Chief Complaint: AWAKE CONFUSED IN BED WRIST RESTRAINTS APPLIED BECAUSE OF RISK OF TOUCHING EQUIPMENT. PRBC TRANSFUSION ORDERED FOR WORSENING ANEMIA EVENTS AND NOTES REVIEWED - Current Medication List Current Medications: Active Medications Albuterol/Ipratropium (Duoneb -) 1 amp NEB RQID [facility] Last Admin: 12/16/18 20:15 Dose: 1 amp Bacitracin (Bacitracin -) 1 applic TP DAILY [facility] Last Admin: 12/16/18 11:07 Dose: 1 applic Furosemide (Lasix Injection -) 40 mg IVPB BID@0600,1400 [facility] Last Admin: 12/17/18 05:15 Dose: 40 mg Hydralazine HCl (Apresoline -) 25 mg PO BID [facility] Last Admin: 12/16/18 22:32 Dose: 25 mg Insulin Aspart (Novolog Vial Sliding Scale -) 1 vial SQ ACHS [facility]; Protocol Last Admin: 12/17/18 07:07 Dose: Not Given - Objective Vital Signs: Vital Signs Temperature 98 F 12/17/18 05:52 Pulse Rate 68 12/17/18 04:00 Respiratory Rate 18 12/17/18 04:00 Blood Pressure 123/60 12/17/18 04:00 O2 Sat by Pulse Oximetry (%) 98 12/16/18 22:00 Constitutional: Yes: Mild Distress Eyes: Yes: WNL HENT: Yes: WNL Neck: Yes: WNL Cardiovascular: Yes: Pulse Irregular Respiratory: Yes: Diminished, On Nasal O2 Gastrointestinal: Yes: Soft Genitourinary: Yes: Incontinence Musculoskeletal: Yes: Muscle Weakness Extremities: Yes: Other Edema: No Neurological: Yes: Confusion, Pre-Existing Deficit Psychiatric: Yes: Agitated Labs: CBC, BMP 12/16/18 10:46 12/16/18 10:46 INR, PTT INR 1.13 (0.83-1.09) H 12/12/18 12:20 Problem List - Problems (1) CVA, old, cognitive deficits Code(s): I69.319 - UNSP SYMPTOMS AND SIGNS W COGN FNCTNS FOL CEREBRAL INFRC (2) Abnormal CT of the abdomen Code(s): R93.5 - ABN FINDINGS ON DX IMAGING OF ABD REGIONS, INC RETROPERITON (3) Anasarca Code(s): R60.1 - GENERALIZED EDEMA (4) Anemia Code(s): D64.9 - ANEMIA, UNSPECIFIED Qualifiers: Anemia type: unspecified type Qualified Code(s): D64.9 - Anemia, unspecified (5) HTN (hypertension) Code(s): I10 - ESSENTIAL (PRIMARY) HYPERTENSION (6) Hyperkalemia Code(s): E87.5 - HYPERKALEMIA (7) Pleural effusion Code(s): J90 - PLEURAL EFFUSION, NOT ELSEWHERE CLASSIFIED (8) [place] (acute kidney injury) Code(s): N17.9 - ACUTE KIDNEY FAILURE, UNSPECIFIED (9) Acute on chronic renal failure Code(s): N17.9 - ACUTE KIDNEY FAILURE, UNSPECIFIED; N18.9 - CHRONIC KIDNEY DISEASE, UNSPECIFIED (10) Agitation requiring sedation protocol Code(s): R45.1 - RESTLESSNESS AND AGITATION (11) Dementia Code(s): F03.90 - UNSPECIFIED DEMENTIA WITHOUT BEHAVIORAL DISTURBANCE (12) Diabetes Code(s): E11.9 - TYPE 2 DIABETES MELLITUS WITHOUT COMPLICATIONS Assessment/Plan PATIENT NEEDING TRANSFUSION PRBC GIVE LASIX AFTER IV DOSE CT SCAN REVIEWED ANEMIA WORKUP IN PROGRESS ARF NEPHROLOGY WORKUP PSYCH EVAL FOR AGITATION FAUSTIN FOR RETENTION
[2018-12-17] MEDS: BACITRACIN 15 GM TUBE TOPICAL OINTMENT TP SCH (10:44)
[2018-12-17] MEDS: hydrALAZINE HCL 25 MG TABLET (FP) PO SCH ×2 (10:44→22:01)
--- NOTE | 2018-12-17 10:47 | PN ---
Progress Note, Physician History of Present Illness: Pt seen and examined at bedside. He is awake and appears comfortable. He denies shortness of breath. - Current Medication List Current Medications: Active Medications Albuterol/Ipratropium (Duoneb -) 1 amp NEB RQID [facility] Last Admin: 12/17/18 07:30 Dose: 1 amp Bacitracin (Bacitracin -) 1 applic TP DAILY [facility] Last Admin: 12/16/18 11:07 Dose: 1 applic Furosemide (Lasix Injection -) 40 mg IVPB BID@0600,1400 [facility] Last Admin: 12/17/18 05:15 Dose: 40 mg Hydralazine HCl (Apresoline -) 25 mg PO BID [facility] Last Admin: 12/16/18 22:32 Dose: 25 mg Insulin Aspart (Novolog Vial Sliding Scale -) 1 vial SQ ACHS [facility]; Protocol Last Admin: 12/17/18 07:07 Dose: Not Given - Objective Vital Signs: Vital Signs Temperature 98 F 12/17/18 05:52 Pulse Rate 68 12/17/18 04:00 Respiratory Rate 18 12/17/18 04:00 Blood Pressure 123/60 12/17/18 04:00 O2 Sat by Pulse Oximetry (%) 98 12/16/18 22:00 Constitutional: Yes: Calm Eyes: Yes: Conjunctiva Clear HENT: Yes: Atraumatic Neck: Yes: Supple Cardiovascular: Yes: S1, S2 Respiratory: Yes: Other (chest tube) Genitourinary: Yes: Mae Present Musculoskeletal: Yes: Muscle Weakness Edema: No Neurological: Yes: Confusion Labs: CBC, BMP 12/16/18 10:46 12/16/18 10:46 INR, PTT INR 1.13 (0.83-1.09) H 12/12/18 12:20 Problem List - Problems (1) Elevation of cardiac enzymes Code(s): R74.8 - ABNORMAL LEVELS OF OTHER SERUM ENZYMES (2) Hyperkalemia Code(s): E87.5 - HYPERKALEMIA (3) Pleural effusion Code(s): J90 - PLEURAL EFFUSION, NOT ELSEWHERE CLASSIFIED (4) CKD (chronic kidney disease) Code(s): N18.9 - CHRONIC KIDNEY DISEASE, UNSPECIFIED Qualifiers: Chronic kidney disease stage: stage 3 (moderate) Qualified Code(s): N18.3 - Chronic kidney disease, stage 3 (moderate) Assessment/Plan Current Medications Generic Name Dose Route Start Last Admin Trade Name Binh PRN Reason Stop Dose Admin Albuterol/Ipratropium 1 amp 12/12/18 20:00 12/17/18 07:30 Duoneb - NEB 1 amp RQID [facility] Administration Bacitracin 1 applic 12/13/18 10:00 12/17/18 10:44 Bacitracin - TP 1 applic DAILY [facility] Administration Furosemide 40 mg 12/13/18 14:00 12/17/18 05:15 Lasix Injection - IVPB 40 mg BID@0600,1400 [facility] Administration Hydralazine HCl 25 mg 12/14/18 22:00 12/17/18 10:44 Apresoline - PO 25 mg BID [facility] Administration Insulin Aspart 1 vial 12/12/18 22:00 12/17/18 07:07 Novolog Vial Sliding Scale - SQ Not Given ACHS [facility] Protocol Impression 1. hyperkalemia 2. CKD 3. pleural effusion 4. htn 5. dm 6, dementia 7. renal cyst Plan - monitor chest tube output - pulm follow up - check bmp - pt was hypernatremic, monitor sodium levels - encourage PO intake - losartan on hold - cont lasix - renal cyst will need to be followed Dr Mcgrath
--- NOTE | 2018-12-17 12:53 | EKG ---
Test Reason : Blood Pressure : / mmHG Vent. Rate : 083 BPM Atrial Rate : 110 BPM P-R Int : 000 ms QRS Dur : 142 ms QT Int : 382 ms P-R-T Axes : 000 082 -29 degrees QTc Int : 448 ms ATRIAL FIBRILLATION RIGHT BUNDLE BRANCH BLOCK ABNORMAL ECG WHEN COMPARED WITH ECG OF 12-DEC-2018 12:21, ATRIAL FIBRILLATION IS SEEN. PREVIOUS ECG MAY REPRESENT ATRIAL FLUTTER CLINICAL CORRELATION IS RECOMMENDED Confirmed by PERLA BROUSSARD, DM ([id number]) on 12/17/2018 12:53:35 PM Referred By: BOBO GUERRERO DR Confirmed By:DM DUNCAN MD
--- NOTE | 2018-12-17 12:55 | PN ---
Progress Note (short form) - Note Progress Note: PULMONARY More alert, awake. Pleural fluid studies pending. Vital Signs Period Temp Pulse Resp BP Sys/Car Pulse Ox Last 24 Hr 98 F-982 F 68-95 15-21 115-137/52-96 98-98 Gen: less tachypneic Heart: RRR Lung: decreased breath sounds at the bases Abd: soft, nontender Ext: no edema Chest tube with serous drainage, no air leak CBC, BMP 12/16/18 10:46 12/16/18 10:46 Active Medications Albuterol/Ipratropium (Duoneb -) 1 amp NEB RQID [facility] Last Admin: 12/17/18 11:55 Dose: 1 amp Bacitracin (Bacitracin -) 1 applic TP DAILY [facility] Last Admin: 12/17/18 10:44 Dose: 1 applic Furosemide (Lasix Injection -) 40 mg IVPB BID@0600,1400 [facility] Last Admin: 12/17/18 05:15 Dose: 40 mg Hydralazine HCl (Apresoline -) 25 mg PO BID [facility] Last Admin: 12/17/18 10:44 Dose: 25 mg Insulin Aspart (Novolog Vial Sliding Scale -) 1 vial SQ ACHS [facility]; Protocol Last Admin: 12/17/18 12:09 Dose: Not Given A/P Anemia Acute on Chronic Diastolic Heart Failure Pulmonary HTN Pleural Effusions Acute on Chronic Renal Failure HTN DM h/o CVA Dementia - monitor H/H - transfuse as needed - continue lasix - monitor urine output, creatinine - O2 to keep SpO2 >90% - aspiration precautions - monitor chest tube output - f/u pleural fluid chemistries, cultures, cytology - DVT prophylaxis Problem List - Problems (1) Anemia Code(s): D64.9 - ANEMIA, UNSPECIFIED Qualifiers: Anemia type: unspecified type Qualified Code(s): D64.9 - Anemia, unspecified (2) Pleural effusion Code(s): J90 - PLEURAL EFFUSION, NOT ELSEWHERE CLASSIFIED
[2018-12-18] MEDS: FUROSEMIDE 40 MG/4 ML INJECTABLE VIAL IVPB SCH ×2 (05:38→14:13)
[2018-12-18 06:57] LABS: ALBUMIN 2.7 g/dl (3.4-5.0); BILIRUBIN,TOTAL 0.6 mg/dL (0.2-1); BLOOD UREA NITROGEN 43.5 mg/dL (7-18); CALCIUM 8.4 mg/dL (8.5-10.1); CREATININE 1.9 mg/dL (0.55-1.3); POTASSIUM 4.1 mmol/L (3.5-5.1); TOT PROT 6.2 g/dl (6.4-8.2)
[2018-12-18 07:58] LABS: HEMATOCRIT 25.6 % (35.4-49); HEMOGLOBIN 8.1 GM/dL (11.7-16.9); MCH 25.6 pg (25.7-33.7); MCHC 31.7 g/dl (32.0-35.9); MEAN CELL VOLUME 80.7 fl (80-96); MEAN PLT VOLUME 8.9 fl (7.5-11.1); PLATELET COUNT 112 K/MM3 (134-434); RBC 3.18 M/mm3 (4.00-5.60); RDW 19.4 % (11.9-15.9); WHITE BLOOD COUNT 4.9 K/mm3 (4.0-10.0)
[2018-12-18] MEDS: INSULIN SLIDING SCALE (NOVOLOG) 1 VIAL SQ SCH ×4 (08:13→21:43)
--- NOTE | 2018-12-18 09:12 | PN ---
Progress Note, Physician Chief Complaint: AWAKE CONFUDED RESTRAINTS TO WRIST FOR PATIENT INTERRUPTION OF CARE NO FEVERS OR CHILLS - Current Medication List Current Medications: Active Medications Bacitracin (Bacitracin -) 1 applic TP DAILY [facility] Last Admin: 12/17/18 10:44 Dose: 1 applic Furosemide (Lasix Injection -) 40 mg IVPB BID@0600,1400 [facility] Last Admin: 12/18/18 05:38 Dose: 40 mg Hydralazine HCl (Apresoline -) 25 mg PO BID [facility] Last Admin: 12/17/18 22:01 Dose: 25 mg Insulin Aspart (Novolog Vial Sliding Scale -) 1 vial SQ ACHS [facility]; Protocol Last Admin: 12/18/18 08:13 Dose: Not Given - Objective Vital Signs: Vital Signs Temperature 98.1 F 12/18/18 04:00 Pulse Rate 69 12/18/18 08:05 Respiratory Rate 17 12/18/18 08:05 Blood Pressure 133/84 12/18/18 08:05 O2 Sat by Pulse Oximetry (%) 98 12/18/18 01:19 Constitutional: Yes: Mild Distress Eyes: Yes: WNL HENT: Yes: WNL Neck: Yes: WNL Cardiovascular: Yes: Pulse Irregular Respiratory: Yes: Cough, On Nasal O2 Gastrointestinal: Yes: Soft Genitourinary: Yes: Faustin Present Musculoskeletal: Yes: Muscle Weakness Extremities: Yes: Other Edema: Yes Peripheral Pulses WNL: Yes Integumentary: Yes: Rash, Venous Stasis Changes Wound/Incision: Yes: Dressing Dry and Intact Neurological: Yes: Confusion, Pre-Existing Deficit ...Motor Strength: LLE, RLE Psychiatric: Yes: Other Labs: CBC, BMP 12/18/18 05:50 12/18/18 05:50 INR, PTT INR 1.13 (0.83-1.09) H 12/12/18 12:20 Problem List - Problems (1) CVA, old, cognitive deficits Code(s): I69.319 - UNSP SYMPTOMS AND SIGNS W COGN FNCTNS FOL CEREBRAL INFRC (2) Abnormal CT of the abdomen Code(s): R93.5 - ABN FINDINGS ON DX IMAGING OF ABD REGIONS, INC RETROPERITON (3) Anasarca Code(s): R60.1 - GENERALIZED EDEMA (4) Anemia Code(s): D64.9 - ANEMIA, UNSPECIFIED Qualifiers: Anemia type: unspecified type Qualified Code(s): D64.9 - Anemia, unspecified (5) HTN (hypertension) Code(s): I10 - ESSENTIAL (PRIMARY) HYPERTENSION (6) Hyperkalemia Code(s): E87.5 - HYPERKALEMIA (7) Pleural effusion Code(s): J90 - PLEURAL EFFUSION, NOT ELSEWHERE CLASSIFIED (8) [place] (acute kidney injury) Code(s): N17.9 - ACUTE KIDNEY FAILURE, UNSPECIFIED (9) Acute on chronic renal failure Code(s): N17.9 - ACUTE KIDNEY FAILURE, UNSPECIFIED; N18.9 - CHRONIC KIDNEY DISEASE, UNSPECIFIED (10) Agitation requiring sedation protocol Code(s): R45.1 - RESTLESSNESS AND AGITATION (11) Dementia Code(s): F03.90 - UNSPECIFIED DEMENTIA WITHOUT BEHAVIORAL DISTURBANCE (12) Diabetes Code(s): E11.9 - TYPE 2 DIABETES MELLITUS WITHOUT COMPLICATIONS Assessment/Plan CHF STABLE LASIX IV MONITOR DAILY [facility] FOLLOW UP PULMONARY SUPPORT RESTRAINTS FOR INTERRUPTION OF CARE FAUSTIN CONTINUE LIQUID DIET CHECK SWALLOW EVAL
[2018-12-18] MEDS: hydrALAZINE HCL 25 MG TABLET (FP) PO SCH ×2 (09:39→21:43)
[2018-12-18] MEDS: BACITRACIN 15 GM TUBE TOPICAL OINTMENT TP SCH (09:39)
--- NOTE | 2018-12-18 11:03 | PN ---
Progress Note (short form) - Note Progress Note: lethargic, not answering questions Current Medications Bacitracin (Bacitracin -) 1 applic TP DAILY [facility] Last Admin: 12/18/18 09:39 Dose: 1 applic Furosemide (Lasix Injection -) 40 mg IVPB BID@0600,1400 [facility] Last Admin: 12/18/18 05:38 Dose: 40 mg Hydralazine HCl (Apresoline -) 25 mg PO BID [facility] Last Admin: 12/18/18 09:39 Dose: 25 mg Insulin Aspart (Novolog Vial Sliding Scale -) 1 vial SQ ACHS [facility]; Protocol Last Admin: 12/18/18 10:59 Dose: Not Given Vital Signs Period Temp Pulse Resp BP Sys/Car Pulse Ox Last 24 Hr 98 F-98.3 F 69-80 13-19 118-134/54-84 94-98 Constitutional: Yes: No Distress Cardiovascular: Yes: Pulse Irregular Respiratory: Yes: Other (clear anteriorly, chest tube) Gastrointestinal: Yes: Soft Edema: No Neurological: Yes: Confusion no jaundice, diaphoresis not agitated - ....Imaging EKG: Image Reviewed Assessment/Plan DATA: ekg: irregular rhythm, AF vs NSR w/ frequent APCs ct chest: bl mod-large pleural eff Echo 06/2016: nl lv/rv. abnormal diastology. 1+ MAC 1+ Ao dilation Echo 2014: nl LV/EF; nl RV; nl LA; mild-mod TR; RVSP 30-40; mild dil ao root tele: afib with APCs Assessment and Plan: 88 yo with h/o male HTN, HPL, CVA (acute R thalamic bleed at that time, suspected hypertensive etiology), DM2 admitted for anemia, ams, possible cirrhosis. Anemia: -hgb in 6s initially, remains low -Guaiac negative. -Family declined endoscopy (see GI note) HTN: -cont current meds Elevated cardiac enzymes: -no ekg changes -trop in borderline range x2 with flat trend, trop similar to prior baseline values-->not c/w acs -no ischemic w/u needed at this time [place]/CKD: -cr above baseline, possibly due to anemia, monitor cr Pleural effs: -s/p chest tube -cont iv lasix - echo - mild conc LVH, nl LV/RV function, mild ao root dilation AF vs NSR w/ frequent APCS: -confirmed on EKG. does not appear to be candidate for full AC due to possible cirrhosis, anemia, thrombocytopenia, prior ICH. Risks of full AC greater than potential benefits. consider low dose ASA when chest tube removed
--- NOTE | 2018-12-18 12:18 | PN ---
Progress Note (short form) - Note Progress Note: PULMONARY Chest tube drained >500mL last 24 hrs. Pleural fluid consistent with transudate , cholesterol pending. Vital Signs Period Temp Pulse Resp BP Sys/Car Pulse Ox Last 24 Hr 98 F-98.3 F 69-80 13-19 118-134/54-84 94-98 Gen: NAD at rest Heart: RRR Lung: decreased breath sounds at the bases Abd: soft, nontender Ext: no edema Chest tube with serous drainage, no air leak CBC, BMP 12/18/18 05:50 12/18/18 05:50 Laboratory Tests 12/13/18 15:23 Fluid Glucose 109 Fluid Total Protein 1.9 Fluid Albumin 1.0 Body Fluid LDH Source 70 Fluid Amylase 23 Fluid Triglycerides 14 Active Medications Bacitracin (Bacitracin -) 1 applic TP DAILY [facility] Last Admin: 12/18/18 09:39 Dose: 1 applic Furosemide (Lasix Injection -) 40 mg IVPB BID@0600,1400 [facility] Last Admin: 12/18/18 05:38 Dose: 40 mg Hydralazine HCl (Apresoline -) 25 mg PO BID [facility] Last Admin: 12/18/18 09:39 Dose: 25 mg Insulin Aspart (Novolog Vial Sliding Scale -) 1 vial SQ ACHS [facility]; Protocol Last Admin: 12/18/18 10:59 Dose: Not Given A/P Acute on Chronic Diastolic Heart Failure Pulmonary HTN Pleural Effusions Acute on Chronic Renal Failure HTN DM h/o CVA Anemia Dementia - monitor H/H - transfuse as needed - continue lasix - monitor urine output, creatinine - O2 to keep SpO2 >90% - aspiration precautions - monitor chest tube output - repeat CXR in AM - DVT prophylaxis Problem List - Problems (1) Anemia Code(s): D64.9 - ANEMIA, UNSPECIFIED Qualifiers: Anemia type: unspecified type Qualified Code(s): D64.9 - Anemia, unspecified (2) Pleural effusion Code(s): J90 - PLEURAL EFFUSION, NOT ELSEWHERE CLASSIFIED
--- NOTE | 2018-12-18 13:57 | PN ---
Progress Note, Physician History of Present Illness: Pt seen and examined at bedside. He is awake and appears comfortable. - Current Medication List Current Medications: Active Medications Bacitracin (Bacitracin -) 1 applic TP DAILY [facility] Last Admin: 12/18/18 09:39 Dose: 1 applic Furosemide (Lasix Injection -) 40 mg IVPB BID@0600,1400 [facility] Last Admin: 12/18/18 05:38 Dose: 40 mg Hydralazine HCl (Apresoline -) 25 mg PO BID [facility] Last Admin: 12/18/18 09:39 Dose: 25 mg Insulin Aspart (Novolog Vial Sliding Scale -) 1 vial SQ ACHS [facility]; Protocol Last Admin: 12/18/18 10:59 Dose: Not Given - Objective Vital Signs: Vital Signs Temperature 98.1 F 12/18/18 04:00 Pulse Rate 69 12/18/18 08:05 Respiratory Rate 17 12/18/18 08:05 Blood Pressure 133/84 12/18/18 08:05 O2 Sat by Pulse Oximetry (%) 94 L 12/18/18 09:00 Constitutional: Yes: Calm Eyes: Yes: Conjunctiva Clear HENT: Yes: Atraumatic Neck: Yes: Supple Cardiovascular: Yes: S1, S2 Respiratory: Yes: On Nasal O2, Other (left side chest tube) Genitourinary: Yes: WNL Musculoskeletal: Yes: WNL Edema: Yes Edema: LLE: Trace, RLE: Trace Integumentary: Yes: WNL Neurological: Yes: Confusion Labs: CBC, BMP 12/18/18 05:50 12/18/18 05:50 INR, PTT INR 1.13 (0.83-1.09) H 12/12/18 12:20 Problem List - Problems (1) Elevation of cardiac enzymes Code(s): R74.8 - ABNORMAL LEVELS OF OTHER SERUM ENZYMES (2) Hyperkalemia Code(s): E87.5 - HYPERKALEMIA (3) Pleural effusion Code(s): J90 - PLEURAL EFFUSION, NOT ELSEWHERE CLASSIFIED (4) CKD (chronic kidney disease) Code(s): N18.9 - CHRONIC KIDNEY DISEASE, UNSPECIFIED Qualifiers: Chronic kidney disease stage: stage 3 (moderate) Qualified Code(s): N18.3 - Chronic kidney disease, stage 3 (moderate) Assessment/Plan Current Medications Generic Name Dose Route Start Last Admin Trade Name Binh PRN Reason Stop Dose Admin Bacitracin 1 applic 12/13/18 10:00 12/18/18 09:39 Bacitracin - TP 1 applic DAILY [facility] Administration Furosemide 40 mg 12/13/18 14:00 12/18/18 05:38 Lasix Injection - IVPB 40 mg BID@0600,1400 [facility] Administration Hydralazine HCl 25 mg 12/14/18 22:00 12/18/18 09:39 Apresoline - PO 25 mg BID [facility] Administration Insulin Aspart 1 vial 12/12/18 22:00 12/18/18 10:59 Novolog Vial Sliding Scale - SQ Not Given ACHS [facility] Protocol Impression 1. hyperkalemia 2. CKD 3. pleural effusion 4. htn 5. dm 6, dementia 7. renal cyst Plan - sodium is improving - monitor renal function - cont lasix, evaluate for PO lasix tomorrow - monitor chest tube output - pulmonary follow up - losartan on hold - cont lasix - renal cyst will need to be followed Dr Mcgrath
[2018-12-18] MEDS ORDERED: PT OWN MED DRAWER 7, Y5N ONE (18:18)
--- NOTE | 2018-12-18 19:29 | PATH ---
Cytology Non-Gynecological Report Patient Name: SHELTON GUPTA Med. Rec. #: [id number] /Age/Gender: 1930 (Age: 88) / M Account: [id number] Location: EMERGENCY ROOM Taken: 12/13/2018 Received: 12/18/2018 Reported: 12/18/2018 Physicians: Pavel Bull M.D., M.D. Specimen(s) Received PLEURAL FLUID Clinical History For Pleural effusion Final Diagnosis PLEURAL FLUID, THORACENTESIS: SATISFACTORY FOR EVALUATION NO MALIGNANT CELLS IDENTIFIED. MESOTHELIAL CELLS, MACROPHAGES, AND RARE LYMPHOCYTES PRESENT. Electronically Signed Priyanka Coleman M.D. Gross Description Approximately 50cc of yellow fluid received fixed in 50% alcohol. One slide and one cellblock prepared.
[2018-12-19] MEDS: FUROSEMIDE 40 MG/4 ML INJECTABLE VIAL IVPB SCH ×2 (05:30→13:25)
[2018-12-19] MEDS: INSULIN SLIDING SCALE (NOVOLOG) 1 VIAL SQ SCH ×4 (06:25→21:24)
--- NOTE | 2018-12-19 09:36 | CONSULT ---
Admitting History and Physical - Primary Care Physician PCP: Jeane Rosales - Admission History of Present Illness: 88 yo with h/o male HTN, HPL, CVA (acute R thalamic bleed at that time, suspected hypertensive etiology), DM2 admitted for anemia, ams, possible cirrhosis. Selected Entries 12/18/18 12/18/18 12/18/18 00:00 04:00 10:00 Breakfast 75% Lunch Supper Temperature 98.0 F 98.1 F 12/18/18 12/18/18 12/18/18 15:29 18:07 22:00 Breakfast Lunch 100% Supper Temperature 98 F 98 F 12/18/18 12/19/18 22:39 06:00 Breakfast Lunch Supper 75% Temperature 98 F Laboratory Tests 12/18/18 05:50 WBC 4.9 History Source: Medical Record Limitations to Obtaining History: Clinical Condition, Dementia - Past Medical History [place]: Yes: CVA, Dementia Cardiovascular: Yes: CHF, HTN Gastrointestinal: Yes: Other (vomiting) Hepatobiliary: No: Cirrhosis, Cholelithiasis, Cholecystitis, Choledocholithiasis , Hepatitis A, Hepatitis B, Hepatitis C, Other Renal/: Yes: Renal Inusuff Heme/Onc: No: Anemia, B12 Deficiency, Bleeding Disorder, Cancer, Current Chemotherapy, Current Radiation Therapy, Hemochromatosis, Hypercoaguable State, Myeloproliferative Synd, Sickle Cell Disease, Sickle Cell Trait, Thrombocytopenia, Other Psych: No: Anxiety, Bipolar, Depression, Panic, Psychosis, Schizophrenia, Other Rheumatology: No: Fibromyalgia, Gout, Lupus, Rheumatoid Arthritis, Sarcoidosis, Vasculitis, Other Endocrine: Yes: Diabetes Mellitus - Smoking History Smoking history: Unknown if ever smoked Have you smoked in the past 12 months: No Aproximately how many cigarettes per day: 0 If you are a former smoker, when did you quit?: 52 yrs old - Alcohol/Substance Use Hx Alcohol Use: No (unknown) - Social History ADL: Support Services History of Recent Travel: No History - Admission Reason For Visit: CALCULUS OF KIDNEY - Diagnostics X-ray: Report Reviewed CT Scan: Report Reviewed - General Mental Status: Lethargic (opens eyes briefly. Rare single words. Reported to speak in sentences with family yesterday in [facility]) Head/Neck Control: Good - Hearing Hearing: Functional Hearing: Normal Speech Evaluation - Communication Primary Language: YI Communication: Yes: Simple Responses - Speech Production Intelligibility: Yes: WNL - Speech Characteristics Voice Loudness: Normal Voice Pitch: Yes: Normal Voice Phonatory-based Quality: Yes: Normal Speech Pattern: Normal Speech Clarity: < 100% Nasal Resonance: Normal Articulation: Yes: Precise - Swallow Evaluation/Bedside Assessment Current Nutritional Intake: Full Liquids Oral Secretions: Yes: WFL Dentition: Yes: Edentulous (upper), Missing Teeth Facial Symmetry at Rest: Symmetrical Lingual Movement: Symmetric Lingual Speed of Movement: Normal Laryngeal Movement: Able to Palpate Rate of Intake: WFL Bolus Size: WFL Labial Seal: WFL Oral Prep Time: WFL A-P Transit: WFL Timing of Swallow: WFL Coughing/Throat Clear: No Change in Voice: No Recommendations - Speech Evaluation, Impression/Plan Impression: PT coughed repeatedly on liquids via straw yesterday but had no difficulty this morning, per [employer]. Limited cooperation with me but did accept 6 continuous sips of water from a cup without overt difficulty. - Dysphagia Impressions/Plan Dysphagia Impressions: Ongoing Evaluation *Silent aspiration: cannot be R/O at bedside Dysphagia Treatment Plan: Small Bites, Chin Tuck/Down, Trial Feedings, Facilitative Feeding, Safe Rate, 1/2 tsp. at a time, Other (avoid straws. Monitor tolerance.) - Recommendations Diet Consistency: Other (Continue full fluids.Feed only when alert) Medication Administration: Crushed with applesauce Liquids: Thin Liquids (If cough, downgrade to nectar)
[2018-12-19] MEDS: BACITRACIN 15 GM TUBE TOPICAL OINTMENT TP SCH (10:04)
--- NOTE | 2018-12-19 10:08 | PN ---
Progress Note, Physician Chief Complaint: ASLEEP CALM NO COMPLAINTS/NON-VERBAL - Current Medication List Current Medications: Active Medications Bacitracin (Bacitracin -) 1 applic TP DAILY [facility] Last Admin: 12/18/18 09:39 Dose: 1 applic Furosemide (Lasix Injection -) 40 mg IVPB BID@0600,1400 [facility] Last Admin: 12/19/18 05:30 Dose: 40 mg Hydralazine HCl (Apresoline -) 25 mg PO BID [facility] Last Admin: 12/18/18 21:43 Dose: 25 mg Insulin Aspart (Novolog Vial Sliding Scale -) 1 vial SQ ACHS [facility]; Protocol Last Admin: 12/19/18 06:25 Dose: Not Given - Objective Vital Signs: Vital Signs Temperature 98 F 12/19/18 06:00 Pulse Rate 69 12/19/18 06:00 Respiratory Rate 24 H 12/19/18 06:00 Blood Pressure 122/61 12/19/18 06:00 O2 Sat by Pulse Oximetry (%) 93 L 12/19/18 02:00 Constitutional: Yes: No Distress Cardiovascular: Yes: Pulse Irregular Respiratory: Yes: Diminished Gastrointestinal: Yes: Normal Bowel Sounds, Soft Genitourinary: Yes: Faustin Present Musculoskeletal: Yes: Muscle Weakness Edema: Yes Integumentary: Yes: Rash Wound/Incision: Yes: Open to air, Dressing Dry and Intact Neurological: Yes: Aphasia, Confusion Psychiatric: Yes: Other Labs: CBC, BMP 12/18/18 05:50 12/18/18 05:50 INR, PTT INR 1.13 (0.83-1.09) H 12/12/18 12:20 Problem List - Problems (1) CVA, old, cognitive deficits Code(s): I69.319 - UNSP SYMPTOMS AND SIGNS W COGN FNCTNS FOL CEREBRAL INFRC (2) Abnormal CT of the abdomen Code(s): R93.5 - ABN FINDINGS ON DX IMAGING OF ABD REGIONS, INC RETROPERITON (3) Anasarca Code(s): R60.1 - GENERALIZED EDEMA (4) Anemia Code(s): D64.9 - ANEMIA, UNSPECIFIED Qualifiers: Anemia type: unspecified type Qualified Code(s): D64.9 - Anemia, unspecified (5) HTN (hypertension) Code(s): I10 - ESSENTIAL (PRIMARY) HYPERTENSION (6) Hyperkalemia Code(s): E87.5 - HYPERKALEMIA (7) Pleural effusion Code(s): J90 - PLEURAL EFFUSION, NOT ELSEWHERE CLASSIFIED (8) [place] (acute kidney injury) Code(s): N17.9 - ACUTE KIDNEY FAILURE, UNSPECIFIED (9) Acute on chronic renal failure Code(s): N17.9 - ACUTE KIDNEY FAILURE, UNSPECIFIED; N18.9 - CHRONIC KIDNEY DISEASE, UNSPECIFIED (10) Agitation requiring sedation protocol Code(s): R45.1 - RESTLESSNESS AND AGITATION (11) Dementia Code(s): F03.90 - UNSPECIFIED DEMENTIA WITHOUT BEHAVIORAL DISTURBANCE (12) Diabetes Code(s): E11.9 - TYPE 2 DIABETES MELLITUS WITHOUT COMPLICATIONS Assessment/Plan CHF STABLE LASIX IV MONITOR DAILY [facility] FOLLOW UP PULMONARY SUPPORT RESTRAINTS FOR INTERRUPTION OF CARE DC FAUSTIN CONTINUE LIQUID DIET CHECK SWALLOW EVAL DC PLANNING
[2018-12-19] MEDS: hydrALAZINE HCL 25 MG TABLET (FP) PO SCH ×2 (10:09→21:24)
--- NOTE | 2018-12-19 10:12 | PN ---
Progress Note (short form) - Note Progress Note: lethargic, not answering questions Current Medications Bacitracin (Bacitracin -) 1 applic TP DAILY [facility] Last Admin: 12/19/18 10:04 Dose: 1 applic Furosemide (Lasix Injection -) 40 mg IVPB BID@0600,1400 [facility] Last Admin: 12/19/18 05:30 Dose: 40 mg Hydralazine HCl (Apresoline -) 25 mg PO BID [facility] Last Admin: 12/19/18 10:09 Dose: 25 mg Insulin Aspart (Novolog Vial Sliding Scale -) 1 vial SQ ACHS [facility]; Protocol Last Admin: 12/19/18 06:25 Dose: Not Given Vital Signs Period Temp Pulse Resp BP Sys/Car Pulse Ox Last 24 Hr 98 F-98 F 63-84 13-24 117-145/54-80 93-95 Constitutional: Yes: No Distress Cardiovascular: Yes: Pulse Irregular Respiratory: Yes: Other (clear anteriorly, chest tube) Gastrointestinal: Yes: Soft Edema: No Neurological: Yes: Confusion no jaundice, diaphoresis not agitated - ....Imaging EKG: Image Reviewed Assessment/Plan DATA: ekg: irregular rhythm, AF vs NSR w/ frequent APCs ct chest: bl mod-large pleural eff Echo 06/2016: nl lv/rv. abnormal diastology. 1+ MAC 1+ Ao dilation Echo 2014: nl LV/EF; nl RV; nl LA; mild-mod TR; RVSP 30-40; mild dil ao root tele: afib with APCs Assessment and Plan: 88 yo with h/o male HTN, HPL, CVA (acute R thalamic bleed at that time, suspected hypertensive etiology), DM2 admitted for anemia, ams, possible cirrhosis. Anemia: -hgb in 6s initially, remains low -Guaiac negative. -Family declined endoscopy (see GI note) HTN: -cont current meds Elevated cardiac enzymes: -no ekg changes -trop in borderline range x2 with flat trend, trop similar to prior baseline values-->not c/w acs -no ischemic w/u needed at this time [place]/CKD: -cr above baseline, possibly due to anemia, monitor cr Pleural effs: -s/p chest tube -cont iv lasix, Cr stable - echo - mild conc LVH, nl LV/RV function, mild ao root dilation AF vs NSR w/ frequent APCS: -confirmed on EKG. does not appear to be candidate for full AC due to possible cirrhosis, anemia, thrombocytopenia, prior ICH. Risks of full AC greater than potential benefits. consider low dose ASA when chest tube removed
--- NOTE | 2018-12-19 10:57 | PN ---
Progress Note (short form) - Note Progress Note: PULMONARY Chest tube drained ~200mL last 24 hrs. Pt not answering questions but appears comfortable. Vital Signs Period Temp Pulse Resp BP Sys/Car Pulse Ox Last 24 Hr 98 F-98 F 63-84 13-24 117-145/54-80 93-95 Intake & Output 12/16/18 12/17/18 12/18/18 12/19/18 23:59 23:59 23:59 23:59 Intake Total 2016 876 2920 130 Output Total 3660 1520 2620 520 Balance -2220 -1070 -1620 -390 Weight 89.159 kg 84.964 kg 87.5 kg 86.999 kg Gen: NAD at rest Heart: RRR Lung: decreased breath sounds at the bases Abd: soft, nontender Ext: no edema Chest tube with serous drainage, no air leak CBC, BMP 12/18/18 05:50 12/18/18 05:50 Active Medications Bacitracin (Bacitracin -) 1 applic TP DAILY [facility] Last Admin: 12/19/18 10:04 Dose: 1 applic Furosemide (Lasix Injection -) 40 mg IVPB BID@0600,1400 [facility] Last Admin: 12/19/18 05:30 Dose: 40 mg Hydralazine HCl (Apresoline -) 25 mg PO BID [facility] Last Admin: 12/19/18 10:09 Dose: 25 mg Insulin Aspart (Novolog Vial Sliding Scale -) 1 vial SQ [facility]; Protocol Last Admin: 12/19/18 06:25 Dose: Not Given A/P Acute on Chronic Diastolic Heart Failure Pulmonary HTN Pleural Effusions - Transudate Acute on Chronic Renal Failure HTN DM h/o CVA Anemia Dementia - monitor H/H - transfuse as needed - continue lasix - monitor urine output, creatinine - O2 to keep SpO2 >90% - aspiration precautions - monitor chest tube output, can d/c when output <150mL/24hrs - f/u repeat CXR - DVT prophylaxis Problem List - Problems (1) Anemia Code(s): D64.9 - ANEMIA, UNSPECIFIED Qualifiers: Anemia type: unspecified type Qualified Code(s): D64.9 - Anemia, unspecified (2) Pleural effusion Code(s): J90 - PLEURAL EFFUSION, NOT ELSEWHERE CLASSIFIED
--- NOTE | 2018-12-19 12:56 | PN ---
Progress Note, Physician History of Present Illness: Pt seen and examined at bedside. He is awake and appears comfortable. - Current Medication List Current Medications: Active Medications Bacitracin (Bacitracin -) 1 applic TP DAILY [facility] Last Admin: 12/19/18 10:04 Dose: 1 applic Furosemide (Lasix Injection -) 40 mg IVPB BID@0600,1400 [facility] Last Admin: 12/19/18 05:30 Dose: 40 mg Hydralazine HCl (Apresoline -) 25 mg PO BID [facility] Last Admin: 12/19/18 10:09 Dose: 25 mg Insulin Aspart (Novolog Vial Sliding Scale -) 1 vial SQ ACHS [facility]; Protocol Last Admin: 12/19/18 11:20 Dose: Not Given - Objective Vital Signs: Vital Signs Temperature 98 F 12/19/18 06:00 Pulse Rate 69 12/19/18 06:00 Respiratory Rate 24 H 12/19/18 09:00 Blood Pressure 122/61 12/19/18 06:00 O2 Sat by Pulse Oximetry (%) 93 L 12/19/18 09:00 Constitutional: Yes: Calm Eyes: Yes: Conjunctiva Clear HENT: Yes: Atraumatic Neck: Yes: Supple Cardiovascular: Yes: S1, S2 Respiratory: Yes: Other (left side chest tube) Gastrointestinal: Yes: Soft Genitourinary: Yes: Mae Present Musculoskeletal: Yes: Muscle Weakness Edema: No Neurological: Yes: Oriented Psychiatric: Yes: Oriented Labs: CBC, BMP 12/18/18 05:50 12/18/18 05:50 INR, PTT INR 1.13 (0.83-1.09) H 12/12/18 12:20 Problem List - Problems (1) Elevation of cardiac enzymes Code(s): R74.8 - ABNORMAL LEVELS OF OTHER SERUM ENZYMES (2) Hyperkalemia Code(s): E87.5 - HYPERKALEMIA (3) Pleural effusion Code(s): J90 - PLEURAL EFFUSION, NOT ELSEWHERE CLASSIFIED (4) CKD (chronic kidney disease) Code(s): N18.9 - CHRONIC KIDNEY DISEASE, UNSPECIFIED Qualifiers: Chronic kidney disease stage: stage 3 (moderate) Qualified Code(s): N18.3 - Chronic kidney disease, stage 3 (moderate) Assessment/Plan Current Medications Generic Name Dose Route Start Last Admin Trade Name Freq PRN Reason Stop Dose Admin Bacitracin 1 applic 12/13/18 10:00 12/19/18 10:04 Bacitracin - TP 1 applic DAILY [facility] Administration Furosemide 40 mg 12/13/18 14:00 12/19/18 05:30 Lasix Injection - IVPB 40 mg BID@0600,1400 [facility] Administration Hydralazine HCl 25 mg 12/14/18 22:00 12/19/18 10:09 Apresoline - PO 25 mg BID [facility] Administration Insulin Aspart 1 vial 12/12/18 22:00 12/19/18 11:20 Novolog Vial Sliding Scale - SQ Not Given ACHS [facility] Protocol Impression 1. hyperkalemia 2. CKD 3. pleural effusion 4. htn 5. dm 6, dementia 7. renal cyst Plan - check bmp - will need to transition to PO lasix once stable - cardio follow up - monitor output - potassium had improved - losartan on hold - cont lasix - renal cyst will need to be followed Dr Mcgrath
[2018-12-20] MEDS: INSULIN SLIDING SCALE (NOVOLOG) 1 VIAL SQ SCH ×2 (06:23→11:33)
[2018-12-20] MEDS: FUROSEMIDE 40 MG/4 ML INJECTABLE VIAL IVPB SCH (06:23)
[2018-12-20 06:25] LABS: HEMATOCRIT 27.8 % (35.4-49); MCH 26.1 pg (25.7-33.7); MCHC 32.4 g/dl (32.0-35.9); MEAN CELL VOLUME 80.7 fl (80-96); MEAN PLT VOLUME 8.5 fl (7.5-11.1); PLATELET COUNT 121 K/MM3 (134-434); RBC 3.44 M/mm3 (4.00-5.60); RDW 20.6 % (11.9-15.9); WHITE BLOOD COUNT 4.7 K/mm3 (4.0-10.0)
[2018-12-20 06:56] LABS: ALBUMIN 2.6 g/dl (3.4-5.0); BILIRUBIN,TOTAL 0.4 mg/dL (0.2-1); BLOOD UREA NITROGEN 36.2 mg/dL (7-18); CALCIUM 8.2 mg/dL (8.5-10.1); CREATININE 1.7 mg/dL (0.55-1.3); TOT PROT 5.8 g/dl (6.4-8.2)
[2018-12-20] MEDS: BACITRACIN 15 GM TUBE TOPICAL OINTMENT TP SCH (09:17)
[2018-12-20] MEDS: hydrALAZINE HCL 25 MG TABLET (FP) PO SCH ×2 (09:17→21:23)
--- NOTE | 2018-12-20 10:08 | PN ---
Progress Note (short form) - Note Progress Note: s: no cp sob palps dizzy o: Vital Signs Period Temp Pulse Resp BP Sys/Car Pulse Ox Last 24 Hr 98.2 F-98.5 F 63-66 18-25 109-137/46-54 93 Constitutional: Yes: Well Nourished, No Distress Eyes: No: Sclera Icterus HENT: No: Nasal Congestion Respiratory: Yes: CTA Bilaterally. nl eff No: Accessory Muscle Use, Rales, Wheezes Gastrointestinal: Yes: Normal Bowel Sounds. No: Distention, Hepatomegaly, Palpable Mass, Tenderness Cardiovascular: Yes: Regular Rate and Rhythm JVD: No Carotid Bruit: No PMI: Non-Displaced Heart Sounds: Yes: S1, S2. No: Gallop Murmur: No: Systolic Murmur, Diastolic Murmur Extremities: No: Cold, Cyanosis Edema: No Integumentary: No: Jaundice Psychiatric: No: Agitated Current Medications Bacitracin (Bacitracin -) 1 applic TP DAILY [facility] Last Admin: 12/20/18 09:17 Dose: 1 applic Furosemide (Lasix Injection -) 40 mg IVPB BID@0600,1400 [facility] Last Admin: 12/20/18 06:23 Dose: 40 mg Hydralazine HCl (Apresoline -) 25 mg PO BID [facility] Last Admin: 12/20/18 09:17 Dose: 25 mg Insulin Aspart (Novolog Vial Sliding Scale -) 1 vial SQ ACHS [facility]; Protocol Last Admin: 12/20/18 06:23 Dose: Not Given CBC, BMP 12/20/18 05:45 12/20/18 05:45 ekg: sr, old rbbb, no sig change prior ct chest: bl mod-large pleural eff Echo 06/2016: nl lv/rv. abnormal diastology. 1+ MAC 1+ Ao dilation Echo 2014: nl LV/EF; nl RV; nl LA; mild-mod TR; RVSP 30-40; mild dil ao root tele: afib, rate ok Assessment and Plan: 88 yo with h/o male HTN, HPL, CVA (acute R thalamic bleed at that time, suspected hypertensive etiology), DM2 admitted for anemia, ams, possible cirrhosis. Anemia: -hgb in 6s initially, improved now -Guaiac negative. -Family declined endoscopy (see GI note) HTN: -cont current meds Elevated cardiac enzymes: -no ekg changes -trop in borderline range x2 with flat trend, trop similar to prior baseline values-->not c/w acs -no ischemic w/u needed at this time [place]/CKD: -cr above baseline, possibly due to anemia, monitor cr Pleural effs: -s/p chest tube -cont iv lasix, Cr stable -echo - mild conc LVH, nl LV/RV function, mild ao root dilation AF vs NSR w/ frequent APCS: -confirmed on EKG. does not appear to be candidate for full AC due to possible cirrhosis, anemia, thrombocytopenia, prior ICH. Risks of full AC greater than potential benefits. consider low dose ASA when chest tube removed
--- NOTE | 2018-12-20 12:09 | PN ---
Progress Note, Physician Chief Complaint: patient seen and examined awake - Current Medication List Current Medications: Active Medications Bacitracin (Bacitracin -) 1 applic TP DAILY [facility] Last Admin: 12/20/18 09:17 Dose: 1 applic Furosemide (Lasix Injection -) 40 mg IVPB BID@0600,1400 [facility] Last Admin: 12/20/18 06:23 Dose: 40 mg Hydralazine HCl (Apresoline -) 25 mg PO BID [facility] Last Admin: 12/20/18 09:17 Dose: 25 mg Insulin Aspart (Novolog Vial Sliding Scale -) 1 vial SQ ACHS [facility]; Protocol Last Admin: 12/20/18 11:33 Dose: Not Given - Objective Vital Signs: Vital Signs Temperature 98.5 F 12/19/18 22:00 Pulse Rate 70 12/20/18 08:00 Respiratory Rate 18 12/20/18 09:00 Blood Pressure 112/46 L 12/20/18 08:00 O2 Sat by Pulse Oximetry (%) 93 L 12/20/18 09:00 Constitutional: Yes: Calm Cardiovascular: Yes: Regular Rate and Rhythm, S1, S2 Respiratory: Yes: CTA Bilaterally (in upper med[place] decreased in bases), Other ( chest tube) Gastrointestinal: Yes: Normal Bowel Sounds, Soft Neurological: Yes: Alert Labs: CBC, BMP 12/20/18 05:45 12/20/18 05:45 INR, PTT INR 1.13 (0.83-1.09) H 12/12/18 12:20 Problem List - Problems (1) Anemia Assessment/Plan: s/p PRBC iron panel order noted low iron saturation will give venofer appreciate heme eval guaicic negative Code(s): D64.9 - ANEMIA, UNSPECIFIED Qualifiers: Anemia type: unspecified type Qualified Code(s): D64.9 - Anemia, unspecified (2) Hyperkalemia Assessment/Plan: got D50 insulin sodium bicarbonate and calcium still Potassium elevated renal eval Code(s): E87.5 - HYPERKALEMIA (3) Pleural effusion Assessment/Plan: iv lasix bid s/p chest tube placement Code(s): J90 - PLEURAL EFFUSION, NOT ELSEWHERE CLASSIFIED (4) [place] (acute kidney injury) Assessment/Plan: creatinine trending down Code(s): N17.9 - ACUTE KIDNEY FAILURE, UNSPECIFIED (5) Anasarca Assessment/Plan: lasix bid - improving diuretics Code(s): R60.1 - GENERALIZED EDEMA (6) HTN (hypertension) Assessment/Plan: hydralazine bid can up tritate if needed Code(s): I10 - ESSENTIAL (PRIMARY) HYPERTENSION
--- NOTE | 2018-12-20 12:12 | PN ---
Progress Note (short form) - Note Progress Note: PULMONARY Still with significant chest tube output. Denies shortness of breath or chest pain. Vital Signs Period Temp Pulse Resp BP Sys/Car Pulse Ox Last 24 Hr 98.5 F 63-70 18-23 109-137/46-51 93-93 Intake & Output 12/17/18 12/18/18 12/19/18 12/20/18 23:59 23:59 23:59 23:59 Intake Total 450 1000 360 Output Total 1520 2620 2020 900 Balance -1070 -1620 -1660 -900 Weight 84.964 kg 87.5 kg 87.09 kg 82.129 kg Gen: NAD at rest Heart: RRR Lung: decreased breath sounds at the bases Abd: soft, nontender Ext: no edema Chest tube with serous drainage, no air leak CBC, BMP 12/20/18 05:45 12/20/18 05:45 Active Medications Bacitracin (Bacitracin -) 1 applic TP DAILY [facility] Last Admin: 12/20/18 09:17 Dose: 1 applic Furosemide (Lasix Injection -) 40 mg IVPB BID@0600,1400 [facility] Last Admin: 12/20/18 06:23 Dose: 40 mg Hydralazine HCl (Apresoline -) 25 mg PO BID [facility] Last Admin: 12/20/18 09:17 Dose: 25 mg Insulin Aspart (Novolog Vial Sliding Scale -) 1 vial SQ ACHS [facility]; Protocol Last Admin: 12/20/18 11:33 Dose: Not Given A/P Acute on Chronic Diastolic Heart Failure Pulmonary HTN Pleural Effusions - Transudate Acute on Chronic Renal Failure HTN DM h/o CVA Anemia Dementia - continue lasix - monitor urine output, creatinine - O2 to keep SpO2 >90% - aspiration precautions - monitor chest tube output, can d/c when output <150mL/24hrs - f/u repeat CXR - DVT prophylaxis Problem List - Problems (1) Anemia Code(s): D64.9 - ANEMIA, UNSPECIFIED Qualifiers: Anemia type: unspecified type Qualified Code(s): D64.9 - Anemia, unspecified (2) Pleural effusion Code(s): J90 - PLEURAL EFFUSION, NOT ELSEWHERE CLASSIFIED
--- NOTE | 2018-12-20 12:29 | PN ---
Progress Note, Physician History of Present Illness: Pt seen and examined at bedside. He is awake and appears comfortable. - Current Medication List Current Medications: Active Medications Bacitracin (Bacitracin -) 1 applic TP DAILY [facility] Last Admin: 12/20/18 09:17 Dose: 1 applic Furosemide (Lasix Injection -) 40 mg IVPB BID@0600,1400 [facility] Last Admin: 12/20/18 06:23 Dose: 40 mg Hydralazine HCl (Apresoline -) 25 mg PO BID [facility] Last Admin: 12/20/18 09:17 Dose: 25 mg Insulin Aspart (Novolog Vial Sliding Scale -) 1 vial SQ ACHS [facility]; Protocol Last Admin: 12/20/18 11:33 Dose: Not Given - Objective Vital Signs: Vital Signs Temperature 98.5 F 12/19/18 22:00 Pulse Rate 70 12/20/18 08:00 Respiratory Rate 18 12/20/18 09:00 Blood Pressure 112/46 L 12/20/18 08:00 O2 Sat by Pulse Oximetry (%) 93 L 12/20/18 09:00 Constitutional: Yes: Calm Eyes: Yes: Conjunctiva Clear HENT: Yes: Atraumatic Cardiovascular: Yes: S1, S2 Respiratory: Yes: Other (left side chest tube) Gastrointestinal: Yes: Soft Genitourinary: Yes: Mae Present Musculoskeletal: Yes: Muscle Weakness Edema: Yes Edema: LLE: Trace, RLE: Trace Neurological: Yes: Oriented Psychiatric: Yes: Oriented Labs: CBC, BMP 12/20/18 05:45 12/20/18 05:45 INR, PTT INR 1.13 (0.83-1.09) H 12/12/18 12:20 Problem List - Problems (1) Elevation of cardiac enzymes Code(s): R74.8 - ABNORMAL LEVELS OF OTHER SERUM ENZYMES (2) Hyperkalemia Code(s): E87.5 - HYPERKALEMIA (3) Pleural effusion Code(s): J90 - PLEURAL EFFUSION, NOT ELSEWHERE CLASSIFIED (4) CKD (chronic kidney disease) Code(s): N18.9 - CHRONIC KIDNEY DISEASE, UNSPECIFIED Qualifiers: Chronic kidney disease stage: stage 3 (moderate) Qualified Code(s): N18.3 - Chronic kidney disease, stage 3 (moderate) Assessment/Plan Current Medications Generic Name Dose Route Start Last Admin Trade Name Freq PRN Reason Stop Dose Admin Bacitracin 1 applic 12/13/18 10:00 12/20/18 09:17 Bacitracin - TP 1 applic DAILY [facility] Administration Furosemide 40 mg 12/13/18 14:00 12/20/18 06:23 Lasix Injection - IVPB 40 mg BID@0600,1400 [facility] Administration Hydralazine HCl 25 mg 12/14/18 22:00 12/20/18 09:17 Apresoline - PO 25 mg BID [facility] Administration Insulin Aspart 1 vial 12/12/18 22:00 12/20/18 11:33 Novolog Vial Sliding Scale - SQ Not Given ACHS [facility] Protocol Impression 1. hyperkalemia 2. CKD 3. pleural effusion 4. htn 5. dm 6, dementia 7. renal cyst Plan - monitor chest tube output - cont lasix, switch to po tomorrow if stable - check cxr - pulm follow up - losartan to be started at lower dose once he stabilizes - renal cyst will need to be followed Dr Mcgrath
--- NOTE | 2018-12-20 12:45 | PN ---
Progress Note, [employer] - Note Progress Note: Selected Entries 12/19/18 12/19/18 12/19/18 02:00 06:00 09:00 Breakfast Temperature 98 F O2 Sat by Pulse 93 L 93 L Oximetry (%) 12/19/18 12/19/18 12/19/18 10:00 11:00 21:00 Breakfast 100% Temperature 98.2 F O2 Sat by Pulse 99 93 L Oximetry (%) 12/19/18 12/20/18 12/20/18 22:00 09:00 11:18 Breakfast 100% Temperature 98.5 F O2 Sat by Pulse 93 L Oximetry (%) Laboratory Tests 12/20/18 05:45 WBC 4.7 Verbal. Appears comfortable. Coughing repeatedly on lunch- full fluids/thin liquid. Has chest tube. REC: Puree/nectar MBS, when able
[2018-12-20] MEDS ORDERED: FUROSEMIDE 40 MG/4 ML INJECTABLE VIAL IVPB SCH (13:09)
[2018-12-21] MEDS ORDERED: FUROSEMIDE 40 MG TABLET (FP) PO SCH (06:00)
[2018-12-21 06:43] LABS: BASO % 1.3 % (0-2.0); EOS % 2.4 % (0-4.5); HEMOGLOBIN 9.3 GM/dL (11.7-16.9); LYMPH % 11.2 % (8-40); MCHC 32.1 g/dl (32.0-35.9); MEAN CELL VOLUME 81.2 fl (80-96); MEAN PLT VOLUME 9.1 fl (7.5-11.1); MONO % 6.5 % (3.8-10.2); NEUT % 78.6 % (42.8-82.8); PLATELET COUNT 122 K/MM3 (134-434); RBC 3.57 M/mm3 (4.00-5.60); RDW 21.7 % (11.9-15.9)
[2018-12-21 06:45] LABS: ALBUMIN 2.6 g/dl (3.4-5.0); BILIRUBIN,TOTAL 0.5 mg/dL (0.2-1); BLOOD UREA NITROGEN 36.4 mg/dL (7-18); CALCIUM 8.1 mg/dL (8.5-10.1); CREATININE 1.8 mg/dL (0.55-1.3); TOT PROT 5.8 g/dl (6.4-8.2)
--- NOTE | 2018-12-21 08:19 | PN ---
Progress Note, Physician Chief Complaint: awake but does not really respond appropriately to questions: nods and shakes his head Tele: Controlled AF History of Present Illness: On PO Lasix, weight stable - Current Medication List Current Medications: Active Medications Bacitracin (Bacitracin -) 1 applic TP DAILY [facility] Last Admin: 12/20/18 09:17 Dose: 1 applic Furosemide (Lasix -) 40 mg PO BID@0600,1400 [facility] Last Admin: 12/21/18 06:32 Dose: 40 mg Hydralazine HCl (Apresoline -) 25 mg PO BID [facility] Last Admin: 12/20/18 21:23 Dose: 25 mg - Objective Vital Signs: Vital Signs Temperature 98 F 12/21/18 06:00 Pulse Rate 61 12/21/18 06:00 Respiratory Rate 22 H 12/21/18 06:00 Blood Pressure 120/44 L 12/21/18 06:00 O2 Sat by Pulse Oximetry (%) 98 12/20/18 20:10 Constitutional: Yes: Calm Cardiovascular: Yes: Pulse Irregular Respiratory: Yes: CTA Bilaterally, Other (chest tube remains in place) Gastrointestinal: Yes: Soft Edema: No Labs: CBC, BMP 12/21/18 05:30 12/21/18 05:30 INR, PTT INR 1.13 (0.83-1.09) H 12/12/18 12:20 - ....Imaging EKG: Image Reviewed Assessment/Plan Assessment and Plan: 88 yo with h/o male HTN, HPL, CVA (acute R thalamic bleed at that time, suspected hypertensive etiology), DM2 admitted for anemia, ams, possible cirrhosis. Anemia: -hgb in 6s initially, improved now -Guaiac negative. -Family declined endoscopy (see GI note) HTN: -cont current meds Elevated cardiac enzymes: -no ekg changes -trop in borderline range x2 with flat trend, trop similar to prior baseline values-->not c/w acs -no ischemic w/u needed at this time [place]/CKD: -cr above baseline, now seems to have stabilized Pleural effs: -s/p chest tube -now on PO Lasix, Cr stable -echo - mild conc LVH, nl LV/RV function, mild ao root dilation AF vs NSR w/ frequent APCS: -confirmed on EKG. does not appear to be candidate for full AC due to possible cirrhosis, anemia, thrombocytopenia, prior ICH. Risks of full AC greater than potential benefits. consider low dose ASA when chest tube removed
[2018-12-21 09:13] LABS: ANISOCYTOSIS 1+; MACROCYTOSIS 0; PLATELET ESTIMATE DECREASED
--- NOTE | 2018-12-21 09:30 | PN ---
Physical Exam: -----NEPRHOLOGY SERVICE (RESIDENT)------- SUBJECTIVE: Limited due to medical history. Comfortable and breathing comfortably. Chest tube continues to drain, however decreasing day-to-day. OBJECTIVE: Vital Signs Period Temp Pulse Resp BP Sys/Car Pulse Ox Last 24 Hr 98 F-98.4 F 53-74 15-22 98-132/43-57 93-98 GENERAL: The patient is awake, alert, and fully oriented, in no acute distress. NECK: No JVD noted LUNGS: Diminished breath sounds with crackles at the bases b/l. Improved aeration. No wheezes. No accessory muscle use. HEART: RRR, S1, S2 without murmur ABDOMEN: Soft, NT/ND, no hepatojugular reflux, normoactive bowel sounds, no guarding EXTREMITIES: 2+ DP pulses, warm, well-perfused, no edema. SKIN: no rashes Laboratory Results 12/21/18 12/21/18 05:30 05:30 WBC 5.0 RBC 3.57 L Hgb 9.3 L Hct 29.0 L MCV 81.2 MCH 26.0 MCHC 32.1 RDW 21.7 H Plt Count 122 L MPV 9.1 Absolute Neuts (auto) 4.0 Neutrophils % 78.6 Lymphocytes % 11.2 Monocytes % 6.5 Eosinophils % 2.4 D Basophils % 1.3 Nucleated RBC % 0 Sodium 141 Potassium 4.0 Chloride 107 Carbon Dioxide 27 Anion Gap 6 L BUN 36.4 H Creatinine 1.8 H Est GFR (CKD-EPI)AfAm 38.64 Est GFR (CKD-EPI)NonAf 33.34 POC Glucometer Random Glucose 90 Calcium 8.1 L Total Bilirubin 0.5 AST 22 ALT 17 Alkaline Phosphatase 90 Total Protein 5.8 L Albumin 2.6 L Blood Type Antibody Screen Crossmatch Active Medications Generic Name Dose Route Start Last Admin Trade Name Freq PRN Reason Stop Dose Admin Bacitracin 1 applic 12/13/18 10:00 12/20/18 09:17 Bacitracin - TP 1 applic DAILY [facility] Administration Furosemide 40 mg 12/21/18 06:00 12/21/18 06:32 Lasix - PO 40 mg BID@0600,1400 [facility] Administration Hydralazine HCl 25 mg 12/14/18 22:00 12/20/18 21:23 Apresoline - PO 25 mg BID [facility] Administration ASSESSMENT/PLAN: CKD Pleural effusion Renal Cyst HTN DM Dementia Hyperkalemia (resolved) --Would continue with Lasix PO BID and monitor --Cr (1.7 --> 1.8 today); around patient's baseline Cr per previous records --Previous CXR showing increase R base effusion --Once pt Cr stabilizes can start Losartan at lower dose --Renal cyst incidentally found on ultrasound; to be followed on outpatient basis Case to be discussed with Dr. Alcides Ambrocio, DO - IM PGY-3 Visit type - Emergency Visit Emergency Visit: Yes ED Registration Date: 12/12/18 Care time: The patient presented to the Emergency Department on the above date and was hospitalized for further evaluation of their emergent condition. - New Patient This patient is new to me today: No - Critical Care Critical Care patient: No
[2018-12-21] MEDS: hydrALAZINE HCL 25 MG TABLET (FP) PO SCH ×2 (11:13→22:31)
[2018-12-21] MEDS: BACITRACIN 15 GM TUBE TOPICAL OINTMENT TP SCH (11:13)
--- NOTE | 2018-12-21 11:17 | PN ---
Progress Note (short form) - Note Progress Note: PULMONARY CXR still with congestive changes, pleural effusions. Denies shortness of breath or chest pain. Vital Signs Period Temp Pulse Resp BP Sys/Car Pulse Ox Last 24 Hr 98 F-98.4 F 53-74 15-22 98-132/43-57 93-98 Intake & Output 12/18/18 12/19/18 12/20/18 12/21/18 23:59 23:59 23:59 23:59 Intake Total 1000 360 100 100 Output Total 2620 2019 2199 1200 Balance -1620 -1660 -2099 -1100 Weight 87.5 kg 87.09 kg 82.129 kg 82.3 kg Gen: NAD at rest Heart: RRR Lung: decreased breath sounds at the bases Abd: soft, nontender Ext: no edema Chest tube with serous drainage, no air leak CBC, BMP 12/21/18 05:30 12/21/18 05:30 Active Medications Bacitracin (Bacitracin -) 1 applic TP DAILY [facility] Last Admin: 12/21/18 11:13 Dose: 1 applic Furosemide (Lasix -) 40 mg PO BID@0600,1400 [facility] Last Admin: 12/21/18 06:32 Dose: 40 mg Hydralazine HCl (Apresoline -) 25 mg PO BID [facility] Last Admin: 12/21/18 11:13 Dose: 25 mg A/P Acute on Chronic Diastolic Heart Failure Pulmonary HTN Pleural Effusions - Transudate Acute on Chronic Renal Failure HTN DM h/o CVA Anemia Dementia - continue lasix - monitor urine output, creatinine - O2 to keep SpO2 >90% - aspiration precautions - monitor chest tube output, can d/c when output <150mL/24hrs - monitor CXR - DVT prophylaxis Problem List - Problems (1) Anemia Code(s): D64.9 - ANEMIA, UNSPECIFIED Qualifiers: Anemia type: unspecified type Qualified Code(s): D64.9 - Anemia, unspecified (2) Pleural effusion Code(s): J90 - PLEURAL EFFUSION, NOT ELSEWHERE CLASSIFIED
--- NOTE | 2018-12-21 11:42 | PN ---
Progress Note, Physician Chief Complaint: patient seen and examined chest tube output was 830ml last night adn since 600:am is about 30ml - Current Medication List Current Medications: Active Medications Bacitracin (Bacitracin -) 1 applic TP DAILY [facility] Last Admin: 12/21/18 11:13 Dose: 1 applic Furosemide (Lasix -) 40 mg PO BID@0600,1400 [facility] Last Admin: 12/21/18 06:32 Dose: 40 mg Hydralazine HCl (Apresoline -) 25 mg PO BID [facility] Last Admin: 12/21/18 11:13 Dose: 25 mg - Objective Vital Signs: Vital Signs Temperature 98 F 12/21/18 06:00 Pulse Rate 61 12/21/18 06:00 Respiratory Rate 22 H 12/21/18 06:00 Blood Pressure 120/44 L 12/21/18 06:00 O2 Sat by Pulse Oximetry (%) 98 12/20/18 20:10 Constitutional: Yes: Calm Cardiovascular: Yes: Regular Rate and Rhythm, S1, S2 Respiratory: Yes: Diminished (more on right side), Other (chest tube) Gastrointestinal: Yes: Normal Bowel Sounds, Soft Neurological: Yes: Alert Labs: CBC, BMP 12/21/18 05:30 12/21/18 05:30 INR, PTT INR 1.13 (0.83-1.09) H 12/12/18 12:20 Problem List - Problems (1) Pleural effusion Assessment/Plan: iv lasix bid s/p chest tube placement pleural fluid analysis noted to be transudative chest tube draiange being monitored Code(s): J90 - PLEURAL EFFUSION, NOT ELSEWHERE CLASSIFIED (2) Anemia Assessment/Plan: s/p PRBC iron panel order noted low iron saturation s/p one dose of venofer appreciate heme eval guaicic negative Code(s): D64.9 - ANEMIA, UNSPECIFIED Qualifiers: Anemia type: unspecified type Qualified Code(s): D64.9 - Anemia, unspecified (3) Hyperkalemia Assessment/Plan: improved Code(s): E87.5 - HYPERKALEMIA (4) [place] (acute kidney injury) Assessment/Plan: creatinine trending down Code(s): N17.9 - ACUTE KIDNEY FAILURE, UNSPECIFIED (5) Anasarca Assessment/Plan: lasix bid - improving diuretics Code(s): R60.1 - GENERALIZED EDEMA (6) HTN (hypertension) Assessment/Plan: hydralazine bid can up tritate if needed Code(s): I10 - ESSENTIAL (PRIMARY) HYPERTENSION Assessment/Plan Debra sneed recommendations noted to get MBS after chest tube is removed
--- NOTE | 2018-12-21 12:23 | PN ---
Progress Note, Physician History of Present Illness: Pt seen and examined at bedside. He is awake and appears comfortable. He still has the chest tube. - Current Medication List Current Medications: Active Medications Bacitracin (Bacitracin -) 1 applic TP DAILY [facility] Last Admin: 12/21/18 11:13 Dose: 1 applic Furosemide (Lasix -) 40 mg PO BID@0600,1400 [facility] Last Admin: 12/21/18 06:32 Dose: 40 mg Hydralazine HCl (Apresoline -) 25 mg PO BID [facility] Last Admin: 12/21/18 11:13 Dose: 25 mg - Objective Vital Signs: Vital Signs Temperature 98 F 12/21/18 06:00 Pulse Rate 61 12/21/18 06:00 Respiratory Rate 22 H 12/21/18 06:00 Blood Pressure 120/44 L 12/21/18 06:00 O2 Sat by Pulse Oximetry (%) 98 12/20/18 20:10 Constitutional: Yes: Calm Eyes: Yes: Conjunctiva Clear HENT: Yes: Atraumatic Neck: Yes: Supple Cardiovascular: Yes: S1, S2 Respiratory: Yes: On Nasal O2, Other (left side chest tube) Gastrointestinal: Yes: Soft Genitourinary: Yes: Mae Present Musculoskeletal: Yes: WNL Edema: Yes Edema: LLE: Trace, RLE: Trace Neurological: Yes: Confusion Labs: CBC, BMP 12/21/18 05:30 12/21/18 05:30 INR, PTT INR 1.13 (0.83-1.09) H 12/12/18 12:20 Problem List - Problems (1) Elevation of cardiac enzymes Code(s): R74.8 - ABNORMAL LEVELS OF OTHER SERUM ENZYMES (2) Hyperkalemia Code(s): E87.5 - HYPERKALEMIA (3) Pleural effusion Code(s): J90 - PLEURAL EFFUSION, NOT ELSEWHERE CLASSIFIED (4) CKD (chronic kidney disease) Code(s): N18.9 - CHRONIC KIDNEY DISEASE, UNSPECIFIED Qualifiers: Chronic kidney disease stage: stage 3 (moderate) Qualified Code(s): N18.3 - Chronic kidney disease, stage 3 (moderate) Assessment/Plan Current Medications Generic Name Dose Route Start Last Admin Trade Name Freq PRN Reason Stop Dose Admin Bacitracin 1 applic 12/13/18 10:00 12/21/18 11:13 Bacitracin - TP 1 applic DAILY [facility] Administration Furosemide 40 mg 12/21/18 06:00 12/21/18 06:32 Lasix - PO 40 mg BID@0600,1400 [facility] Administration Hydralazine HCl 25 mg 12/14/18 22:00 12/21/18 11:13 Apresoline - PO 25 mg BID [facility] Administration Impression 1. hyperkalemia 2. CKD 3. pleural effusion 4. htn 5. dm 6, dementia 7. renal cyst Plan - cont lasix - monitor chest tube output - pulm input appreciated - cxr reviewed - losartan to be started at lower dose once he stabilizes - renal cyst will need to be followed Dr Mcgrath
--- NOTE | 2018-12-21 13:41 | PN ---
Progress Note, [employer] - Note Progress Note: Selected Entries 12/20/18 12/20/18 12/20/18 11:18 13:08 15:54 Breakfast 100% Lunch 75% Temperature 98.4 F 12/20/18 12/21/18 12/21/18 21:20 02:00 06:00 Breakfast Lunch Temperature 98 F 98.4 F 98 F 12/21/18 11:48 Breakfast 100% Lunch Temperature Laboratory Tests 12/21/18 05:30 WBC 5.0 Verbal. Appears comfortable. Noted to be continuously coughing yesterday at lunch- on full fluids/thin liquid. Has chest tube. Case reviewed with PMD. REC: Puree/nectar Monitor PO tolerance MBS, when able
[2018-12-21] MEDS: FUROSEMIDE 20 MG TABLET (FP) PO SCH (14:47)
[2018-12-22] MEDS: FUROSEMIDE 20 MG TABLET (FP) PO SCH ×2 (05:42→13:06)
[2018-12-22 07:00] LABS: ALBUMIN 2.6 g/dl (3.4-5.0); BILIRUBIN,TOTAL 0.4 mg/dL (0.2-1); CALCIUM 8.1 mg/dL (8.5-10.1); CREATININE 1.8 mg/dL (0.55-1.3); POTASSIUM 4.1 mmol/L (3.5-5.1); TOT PROT 5.9 g/dl (6.4-8.2)
[2018-12-22] MEDS: BACITRACIN 15 GM TUBE TOPICAL OINTMENT TP SCH (09:09)
[2018-12-22] MEDS: hydrALAZINE HCL 25 MG TABLET (FP) PO SCH ×2 (09:12→21:27)
--- NOTE | 2018-12-22 09:43 | PN ---
Progress Note, Physician - Current Medication List Current Medications: Active Medications Bacitracin (Bacitracin -) 1 applic TP DAILY [facility] Last Admin: 12/22/18 09:09 Dose: 1 applic Furosemide (Lasix -) 60 mg PO BID@0600,1400 [facility] Last Admin: 12/22/18 05:42 Dose: 60 mg Hydralazine HCl (Apresoline -) 25 mg PO BID [facility] Last Admin: 12/22/18 09:12 Dose: 25 mg - Objective Vital Signs: Vital Signs Temperature 98.3 F 12/22/18 08:00 Pulse Rate 68 12/22/18 08:00 Respiratory Rate 17 12/22/18 08:00 Blood Pressure 139/61 12/22/18 08:00 O2 Sat by Pulse Oximetry (%) 100 12/22/18 08:00 Cardiovascular: Yes: S1, S2 Respiratory: Yes: Regular, CTA Bilaterally Gastrointestinal: Yes: Normal Bowel Sounds, Soft Labs: CBC, BMP 12/21/18 05:30 12/22/18 05:30 INR, PTT INR 1.13 (0.83-1.09) H 12/12/18 12:20 Assessment/Plan - Problems (1) Pleural effusion Assessment/Plan: iv lasix bid s/p chest tube placement pleural fluid analysis noted to be transudative chest tube draiange being monitored Code(s): J90 - PLEURAL EFFUSION, NOT ELSEWHERE CLASSIFIED (2) Anemia Assessment/Plan: s/p PRBC iron panel order noted low iron saturation s/p one dose of venofer appreciate heme eval guaicic negative Code(s): D64.9 - ANEMIA, UNSPECIFIED Qualifiers: Anemia type: unspecified type Qualified Code(s): D64.9 - Anemia, unspecified (3) Hyperkalemia Assessment/Plan: improved Code(s): E87.5 - HYPERKALEMIA (4) [place] (acute kidney injury) Assessment/Plan: creatinine trending down Code(s): N17.9 - ACUTE KIDNEY FAILURE, UNSPECIFIED (5) Anasarca Assessment/Plan: lasix bid - improving diuretics Code(s): R60.1 - GENERALIZED EDEMA (6) HTN (hypertension) Assessment/Plan: hydralazine bid can up tritate if needed Code(s): I10 - ESSENTIAL (PRIMARY) HYPERTENSION Debra sneed recommendations noted to get MBS after chest tube is removed
--- NOTE | 2018-12-22 10:33 | PN ---
Progress Note (short form) - Note Progress Note: s: no cp sob palps dizzy o: Vital Signs Period Temp Pulse Resp BP Sys/Car Pulse Ox Last 24 Hr 97.9 F-98.7 F 61-93 15-24 124-147/38-67 97-100 Constitutional: Yes: Well Nourished, No Distress Eyes: No: Sclera Icterus HENT: No: Nasal Congestion Respiratory: Yes: CTA Bilaterally. nl eff No: Accessory Muscle Use, Rales, Wheezes Gastrointestinal: Yes: Normal Bowel Sounds. No: Distention, Hepatomegaly, Palpable Mass, Tenderness Cardiovascular: Yes: Regular Rate and Rhythm JVD: No Carotid Bruit: No PMI: Non-Displaced Heart Sounds: Yes: S1, S2. No: Gallop Murmur: No: Systolic Murmur, Diastolic Murmur Extremities: No: Cold, Cyanosis Edema: No Integumentary: No: Jaundice Psychiatric: No: Agitated Current Medications Generic Name Dose Route Start Last Admin Trade Name Freq PRN Reason Stop Dose Admin Bacitracin 1 applic 12/13/18 10:00 12/22/18 09:09 Bacitracin - TP 1 applic DAILY [facility] Administration Furosemide 60 mg 12/21/18 12:23 12/22/18 05:42 Lasix - PO 60 mg BID@0600,1400 [facility] Administration Hydralazine HCl 25 mg 12/14/18 22:00 12/22/18 09:12 Apresoline - PO 25 mg BID [facility] Administration CBC, BMP 12/21/18 05:30 12/22/18 05:30 ekg: sr, old rbbb, no sig change prior ct chest: bl mod-large pleural eff Echo 06/2016: nl lv/rv. abnormal diastology. 1+ MAC 1+ Ao dilation Echo 2014: nl LV/EF; nl RV; nl LA; mild-mod TR; RVSP 30-40; mild dil ao root tele: afib, rate ok Assessment and Plan: 88 yo with h/o male HTN, HPL, CVA (acute R thalamic bleed at that time, suspected hypertensive etiology), DM2 admitted for anemia, ams, possible cirrhosis. Anemia: -hgb in 6s initially, improved now -Guaiac negative. -Family declined endoscopy (see GI note) HTN: -cont current meds Elevated cardiac enzymes: -no ekg changes -trop in borderline range x2 with flat trend, trop similar to prior baseline values-->not c/w acs -no ischemic w/u needed at this time [place]/CKD: -cr above baseline, now seems to have stabilized Pleural effs: -s/p chest tube -now on PO Lasix, Cr stable -echo - mild conc LVH, nl LV/RV function, mild ao root dilation AF vs NSR w/ frequent APCS: -confirmed on EKG. does not appear to be candidate for full AC due to possible cirrhosis, anemia, thrombocytopenia, prior ICH. Risks of full AC greater than potential benefits. consider low dose ASA when chest tube removed
--- NOTE | 2018-12-22 10:59 | PN ---
Progress Note (short form) - Note Progress Note: PULMONARY Chest tube with less output. Denies shortness of breath or chest pain. Vital Signs Period Temp Pulse Resp BP Sys/Car Pulse Ox Last 24 Hr 97.9 F-98.7 F 61-93 15-24 124-147/38-67 97-100 Gen: NAD at rest Heart: RRR Lung: decreased breath sounds at the bases Abd: soft, nontender Ext: no edema Chest tube with serous drainage, no air leak CBC, BMP 12/21/18 05:30 12/22/18 05:30 Active Medications Bacitracin (Bacitracin -) 1 applic TP DAILY [facility] Last Admin: 12/22/18 09:09 Dose: 1 applic Furosemide (Lasix -) 60 mg PO BID@0600,1400 [facility] Last Admin: 12/22/18 05:42 Dose: 60 mg Hydralazine HCl (Apresoline -) 25 mg PO BID [facility] Last Admin: 12/22/18 09:12 Dose: 25 mg A/P Acute on Chronic Diastolic Heart Failure Pulmonary HTN Pleural Effusions - Transudate Acute on Chronic Renal Failure HTN DM h/o CVA Anemia Dementia - continue lasix - monitor urine output, creatinine - O2 to keep SpO2 >90% - aspiration precautions - monitor chest tube output, can d/c when output <150mL/24hrs - check CXR in AM - DVT prophylaxis Problem List - Problems (1) Anemia Code(s): D64.9 - ANEMIA, UNSPECIFIED Qualifiers: Anemia type: unspecified type Qualified Code(s): D64.9 - Anemia, unspecified (2) Pleural effusion Code(s): J90 - PLEURAL EFFUSION, NOT ELSEWHERE CLASSIFIED
--- NOTE | 2018-12-22 14:31 | PN ---
Progress Note (short form) - Note Progress Note: covering dr arguello Problems reviewed 1. hyperkalemia 2. CKD 3. pleural effusion 4. htn 5. dm 6, dementia 7. renal cyst Current Medications Bacitracin (Bacitracin -) 1 applic TP DAILY [facility] Last Admin: 12/22/18 09:09 Dose: 1 applic Furosemide (Lasix -) 60 mg PO BID@0600,1400 [facility] Last Admin: 12/22/18 13:06 Dose: 60 mg Hydralazine HCl (Apresoline -) 25 mg PO BID [facility] Last Admin: 12/22/18 09:12 Dose: 25 mg Last Vital Signs Temp Pulse Resp BP Pulse Ox 98.0 F 69 15 133/58 L 100 12/22/18 12:00 12/22/18 12:00 12/22/18 12:00 12/22/18 12:00 12/22/18 08:00 awake, not conversant but able to make some wishes known Heent wnl Neck no jvd Lungs clear Heart reg Abd soft Ext no edema IMP stable renal function better than baseline on lasix Plan monitor urine output follow labs in am
[2018-12-23 06:48] LABS: BASO % 1.1 % (0-2.0); EOS % 0.4 % (0-4.5); HEMATOCRIT 28.6 % (35.4-49); HEMOGLOBIN 9.2 GM/dL (11.7-16.9); LYMPH % 12.8 % (8-40); MCH 25.9 pg (25.7-33.7); MCHC 32.3 g/dl (32.0-35.9); MEAN CELL VOLUME 80.1 fl (80-96); MEAN PLT VOLUME 9.2 fl (7.5-11.1); MONO % 10.1 % (3.8-10.2); NEUT % 75.6 % (42.8-82.8); PLATELET COUNT 131 K/MM3 (134-434); RBC 3.57 M/mm3 (4.00-5.60); RDW 22.4 % (11.9-15.9); WHITE BLOOD COUNT 3.8 K/mm3 (4.0-10.0)
[2018-12-23 06:56] LABS: ALBUMIN 2.8 g/dl (3.4-5.0); BILIRUBIN,TOTAL 0.5 mg/dL (0.2-1); BLOOD UREA NITROGEN 30.6 mg/dL (7-18); CALCIUM 8.2 mg/dL (8.5-10.1); CREATININE 1.9 mg/dL (0.55-1.3); POTASSIUM 4.3 mmol/L (3.5-5.1); TOT PROT 6.4 g/dl (6.4-8.2)
[2018-12-23] MEDS: FUROSEMIDE 20 MG TABLET (FP) PO SCH ×3 (07:25→13:05)
--- NOTE | 2018-12-23 08:45 | PN ---
Progress Note, Physician - Current Medication List Current Medications: Active Medications Bacitracin (Bacitracin -) 1 applic TP DAILY [facility] Last Admin: 12/22/18 09:09 Dose: 1 applic Furosemide (Lasix -) 60 mg PO BID@0600,1400 [facility] Last Admin: 12/23/18 07:25 Dose: Not Given Hydralazine HCl (Apresoline -) 25 mg PO BID [facility] Last Admin: 12/22/18 21:27 Dose: Not Given - Objective Vital Signs: Vital Signs Temperature 99.0 F 12/23/18 00:00 Pulse Rate 67 12/23/18 06:00 Respiratory Rate 16 12/23/18 06:00 Blood Pressure 134/56 L 12/23/18 06:00 O2 Sat by Pulse Oximetry (%) 100 12/22/18 21:00 Cardiovascular: Yes: S1, S2 Respiratory: Yes: Regular, CTA Bilaterally Gastrointestinal: Yes: Normal Bowel Sounds, Soft Neurological: Yes: Alert Labs: CBC, BMP 12/23/18 05:50 12/23/18 05:50 INR, PTT INR 1.13 (0.83-1.09) H 12/12/18 12:20 Assessment/Plan - Problems (1) Pleural effusion Assessment/Plan: iv lasix bid--to po s/p chest tube placement pleural fluid analysis noted to be transudative chest tube draiange being monitored Code(s): J90 - PLEURAL EFFUSION, NOT ELSEWHERE CLASSIFIED (2) Anemia Assessment/Plan: s/p PRBC iron panel order noted low iron saturation s/p one dose of venofer appreciate heme eval guaicic negative Code(s): D64.9 - ANEMIA, UNSPECIFIED Qualifiers: Anemia type: unspecified type Qualified Code(s): D64.9 - Anemia, unspecified (3) Hyperkalemia Assessment/Plan: improved Code(s): E87.5 - HYPERKALEMIA (4) [place] (acute kidney injury) Assessment/Plan: creatinine trending down Code(s): N17.9 - ACUTE KIDNEY FAILURE, UNSPECIFIED (5) Anasarca Assessment/Plan: lasix bid - improving diuretics Code(s): R60.1 - GENERALIZED EDEMA (6) HTN (hypertension) Assessment/Plan: hydralazine bid can up tritate if needed Code(s): I10 - ESSENTIAL (PRIMARY) HYPERTENSION Debra sneed recommendations noted to get MBS after chest tube is removed
[2018-12-23] MEDS: BACITRACIN 15 GM TUBE TOPICAL OINTMENT TP SCH (09:40)
[2018-12-23] MEDS: hydrALAZINE HCL 25 MG TABLET (FP) PO SCH ×2 (09:40→21:47)
--- NOTE | 2018-12-23 10:38 | PN ---
Progress Note (short form) - Note Progress Note: PULMONARY Chest tube with minimal output. Diuresing well with lasix. Denies shortness of breath or chest pain. Vital Signs Period Temp Pulse Resp BP Sys/Car Pulse Ox Last 24 Hr 97.9 F-99.0 F 64-93 15-28 133-173/56-77 100-100 Intake & Output 12/20/18 12/21/18 12/22/18 12/23/18 23:59 23:59 23:59 23:59 Intake Total 100 680 350 Output Total 2200 2420 2165 1000 Balance -2100 -1740 -1815 -1000 Weight 82.129 kg 82.3 kg 79.651 kg Gen: NAD at rest Heart: RRR Lung: decreased breath sounds at the bases Abd: soft, nontender Ext: no edema Chest tube with serous drainage, no air leak CBC, BMP 12/23/18 05:50 12/23/18 05:50 Active Medications Bacitracin (Bacitracin -) 1 applic TP DAILY [facility] Last Admin: 12/23/18 09:40 Dose: 1 applic Furosemide (Lasix -) 60 mg PO BID@0600,1400 [facility] Last Admin: 12/23/18 09:40 Dose: 60 mg Hydralazine HCl (Apresoline -) 25 mg PO BID [facility] Last Admin: 12/23/18 09:40 Dose: 25 mg A/P Acute on Chronic Diastolic Heart Failure Pulmonary HTN Pleural Effusions - Transudate Acute on Chronic Renal Failure HTN DM h/o CVA Anemia Dementia - continue lasix - monitor urine output, creatinine - O2 to keep SpO2 >90% - aspiration precautions - f/u CXR, can likely d/c chest tube - DVT prophylaxis Problem List - Problems (1) Anemia Code(s): D64.9 - ANEMIA, UNSPECIFIED Qualifiers: Anemia type: unspecified type Qualified Code(s): D64.9 - Anemia, unspecified (2) Pleural effusion Code(s): J90 - PLEURAL EFFUSION, NOT ELSEWHERE CLASSIFIED
[2018-12-23 10:39] LABS: ADD RBC MORPHOLOGY YES; PLATELET ESTIMATE DECREASED
--- NOTE | 2018-12-23 10:48 | PN ---
Progress Note (short form) - Note Progress Note: s: no cp sob palps dizzy o: Vital Signs Period Temp Pulse Resp BP Sys/Car Pulse Ox Last 24 Hr 97.9 F-99.0 F 64-93 15-28 133-173/56-77 100-100 Constitutional: Yes: Well Nourished, No Distress Eyes: No: Sclera Icterus HENT: No: Nasal Congestion Respiratory: Yes: CTA Bilaterally. nl eff No: Accessory Muscle Use, Rales, Wheezes Gastrointestinal: Yes: Normal Bowel Sounds. No: Distention, Hepatomegaly, Palpable Mass, Tenderness Cardiovascular: Yes: Regular Rate and Rhythm JVD: No Carotid Bruit: No PMI: Non-Displaced Heart Sounds: Yes: S1, S2. No: Gallop Murmur: No: Systolic Murmur, Diastolic Murmur Extremities: No: Cold, Cyanosis Edema: No Integumentary: No: Jaundice Psychiatric: No: Agitated Current Medications Generic Name Dose Route Start Last Admin Trade Name Freq PRN Reason Stop Dose Admin Bacitracin 1 applic 12/13/18 10:00 12/23/18 09:40 Bacitracin - TP 1 applic DAILY [facility] Administration Furosemide 60 mg 12/21/18 12:23 12/23/18 09:40 Lasix - PO 60 mg BID@0600,1400 [facility] Administration Hydralazine HCl 25 mg 12/14/18 22:00 12/23/18 09:40 Apresoline - PO 25 mg BID [facility] Administration CBC, BMP 12/23/18 05:50 12/23/18 05:50 ekg: sr, old rbbb, no sig change prior ct chest: bl mod-large pleural eff Echo 06/2016: nl lv/rv. abnormal diastology. 1+ MAC 1+ Ao dilation Echo 2014: nl LV/EF; nl RV; nl LA; mild-mod TR; RVSP 30-40; mild dil ao root tele: afib, rate ok Assessment and Plan: 88 yo with h/o male HTN, HPL, CVA (acute R thalamic bleed at that time, suspected hypertensive etiology), DM2 admitted for anemia, ams, possible cirrhosis. Anemia: -hgb in 6s initially, improved now -Guaiac negative. -Family declined endoscopy (see GI note) HTN: -cont current meds Elevated cardiac enzymes: -no ekg changes -trop in borderline range x2 with flat trend, trop similar to prior baseline values-->not c/w acs -no ischemic w/u needed at this time [place]/CKD: -cr above baseline, now seems to have stabilized Pleural effs: -s/p chest tube -now on PO Lasix, Cr stable -echo - mild conc LVH, nl LV/RV function, mild ao root dilation AF vs NSR w/ frequent APCS: -confirmed on EKG. does not appear to be candidate for full AC due to possible cirrhosis, anemia, thrombocytopenia, prior ICH. Risks of full AC greater than potential benefits. consider low dose ASA when chest tube removed cardiac dunn stable, can dc tele
--- NOTE | 2018-12-23 14:24 | PN ---
Progress Note (short form) - Note Progress Note: covering dr arguello Problems reviewed 1. hyperkalemia 2. CKD 3. pleural effusion 4. htn 5. dm 6, dementia 7. renal cyst Current Medications Bacitracin (Bacitracin -) 1 applic TP DAILY [facility] Last Admin: 12/23/18 09:40 Dose: 1 applic Furosemide (Lasix -) 60 mg PO BID@0600,1400 [facility] Last Admin: 12/23/18 13:05 Dose: 60 mg Hydralazine HCl (Apresoline -) 25 mg PO BID [facility] Last Admin: 12/23/18 09:40 Dose: 25 mg Last Vital Signs Temp Pulse Resp BP Pulse Ox 98.5 F 52 L 16 135/55 L 100 12/23/18 12:00 12/23/18 12:00 12/23/18 12:00 12/23/18 12:00 12/23/18 08:50 awake, not conversant but able to make some wishes known Heent wnl Neck no jvd Lungs clear Heart reg Abd soft Ext no edema CBC, BMP 12/23/18 05:50 12/23/18 05:50 IMP stable renal function better than baseline on lasix Plan monitor urine output follow labs in am
[2018-12-24] MEDS: FUROSEMIDE 20 MG TABLET (FP) PO SCH ×2 (05:22→13:31)
[2018-12-24 06:18] LABS: ALBUMIN 2.5 g/dl (3.4-5.0); BILIRUBIN,TOTAL 0.4 mg/dL (0.2-1); BLOOD UREA NITROGEN 31.4 mg/dL (7-18); CREATININE 1.8 mg/dL (0.55-1.3); POTASSIUM 4.1 mmol/L (3.5-5.1); TOT PROT 5.8 g/dl (6.4-8.2)
--- NOTE | 2018-12-24 08:58 | PN ---
Progress Note, Physician - Current Medication List Current Medications: Active Medications Bacitracin (Bacitracin -) 1 applic TP DAILY [facility] Last Admin: 12/23/18 09:40 Dose: 1 applic Furosemide (Lasix -) 60 mg PO BID@0600,1400 [facility] Last Admin: 12/24/18 05:22 Dose: 60 mg Hydralazine HCl (Apresoline -) 25 mg PO BID [facility] Last Admin: 12/23/18 21:47 Dose: 25 mg - Objective Vital Signs: Vital Signs Temperature 98.5 F 12/24/18 07:52 Pulse Rate 68 12/24/18 07:52 Respiratory Rate 21 H 12/24/18 07:52 Blood Pressure 134/66 12/24/18 07:52 O2 Sat by Pulse Oximetry (%) 95 12/24/18 07:52 Cardiovascular: Yes: S1, S2 Respiratory: Yes: Regular, Diminished (at the bases otherwisw clear) Gastrointestinal: Yes: Normal Bowel Sounds, Soft Labs: CBC, BMP 12/23/18 05:50 12/24/18 05:20 INR, PTT INR 1.13 (0.83-1.09) H 12/12/18 12:20 Assessment/Plan - Problems (1) Pleural effusion Assessment/Plan: iv lasix bid--to po s/p chest tube placement--cxr pleural fluid analysis noted to be transudative chest tube draiange being monitored Code(s): J90 - PLEURAL EFFUSION, NOT ELSEWHERE CLASSIFIED (2) Anemia Assessment/Plan: s/p PRBC iron panel order noted low iron saturation s/p one dose of venofer appreciate heme eval guaicic negative family refused endoscopy Code(s): D64.9 - ANEMIA, UNSPECIFIED Qualifiers: Anemia type: unspecified type Qualified Code(s): D64.9 - Anemia, unspecified (3) Hyperkalemia Assessment/Plan: improved Code(s): E87.5 - HYPERKALEMIA (4) [place] (acute kidney injury) Assessment/Plan: creatinine trending down Code(s): N17.9 - ACUTE KIDNEY FAILURE, UNSPECIFIED (5) Anasarca Assessment/Plan: lasix bid - improving diuretics Code(s): R60.1 - GENERALIZED EDEMA (6) HTN (hypertension) Assessment/Plan: hydralazine bid can up tritate if needed Code(s): I10 - ESSENTIAL (PRIMARY) HYPERTENSION Debra sneed recommendations noted to get MBS after chest tube is removed
[2018-12-24] MEDS: hydrALAZINE HCL 25 MG TABLET (FP) PO SCH ×2 (09:38→21:46)
[2018-12-24] MEDS: BACITRACIN 15 GM TUBE TOPICAL OINTMENT TP SCH (09:38)
--- NOTE | 2018-12-24 10:39 | PN ---
Progress Note (short form) - Note Progress Note: s: no cp sob palps dizzy o: Vital Signs Period Temp Pulse Resp BP Sys/Car Pulse Ox Last 24 Hr 98 F-98.5 F 52-74 14-21 130-145/52-76 95-100 Constitutional: Yes: Well Nourished, No Distress Eyes: No: Sclera Icterus HENT: No: Nasal Congestion Respiratory: Yes: CTA Bilaterally. nl eff No: Accessory Muscle Use, Rales, Wheezes Gastrointestinal: Yes: Normal Bowel Sounds. No: Distention, Hepatomegaly, Palpable Mass, Tenderness Cardiovascular: Yes: Regular Rate and Rhythm JVD: No Carotid Bruit: No PMI: Non-Displaced Heart Sounds: Yes: S1, S2. No: Gallop Murmur: No: Systolic Murmur, Diastolic Murmur Extremities: No: Cold, Cyanosis Edema: No Integumentary: No: Jaundice Psychiatric: No: Agitated Current Medications Generic Name Dose Route Start Last Admin Trade Name Freq PRN Reason Stop Dose Admin Bacitracin 1 applic 12/13/18 10:00 12/24/18 09:38 Bacitracin - TP 1 applic DAILY [facility] Administration Furosemide 60 mg 12/21/18 12:23 12/24/18 05:22 Lasix - PO 60 mg BID@0600,1400 [facility] Administration Hydralazine HCl 25 mg 12/14/18 22:00 12/24/18 09:38 Apresoline - PO 25 mg BID [facility] Administration CBC, BMP 12/23/18 05:50 12/24/18 05:20 ekg: sr, old rbbb, no sig change prior ct chest: bl mod-large pleural eff Echo 06/2016: nl lv/rv. abnormal diastology. 1+ MAC 1+ Ao dilation Echo 2014: nl LV/EF; nl RV; nl LA; mild-mod TR; RVSP 30-40; mild dil ao root tele: afib, rate ok Assessment and Plan: 88 yo with h/o male HTN, HPL, CVA (acute R thalamic bleed at that time, suspected hypertensive etiology), DM2 admitted for anemia, ams, possible cirrhosis. Anemia: -hgb in 6s initially, improved now -Guaiac negative. -Family declined endoscopy (see GI note) HTN: -cont current meds Elevated cardiac enzymes: -no ekg changes -trop in borderline range x2 with flat trend, trop similar to prior baseline values-->not c/w acs -no ischemic w/u needed at this time [place]/CKD: -cr above baseline, now seems to have stabilized Pleural effs: -s/p chest tube -now on PO Lasix, Cr stable -echo - mild conc LVH, nl LV/RV function, mild ao root dilation AF vs NSR w/ frequent APCS: -confirmed on EKG. does not appear to be candidate for full AC due to possible cirrhosis, anemia, thrombocytopenia, prior ICH. Risks of full AC greater than potential benefits. consider low dose ASA when chest tube removed
--- NOTE | 2018-12-24 10:59 | PN ---
Progress Note (short form) - Note Progress Note: PULMONARY Chest tube with minimal output. Continues to diurese well with lasix. Denies shortness of breath or chest pain. Vital Signs Period Temp Pulse Resp BP Sys/Car Pulse Ox Last 24 Hr 98 F-98.5 F 52-74 14-21 130-145/52-76 95-100 Intake & Output 12/21/18 12/22/18 12/23/18 12/24/18 23:59 23:59 23:59 23:59 Intake Total 680 350 480 120 Output Total 2420 2165 1600 1550 Balance -0332 -6392 -2764 -1430 Weight 82.3 kg 79.651 kg 79.923 kg Gen: NAD at rest Heart: RRR Lung: decreased breath sounds at the bases Abd: soft, nontender Ext: no edema Chest tube with serous drainage, no air leak CBC, BMP 12/23/18 05:50 12/24/18 05:20 Active Medications Bacitracin (Bacitracin -) 1 applic TP DAILY [facility] Last Admin: 12/24/18 09:38 Dose: 1 applic Furosemide (Lasix -) 60 mg PO BID@0600,1400 [facility] Last Admin: 12/24/18 05:22 Dose: 60 mg Hydralazine HCl (Apresoline -) 25 mg PO BID [facility] Last Admin: 12/24/18 09:38 Dose: 25 mg A/P Acute on Chronic Diastolic Heart Failure Pulmonary HTN Pleural Effusions - Transudate Acute on Chronic Renal Failure HTN DM h/o CVA Anemia Dementia - continue lasix - monitor urine output, creatinine - O2 to keep SpO2 >90% - aspiration precautions - f/u CXR, can likely d/c chest tube - DVT prophylaxis Problem List - Problems (1) Anemia Code(s): D64.9 - ANEMIA, UNSPECIFIED Qualifiers: Anemia type: unspecified type Qualified Code(s): D64.9 - Anemia, unspecified (2) Pleural effusion Code(s): J90 - PLEURAL EFFUSION, NOT ELSEWHERE CLASSIFIED
--- NOTE | 2018-12-24 11:09 | PN ---
Progress Note (short form) - Note Progress Note: covering dr arguello Problems reviewed 1. hyperkalemia- resolved 2. CKD 3. pleural effusion/chest tube drainage 4. htn 5. dm 6, dementia 7. renal cyst Current Medications Bacitracin (Bacitracin -) 1 applic TP DAILY [facility] Last Admin: 12/24/18 09:38 Dose: 1 applic Furosemide (Lasix -) 60 mg PO BID@0600,1400 [facility] Last Admin: 12/24/18 05:22 Dose: 60 mg Hydralazine HCl (Apresoline -) 25 mg PO BID [facility] Last Admin: 12/24/18 09:38 Dose: 25 mg Last Vital Signs Temp Pulse Resp BP Pulse Ox 98.5 F 68 21 H 134/66 95 12/24/18 07:52 12/24/18 07:52 12/24/18 07:52 12/24/18 07:52 12/24/18 08:00 awake, not conversant but able to make some wishes known Heent wnl Neck no jvd Lungs clear Heart reg Abd soft Ext no edema CBC, BMP 12/24/18 05:20 CBC, BMP 12/23/18 05:50 12/23/18 05:50 IMP CKD -stable renal function better than baseline mild prerenal azotemia on lasix Plan monitor urine output follow labs in am
[2018-12-25] MEDS: FUROSEMIDE 20 MG TABLET (FP) PO SCH (06:18)
--- NOTE | 2018-12-25 07:48 | PN ---
Progress Note, Physician - Current Medication List Current Medications: Active Medications Bacitracin (Bacitracin -) 1 applic TP DAILY [facility] Last Admin: 12/24/18 09:38 Dose: 1 applic Furosemide (Lasix -) 60 mg PO BID@0600,1400 [facility] Last Admin: 12/25/18 06:18 Dose: 60 mg Hydralazine HCl (Apresoline -) 25 mg PO BID [facility] Last Admin: 12/24/18 21:46 Dose: 25 mg - Objective Vital Signs: Vital Signs Temperature 97.8 F 12/25/18 04:00 Pulse Rate 67 12/25/18 04:00 Respiratory Rate 21 H 12/25/18 04:00 Blood Pressure 127/56 L 12/25/18 04:00 O2 Sat by Pulse Oximetry (%) 98 12/25/18 01:32 Cardiovascular: Yes: Regular Rate and Rhythm Respiratory: Yes: Regular, CTA Bilaterally Gastrointestinal: Yes: Normal Bowel Sounds, Soft Labs: CBC, BMP 12/23/18 05:50 12/24/18 05:20 INR, PTT INR 1.13 (0.83-1.09) H 12/12/18 12:20 Assessment/Plan - Problems (1) Pleural effusion Assessment/Plan: iv lasix bid--to po--increase to 80 bid s/p chest tube placement--cxr pleural fluid analysis noted to be transudative chest tube draiange being monitored Code(s): J90 - PLEURAL EFFUSION, NOT ELSEWHERE CLASSIFIED (2) Anemia Assessment/Plan: s/p PRBC iron panel order noted low iron saturation s/p one dose of venofer appreciate heme eval guaicic negative family refused endoscopy Code(s): D64.9 - ANEMIA, UNSPECIFIED Qualifiers: Anemia type: unspecified type Qualified Code(s): D64.9 - Anemia, unspecified (3) Hyperkalemia Assessment/Plan: improved Code(s): E87.5 - HYPERKALEMIA (4) [place] (acute kidney injury) Assessment/Plan: creatinine trending down Code(s): N17.9 - ACUTE KIDNEY FAILURE, UNSPECIFIED (5) Anasarca Assessment/Plan: lasix bid - improving diuretics Code(s): R60.1 - GENERALIZED EDEMA (6) HTN (hypertension) Assessment/Plan: hydralazine bid can up tritate if needed Code(s): I10 - ESSENTIAL (PRIMARY) HYPERTENSION Debra sneed recommendations noted to get MBS after chest tube is removed
--- NOTE | 2018-12-25 10:19 | PN ---
Progress Note (short form) - Note Progress Note: s: no cp sob palps dizzy o: Vital Signs Period Temp Pulse Resp BP Sys/Car Pulse Ox Last 24 Hr 97.8 F-99.1 F 57-72 15-22 114-134/46-64 98-98 Constitutional: Yes: Well Nourished, No Distress Eyes: No: Sclera Icterus HENT: No: Nasal Congestion Respiratory: Yes: CTA Bilaterally. nl eff No: Accessory Muscle Use, Rales, Wheezes Gastrointestinal: Yes: Normal Bowel Sounds. No: Distention, Hepatomegaly, Palpable Mass, Tenderness Cardiovascular: Yes: Regular Rate and Rhythm JVD: No Carotid Bruit: No PMI: Non-Displaced Heart Sounds: Yes: S1, S2. No: Gallop Murmur: No: Systolic Murmur, Diastolic Murmur Extremities: No: Cold, Cyanosis Edema: No Integumentary: No: Jaundice Psychiatric: No: Agitated Current Medications Bacitracin (Bacitracin -) 1 applic TP DAILY [facility] Last Admin: 12/24/18 09:38 Dose: 1 applic Furosemide (Lasix -) 80 mg PO BID@0600,1400 [facility] Hydralazine HCl (Apresoline -) 25 mg PO BID [facility] Last Admin: 12/24/18 21:46 Dose: 25 mg ekg: sr, old rbbb, no sig change prior ct chest: bl mod-large pleural eff Echo 06/2016: nl lv/rv. abnormal diastology. 1+ MAC 1+ Ao dilation Echo 2014: nl LV/EF; nl RV; nl LA; mild-mod TR; RVSP 30-40; mild dil ao root tele: sinus Assessment and Plan: 88 yo with h/o male HTN, HPL, CVA (acute R thalamic bleed at that time, suspected hypertensive etiology), DM2 admitted for anemia, ams, possible cirrhosis. Anemia: -hgb in 6s initially, improved now -Guaiac negative. -Family declined endoscopy (see GI note) HTN: -cont current meds Elevated cardiac enzymes: -no ekg changes -trop in borderline range x2 with flat trend, trop similar to prior baseline values-->not c/w acs -no ischemic w/u needed at this time [place]/CKD: -cr above baseline, now seems to have stabilized Pleural effs: -s/p chest tube -now on PO Lasix, Cr stable -echo - mild conc LVH, nl LV/RV function, mild ao root dilation AF vs NSR w/ frequent APCS: -confirmed on EKG. does not appear to be candidate for full AC due to possible cirrhosis, anemia, thrombocytopenia, prior ICH. Risks of full AC greater than potential benefits. consider low dose ASA when chest tube removed
--- NOTE | 2018-12-25 11:26 | PN ---
Progress Note (short form) - Note Progress Note: PULMONARY CXR still with congestive changes but chest tube with minimal output. Continues to diurese well with lasix. Vital Signs Period Temp Pulse Resp BP Sys/Car Pulse Ox Last 24 Hr 97.8 F-99.1 F 57-72 15-22 114-134/46-64 98-98 Intake & Output 12/22/18 12/23/18 12/24/18 12/25/18 23:59 23:59 23:59 23:59 Intake Total 350 480 870 250 Output Total 2165 1600 2050 Balance -1815 -1120 -1180 250 Weight 79.651 kg 79.923 kg 79.923 kg Gen: NAD at rest Heart: RRR Lung: decreased breath sounds at the bases Abd: soft, nontender Ext: no edema Chest tube with serous drainage, no air leak CBC, BMP 12/23/18 05:50 12/24/18 05:20 Active Medications Bacitracin (Bacitracin -) 1 applic TP DAILY [facility] Last Admin: 12/24/18 09:38 Dose: 1 applic Furosemide (Lasix -) 80 mg PO BID@0600,1400 [facility] Hydralazine HCl (Apresoline -) 25 mg PO BID [facility] Last Admin: 12/24/18 21:46 Dose: 25 mg A/P Acute on Chronic Diastolic Heart Failure Pulmonary HTN Pleural Effusions - Transudate Acute on Chronic Renal Failure HTN DM h/o CVA Anemia Dementia - continue lasix - monitor urine output, creatinine - O2 to keep SpO2 >90% - aspiration precautions - DVT prophylaxis Problem List - Problems (1) Anemia Code(s): D64.9 - ANEMIA, UNSPECIFIED Qualifiers: Anemia type: unspecified type Qualified Code(s): D64.9 - Anemia, unspecified (2) Pleural effusion Code(s): J90 - PLEURAL EFFUSION, NOT ELSEWHERE CLASSIFIED
[2018-12-25] MEDS: BACITRACIN 15 GM TUBE TOPICAL OINTMENT TP SCH (11:54)
[2018-12-25] MEDS: hydrALAZINE HCL 25 MG TABLET (FP) PO SCH ×2 (11:54→21:44)
--- NOTE | 2018-12-25 12:57 | PN ---
Progress Note, Physician History of Present Illness: Pt seen and examined at bedside. He is awake and appears comfortable. He feels that his breathing is comfortable. - Current Medication List Current Medications: Active Medications Bacitracin (Bacitracin -) 1 applic TP DAILY [facility] Last Admin: 12/25/18 11:54 Dose: Not Given Furosemide (Lasix -) 80 mg PO BID@0600,1400 [facility] Hydralazine HCl (Apresoline -) 25 mg PO BID [facility] Last Admin: 12/25/18 11:54 Dose: 25 mg - Objective Vital Signs: Vital Signs Temperature 97.8 F 12/25/18 04:00 Pulse Rate 67 12/25/18 04:00 Respiratory Rate 21 H 12/25/18 04:00 Blood Pressure 127/56 L 12/25/18 04:00 O2 Sat by Pulse Oximetry (%) 97 12/25/18 09:00 Constitutional: Yes: Calm Eyes: Yes: Conjunctiva Clear Cardiovascular: Yes: S1, S2 Respiratory: Yes: On Nasal O2 Gastrointestinal: Yes: Soft Genitourinary: Yes: Mae Present Musculoskeletal: Yes: Muscle Weakness Edema: No Neurological: Yes: Confusion Labs: CBC, BMP 12/23/18 05:50 12/24/18 05:20 INR, PTT INR 1.13 (0.83-1.09) H 12/12/18 12:20 Problem List - Problems (1) Elevation of cardiac enzymes Code(s): R74.8 - ABNORMAL LEVELS OF OTHER SERUM ENZYMES (2) Hyperkalemia Code(s): E87.5 - HYPERKALEMIA (3) Pleural effusion Code(s): J90 - PLEURAL EFFUSION, NOT ELSEWHERE CLASSIFIED (4) CKD (chronic kidney disease) Code(s): N18.9 - CHRONIC KIDNEY DISEASE, UNSPECIFIED Qualifiers: Chronic kidney disease stage: stage 3 (moderate) Qualified Code(s): N18.3 - Chronic kidney disease, stage 3 (moderate) Assessment/Plan Current Medications Generic Name Dose Route Start Last Admin Trade Name Freq PRN Reason Stop Dose Admin Bacitracin 1 applic 12/13/18 10:00 12/25/18 11:54 Bacitracin - TP Not Given DAILY [facility] Furosemide 80 mg 12/25/18 14:00 Lasix - PO BID@0600,1400 [facility] Hydralazine HCl 25 mg 12/14/18 22:00 12/25/18 11:54 Apresoline - PO 25 mg BID [facility] Administration Impression 1. hyperkalemia 2. CKD 3. pleural effusion 4. htn 5. dm 6, dementia 7. renal cyst Plan - monitor renal function - monitor chest tube output - pulm follow up - cont lasix, dose was increased, monitor output - losartan to be started at lower dose once he stabilizes - renal cyst will need to be followed Dr Mcgrath
[2018-12-25 13:45] VITALS: BMI 24.5
--- NOTE | 2018-12-25 14:16 | PN ---
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 Overtly tolerating diet well. Case reviewed with nursing Continue Jodee/kasie Monitor PO tolerance MBS to r/o aspiration and to upgrade diet if possible.
[2018-12-25] MEDS: FUROSEMIDE 40 MG TABLET (FP) PO SCH (15:18)
--- NOTE | 2018-12-25 16:48 | CONSULT ---
Consult Consult Specialty:: PM&R Dr Veras for Dr Landry Reason for Consultation:: deconditioning - History of Present Illness History of Present Illness: This is an 88 year old man with a medical history of dementia, CVA, HTN, CKD3, IDDM, who was sent to [facility] 12/12/18 from [facility] with anemia. He received 1 unit pRBC in the ED. GI and Hematology were consulted for anemia; guaiac was negative, and family declined endoscopy. Cards were consulted for elevated troponin. Renal was consulted for [place] on CKD. He was found to have pleural effusion, for which chest tube was placed; fluid studies showed transudate. PT attempted evaluation 12/25/18 which he refused. Physiatry is being consulted for further recommendations. 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, Dementia Cardio/Vascular: Yes: CHF, HTN Gastrointestinal: Yes: Other (vomiting) Hepatobiliary: No: Cirrhosis, Cholelithiasis, Cholecystitis, Choledocholithiasis , Hepatitis A, Hepatitis B, Hepatitis C, Other Renal/: Yes: Renal Inusuff Psych: No: Anxiety, Bipolar, Depression, Panic, Psychosis, Schizophrenia, Other Rheumatology: No: Fibromyalgia, Gout, Lupus, Rheumatoid Arthritis, Sarcoidosis, Vasculitis, Other Endocrine: Yes: Diabetes Mellitus - Alcohol/Substance Use Hx Alcohol Use: No (unknown) - Smoking History Smoking history: Unknown if ever smoked Have you smoked in the past 12 months: No Aproximately how many cigarettes per day: 0 If you are a former smoker, when did you quit?: 52 yrs old - Social History Usual Living Arrangement: Shelter (uses w/c) ADL: Support Services History of Recent Travel: No Home Medications - Allergies Allergies/Adverse Reactions: Allergies Allergy/AdvReac Type Severity Reaction Status Date / Time No Known Allergies Allergy Verified 02/26/17 15:44 - Home Medications Home Medications: Ambulatory Orders Albuterol 2.5/Ipratropium 0.5 [Duoneb -] 1 amp NEB QID #14 amp 10/17/17 hydrALAZINE HCL [Apresoline -] 25 mg PO BID #60 tablet 10/17/17 Bacitracin - [Bacitracin Topical Ointment -] 1 applic TP DAILY 12/12/18 Losartan Potassium 50 mg PO DAILY 12/12/18 Metformin HCl [Glucophage] 500 mg PO BID 12/12/18 Review of Systems Findings/Remarks: Unable to obtain due to mental status, although notes back pain Physical Exam Vital Signs: Vital Signs Temperature 97.8 F 12/25/18 04:00 Pulse Rate 68 12/25/18 12:00 Respiratory Rate 22 H 12/25/18 12:00 Blood Pressure 134/58 L 12/25/18 12:00 O2 Sat by Pulse Oximetry (%) 97 12/25/18 09:00 Musculoskeletal: Yes: Other (General: initially calm elderly M lying in bed NAD, awake and alert N/M: 4/5 B FF then refuses BUE/ BLE ROM/ MMT "no no no", despite 's encouragement Extremities: no BLE pitting edema, no B calf tenderness) Labs: CBC, BMP 12/23/18 05:50 12/24/18 05:20 Assessment/Plan Impression: 1) Deficits mobility/ ADLs 2) Deconditioning 3) Gait abnormality 4) Dementia with hx CVA 5) HTN with elevated cardiac enzymes without evidence ACS 6) Pleural effusion s/p chest tube 7) [place] on CKD3 8) Anemia s/p multiple units pRBC 9) IDDM 10) BMI WNL Recommendations: 1) PT for stretching strengthening ROM and functional mobility 2) Progress in therapy likely to be limited by mental status 3) Falls, safety precautions 4) Cardiopulmonary precautions 5) Diabetic precautions 6) Skin protection: float heels, q2 hour turning 7) DVT ppx: off CA due to anemia 8) Monitor CBC given anemia 9) Monitor BMP given renal function 10) Continue plan per primary team 11) Discharge planning: for SNF Thank you for this referral.
[2018-12-26] MEDS: FUROSEMIDE 40 MG TABLET (FP) PO SCH (05:51)
[2018-12-26 06:29] LABS: BLOOD UREA NITROGEN 32.9 mg/dL (7-18); CREATININE 1.7 mg/dL (0.55-1.3); POTASSIUM 4.3 mmol/L (3.5-5.1)
--- NOTE | 2018-12-26 07:52 | PN ---
Progress Note, Physician - Current Medication List Current Medications: Active Medications Bacitracin (Bacitracin -) 1 applic TP DAILY [facility] Last Admin: 12/25/18 11:54 Dose: Not Given Furosemide (Lasix -) 80 mg PO BID@0600,1400 [facility] Last Admin: 12/26/18 05:51 Dose: 80 mg Hydralazine HCl (Apresoline -) 25 mg PO BID [facility] Last Admin: 12/25/18 21:44 Dose: Not Given - Objective Vital Signs: Vital Signs Temperature 97.9 F 12/26/18 04:00 Pulse Rate 66 12/26/18 04:00 Respiratory Rate 21 H 12/26/18 04:00 Blood Pressure 118/49 L 12/26/18 04:00 O2 Sat by Pulse Oximetry (%) 0 L 12/25/18 22:52 Cardiovascular: Yes: Regular Rate and Rhythm Respiratory: Yes: Regular, CTA Bilaterally, Diminished Gastrointestinal: Yes: Normal Bowel Sounds, Soft Labs: CBC, BMP 12/23/18 05:50 12/26/18 05:13 INR, PTT INR 1.13 (0.83-1.09) H 12/12/18 12:20 Assessment/Plan - Problems (1) Pleural effusion Assessment/Plan: iv lasix bid--to po--increase to 80 bid s/p chest tube placement--cxr congestion--ct removed pleural fluid analysis noted to be transudative--on lasix chest tube draiange being monitored Code(s): J90 - PLEURAL EFFUSION, NOT ELSEWHERE CLASSIFIED (2) Anemia Assessment/Plan: s/p PRBC iron panel order noted low iron saturation s/p one dose of venofer appreciate heme eval guaicic negative family refused endoscopy Code(s): D64.9 - ANEMIA, UNSPECIFIED Qualifiers: Anemia type: unspecified type Qualified Code(s): D64.9 - Anemia, unspecified (3) Hyperkalemia Assessment/Plan: improved Code(s): E87.5 - HYPERKALEMIA (4) [place] (acute kidney injury) Assessment/Plan: creatinine trending down Code(s): N17.9 - ACUTE KIDNEY FAILURE, UNSPECIFIED (5) Anasarca Assessment/Plan: lasix bid - lasix increased diuretics Code(s): R60.1 - GENERALIZED EDEMA (6) HTN (hypertension) Assessment/Plan: hydralazine bid can up tritate if needed Code(s): I10 - ESSENTIAL (PRIMARY) HYPERTENSION MBS ORDERED PT THEN SNF
[2018-12-26] MEDS: hydrALAZINE HCL 25 MG TABLET (FP) PO SCH ×2 (09:48→22:16)
[2018-12-26] MEDS: BACITRACIN 15 GM TUBE TOPICAL OINTMENT TP SCH (09:48)
--- NOTE | 2018-12-26 10:35 | PN ---
Progress Note (short form) - Note Progress Note: s: not answering questions, appears comfortable o: Vital Signs Period Temp Pulse Resp BP Sys/Car Pulse Ox Last 24 Hr 97.8 F-98.6 F 66-112 20-23 118-142/49-95 0-97 Constitutional: Yes: Well Nourished, No Distress Eyes: No: Sclera Icterus HENT: No: Nasal Congestion Respiratory: Yes: CTA Bilaterally. nl eff No: Accessory Muscle Use, Rales, Wheezes Gastrointestinal: Yes: Normal Bowel Sounds. No: Distention, Hepatomegaly, Palpable Mass, Tenderness Cardiovascular: Yes: Regular Rate and Rhythm JVD: No Carotid Bruit: No PMI: Non-Displaced Heart Sounds: Yes: S1, S2. No: Gallop Murmur: No: Systolic Murmur, Diastolic Murmur Extremities: No: Cold, Cyanosis Edema: No Integumentary: No: Jaundice Psychiatric: No: Agitated Current Medications Bacitracin (Bacitracin -) 1 applic TP DAILY [facility] Last Admin: 12/26/18 09:48 Dose: Not Given Furosemide (Lasix -) 80 mg PO BID@0600,1400 [facility] Last Admin: 12/26/18 05:51 Dose: 80 mg Hydralazine HCl (Apresoline -) 25 mg PO BID [facility] Last Admin: 12/26/18 09:48 Dose: 25 mg ekg: sr, old rbbb, no sig change prior ct chest: bl mod-large pleural eff Echo 06/2016: nl lv/rv. abnormal diastology. 1+ MAC 1+ Ao dilation Echo 2014: nl LV/EF; nl RV; nl LA; mild-mod TR; RVSP 30-40; mild dil ao root tele: sinus Assessment and Plan: 88 yo with h/o male HTN, HPL, CVA (acute R thalamic bleed at that time, suspected hypertensive etiology), DM2 admitted for anemia, ams, possible cirrhosis. Anemia: -hgb in 6s initially, has been stable -Guaiac negative. -Family declined endoscopy (see GI note) HTN: -cont current meds Elevated cardiac enzymes: -no ekg changes -trop in borderline range x2 with flat trend, trop similar to prior baseline values-->not c/w acs -no ischemic w/u needed at this time [place]/CKD: -cr above baseline, now seems to have stabilized Pleural effs: -s/p chest tube -now on PO Lasix, Cr stable -echo - mild conc LVH, nl LV/RV function, mild ao root dilation AF vs NSR w/ frequent APCS: -confirmed on EKG. does not appear to be candidate for full AC due to possible cirrhosis, anemia, thrombocytopenia, prior ICH. Risks of full AC greater than potential benefits. consider low dose ASA when chest tube removed
--- NOTE | 2018-12-26 11:44 | PN ---
Progress Note, Physician History of Present Illness: Pt seen and examined at bedside. He appears comfortable. Chest tube was removed. - Current Medication List Current Medications: Active Medications Bacitracin (Bacitracin -) 1 applic TP DAILY [facility] Last Admin: 12/26/18 09:48 Dose: Not Given Furosemide (Lasix -) 80 mg PO BID@0600,1400 [facility] Last Admin: 12/26/18 05:51 Dose: 80 mg Hydralazine HCl (Apresoline -) 25 mg PO BID [facility] Last Admin: 12/26/18 09:48 Dose: 25 mg - Objective Vital Signs: Vital Signs Temperature 97.8 F 12/26/18 08:00 Pulse Rate 67 12/26/18 08:00 Respiratory Rate 23 H 12/26/18 08:00 Blood Pressure 141/55 L 12/26/18 08:00 O2 Sat by Pulse Oximetry (%) 0 L 12/25/18 22:52 Constitutional: Yes: Calm Eyes: Yes: Conjunctiva Clear HENT: Yes: Atraumatic Neck: Yes: Supple Cardiovascular: Yes: S1, S2 Respiratory: Yes: On Nasal O2 Gastrointestinal: Yes: Soft Genitourinary: Yes: Incontinence Musculoskeletal: Yes: WNL Edema: No Integumentary: Yes: WNL Neurological: Yes: Confusion Labs: CBC, BMP 12/23/18 05:50 12/26/18 05:13 INR, PTT INR 1.13 (0.83-1.09) H 12/12/18 12:20 Problem List - Problems (1) Elevation of cardiac enzymes Code(s): R74.8 - ABNORMAL LEVELS OF OTHER SERUM ENZYMES (2) Hyperkalemia Code(s): E87.5 - HYPERKALEMIA (3) Pleural effusion Code(s): J90 - PLEURAL EFFUSION, NOT ELSEWHERE CLASSIFIED (4) CKD (chronic kidney disease) Code(s): N18.9 - CHRONIC KIDNEY DISEASE, UNSPECIFIED Qualifiers: Chronic kidney disease stage: stage 3 (moderate) Qualified Code(s): N18.3 - Chronic kidney disease, stage 3 (moderate) Assessment/Plan Current Medications Generic Name Dose Route Start Last Admin Trade Name Freq PRN Reason Stop Dose Admin Bacitracin 1 applic 12/13/18 10:00 12/26/18 09:48 Bacitracin - TP Not Given DAILY [facility] Furosemide 80 mg 12/25/18 14:00 12/26/18 05:51 Lasix - PO 80 mg BID@0600,1400 [facility] Administration Hydralazine HCl 25 mg 12/14/18 22:00 12/26/18 09:48 Apresoline - PO 25 mg BID [facility] Administration Impression 1. hyperkalemia 2. CKD 3. pleural effusion 4. htn 5. dm 6, dementia 7. renal cyst Plan - cont with lasix - renal function stable - chest tube removed - pulm follow up - losartan still on hold - renal cyst will need to be followed Dr Mcgrath
--- NOTE | 2018-12-26 12:02 | PN ---
Progress Note (short form) - Note Progress Note: PULMONARY Nonverbal today. Vital Signs Period Temp Pulse Resp BP Sys/Car Pulse Ox Last 24 Hr 97.8 F-98.6 F 66-112 20-23 118-142/49-95 0-97 Intake & Output 12/23/18 12/24/18 12/25/18 12/26/18 23:59 23:59 23:59 23:59 Intake Total 480 870 940 Output Total 1600 2050 Balance -1120 -1180 940 Weight 79.923 kg 79.923 kg 78.789 kg Gen: NAD at rest Heart: RRR Lung: decreased breath sounds at the bases Abd: soft, nontender Ext: no edema CBC, BMP 12/23/18 05:50 12/26/18 05:13 Active Medications Bacitracin (Bacitracin -) 1 applic TP DAILY [facility] Last Admin: 12/26/18 09:48 Dose: Not Given Furosemide (Lasix -) 80 mg PO BID@0600,1400 [facility] Last Admin: 12/26/18 05:51 Dose: 80 mg Hydralazine HCl (Apresoline -) 25 mg PO BID [facility] Last Admin: 12/26/18 09:48 Dose: 25 mg A/P Acute on Chronic Diastolic Heart Failure Pulmonary HTN Pleural Effusions - Transudate Acute on Chronic Renal Failure HTN DM h/o CVA Anemia Dementia - continue lasix - monitor urine output, creatinine - O2 to keep SpO2 >90% - aspiration precautions - DVT prophylaxis Problem List - Problems (1) Anemia Code(s): D64.9 - ANEMIA, UNSPECIFIED Qualifiers: Anemia type: unspecified type Qualified Code(s): D64.9 - Anemia, unspecified (2) Pleural effusion Code(s): J90 - PLEURAL EFFUSION, NOT ELSEWHERE CLASSIFIED
[2018-12-26] MEDS: TORSEMIDE 20 MG TABLET (FP) PO SCH (14:14)
[2018-12-27] MEDS: TORSEMIDE 20 MG TABLET (FP) PO SCH ×2 (06:11→15:41)
--- NOTE | 2018-12-27 09:02 | PN ---
Progress Note, Physician Chief Complaint: AWAKE CONFUSED, NAD EVENTS AND NOTES REVIEWED NON-VERBAL - Current Medication List Current Medications: Active Medications Bacitracin (Bacitracin -) 1 applic TP DAILY [facility] Last Admin: 12/26/18 09:48 Dose: Not Given Hydralazine HCl (Apresoline -) 25 mg PO BID [facility] Last Admin: 12/26/18 22:16 Dose: Not Given Torsemide (Demadex -) 40 mg PO BIDLASIX [facility] Last Admin: 12/27/18 06:11 Dose: 40 mg - Objective Vital Signs: Vital Signs Temperature 99.1 F 12/27/18 04:20 Pulse Rate 41 L 12/27/18 04:00 Respiratory Rate 17 12/27/18 04:00 Blood Pressure 115/42 L 12/27/18 04:20 O2 Sat by Pulse Oximetry (%) 99 12/26/18 20:13 Constitutional: Yes: No Distress Cardiovascular: Yes: Pulse Irregular Respiratory: Yes: Diminished, On Nasal O2 Gastrointestinal: Yes: Soft Genitourinary: Yes: Incontinence Musculoskeletal: Yes: Muscle Weakness Edema: No Integumentary: Yes: Rash Neurological: Yes: Confusion, Pre-Existing Deficit Psychiatric: Yes: Other Labs: CBC, BMP 12/23/18 05:50 12/26/18 05:13 INR, PTT INR 1.13 (0.83-1.09) H 12/12/18 12:20 Problem List - Problems (1) CVA, old, cognitive deficits Code(s): I69.319 - UNSP SYMPTOMS AND SIGNS W COGN FNCTNS FOL CEREBRAL INFRC (2) Abnormal CT of the abdomen Code(s): R93.5 - ABN FINDINGS ON DX IMAGING OF ABD REGIONS, INC RETROPERITON (3) Anasarca Code(s): R60.1 - GENERALIZED EDEMA (4) Anemia Code(s): D64.9 - ANEMIA, UNSPECIFIED Qualifiers: Anemia type: unspecified type Qualified Code(s): D64.9 - Anemia, unspecified (5) HTN (hypertension) Code(s): I10 - ESSENTIAL (PRIMARY) HYPERTENSION (6) Hyperkalemia Code(s): E87.5 - HYPERKALEMIA (7) Pleural effusion Code(s): J90 - PLEURAL EFFUSION, NOT ELSEWHERE CLASSIFIED (8) [place] (acute kidney injury) Code(s): N17.9 - ACUTE KIDNEY FAILURE, UNSPECIFIED (9) Acute on chronic renal failure Code(s): N17.9 - ACUTE KIDNEY FAILURE, UNSPECIFIED; N18.9 - CHRONIC KIDNEY DISEASE, UNSPECIFIED (10) Agitation requiring sedation protocol Code(s): R45.1 - RESTLESSNESS AND AGITATION (11) Dementia Code(s): F03.90 - UNSPECIFIED DEMENTIA WITHOUT BEHAVIORAL DISTURBANCE (12) Diabetes Code(s): E11.9 - TYPE 2 DIABETES MELLITUS WITHOUT COMPLICATIONS Assessment/Plan CHF STABLE ON DEMADEX MONITOR DAILY [facility] FOLLOW UP PULMONARY SUPPORT RESTRAINTS FOR INTERRUPTION OF CARE DC FAUSTIN CONTINUE LIQUID DIET CHECK SWALLOW EVAL DC PLANNING
[2018-12-27] MEDS: BACITRACIN 15 GM TUBE TOPICAL OINTMENT TP SCH (10:16)
[2018-12-27] MEDS: hydrALAZINE HCL 25 MG TABLET (FP) PO SCH ×2 (10:17→22:10)
--- NOTE | 2018-12-27 11:15 | PN ---
Progress Note (short form) - Note Progress Note: s: no cp sob palps dizzy o: Vital Signs Period Temp Pulse Resp BP Sys/Car Pulse Ox Last 24 Hr 97.4 F-99.1 F 41-64 17-26 115-133/41-75 99-99 Constitutional: Yes: Well Nourished, No Distress Eyes: No: Sclera Icterus HENT: No: Nasal Congestion Respiratory: Yes: CTA Bilaterally. nl eff No: Accessory Muscle Use, Rales, Wheezes Gastrointestinal: Yes: Normal Bowel Sounds. No: Distention, Hepatomegaly, Palpable Mass, Tenderness Cardiovascular: Yes: Regular Rate and Rhythm JVD: No Carotid Bruit: No PMI: Non-Displaced Heart Sounds: Yes: S1, S2. No: Gallop Murmur: No: Systolic Murmur, Diastolic Murmur Extremities: No: Cold, Cyanosis Edema: No Integumentary: No: Jaundice Psychiatric: No: Agitated Current Medications Generic Name Dose Route Start Last Admin Trade Name Freq PRN Reason Stop Dose Admin Bacitracin 1 applic 12/13/18 10:00 12/27/18 10:16 Bacitracin - TP 1 applic DAILY [facility] Administration Hydralazine HCl 25 mg 12/14/18 22:00 12/27/18 10:17 Apresoline - PO 25 mg BID [facility] Administration Torsemide 40 mg 12/26/18 14:00 12/27/18 06:11 Demadex - PO 40 mg BIDLASIX [facility] Administration CBC, BMP 12/23/18 05:50 12/26/18 05:13 ekg: sr, old rbbb, no sig change prior ct chest: bl mod-large pleural eff Echo 06/2016: nl lv/rv. abnormal diastology. 1+ MAC 1+ Ao dilation Echo 2014: nl LV/EF; nl RV; nl LA; mild-mod TR; RVSP 30-40; mild dil ao root tele: afib, rate ok Assessment and Plan: 88 yo with h/o male HTN, HPL, CVA (acute R thalamic bleed at that time, suspected hypertensive etiology), DM2 admitted for anemia, ams, possible cirrhosis. Anemia: -hgb in 6s initially, improved now -Guaiac negative. -Family declined endoscopy (see GI note) HTN: -cont current meds Elevated cardiac enzymes: -no ekg changes -trop in borderline range x2 with flat trend, trop similar to prior baseline values-->not c/w acs -no ischemic w/u needed at this time [place]/CKD: -cr above baseline, now seems to have stabilized Pleural effs: -s/p chest tube -now on PO Lasix, Cr stable -echo - mild conc LVH, nl LV/RV function, mild ao root dilation AF vs NSR w/ frequent APCS: -confirmed on EKG. does not appear to be candidate for full AC due to possible cirrhosis, anemia, thrombocytopenia, prior ICH. Risks of full AC greater than potential benefits. consider low dose ASA when chest tube removed
--- NOTE | 2018-12-27 12:12 | PN ---
Progress Note (short form) - Note Progress Note: PULMONARY Denies shortness of breath. Vital Signs Period Temp Pulse Resp BP Sys/Car Pulse Ox Last 24 Hr 97.4 F-99.1 F 41-62 17-26 115-129/41-75 99-99 Intake & Output 12/24/18 12/25/18 12/26/18 12/27/18 23:59 23:59 23:59 23:59 Intake Total 870 940 350 300 Output Total 0 Balance -1180 940 350 300 Weight 79.923 kg 79.923 kg 78.789 kg 77.593 kg Gen: NAD at rest Heart: RRR Lung: decreased breath sounds at the bases Abd: soft, nontender Ext: no edema CBC, BMP 12/23/18 05:50 12/26/18 05:13 Active Medications Bacitracin (Bacitracin -) 1 applic TP DAILY [facility] Last Admin: 12/27/18 10:16 Dose: 1 applic Hydralazine HCl (Apresoline -) 25 mg PO BID [facility] Last Admin: 12/27/18 10:17 Dose: 25 mg Torsemide (Demadex -) 40 mg PO BIDLASIX [facility] Last Admin: 12/27/18 06:11 Dose: 40 mg A/P Acute on Chronic Diastolic Heart Failure Pulmonary HTN Pleural Effusions - Transudate Acute on Chronic Renal Failure HTN DM h/o CVA Anemia Dementia - continue torsemide - monitor urine output, creatinine - O2 to keep SpO2 >90% - aspiration precautions - DVT prophylaxis Problem List - Problems (1) Anemia Code(s): D64.9 - ANEMIA, UNSPECIFIED Qualifiers: Anemia type: unspecified type Qualified Code(s): D64.9 - Anemia, unspecified (2) Pleural effusion Code(s): J90 - PLEURAL EFFUSION, NOT ELSEWHERE CLASSIFIED
--- NOTE | 2018-12-27 12:56 | PN ---
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 Still on Puree/nectar. [place] coughing after lunch, seated upright. (-) aspiration during study, but risk. CXR congestion noted. Continue diet as ordered. Defer free water protocol Mouth care before meals
--- NOTE | 2018-12-27 13:14 | PN ---
Progress Note, Physician History of Present Illness: Pt seen and examined at bedside. He is awake and appears comfortable. He denies shortness of breath. - Current Medication List Current Medications: Active Medications Bacitracin (Bacitracin -) 1 applic TP DAILY [facility] Last Admin: 12/27/18 10:16 Dose: 1 applic Hydralazine HCl (Apresoline -) 25 mg PO BID [facility] Last Admin: 12/27/18 10:17 Dose: 25 mg Torsemide (Demadex -) 40 mg PO BIDLASIX [facility] Last Admin: 12/27/18 06:11 Dose: 40 mg - Objective Vital Signs: Vital Signs Temperature 98.3 F 12/27/18 12:00 Pulse Rate 42 L 12/27/18 12:00 Respiratory Rate 23 H 12/27/18 12:00 Blood Pressure 125/47 L 12/27/18 12:00 O2 Sat by Pulse Oximetry (%) 99 12/27/18 09:00 Constitutional: Yes: Calm Eyes: Yes: Conjunctiva Clear HENT: Yes: Atraumatic Cardiovascular: Yes: S1, S2 Respiratory: Yes: On Nasal O2 Gastrointestinal: Yes: Soft Genitourinary: Yes: Incontinence Musculoskeletal: Yes: Muscle Weakness Edema: No Neurological: Yes: Confusion Labs: CBC, BMP 12/23/18 05:50 12/26/18 05:13 INR, PTT INR 1.13 (0.83-1.09) H 12/12/18 12:20 Problem List - Problems (1) Elevation of cardiac enzymes Code(s): R74.8 - ABNORMAL LEVELS OF OTHER SERUM ENZYMES (2) Hyperkalemia Code(s): E87.5 - HYPERKALEMIA (3) Pleural effusion Code(s): J90 - PLEURAL EFFUSION, NOT ELSEWHERE CLASSIFIED (4) CKD (chronic kidney disease) Code(s): N18.9 - CHRONIC KIDNEY DISEASE, UNSPECIFIED Qualifiers: Chronic kidney disease stage: stage 3 (moderate) Qualified Code(s): N18.3 - Chronic kidney disease, stage 3 (moderate) Assessment/Plan Current Medications Generic Name Dose Route Start Last Admin Trade Name Freq PRN Reason Stop Dose Admin Bacitracin 1 applic 12/13/18 10:00 12/27/18 10:16 Bacitracin - TP 1 applic DAILY [facility] Administration Hydralazine HCl 25 mg 12/14/18 22:00 12/27/18 10:17 Apresoline - PO 25 mg BID [facility] Administration Torsemide 40 mg 12/26/18 14:00 12/27/18 06:11 Demadex - PO 40 mg BIDLASIX [facility] Administration Impression 1. hyperkalemia 2. CKD 3. pleural effusion 4. htn 5. dm 6, dementia 7. renal cyst Plan - cont torsemide - monitor renal function - monitor volume status - pulm follow up - losartan still on hold - renal cyst will need to be followed Dr Mcgrath
[2018-12-28] MEDS: TORSEMIDE 20 MG TABLET (FP) PO SCH ×2 (05:29→14:24)
[2018-12-28 06:44] LABS: BLOOD UREA NITROGEN 48.6 mg/dL (7-18); CALCIUM 8.5 mg/dL (8.5-10.1); CREATININE 2.1 mg/dL (0.55-1.3); POTASSIUM 4.7 mmol/L (3.5-5.1)
[2018-12-28 08:43] VITALS: BP 146/49; PULSE 62; TEMP 98.3
--- NOTE | 2018-12-28 09:47 | PN ---
Progress Note, Physician Chief Complaint: no distress Denies CP TELE: rate controlled AF - Current Medication List Current Medications: Active Medications Bacitracin (Bacitracin -) 1 applic TP DAILY [facility] Last Admin: 12/27/18 10:16 Dose: 1 applic Hydralazine HCl (Apresoline -) 25 mg PO BID [facility] Last Admin: 12/27/18 22:10 Dose: 25 mg Torsemide (Demadex -) 40 mg PO BIDLASIX [facility] Last Admin: 12/28/18 05:29 Dose: 40 mg - Objective Vital Signs: Vital Signs Temperature 98.3 F 12/28/18 08:00 Pulse Rate 62 12/28/18 08:00 Respiratory Rate 19 12/28/18 08:38 Blood Pressure 146/49 L 12/28/18 08:00 O2 Sat by Pulse Oximetry (%) 99 12/28/18 08:38 Constitutional: Yes: Calm Cardiovascular: Yes: Pulse Irregular Respiratory: Yes: Other (no wheeze, decreased breath sounds bases) Gastrointestinal: Yes: Soft Edema: Yes Peripheral Pulses WNL: Yes Neurological: Yes: Alert, Oriented Labs: CBC, BMP 12/23/18 05:50 12/28/18 05:35 INR, PTT INR 1.13 (0.83-1.09) H 12/12/18 12:20 - ....Imaging EKG: Image Reviewed Assessment/Plan Assessment and Plan: 88 yo with h/o male HTN, HPL, CVA (acute R thalamic bleed at that time, suspected hypertensive etiology), DM2 admitted for anemia, ams, possible cirrhosis. Anemia: -hgb in 6s initially, improved now -Guaiac negative. -Family declined endoscopy (see GI note) HTN: -cont current meds Elevated cardiac enzymes: -no ekg changes -trop in borderline range x2 with flat trend, trop similar to prior baseline values-->not c/w acs -no ischemic w/u needed at this time [place]/CKD: -cr above baseline, now seems to have stabilized Pleural effs: -s/p chest tube -now on PO diuretic, Cr stable -echo - mild conc LVH, nl LV/RV function, mild ao root dilation AF vs NSR w/ frequent APCS: -confirmed on EKG. does not appear to be candidate for full AC due to possible cirrhosis, anemia, thrombocytopenia, prior ICH. Risks of full AC greater than potential benefits. consider low dose ASA when chest tube removed
[2018-12-28] MEDS: hydrALAZINE HCL 25 MG TABLET (FP) PO SCH (10:05)
[2018-12-28] MEDS: BACITRACIN 15 GM TUBE TOPICAL OINTMENT TP SCH (10:06)
--- NOTE | 2018-12-28 10:16 | DS ---
Physical Examination Vital Signs: Vital Signs Temperature 98.3 F 12/28/18 08:00 Pulse Rate 62 12/28/18 08:00 Respiratory Rate 19 12/28/18 08:38 Blood Pressure 146/49 L 12/28/18 08:00 O2 Sat by Pulse Oximetry (%) 99 12/28/18 08:38 Findings/Remarks: chest tube removed, breathing on room air Constitutional: Yes: Other Cardiovascular: Yes: Pulse Irregular Respiratory: Yes: Diminished, On Nasal O2 Gastrointestinal: Yes: Soft Renal/: Yes: Incontinence Musculoskeletal: Yes: Muscle Weakness Edema: No Labs: CBC, BMP 12/23/18 05:50 12/28/18 05:35 Discharge Summary Reason For Visit: CALCULUS OF KIDNEY Current Active Problems Abnormal CT of the abdomen (Acute) Anasarca (Acute) Anemia (Acute) CVA, old, cognitive deficits (Acute) Elevation of cardiac enzymes (Acute) HTN (hypertension) (Acute) Hyperkalemia (Acute) Pleural effusion (Acute) Procedures: Principal: chest tube Hospital Course: admitted b/l pleural effussions with drainage via chest tube, patient is breathing better will need to follow up renal function as outpatient Condition: Fair - Instructions Diet, Activity, Other Instructions: STOP METFORMIN AND LOSARTIN RESTART LOSARTIN OUTPATIENT FOLLOW RENAL FUNCTION WEEKLY USE SLIDING SCAL NOVOLOG FOR DIABETES Disposition: [facility] - Home Medications Comprehensive Discharge Medication List: Ambulatory Orders Albuterol 2.5/Ipratropium 0.5 [Duoneb -] 1 amp NEB QID #14 amp 10/17/17 hydrALAZINE HCL [Apresoline -] 25 mg PO BID #60 tablet 10/17/17 Bacitracin - [Bacitracin Topical Ointment -] 1 applic TP DAILY 12/12/18 Insulin Sliding Scale [Novolog Vial Sliding Scale -] 1 units SQ BIDAC #4 pen 10/10 Torsemide [Demadex -] 40 mg PO BIDLASIX tablet 12/28/18
--- NOTE | 2018-12-28 13:04 | PN ---
Progress Note, Physician History of Present Illness: Pt seen and examined at bedside. He is awake and appears comfortable. - Current Medication List Current Medications: Active Medications Bacitracin (Bacitracin -) 1 applic TP DAILY [facility] Last Admin: 12/28/18 10:06 Dose: 1 applic Hydralazine HCl (Apresoline -) 25 mg PO BID [facility] Last Admin: 12/28/18 10:05 Dose: 25 mg Torsemide (Demadex -) 40 mg PO BIDLASIX [facility] Last Admin: 12/28/18 05:29 Dose: 40 mg - Objective Vital Signs: Vital Signs Temperature 98.3 F 12/28/18 08:00 Pulse Rate 62 12/28/18 08:00 Respiratory Rate 19 12/28/18 08:38 Blood Pressure 146/49 L 12/28/18 08:00 O2 Sat by Pulse Oximetry (%) 99 12/28/18 08:38 Constitutional: Yes: Calm Eyes: Yes: Conjunctiva Clear HENT: Yes: Atraumatic Cardiovascular: Yes: S1, S2 Respiratory: Yes: On Nasal O2 Gastrointestinal: Yes: Soft Genitourinary: Yes: Incontinence Musculoskeletal: Yes: Muscle Weakness Edema: No Integumentary: Yes: WNL Neurological: Yes: Confusion Labs: CBC, BMP 12/23/18 05:50 12/28/18 05:35 INR, PTT INR 1.13 (0.83-1.09) H 12/12/18 12:20 Problem List - Problems (1) Elevation of cardiac enzymes Code(s): R74.8 - ABNORMAL LEVELS OF OTHER SERUM ENZYMES (2) Hyperkalemia Code(s): E87.5 - HYPERKALEMIA (3) Pleural effusion Code(s): J90 - PLEURAL EFFUSION, NOT ELSEWHERE CLASSIFIED (4) CKD (chronic kidney disease) Code(s): N18.9 - CHRONIC KIDNEY DISEASE, UNSPECIFIED Qualifiers: Chronic kidney disease stage: stage 3 (moderate) Qualified Code(s): N18.3 - Chronic kidney disease, stage 3 (moderate) Assessment/Plan Current Medications Generic Name Dose Route Start Last Admin Trade Name Freq PRN Reason Stop Dose Admin Bacitracin 1 applic 12/13/18 10:00 12/28/18 10:06 Bacitracin - TP 1 applic DAILY [facility] Administration Hydralazine HCl 25 mg 12/14/18 22:00 12/28/18 10:05 Apresoline - PO 25 mg BID [facility] Administration Torsemide 40 mg 12/26/18 14:00 12/28/18 05:29 Demadex - PO 40 mg BIDLASIX [facility] Administration Impression 1. hyperkalemia 2. CKD 3. pleural effusion 4. htn 5. dm 6, dementia 7. 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
--- NOTE | 2018-12-28 14:14 | PN ---
Progress Note, [facility] - Note Progress Note: Selected Entries 12/26/18 12/26/18 12/26/18 04:00 08:00 11:45 Breakfast 75% Supper Temperature 97.9 F 97.8 F 12/26/18 12/26/18 12/26/18 12:00 16:00 20:00 Breakfast Supper Temperature 97.8 F 97.4 F L 97.6 F 12/26/18 12/27/18 12/27/18 21:25 04:00 04:20 Breakfast Supper 100% Temperature 97.6 F 99.1 F 12/27/18 12/27/18 09:33 12:00 Breakfast 100% Supper Temperature 98.3 F Laboratory Tests 12/23/18 05:50 WBC 3.8 L Selected Entries 12/27/18 12/27/18 12/27/18 04:00 04:20 09:33 Breakfast 100% Diet Tolerated Lunch Supper Temperature 97.6 F 99.1 F 12/27/18 12/27/18 12/27/18 12:00 12:58 20:00 Breakfast Diet Tolerated Lunch 75% Supper Temperature 98.3 F 98.1 F 12/27/18 12/28/18 12/28/18 22:35 00:00 04:00 Breakfast Diet Tolerated Lunch Supper 100% Temperature 98.4 F 98.2 F 12/28/18 12/28/18 08:00 10:00 Breakfast 100% Diet Tolerated Well Lunch Supper Temperature 98.3 F Continue Puree/nectar.
--- NOTE | 2018-12-28 14:27 | PN ---
Progress Note (short form) - Note Progress Note: Awake in NAD. Denies shortness of breath. No acute events overnight. Intake & Output 12/25/18 12/26/18 12/27/18 12/28/18 23:59 23:59 23:59 23:59 Intake Total 157 704 9397 240 Balance 117 008 8108 240 Weight 176 lb 3.2 oz 173 lb 11.2 oz 171 lb 1 oz 173 lb 12.8 oz Last Vital Signs Temp Pulse Resp BP Pulse Ox 98.3 F 62 19 146/49 L 99 12/28/18 08:00 12/28/18 08:00 12/28/18 08:38 12/28/18 08:00 12/28/18 08:38 Active Medications Bacitracin (Bacitracin -) 1 applic TP DAILY [facility] Last Admin: 12/28/18 10:06 Dose: 1 applic Hydralazine HCl (Apresoline -) 25 mg PO BID [facility] Last Admin: 12/28/18 10:05 Dose: 25 mg Torsemide (Demadex -) 40 mg PO BIDLASIX [facility] Last Admin: 12/28/18 05:29 Dose: 40 mg Gen: NAD at rest Heart: RRR Lung: decreased breath sounds at the bases Abd: soft, nontender Ext: no edema Laboratory Results - last 24 hr 12/28/18 05:35 Sodium 142 Potassium 4.7 Chloride 102 Carbon Dioxide 31 Anion Gap 9 BUN 48.6 H Creatinine 2.1 H Est GFR (CKD-EPI)AfAm 32.07 Est GFR (CKD-EPI)NonAf 27.67 Random Glucose 100 Calcium 8.5 Problem List - Problems (1) Anemia Code(s): D64.9 - ANEMIA, UNSPECIFIED Qualifiers: Anemia type: unspecified type Qualified Code(s): D64.9 - Anemia, unspecified (2) Pleural effusion Code(s): J90 - PLEURAL EFFUSION, NOT ELSEWHERE CLASSIFIED A/P 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
== END 2018-12-28 19:16 | DRG 811 ==
LOC: EDBD 11:50 → JER 11:50 → JERBED 13:44 → J2W 12-14 00:41
PROVIDERS: ADMIT Family Medicine; ATTEND Family Medicine
PROC: 30233N1 Transfusion of Nonautologous Red Blood Cells into Peripheral Vein, Percutaneous Approach (ICD-10-PCS; 2018-12-12)
PROC: 0W9B30Z Drainage of Left Pleural Cavity with Drainage Device, Percutaneous Approach (ICD-10-PCS; principal; 2018-12-13)
DX: D64.9 Anemia, unspecified (principal); I50.33 Acute on chronic diastolic (congestive) heart failure; J90 Pleural effusion, not elsewhere classified; R18.8 Other ascites; N17.9 Acute kidney failure, unspecified; I13.0 Hypertensive heart and chronic kidney disease with heart failure and stage 1 through stage 4 chronic kidney disease, or unspecified chronic kidney disease; J98.11 Atelectasis; F03.91 Unspecified dementia, unspecified severity, with behavioral disturbance; I48.91 Unspecified atrial fibrillation; E78.5 Hyperlipidemia, unspecified; E87.5 Hyperkalemia; R74.8 Abnormal levels of other serum enzymes; R93.5 Abnormal findings on diagnostic imaging of other abdominal regions, including retroperitoneum; I95.9 Hypotension, unspecified; I27.20 Pulmonary hypertension, unspecified; E11.22 Type 2 diabetes mellitus with diabetic chronic kidney disease; N18.3 Chronic kidney disease, stage 3 (moderate); N28.1 Cyst of kidney, acquired; K74.60 Unspecified cirrhosis of liver; I45.10 Unspecified right bundle-branch block; R00.1 Bradycardia, unspecified; Z79.4 Long term (current) use of insulin; Z86.73 Personal history of transient ischemic attack (TIA), and cerebral infarction without residual deficits; R26.89 Other abnormalities of gait and mobility
CPT/HCPCS: 32557; 36415; 36430; 36511; 71045-TC-FY; 71250-TC; 74019-TC-FY; 74176-TC; 74230-TC-FY; 76098-TC-FY; 76998-TC; 80048; 80053; 80061; 81003; 82042; 82150; 82272; 82465; 82607; 82746; 82945; 82962; 83036; 83540; 83550; 83605; 83615; 83721; 83735; 83880; 83986; 84100; 84157; 84436; 84443; 84478; 84484; 85025; 85027; 85044; 85610; 85730; 86850; 86900; 86901; 86922; 87040; 87070; 87075; 87086; 87102; 87116; 87205; 87206; 87210; 87899; 88108; 88305-TC; 92611-GN; 93005; 93010; 93306-TC; 94640; 97116-GP; 97162-GP; 99285-25; C1729; C1769; J1756; P9038; P9058